=== PATIENT | female | born 2000 | race Asian ===

== ENCOUNTER 2020-12-29 11:57 | Outpatient (CLI) | payer OTHER ==
--- NOTE | 2020-12-29 15:41 | PROCEDURE REPORT ---
- HPI Diagnosis/Indication for NST: Other Current EDU 01/02/21 Gestation 39 Weeks and 3 Days 2 Para 0 - NST Procedure NST Procedure Start Date 12/29/20 Start Time 11:45 Stop Time 12:37 Vibroacoustic Stimulation Used No Patient States Movement Yes - Results and Plan Plan: Face to face visit Aurea presents to [facility] immediately following her routine office visit secondary to in office provider auscultating heart rate decelerations via bedside doppler. She denies vaginal bleeding, leakage of fluid or contractions. Reports +FM. Presents with her who is supportive. NST performed 12/29/2020 NST read 12/29/2020 FHR baseline 155, moderate variability, + accels, no decels Contractions palpate mild every 5-8 minutes with soft resting tone. Pt does not appreciate contractions although after visualizing strip she states she can now tell when they occur however did not know that is what she was experiencing. A/P: Reviewed heart rate tracing with pt and partner who both feel very reassured. Discussed positional changes as potential cause vs movement and auscultating maternal heart rate. Continue with routine care. Advised daily kick counts and reviewed movement recommendations. Pt released home with precautions. Pt verbalized understanding and agrees to above plan. She denies further questions or concerns at this time. FINAL DIAGNOSIS: Abnormal heart rate in , RESOLVED
== END 2020-12-29 12:38 | disposition home or self-care (01) ==
LOC: WFO 11:57 → FBP 11:59 → WFO 12:38
PROVIDERS: ATTEND Nurse Practitioner Obstetrics & Gynecology
DX: O36.8330 Maternal care for abnormalities of the fetal heart rate or rhythm, third trimester, not applicable or unspecified (principal); Z3A.39 39 weeks gestation of pregnancy
CPT/HCPCS: 59025

== ENCOUNTER 2021-01-07 16:55 | Inpatient (IN) | payer OTHER ==
[2021-01-07] MEDS ORDERED: METHYLERGONOVINE 0.2 MG/ML VIAL IM PRN (18:09)
[2021-01-07] MEDS ORDERED: CARBOPROST TROMETHAMINE 250 MCG/ML AMP IM PRN (18:09)
[2021-01-07] MEDS ORDERED: ONDANSETRON 4 MG/2 ML VIAL IVP PRN ×2 (18:09→23:44)
[2021-01-07] MEDS ORDERED: miSOPROStoL 200 MCG TABLET BC PRN (18:09)
[2021-01-07] MEDS ORDERED: SODIUM CHLORIDE FLUSH 0.9% 10 ML SYRINGE IVP PRN (18:09)
[2021-01-07] MEDS ORDERED: OXYTOCIN/SODIUM CHLORIDE 500 ML IV PRN (18:09)
[2021-01-07] MEDS ORDERED: OXYTOCIN 10 UNIT/ML VIAL IM PRN (18:09)
[2021-01-07] MEDS ORDERED: TRANEXAMIC ACID IN NACL 1,000 MG/100 ML BAG IV PRN (18:09)
[2021-01-07] MEDS ORDERED: LIDOCAINE-MPF 1% 30 ML VIAL ID PRN (18:09)
--- NOTE | 2021-01-07 18:14 | HISTORY & PHYSICAL EXAMINATION ---
Admit History - Visit Reason Visit Reason: Other - : 1 Parity: 0 Premature: 0 Ectopic: 0 : 0 Care: positive: [facility] Risk/History: positive: None Complications This : positive: None Smoking Status: Never smoker - Mother's Labs Mother's Blood Type: positive: O Mother's RH: positive: Positive GBS: positive: Group B Strep Positive Rubella Status: positive: Immune Meds/Allgy - Allergies Allergies/Adverse Reactions: Allergies Allergy/AdvReac Type Severity Reaction Status Date / Time No Known Drug Allergies Allergy Verified 05/16/20 12:42 Review of Systems - Constitutional Constitutional: denies: Fatigue, Fever, Chills, Malaise - Eyes Eyes: denies: Blurred vision, Spots in vision, Dipolpia - Cardiovascular Cariovascular: denies: Irregular heart rate, Palpitations, Chest pain, Edema - Respiratory Respiratory: denies: Cough, SOB at rest - Gastrointestinal Gastrointestinal: denies: Change in bowel habits, Nausea, Vomiting - Integumentary Integumentary: denies: Rash, Pruritis - Neurological Neurological: denies: Headache Physical - Abdominal Exam Vital Signs: Temp Pulse Resp BP Pulse Ox 36.8 C 104 H 20 123/74 01/07/21 17:12 01/07/21 17:12 01/07/21 17:12 01/07/21 17:12 Contraction Frequency (min/apart): 4-5 Contraction Intensity: positive: Mild Uterine Resting Tone: positive: Soft - Monitoring Heart Rate Baseline: 170 Strip Review: positive: Category II - Presentation Presentation: positive: Vertex - Vaginal Exam Membranes: positive: Membranes intact Dilation (in cm): 3-4 Effacement (%): 80 Station: positive: -2 Cervical Position: positive: Midposition - Speculum Exam Speculum Exam Performed: positive: No Plan for Labor - Plan For Labor I expect patient to be DC'd or transferred within 96 hours.: Yes Plan for Labor: HPI: Aurea is a 20yo @ 40.5wks gestation by LMP c/w 10.4 wk ultrasound who presents to [facility] for induction of labor secondary to approaching post-dates . She denies vaginal bleeding or leakage of fluid. Reports BH contractions but denies anything painful or consistent. She reports +FM. She denies questions or concerns today. She has been a patient of [facility] since her transfer of care from [facility] at 31wks gestation. She has received adequate care through the duration of her which has remained uncomplicated. She is noted to be GBS positive which was found in urine in course and she will receive IPAP in labor. She will be admitted to [facility] for induction of labor. She is supported by her David. Medications: PNV; Vitamin B6 PRN; Zofran PRN Allergies: NKDA OBHx: G1: 2020 SAB G2: Current PMHx: Depression Surgical Hx: none Social Hx: Never smoker, no ETOH or IVDA. 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 Performed by [facility]. O pos/Rubella immune VZV: non-immune - vaccinate Genetic testing: CF neg; Serum integrated screen negative FAS: 08/18/2020 WNL with the exception of suboptimal visualization of spine and RVOT. Anterior placenta, no previa. 3VC. Size c/w dating - mildly decreased HC/AC F/u - performed at [facility] 10/07/2020- wnl Glucola -96 Influenza: recieved at outside clinic this season TDAP 10/13/2020 GBS in urine - IPAP in labor HSV: denies in self and partner Breast pump Rx previously provided MOD: Anticipate ; David is Active Duty; Its a BOY! - [place]; desires epidural pp contraception: desires IUD- will ge to base pap: complete pp Physical Exam: Normocephalic, atraumatic Heart RRR w/o M/G/R Lungs CTAB Abdomen gravid, soft, nontender EFW 3700g FHR baseline 160, moderate variability, + accels, no decels - overall reassuring Contractions q 4-5 palpate mild with soft resting tone SVE 3-4/80/-2, midposition, soft. Vertex Bilateral LE's trace edema Mood is good Assessment: 20yo @ 40.5wks gestation by LMP c/w 10.4wk U/S Induction of labor GBS positive FHR Category II - tachycardia. Overall reassuring Plan: LR fluid bolus 250cc. Initiate pitocin for induction of labor with titration per protocol Initiate antibiotics for GBS prophylaxis per protocol Continuous monitoring Encouraged ambulation and position changes. Jacuzzi PRN. Nitrous oxide PRN. Epidural per maternal request. Anticipate . Pt verbalized understanding and agrees to above plan. She denies further questions or concerns at this time.
[2021-01-07 18:16] LABS: BASOPHILS % (AUTO) 0.3 %; EOSINOPHILS % (AUTO) 0.2 %; HCT - HEMATOCRIT 36.7 % (37.0-47.0); HGB - HEMOGLOBIN 12.5 g/dL (12.0-16.0); LYMPHOCYTES # (AUTO) 1.5 10^3/uL (1.5-3.5); MEAN CORPUSCULAR HEMOGLOBIN 31.9 pg (27.0-31.0); MEAN CORPUSCULAR HGB CONC 34.1 g/dL (32.0-36.0); MEAN CORPUSCULAR VOLUME 93.6 fL (81.0-99.0); MEAN PLATELET VOLUME 10.9 fL (7.9-10.8); MONOCYTES # (AUTO) 0.8 10^3/uL (0.0-1.0); MONOCYTES % (AUTO) 6.9 %; NEUTROPHILS # (AUTO) 9.3 10^3/uL (1.5-6.6); NEUTROPHILS % (AUTO) 78.5 %; NRBC ABSOLUTE COUNT (AUTO) 0.02 x10^3/uL; NUCLEATED RED BLOOD CELLS AUTO 0.2 /100WBC; PLT - PLATELET COUNT 213 10^3/uL (130-450); RED BLOOD COUNT 3.92 10^6/uL (4.20-5.40); RED CELL DISTRIBUTION WIDTH 15.9 % (12.0-15.0); WHITE BLOOD COUNT 11.8 x10^3/uL (4.8-10.8)
[2021-01-07] MEDS: LACTATED RINGERS 1,000 ML IV SCH (18:17)
[2021-01-07] MEDS ORDERED: AMPICILLIN 2 GM in SODIUM CHLORIDE 0.9% MINIBAG 100 ML IV ONE (18:20)
[2021-01-07] MEDS ORDERED: OXYTOCIN/SODIUM CHLORIDE 500 ML IV SCH (19:00)
[2021-01-07] MEDS: AMPICILLIN 1 GM in SODIUM CHLORIDE 0.9% MINIBAG 100 ML IV SCH (22:47)
--- NOTE | 2021-01-07 22:48 | PROVIDER PROGRESS NOTE ---
Labor Progress Note - Uterine Monitoring Uterine Monitoring Mode: positive: External toco Contraction Frequency (min/apart): 2-3 Contraction Intensity: positive: Moderate Uterine Resting Tone: positive: Soft - Monitoring Monitor Mode: positive: External ultrasound Heart Rate Baseline: 140 Heart Rate Variability: positive: Moderate (6-25 bmp) Accelerations: positive: Present, 15x15 Decelerations: positive: None Strip Review: positive: Category I - Vaginal Exam Dilation (in cm): 4 Effacement (%): 90 Station: -1 Cervical Position: Midposition - Labor Progress Note Labor Progress Note/Additional Text: S: Eyes closed and breathing through contractions. She appears to be coping well but states she is definitely ready for an epidural. She rates the pain 5/10 on a pain scale. She desires to have her water broken if safe. Her is supportive at the bedside. O: FHR baseline 140s, moderate variability, + accels, no decels Contractions palpate moderate every 2-3 minutes with soft resting tone. SVE 4/90/-1, midposition, soft. Vertex. AROM small amount of clear fluid. S/p 2g Ampicillin IV. Just beginning 1g Ampicillin per protocol. Pitocin IOL at current rate of 7mU/mL. A: 20yo @ 40.5wks gestation by 10.5wk U/S Early labor - IOL GBS positive - s/p loading dose of ampicillin FHR Category I P: Continue pitocin for IOL with titration per protocol. Continue ampicillin for GBS prophylaxis per protocol. Continuous monitoring. Anesthesia notified to place epidural per maternal request. Encouraged position changes in bed once comfortable with epidural. Anticipate . Pt and partner at the bedside verbalized understanding and agree to above plan. They deny further questions or concerns at this time.
[2021-01-07] MEDS ORDERED: ROPIVACAINE 0.2% 200 MG/100 ML BAG EP ONE (23:13)
[2021-01-07] MEDS ORDERED: ePHEDrine 50 MG/ML VIAL IVP PRN (23:44)
[2021-01-07] MEDS ORDERED: diphenhydrAMINE INJ 50 MG/ML VIAL IVP PRN (23:44)
[2021-01-07] MEDS ORDERED: METOCLOPRAMIDE 10 MG/2 ML VIAL IVP PRN (23:44)
[2021-01-07] MEDS ORDERED: NALBUPHINE 10 MG/ML AMP IVP PRN (23:44)
[2021-01-07] MEDS ORDERED: NALOXONE 0.4 MG/ML VIAL IVP PRN (23:44)
[2021-01-07] MEDS ORDERED: ROPIVACAINE 0.2% 200 MG/100 ML BAG EP PRN (23:44)
--- NOTE | 2021-01-07 23:47 | ANESTHESIA ---
Pre-Anesthesia VS, & Labs - Diagnosis term labor, IUP - Procedure epidural for Vital Signs: Temp Pulse Resp BP Pulse Ox 36.8 C 104 H 20 123/74 01/07/21 17:12 01/07/21 17:12 01/07/21 17:12 01/07/21 17:12 Height: 5 ft 1 in Weight (kg): 64.864 kg Body Mass Index: 27.0 BMI Classification: Overweight - NPO Last Fluid Intake: t/o night Last Food Intake: full dinner - Is Patient ?: Yes - Lab Results Current Lab Results: Laboratory Tests 01/07/21 17:25: WBC 11.8 H, RBC 3.92 L, Hgb 12.5, Hct 36.7 L, MCV 93.6, MCH 31.9 H, MCHC 34.1, RDW 15.9 H, Plt Count 213, MPV 10.9 H, Neut # (Auto) 9.3 H, Lymph # (Auto) 1.5, [place] # (Auto) 0.8, Eos # (Auto) 0.0, Baso # (Auto) 0.0, Absolute Nucleated RBC 0.02, Nucleated RBC % 0.2 01/07/21 17:25: Blood Type O POSITIVE, Antibody Screen NEGATIVE Lab results reviewed: Yes Fish Bones: 01/07/21 17:25 Home Medications and Allergies Active Medications Carboprost Tromethamine (Carboprost Tromethamine 250 Mcg/Ml Amp) 250 mcg IM Q15M PRN PRN Reason: Step 4: Hemorrhage protocol Stop: 01/12/21 18:09 Oxytocin/Sodium Chloride (Pitocin/Sodium Chloride) 500 mls @ 999 mls/hr IV PRN PRN; Protocol PRN Reason: POST- HEMORR PREVENTION Stop: 01/12/21 18:09 Tranexamic Acid (Tranexamic 1,000 Mg/100ml-Nacl) 1,000 mg in 100 mls @ 600 mls/hr IV .ONCE PRN PRN Reason: EBL >1200mL and within 3hr Stop: 01/12/21 18:09 Oxytocin/Sodium Chloride (Pitocin/Sodium Chloride) 500 mls @ 1 mls/hr IV TITR KEVON; Protocol Last Admin: 01/07/21 18:41 Dose: 1 milliunit/min, 1 mls/hr Documented by: Lactated Ringer's (Lr) 1,000 mls @ 100 mls/hr IV .Q10H [facility] Last Admin: 01/07/21 18:17 Dose: 100 mls/hr Documented by: Ampicillin Sodium 1 gm/ Sodium (Chloride) 100 mls @ 200 mls/hr IV Q4H [facility] Last Admin: 01/07/21 22:47 Dose: 200 mls/hr Documented by: Lidocaine HCl (Lidocaine-Mpf 1% 30 Ml Vial) 30 ml ID .ONCE PRN PRN Reason: PERINEAL REPAIR Stop: 01/12/21 18:09 Methylergonovine Maleate (Methylergonovine 0.2 Mg/Ml Vial) 0.2 mg IM .ONCE PRN PRN Reason: Step 2: Hemorrhage protocol Stop: 01/12/21 18:09 Misoprostol (Misoprostol 200 Mcg Tablet) 800 mcg BC .ONCE PRN PRN Reason: Step 3: Hemorrhage protocol Stop: 01/12/21 18:09 Ondansetron HCl (Ondansetron 4 Mg/2 Ml Vial) 4 mg IVP Q4HR PRN PRN Reason: Nausea / Vomiting Oxytocin (Oxytocin 10 Unit/Ml Vial) 10 unit IM .ONCE PRN PRN Reason: Step one: If no IV access Stop: 01/12/21 18:09 Sodium Chloride (Sodium Chloride Flush 0.9% 10 Ml Syringe) 10 ml IVP 0 100,0900,1700 [facility] Sodium Chloride (Sodium Chloride Flush 0.9% 10 Ml Syringe) 10 ml IVP PRN PRN PRN Reason: NEEDED PER PROVIDER ORDERS Allergies/Adverse Reactions: Allergies Allergy/AdvReac Type Severity Reaction Status Date / Time No Known Drug Allergies Allergy Verified 05/16/20 12:42 Anes History & Medical History - Anesthetic History Anesthesia Complications: reports: No previous complications Family history of Anesthesia Complications: Denies Family history of Malignant Hyperthermia: Denies - Medical History Cardiovascular: reports: None Pulmonary: reports: None Gastrointestinal: reports: None Urinary: reports: None Neuro: reports: None Musculoskeletal: reports: None Endocrine/Autoimmune: reports: None Blood Disorders: reports: None Skin: reports: None Smoking Status: Never smoker Psychosocial: reports: No issues indicated History of Cancer?: No - Obstetrical History : 1 Parity: 0 Events: positive: None Complications: positive: None Exam General: Alert, Oriented x3, Cooperative Dental: WNL Mouth Openin Fingerbreadth Neck Mobility: Normal Mallampati classification: II Thyromental Distance: 4-6 cm Respiratory: No respiratory distress Cardiovascular: Regular rate (tachy t/o induction) Neurological: Normal speech Mental/Cognitive Status: Alert/Oriented X3, Normal for patient Cognitive Status: Within normal limits Plan Anesthesia Type: Epidural Consent for Procedure(s) Verified and Reviewed: Yes Code Status: Attempt Resuscitation ASA classification: 2-Mild systemic disease Is this case an emergency?: No
[2021-01-08] MEDS: LACTATED RINGERS 1,000 ML IV SCH (00:11)
[2021-01-08] MEDS ORDERED: SODIUM CHLORIDE FLUSH 0.9% 10 ML SYRINGE IVP SCH (01:00)
[2021-01-08] MEDS: AMPICILLIN 1 GM in SODIUM CHLORIDE 0.9% MINIBAG 100 ML IV SCH (02:48)
[2021-01-08] MEDS ORDERED: WITCH HAZEL/GLYCERIN 1 PAD TOP PRN (06:23)
[2021-01-08] MEDS ORDERED: HYDROCORTISONE 1% CREAM 28 GM TUBE PR PRN (06:23)
--- NOTE | 2021-01-08 06:36 | DELIVERY NOTE ---
Delivery Note - Labor Labor: positive: Augmented by ARM, Induced by oxytocin - Delivery Method Infant Delivery Method: positive: Spontaneous vaginal delivery - Presentation Presentation: positive: Vertex, JOSHUA - right occiput anterior - Nuchal Cord Nuchal Cord: positive: None - Amniotic Fluid Description Amniotic Fluid Description: positive: Clear - Episiotomy Type Episiotomy Type: positive: None - Laceration Laceration: positive: 1st degree, Vaginal - Suture Suture Type: positive: Vicryl Suture Size: positive: 2-0 - Delivery Outcome Delivery Outcome: positive: Livebirth - Coffey Coffey: positive: Placed in direct skin contact with mother, Stimulated, Warmed, Sumner used sex: positive: Male - Cord Cord: positive: 3 vessels - Placenta Placenta: positive: Intact, Spontaneous - Estimated Blood Loss Estimated Blood Loss (in cc): 250 - Post Delivery Events Post Delivery Events: positive: No post delivery events - Delivery Comments (Free Text/Narrative) Delivery Comments (Free Text/Narrative): Labor: This 20yo @ 40.6 wks gestation by LMP c/w 10.5wk U/S presented on 01/07/2021 for induction of labor secondary to approaching postdates . Upon arrival cervix was 3-4/80/-2 and vertex. FHR was noted to be tachycardic. She was given a 250cc bolus of LR which resolved tachycardia. FHR pattern demonstrated Category I pattern for the remainder of her first stage of labor. Pitocin initiated for induction of labor for a maximum infusion rate of 10mU/mL. Patient received 3 total doses of Ampicillin for adequate GBS prophylaxis. AROM occurred at 2240 and was noted to be a small amount of clear fluid. Epidural placed per maternal request. Epidural placed per maternal request. Pt progressed to c/c/+2 at 0440 with onset of pushing at 0500. : Normal of viable male on 01/08/2021 at 0553. No nuchal cord. The was placed on maternal abdomen, stimulated, dried, and placed skin to skin. 's were 8/9 at 1 and 5 minutes respectively. Pitocin administered via IV for hemostasis. The umbilical cord was allowed to stop pulsating at which time it was doubly clamped by CNM and cut by FOB. 3VC. Cord blood was obtained. Fundal massage and gentle cord traction applied for active management of the third stage. Placenta delivered spontaneously and intact at 0558. EBL 250mL. Fourth stage: Uterine fundus firm and there is no excessive bleeding. The perineum, vagina, and cervix were inspected and noted to have a 2nd degree vaginal and a 1st degree perineal laceration which were repaired using a 2-[address]-1 needle in standard fashion and under sterile conditions. Vaginal examination following repair was completed. Tissues well approximated. initiated. Family bonding well. Both mother and baby were left in stable condition.
[2021-01-08] MEDS ORDERED: LACTATED RINGERS 1,000 ML IV SCH (07:00)
[2021-01-08] MEDS: ACETAMINOPHEN 500 MG TABLET PO SCH ×2 (07:45→17:26)
[2021-01-08] MEDS: IBUPROFEN 800 MG TABLET PO SCH ×3 (07:45→21:25)
[2021-01-08] MEDS: DOCUSATE SODIUM 100 MG CAPSULE PO SCH ×2 (11:32→21:25)
[2021-01-09] MEDS: ACETAMINOPHEN 500 MG TABLET PO SCH ×3 (01:16→18:23)
[2021-01-09] MEDS: IBUPROFEN 800 MG TABLET PO SCH ×3 (05:49→18:23)
--- NOTE | 2021-01-09 09:12 | PROVIDER PROGRESS NOTE ---
Subjective - Subjective Subjective: S: Bonding well with baby. without difficulty per pt however nursing staff reports the baby is not getting latched appropriately. Weight loss is 5%. They strongly desire to be discharged home today. She reports her pain is well controlled with oral medication. Her bleeding is decreased and is light. Her partner is supportive at the bedside. O: BP, 109/71, HR 102, T 36.7 Heart RRR w/o M/G/R, lungs CTAB, abdomen soft and nontender with fundus firm at U. Perineum intact, light lochia rubra. Bilateral LE's no edema. A: 20yo -->P1 PPD#1 s/p TSVD of viable male infant 2nd degree perineal laceration - intact P: Reviewed warning s/sx and when to present. Full discharge teaching completed. Will discharge home today if peds feels it is appropriate however if stays, will hold discharge. Work on with nursing staff today. F/u at [facility] in 1 week or sooner PRN. Pt verbalized understanding and agrees to above plan. She denies further questions or concerns at this time. Objective - Vital Signs/Intake & Output Vital Signs: Vital Signs x48h Temp Pulse Resp BP Pulse Ox 01/09/21 08:39 36.9 C 102 H 17 109/71 01/09/21 05:55 36.5 C 76 16 101/59 L 100 01/09/21 01:09 36.6 C 81 18 102/64 100 Intake & Output: Intake & Output 01/06/21 01/07/21 01/08/21 01/09/21 23:59 23:59 23:59 23:59 Intake Total 100 1790 Output Total 550 850 Balance -450 940 - Lab Results Fish Bones: 01/07/21 17:25
[2021-01-09] MEDS: DOCUSATE SODIUM 100 MG CAPSULE PO SCH (09:47)
[2021-01-10] MEDS: IBUPROFEN 800 MG TABLET PO SCH ×2 (00:26→11:15)
[2021-01-10] MEDS: DOCUSATE SODIUM 100 MG CAPSULE PO SCH ×2 (00:44→11:16)
[2021-01-10] MEDS: ACETAMINOPHEN 500 MG TABLET PO SCH (04:21)
[2021-01-10 09:59] VITALS: BP 123/78
--- NOTE | 2021-01-10 10:45 | PROVIDER PROGRESS NOTE ---
Subjective - Subjective Subjective: FINAL PROGRESS NOTE: S: Bonding well with baby. without difficulty. Pain well controlled with oral medications. Bleeding decreased and is light. They are very ready to be discharged home today. supportive at the bedside. O: Heart RRR w/o M/G/R, lungs CTAB, abdomen soft and nontender with fundus firm at U-1, light lochia rubra, bilateral LE"s no edema. A: 20yo -->P1 PPD#2 s/p TSVD of viable male 2nd degree perineal laceration intact P: Reviewed pp self care and warning s/sx and when to present. Continue PNV while . Advised continuation of ibuprofen and tylenol OTC PRN pain. F/u in 1 week at [facility] or sooner PRN. Pt verbalized understanding and agrees to above plan. She denies further questions or concerns at this time. Objective - Vital Signs/Intake & Output Vital Signs: Vital Signs x48h Temp Pulse Resp BP Pulse Ox 01/10/21 08:00 36.8 C 98 18 123/78 100 01/10/21 04:44 36.6 C 76 16 126/80 100 Intake & Output: Intake & Output 01/07/21 01/08/21 01/09/21 01/10/21 23:59 23:59 23:59 23:59 Intake Total 100 1790 Output Total 550 850 Balance -450 940 - Lab Results Fish Bones: 01/07/21 17:25 Other Labs: Lab Results x24hrs 01/07/21 Range/Units 17:35 Coronavirus (PCR) NEGATIVE
--- NOTE | 2021-01-10 10:46 | Discharge Plan ---
Discharge Plan Problem Reviewed?: Yes Disposition: Home, Self Care Condition: Good Diet: Regular Activity Restrictions: No Restrictions Shower Restrictions: No Driving Restrictions: No Weight Bearing: Full Weight No Smoking: If you smoke, Please STOP! Call for help. Follow-up with: Adali Jenkins CNM, ARNP [Provider Admit Priv/Credential] -
--- NOTE | 2021-01-10 14:00 | Labor Flowsheet ---
Labor Flowsheet Datetime Report Generated by CPN: 01/10/2021 14:00 Datetime: 01/10/2021 07:54 VITAL SIGNS NBP Sys/Shelby/Mean (mmHg): 123 : 78 : 88 Pulse: 98 SpO2 (%): 100 Datetime: 01/08/2021 08:00 Stage of : Recovery Datetime: 01/08/2021 06:45 PAIN Pain Scale: 2 Pain Presence: Constant Pain Type: Cramping Pain Location: Other Pain Goal: 2 Pain Relief Measures: Comfort Measures Pain Assessment Comments: analgesics ordered Datetime: 01/08/2021 06:01 Temperature (C): 37.5 Temperature Route: Tympanic Datetime: 01/08/2021 06:00 LaborFlag: Labor Datetime: 01/08/2021 05:43 Respirations: 22 UTERINE ACTIVITY Monitor Mode: External Frequency (min): 2 Quality: Strong Duration (sec): 40 Pattern: Normal: <= 5 Contractions in 10 Minutes Resting Tone (Palpate): Relaxed Pitocin Checklist: At Least 1 Acceleration of 15 bpm x 15 Seconds in 30 Minutes or Adequate Variabi lity; No More than 5 Uterine Contractions in 10 Minutes for any 20 Minute Interval; Uterus Palpates S oft between Contractions ASSESSMENT A Monitor Mode: External US FHR Baseline Rate : 160 Variability: Moderate 6-25 bpm Accelerations: 15X15 Decelerations: Variable Category: Category II Datetime: 01/08/2021 05:37 MEDICATIONS Pitocin (milliunits): Increased to @ Medication Comments: pitocin increased to 10mu Datetime: 01/08/2021 05:21 Pushing Position: Pushing with Contractions Pushing Progress: Descent with Pushing Datetime: 01/08/2021 05:08 STAGE 2 Pushing: Coached on Pushing Datetime: 01/08/2021 04:40 VAGINAL EXAM Dilatation (cm): 10.0 Effacement (%): 100 Station: 2 Exam by: LissethWilcox RN Datetime: 01/08/2021 03:58 ANESTHESIA Anesthesia Plans: Epidural Anesthesia Level Check: T8- Ribs Datetime: 01/08/2021 03:49 Membrane Status: Ruptured Vaginal Bleeding: Scant Cervix, Consistency: Soft Cervix, Position: Midposition Lie 'A': Longitudinal Vaginal Exam Comments: Small rim R side of cervix. Pt repositioned PATIENT CARE Patient Position/Activity: Left Lateral Datetime: 01/08/2021 02:00 I/O Interventions: Ortiz Cath Inserted Datetime: 01/07/2021 23:40 Membranes Ruptured Date/Time: 01/08/2021 22:40 Membranes Rupture Method: Artificial Amniotic Fluid Color: Clear Amniotic Fluid Amount: Small Amniotic Fluid Odor: Normal PROCEDURE TIME OUT Procedure Verify: Correct Patient Identity; Correct Side and Site are Marked; Accurate Procedure Co nsent Form; Agreement on Procedure to be Done; Correct Patient Position Datetime: 01/07/2021 23:24 Epidural Positioning: Sitting Epidural Procedure: Loading Dose Datetime: 01/07/2021 23:02 Anesthesia Interview: E Datetime: 01/07/2021 20:30 FHR Baseline Changes: No Baseline Change Datetime: 01/07/2021 19:00 COMMUNICATION Communication: Report Given to count includes the [facility]
--- NOTE | 2021-01-10 20:45 | DISCHARGE SUMMARY ---
Physician: KASEY Drummond DATE OF ADMISSION: 01/07/2021 DATE OF DISCHARGE: 01/10/2021 DIAGNOSES ON ADMISSION 1. A 20-year-old, G1, P0 at 40.5 weeks gestation. 2. Induction of labor. 3. Group B Streptococcus positive. 4. heart rate category 2 secondary to tachycardia, however, overall reassuring. DIAGNOSES ON DISCHARGE 1. A 20-year-old, G1, P1-0-0-1, status post spontaneous vaginal delivery on 01/08/2021. 2. . 3. Normal recovery. HISTORY OF PRESENT ILLNESS: She is a patient of [facility], who presented on 2020 for induction of labor secondary to approaching postdates . Upon arrival, cervix was 3 -4 cm dilated, 80% effaced, -1 station, vertex position. heart rate was noted to be tachycardi c. She was given a 250 mL fluid bolus, which resolved tachycardia. Pitocin initiated for dede ction of labor for a maximum infusion rate of 10 milliunits per mL. Patient received 3 total doses o f ampicillin for adequate GBS prophylaxis. Artificial rupture of membranes occurred at 2240 and was noted to be a small amount of clear fluid. Epidural was placed per maternal request. The patient pr ogressed to spontaneously deliver a viable male infant on 01/08/2021 at 0553. Apgars were 8 and 9 at 1 and 5 minutes respectively. EBL 250 mL. Patient was noted to have a second-degree laceration, wh ich was repaired using a 2-0 Vicryl on a CT1 needle in standard fashion under sterile conditions. She has been doing well in her course. She is ambulating and tolerating a regular diet. She is urinating without difficulty and her lochia is normal. Her pain is well controlled with oral medications. She will be discharged home today on day #1 with instructions to continue ta gabriel her vitamin while and to continue taking ibuprofen and Tylenol over-the-c ounter as needed for pain management. She intends to followup with myself at [facility] in 1 week for routine visit or sooner if needed. She has been given precautions to c all if she has any worsening fevers, chills, abdominal pain, increased bleeding or foul-smelling vagi nal lochia. TD: 01/10/2021 10:51
== END 2021-01-10 13:00 | disposition home or self-care (01) | DRG 807 ==
LOC: WFO 16:55 → FBP 16:56 → WFO 18:09 → FBP 18:09
PROVIDERS: ADMIT Nurse Practitioner Obstetrics & Gynecology; ATTEND Nurse Practitioner Obstetrics & Gynecology
PROC: 3E033VJ Introduction of Other Hormone into Peripheral Vein, Percutaneous Approach (ICD-10-PCS; principal; 2021-01-07)
PROC: 10907ZC Drainage of Amniotic Fluid, Therapeutic from Products of Conception, Via Natural or Artificial Opening (ICD-10-PCS; 2021-01-07)
PROC: 10E0XZZ Delivery of Products of Conception, External Approach (ICD-10-PCS; 2021-01-08)
PROC: 0KQM0ZZ Repair Perineum Muscle, Open Approach (ICD-10-PCS; 2021-01-08)
DX: O70.1 Second degree perineal laceration during delivery (principal); Z37.0 Single live birth; O99.824 Streptococcus B carrier state complicating childbirth; Z3A.40 40 weeks gestation of pregnancy; O76 Abnormality in fetal heart rate and rhythm complicating labor and delivery
CPT/HCPCS: 36415; 85025; 86850; 86900; 86901; 87635; A9270; J7120

== ENCOUNTER 2021-01-19 11:56 | Outpatient (CLI) | payer OTHER | END 2021-01-19 12:45 | disposition home or self-care (01) | LOC: WFO 11:56 → FBP 12:00 → WFO 12:45 | PROVIDERS: ATTEND Nurse Practitioner Obstetrics & Gynecology | DX: Z39.1 Encounter for care and examination of lactating mother (principal) | CPT/HCPCS: 99403 ==

== ENCOUNTER 2021-06-10 20:02 | Emergency (ER) | payer OTHER ==
[2021-06-10] MEDS ORDERED: IBUPROFEN 600 MG TABLET PO STA (20:22)
[2021-06-10] MEDS ORDERED: SODIUM CHLORIDE 0.9% 1,000 ML IV STA ×2 (21:54→21:55)
[2021-06-10] MEDS ORDERED: ONDANSETRON 4 MG/2 ML VIAL IVP STA (21:55)
--- NOTE | 2021-06-10 22:02 | XRAY Report ---
PROCEDURE: Chest 1 View X-Ray INDICATIONS: fever chills TECHNIQUE: One view of the chest was acquired. COMPARISON: None FINDINGS: Surgical changes and devices: None. Lungs and pleura: No pleural effusions or pneumothorax. Lungs are clear. Mediastinum: Mediastinal contours appear normal. Heart size is normal. Bones and chest wall: No suspicious bony lesions. Overlying soft tissues appear unremarkable. IMPRESSION: No acute cardiopulmonary disease. Reviewed by: Naomie Garcia MD on 06/10/2021 10:00 PM PDT Approved by: Naomie Garcia MD on 06/10/2021 10:00 PM PDT Station ID: [id number]
--- NOTE | 2021-06-10 22:08 | ED Physician Documentation ---
History of Present Illness - Stated complaint Stated Complaint: FEVER/VOMIT/CHILLS/HEADACHE POST COVID SHOT - Chief complaint Chief Complaint: Fever - Additonal information Additional information: 20-year-old female presents emergency department for evaluation of fatigue, myalgias fever nausea and vomiting that began on after her second COVID-19 vaccination yesterday. She denies any diarrhea however she has been feeling somewhat lightheaded and dizzy. She is currently breast-feeding a 5-month-old. She did have fever chills and myalgias with her first COVID-19 vaccination but not as severe as today's events. She denies any pertinent past medical history and is taking no medications. Denies any chest pain or shortness of air. No cough. Review of Systems Constitutional: reports: Fever, Chills, Myalgias, Fatigue Eyes: reports: Reviewed and negative Ears: reports: Reviewed and negative Nose: reports: Reviewed and negative Throat: reports: Reviewed and negative Cardiac: reports: Reviewed and negative Respiratory: reports: Reviewed and negative GI: reports: Nausea, Vomiting. 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 - Past Surgical History Past Surgical History: No - Present Medications Home Medications: Ambulatory Orders Medication Instructions Recorded Confirmed Ondansetron Odt [Zofran] 4 mg TL Q6H PRN #10 tablet 06/10/21 - Allergies Allergies/Adverse Reactions: Allergies Allergy/AdvReac Type Severity Reaction Status Date / Time No Known Drug Allergies Allergy Verified 05/16/20 12:42 - Social History Does the pt smoke?: No Smoking Status: Never smoker Does the pt drink ETOH?: No Does the pt have substance abuse?: No - Immunizations Immunizations are current?: No - POLST Patient has POLST: No PD ED PE EXPANDED - General General: Alert, No acute distress, Well developed/nourished - Neck Neck: Supple w/out meningeal sx. No: Adenopathy - Cardiac Cardiac: Tachy, Radial strong equal, Pedal strong equal - Respiratory Respiratory: Clear to ausultation evelyn. No: Distress, Labored - Abdomen Abdomen: Normal Bowel sounds. No: Tender to palpation, Rebound, Guarding - Derm Derm: Normal color, Warm and dry Results - Vitals Vitals: Vital Signs - 24 hr 06/10/21 06/10/21 20:16 21:33 Temperature 38.2 C H 38.1 C H Heart Rate 135 H 131 H Respiratory 16 16 Rate Blood Pressure 119/81 H 93/78 O2 Saturation 100 96 Oxygen O2 Source Room air PD MEDICAL DECISION MAKING - ED course Complexity details: d/w patient ED course: This is a very well-appearing 20-year-old female who presents emergency department for evaluation of fever, fatigue myalgias chills and vomiting that began after receiving her second COVID-19 vaccination. She presents febrile and with some tachycardia. She was initially given ibuprofen but remained febrile and tachycardic. She felt that she reported somewhat faint. Patient was given 2 L of crystalloid as well as IV Zofran. Her abdominal exam is entirely unremarkable. No pain was elicited. At this time I do not feel that she would benefit from labs as I suspect that her symptoms are consistent with a post vaccine reaction. Patient will be signed out to my colleague Dr. Montes De Oca to follow-up after she receives the IV fluids. I expect that she will be disposed home and a prescription will be levied for Zofran. If symptoms not markedly improved at that time we can consider further testing. Departure - Departure Clinical Impression: Vomiting Qualifiers: Vomiting type: unspecified Vomiting Intractability: non-intractable Nausea presence: with nausea Qualified Code(s): R11.2 - Nausea with vomiting, unspecified Fever Qualifiers: Fever type: post-vaccination Qualified Code(s): R50.83 - Postvaccination fever Post-vaccination reaction Qualifiers: Encounter type: initial encounter Qualified Code(s): T88.1XXA - Other complications following immunization, not elsewhere classified, initial encounter Condition: Stable Record reviewed to determine appropriate education?: Yes Prescriptions: Ondansetron Odt [Zofran] 4 mg TL Q6H PRN #10 tablet PRN Reason: Nausea / Vomiting Comments: You were seen in the emergency department today for fevers, rigors chills and vomiting after your second COVID-19 vaccine. Your symptoms are very typical of people who have received this vaccine but it is a good sign that your immune system is doing its job. We did give you 2 L of IV fluids here in the emergency department as well as some nausea medicine. I am prescribing some Zofran to help with nausea at home. I would expect your symptoms to be getting better over the next 48 to 72 hours. If you are not improving, you have difficulty breathing any fainting episodes, sudden severe abdominal pain, chest pain or shortness of air then please return to the ER for a second evaluation. It is safe to breast-feed while taking Zofran.
[2021-06-10] MEDS ORDERED: ONDANSETRON ODT 4 MG Prepack 2 TL PRN (23:49)
[2021-06-10 23:56] VITALS: BP 99/66
== END 2021-06-10 23:59 | disposition home or self-care (01) ==
LOC: ED 20:02
DX: R50.83 Postvaccination fever (principal); R11.2 Nausea with vomiting, unspecified; R42 Dizziness and giddiness; R00.0 Tachycardia, unspecified; T50.B95A Adverse effect of other viral vaccines, initial encounter
CPT/HCPCS: 71045; 96361; 96374; 99283; A9270

== ENCOUNTER 2022-09-09 15:06 | Outpatient (CLI) | payer OTHER ==
[2022-09-09] MEDS ORDERED: ONDANSETRON 4 MG/2 ML VIAL IVP PRN (15:44)
[2022-09-09] MEDS ORDERED: ACETAMINOPHEN 325 MG TABLET PO PRN (15:46)
[2022-09-09] MEDS ORDERED: ACETAMINOPHEN 1,000 MG/100 ML 1,000 MG/100 ML BAG IV ONE (15:53)
[2022-09-09] MEDS ORDERED: LACTATED RINGERS 0 ML ONE (15:57)
[2022-09-09] MEDS ORDERED: SODIUM CHLORIDE 0.9% 500 ML IV ONE (15:58)
[2022-09-09 16:56] LABS: BASOPHILS # (AUTO) 0.1 10^3/uL (0.0-0.1); BASOPHILS % (AUTO) 0.3 %; EOSINOPHILS % (AUTO) 0.3 %; HGB - HEMOGLOBIN 10.6 g/dL (12.0-16.0); LYMPHOCYTES # (AUTO) 0.3 10^3/uL (1.5-3.5); MEAN CORPUSCULAR HEMOGLOBIN 30.4 pg (27.0-31.0); MEAN CORPUSCULAR HGB CONC 33.1 g/dL (32.0-36.0); MEAN CORPUSCULAR VOLUME 91.7 fL (81.0-99.0); MEAN PLATELET VOLUME 10.9 fL (7.9-10.8); MONOCYTES # (AUTO) 0.9 10^3/uL (0.0-1.0); NEUTROPHILS # (AUTO) 13.2 10^3/uL (1.5-6.6); NEUTROPHILS % (AUTO) 89.2 %; NRBC ABSOLUTE COUNT (AUTO) 0.02 x10^3/uL; NUCLEATED RED BLOOD CELLS AUTO 0.1 /100WBC; PLT - PLATELET COUNT 187 10^3/uL (130-450); RED BLOOD COUNT 3.49 10^6/uL (4.20-5.40); RED CELL DISTRIBUTION WIDTH 14.6 % (12.0-15.0); WHITE BLOOD COUNT 14.8 x10^3/uL (4.8-10.8)
[2022-09-09] MEDS ORDERED: MULTIVITAMIN 10 ML, THIAMINE INJ 100 MG, POTASSIUM CHLORIDE INJ 20 MEQ, FOLIC ACID INJ ... IV SCH ×5 (17:00)
[2022-09-09 17:16] LABS: ALBUMIN 3.1 g/dL (3.2-5.5); ALBUMIN/GLOBULIN RATIO 0.9 (1.0-2.2); ALKALINE PHOSPHATASE 75 IU/L (42-121); ALT ALANINE AMINOTRANSFERASE < 10 IU/L (10-60); AST ASPARTATE AMINOTRANSFERASE 20 IU/L (10-42); BILIRUBIN,TOTAL 0.9 mg/dL (0.2-1.0); BUN - BLOOD UREA NITROGEN < 5 mg/dL (6-20); CALCIUM 8.5 mg/dL (8.5-10.3); CARBON DIOXIDE - CO2 20 mmol/L (21-32); CHLORIDE 102 mmol/L (101-111); CREATININE 0.4 mg/dL (0.4-1.0); GFR - MDRD 200 (>89); GLUCOSE 97 mg/dL (70-100); POTASSIUM 2.9 mmol/L (3.5-5.0); SODIUM 133 mmol/L (135-145); TOTAL PROTEIN 6.5 g/dL (6.7-8.2)
--- NOTE | 2022-09-09 18:40 | PROCEDURE REPORT ---
- HPI Diagnosis/Indication for NST: Other (COVID) Vital Signs Temperature 102.2 F H 09/09/22 15:17 Heart Rate 145 H 09/09/22 15:17 Respiratory Rate 20 09/09/22 15:17 Blood Pressure 120/75 09/09/22 15:17 Temperature 100.6 F H 09/09/22 16:48 Heart Rate 133 H 09/09/22 16:48 Respiratory Rate 20 09/09/22 16:48 Blood Pressure 120/75 09/09/22 15:24 O2 Saturation 95 09/09/22 16:48 If not protocol: Oxygen Flow, liters/minute - NST Procedure NST Procedure Start Time 12:00 Stop Time 12:45 Baseline 160, moderate variability, +accels reactive NST 33+3 weeks - Results and Plan Findings/Impression: Reactive NST
--- NOTE | 2022-09-09 18:43 | PROVIDER PROGRESS NOTE ---
- HPI Chief Complaint: Other (COVID. Patient is at 33+3 weeks presenting with COVID, tested positive last night. She is experiencing fever, nausea, body aches and generalized malaise. She denies shortness of breath, coughing. Positive fetalm movement. Denies contractions, vaginal bleeding, leakageo fluid.) Current : Vital Signs Temperature 102.2 F H 09/09/22 15:17 Heart Rate 145 H 09/09/22 15:17 Respiratory Rate 20 09/09/22 15:17 Blood Pressure 120/75 09/09/22 15:17 Temperature 100.6 F H 09/09/22 16:48 Heart Rate 133 H 09/09/22 16:48 Respiratory Rate 20 09/09/22 16:48 Blood Pressure 120/75 09/09/22 15:24 O2 Saturation 95 09/09/22 16:48 If not protocol: Oxygen Flow, liters/minute - Exam Gen: NAD Pulm: CTA bilaterally Cardiac: tachycardic, normal S1, S2 Abdomen: gravid, non-tender Ext: no peripheral edema FHT: tachycardic, baseline decreased to 160 after IV tylenol moderate variability, reactive U/S: BPP 8/8 MPV 3.7 cm normal S/D ratios Vertex - Procedures OB Procedure Performed: NST Diagnosis/Indication for NST: Other (covid) NST Procedure: NST Procedure Start Time 12:00 Stop Time 12:45 - Plan Plan: Patient given IV fluids and banana bag wellbeing is reassuring Maternal fever, oxygen saturation within normal limits Advised to return if feeling worse, difficulty breathing, decreased movement, vaginal bleeding, leakage of fluid, contractions, or any other concerns. Patient discharged to to home.
[2022-09-09 18:48] VITALS: BP 97/63
--- NOTE | 2022-09-09 19:24 | Ultrasound Report ---
PROCEDURE: OB Biophysical Profile INDICATIONS: Decreased movement OUTSIDE/PRIOR DATING DATA: Last menstrual period (LMP): 01/19/2010 22. LMP-based estimated date of delivery (ARNOLDO): 10/26/2022. First dating scan (date and location): 04/15/2022 at . Estimated date of delivery (ARNOLDO) from first dating scan: 10/26/2022. The below data below was generated using the working ARNOLDO of 10/26/2022 TECHNIQUE: Real-time scanning was performed of the fetus, with image documentation and biometric cisco surements. Biophysical profile was also obtained. Endovaginal scanning: Not performed COMPARISON: Not available. FINDINGS: General: A single living intrauterine gestation is present. Presentation: Vertex Placenta: Placental position is posterior, without previa. Amniotic fluid index: 12.2 cm; largest pocket 3.7 cm. heart rate: 144 beats per minute. Maternal cervical canal: Closed. biometrics: Not performed. Estimated gestational age from initial scan: 33 weeks 2 days. Measurement variability in biometric dating: +/- 10 days from 12-20 weeks gestation, +/- 2 weeks from 20-30 weeks gestation, +/- 3 weeks at 30 weeks gestation or later. Biophysical profile: Tone: 2 points. Movement: 2 points. Respiration: 2 points. Largest pocket of fluid: 2 points. Umbilical artery Doppler: S/D = 2.1-3.4 ultrasound IMPRESSION: 1. Single living IUP redemonstrated. 2. biophysical profile score 8 out of 8. 3. Cord Doppler ultrasound demonstrates S/D 2.1-3.4. Reviewed by: Glendy Mondragon MD on 09/09/2022 7:22 PM PST Approved by: Glendy Mondragon MD on 09/09/2022 7:22 PM PST Station ID: [id number]
[2022-09-10] MEDS ORDERED: MULTIVITAMIN 10 ML, THIAMINE INJ 100 MG, POTASSIUM CHLORIDE INJ 20 MEQ, FOLIC ACID INJ ... IV SCH ×5 (09:00)
== END 2022-09-09 19:30 | disposition home or self-care (01) ==
LOC: WFO 15:06 → FBP 15:08 → WFO 19:30
PROVIDERS: ATTEND Obstetrics & Gynecology Obstetrics
DX: O98.513 Other viral diseases complicating pregnancy, third trimester (principal); U07.1 COVID-19; Z3A.33 33 weeks gestation of pregnancy; O99.891 Other specified diseases and conditions complicating pregnancy; R00.0 Tachycardia, unspecified; O36.8330 Maternal care for abnormalities of the fetal heart rate or rhythm, third trimester, not applicable or unspecified
CPT/HCPCS: 36415; 59025; 76819; 80053; 85025; 96365; 96366; 96367; 96375; 99215; J0131; J3411

== ENCOUNTER 2022-10-03 16:02 | Outpatient (CLI) | payer OTHER ==
[2022-10-04 00:38] LABS: CHLAMYDIA TRACHOMATIS DNA NEGATIVE (NEGATIVE); NEISSERIA GONORRHOEAE DNA NEGATIVE (NEGATIVE); TRICHOMONAS VAGINALIS DNA NEGATIVE (NEGATIVE)
== END 2022-10-03 16:03 | disposition home or self-care (01) ==
LOC: LAB.WC 16:02
PROVIDERS: ATTEND Obstetrics & Gynecology
DX: Z36.85 Encounter for antenatal screening for Streptococcus B (principal)
CPT/HCPCS: 87491; 87591; 87661; 87797

== ENCOUNTER 2022-10-12 16:42 | Outpatient (CLI) | payer OTHER ==
--- NOTE | 2022-10-13 16:53 | Ultrasound Report ---
PROCEDURE: OB F/U or Repeat INDICATIONS: UTERINE SIZE DATE DISCREPANCY OUTSIDE/PRIOR DATING DATA: Last menstrual period (LMP): 01/19/2022. LMP-based estimated date of delivery (ARNOLDO): 10/26/2022. First dating scan (date and location): 04/15/2022. Estimated date of delivery (ARNOLDO) from first dating scan: 10/26/2022. TECHNIQUE: Real-time scanning was performed of the fetus, with image documentation and biometric measurements. Endovaginal scanning: No COMPARISON: 09/09/2022 FINDINGS: General: A single living intrauterine gestation is present. Presentation: Vertex Placenta: Placental position is posterior, without previa. Amniotic fluid index: 13.1 cm, 49th percentile for gestational age. heart rate: 152 beats per minute. Maternal cervical canal: 4.7 cm long; normal length is 2.5 cm or more. biometrics: Biparietal diameter: 93 mm; 37 weeks 6 days Head circumference: 336 mm; 38 weeks 3 days Abdominal circumference: 323 mm; 36 weeks 2 days Femur length: 68 mm; 35 weeks 0 days Estimated gestational age from initial scan: 38 weeks 0 days Composite gestational age from present scan: 37 weeks 0 days Estimated weight and percentile: 2915 g, which is at the 22nd percentile for gestational age Measurement variability in biometric dating: +/- 10 days from 12-20 weeks gestation, +/- 2 weeks from 20-30 weeks gestation, +/- 3 weeks at 30 weeks gestation or more. Other: Normal chest/diaphragm, stomach/abdomen, bilateral renal regions, and urinary bladder/pelvis. IMPRESSION: 1. Single living intrauterine gestation. 2. Appropriate interval growth. Reviewed by: Esha Huerta MD on 10/13/2022 4:51 PM PST Approved by: Esha Huerta MD on 10/13/2022 4:51 PM PST Station ID: [id number]
== END 2022-10-12 16:43 | disposition home or self-care (01) ==
LOC: DI 16:42
PROVIDERS: ATTEND Obstetrics & Gynecology
DX: O26.843 Uterine size-date discrepancy, third trimester (principal); Z3A.37 37 weeks gestation of pregnancy

== ENCOUNTER 2022-10-20 07:29 | Inpatient (IN) | payer OTHER ==
[2022-10-20] MEDS ORDERED: METHYLERGONOVINE 0.2 MG/ML VIAL IM PRN (08:22)
[2022-10-20] MEDS ORDERED: TRANEXAMIC ACID IN NACL 1,000 MG/100 ML BAG IV PRN (08:22)
[2022-10-20] MEDS ORDERED: OXYTOCIN/SODIUM CHLORIDE 500 ML IV PRN (08:22)
[2022-10-20] MEDS ORDERED: miSOPROStoL 200 MCG TABLET BC PRN (08:22)
[2022-10-20] MEDS ORDERED: OXYTOCIN 10 UNIT/ML VIAL IM PRN (08:22)
[2022-10-20] MEDS ORDERED: fentaNYL 100 MCG/2 ML VIAL IVP PRN (08:22)
[2022-10-20] MEDS ORDERED: CARBOPROST TROMETHAMINE 250 MCG/ML AMP IM PRN (08:22)
[2022-10-20] MEDS ORDERED: lidocaine 1% 20 ML MDV ID PRN (08:22)
[2022-10-20] MEDS ORDERED: SODIUM CHLORIDE FLUSH 0.9% 10 ML SYRINGE IVP PRN (08:22)
[2022-10-20] MEDS ORDERED: miSOPROStoL 200 MCG TABLET PR PRN (08:22)
--- NOTE | 2022-10-20 08:29 | HISTORY & PHYSICAL EXAMINATION ---
Admit History - Visit Reason Visit Reason: Other (Scheduled elective IOL) - : 3 Parity: 1 : 1 Care: positive: [facility] (Late transfer from [facility] third trimester, due to desire to deliver at again) Risk/History: positive: None (Second degree laceration last delivery, PPD) Complications This : positive: None Smoking Status: Never smoker - Mother's Labs Mother's Blood Type: positive: O Mother's RH: positive: Positive GBS: positive: Group B Step Negative Rubella Status: positive: Immune - Other Maternal History Other Maternal History: Med: depression Surg: Denies Social: to AD , lives at home with him and 2y son, denies ISIDRO Fam: Mother with hypertension, migraines Meds/Allgy - Home Medications Home Medications: Ambulatory Orders Medication Instructions Recorded Confirmed Ondansetron Odt [Zofran] 4 mg TL Q6H PRN #10 tablet 06/10/21 - Allergies Allergies/Adverse Reactions: Allergies Allergy/AdvReac Type Severity Reaction Status Date / Time No Known Drug Allergies Allergy Verified 05/16/20 12:42 Review of Systems - All Other Systems All Other Systems: reports: Reviewed and negative Physical - Abdominal Exam Vital Signs: BP 88/50 VSS Contraction Frequency (min/apart): 8 Contraction Intensity: positive: Mild Uterine Resting Tone: positive: Soft - Monitoring Heart Rate Baseline: 140 Strip Review: positive: Category I - Presentation Presentation: positive: Vertex (Placenta posterior, EFW 3200g) - Vaginal Exam Membranes: positive: Membranes intact Dilation (in cm): 2 Effacement (%): 80 Station: positive: -3 Cervical Position: positive: Midposition Plan for Labor - Plan For Labor I expect patient to be DC'd or transferred within 96 hours.: Yes Plan for Labor: 21yo at 39.1w by LMP consistent with 12w US presenting for scheduled IOL, elective - Admit - CBC, TS - Start Pitocin - Anticipate today
--- OUTSIDE RECORDS SUMMARY | 2022-10-20 08:43 | EXTERNAL MEDICAL SUMMARY RPT | Continuity of Care Document ---
:2000 Author Organization [facility] Address [address] [place] [address] Phone Care Team Providers Name Role Phone Flavia Pritchard Unavailable Unavailable Allergies No information. Encounters No information. Functional Status No information. Immunizations date description facility 2022-08-08 00:00 Tetanus, Diphtheria, Pertussis (Tdap) [facility] Medications No information. Problems date description facility 2022-08-08 14:42 Encounter for immunization [facility] 2022-08-08 14:42 Encounter for supervision of other [facility] , third t 2022-08-08 14:42 28 weeks gestation of [facility] 2022-09-16 14:50 Encounter for supervision of other [facility] , first t 2022-09-23 11:11 Encounter for screening for [facility] Streptococcus B 2022-09-24 16:34 Encounter for screening for [facility] Streptococcus B Procedures No information. Results/Labs test date author facility value unit interpret ation Result panel 1 (unknown) (no date) ([facility] Result panel 2 (unknown) (no date) (unknown[facility]) Result panel 3 (unknown) (no date) (unknown[facility]) Result panel 4 (unknown) (no date) (unknown[facility]) Result panel 5 (unknown) (no date) (unknown[facility]) Result panel 6 (unknown) (no date) (unknown[facility]) Result panel 7 (unknown) (no date) (unknown[facility]) Result panel 8 (unknown) (no date) (unknown[facility]) Result panel 9 (unknown) (no date) (unknown[facility]) Result panel 10 (unknown) (no date) (unknown[facility]) Result panel 11 (unknown) (no date) (unknown[facility]) Result panel 12 (unknown) (no date) (unknown[facility]) Result panel 13 (unknown) (no date) (unknown[facility]) Result panel 14 (unknown) (no date) (unknown[facility]) Result panel 15 (unknown) (no date) (unknown[facility]) Result panel 16 (unknown) (no date) (unknown[facility]) Result panel 17 (unknown) (no date) (unknown[facility]) Result panel 18 (unknown) (no date) (unknown[facility]) Result panel 19 (unknown) (no date) (unknown[facility]) Result panel 20 (unknown) (no date) (unknown[facility]) Result panel 21 (unknown) (no date) (unknown[facility]) Result panel 22 (unknown) (no date) (unknown[facility]) Result panel 23 (unknown) (no date) (unknown[facility]) Result panel 24 (unknown) (no date) (unknown) [facility]) Result panel 25 (unknown) (no date) (unknown) [facility]) Result panel 26 (unknown) (no date) (unknown) [facility]) Result panel 27 (unknown) (no date) (unknown) [facility]) Result panel 28 (unknown) (no date) (unknown) [facility]) Result panel 29 (unknown) (no date) (unknown[facility]) Result panel 30 (unknown) (no date) (unknown) [facility]) Result panel 31 (unknown) (no date) (unknown) [facility]) Result panel 32 (unknown) (no date) (unknown) [facility]) Result panel 33 (unknown) (no date) (unknown) [facility]) Result panel 34 (unknown) (no date) (unknown) [facility]) Result panel 35 (unknown) (no date) (unknown[facility]) Result panel 36 (unknown) (no date) (unknown) [facility] Result panel 37 (unknown) (no date) (unknown) (unknown) 0 /ul (unkn own) (unknown) (no date) (unknown) (unknown) 0.5 % (unkn own) (unknown) (no date) (unknown) (unknown) 1.0 % (unkn own) (unknown) (no date) (unknown) (unknown) 100 /ul (unkn own) (unknown) (no date) (unknown) (unknown) 11.3 g/dl (unkn own) (unknown) (no date) (unknown) (unknown) 14.6 % (unkn own) (unknown) (no date) (unknown) (unknown) 15.8 % (unkn own) (unknown) (no date) (unknown) (unknown) 1500 /ul (unkn own) (unknown) (no date) (unknown) (unknown) 250 x10 3/ul (unkn own) (unknown) (no date) (unknown) (unknown) 3.46 x10 6/ul (unkn own) (unknown) (no date) (unknown) (unknown) 32.6 % (unkn own) (unknown) (no date) (unknown) (unknown) 32.7 pg (unkn own) (unknown) (no date) (unknown) (unknown) 34.7 % (unkn own) (unknown) (no date) (unknown) (unknown) 6.3 % (unkn own) (unknown) (no date) (unknown) (unknown) 600 /ul (unkn own) (unknown) (no date) (unknown) (unknown) 7100 /ul (unkn own) (unknown) (no date) (unknown) (unknown) 76.4 % (unkn own) (unknown) (no date) (unknown) (unknown) 9.3 x10 3/ul (unkn own) (unknown) (no date) (unknown) (unknown) 94.2 fl (unkn own) Result panel 38 (unknown) (no date) (unknown) (unknown) 102 mg/dl (unkn own) (unknown) (no date) (unknown) (unknown) 102 mg/dl (unkn own) Result panel 39 (unknown) (no (unknown) (unknown) (no value) (units (unk nown) date) unknown) (unknown) (no (unknown) (unknown) (+17 lb) 100/60 (units (unknown) date) unknown) (unknown) (no (unknown) (unknown) (+2 lb) 115/62 (units (unknown) date) unknown) (unknown) (no (unknown) (unknown) (+9 lb) 90/58 (units ( unknown) date) unknown) (unknown) (no (unknown) (unknown) (1) Encounter (units ( unknown) date) for supervision unknown) of other normal , third trimester: (unknown) (no (unknown) (unknown) (2) 28 weeks (units (u nknown) date) gestation of unknown) : (unknown) (no (unknown) (unknown) Genetic (units (unkn own) date) Screening/Teratol unknown) ogy Counseling - Includes patient, baby's father, or (unknown) (no (unknown) (unknown) -?-?-?-?-?-?-?-? (units (unknown) date) -?-?-?-? unknown) (unknown) (no (unknown) (unknown) 11/16/18 9 (units (unk nown) date) spontaneous unknown) (unknown) (no (unknown) (unknown) 01/08/21 41 12 8 (units (unknown) date) lb 1 oz Male unknown) vaginal live - full term (unknown) (no (unknown) (unknown) 05/03/22 (units (unkno wn) date) unknown) (unknown) (no (unknown) (unknown) 06/14/22 (units (unkno wn) date) unknown) (unknown) (no (unknown) (unknown) 07/11/22 (units (unkno wn) date) unknown) (unknown) (no (unknown) (unknown) [id number] (units (unkno wn) date) unknown) (unknown) (no (unknown) (unknown) 08/08/22 (units (unkno wn) date) unknown) (unknown) (no (unknown) (unknown) 14w 6d 109 lb (units ( unknown) date) unknown) (unknown) (no (unknown) (unknown) 20w 6d 116 lb (units ( unknown) date) unknown) (unknown) (no (unknown) (unknown) 24w 5d 124 lb (units ( unknown) date) unknown) (unknown) (no (unknown) (unknown) 28w 5d (units (unkno wn) date) unknown) (unknown) (no (unknown) (unknown) 4wks (units (unkno wn) date) unknown) (unknown) (no (unknown) (unknown) Abnormal lab (units (u nknown) date) values 2nd unknown) trimester: discussed (unknown) (no (unknown) (unknown) Add'l Plan (units (unk nown) date) Details unknown) (unknown) (no (unknown) (unknown) Age/Sex: 21 / F (units (unknown) date) Date of Service: unknown) (unknown) (no (unknown) (unknown) Allergies (units (unkn own) date) unknown) (unknown) (no (unknown) (unknown) [facility] (units (unknown) date) Medicine unknown) (unknown) (no (unknown) (unknown) [place], [place] (units ( unknown) date) [id number] unknown) (unknown) (no (unknown) (unknown) Anatomy ordered, (units (unknown) date) Glucola ordered unknown) (unknown) (no (unknown) (unknown) Anatomy scan (units (u nknown) date) scheduled for unknown) today. (unknown) (no (unknown) (unknown) Aneuploidy (units (unk nown) date) Screening unknown) Offered: Accepted (Quad screen) (unknown) (no (unknown) (unknown) Anticipated (units (un known) date) course of unknown) care: discussed (unknown) (no (unknown) (unknown) Assessment and (units (unknown) date) Plan unknown) (unknown) (no (unknown) (unknown) Attending Dr: (units ( unknown) date) Flavia Pritchard MD unknown) (unknown) (no (unknown) (unknown) (units (unkno wn) date) Plan/Preferences unknown) (unknown) (no (unknown) (unknown) Planning (units (unknown) date) unknown) (unknown) (no (unknown) (unknown) Blood (units (unkno wn) date) transfusions?: unknown) yes (Never had but would accept) (unknown) (no (unknown) (unknown) Breastfeed Preg (units (unknown) date) Comp Name unknown) (unknown) (no (unknown) (unknown) Current Estimate (units (unknown) date) 10/26/22 LMP unknown) (Certain) 28w 5d (unknown) (no (unknown) (unknown) Current (units (unkno wn) date) History unknown) (unknown) (no (unknown) (unknown) : 2000 (units (unknown) date) Acct:[id number] unknown) (unknown) (no (unknown) (unknown) Date (units (unkno wn) date) unknown) (unknown) (no (unknown) (unknown) Dating u/s with (units (unknown) date) fetus too large unknown) for CRL. Dating scan ordered through the (unknown) (no (unknown) (unknown) Del. Date (units (unkn own) date) GA/Weeks Labor unknown) Lgth Wt Sex Route Outcome Anesthesia Place (unknown) (no (unknown) (unknown) Delv (units (unkno wn) date) unknown) (unknown) (no (unknown) (unknown) Denies Congenital (units (unknown) date) Heart Defect, unknown) Denies Down Syndrome, Denies Muscular Dystrophy, (unknown) (no (unknown) (unknown) Denies Maternal (units (unknown) date) Metabolic unknown) Disorder (EG,TYPE 1 Diabetes, PKU), Denies Patient or (unknown) (no (unknown) (unknown) Denies Neural (units ( unknown) date) Tube Defect unknown) (Meningomyelocele , Spina Bifida, or Anencephaly), (unknown) (no (unknown) (unknown) Denies Sickle (units ( unknown) date) Cell Disease or unknown) Trait (), Denies Hemophilia or other blood (unknown) (no (unknown) (unknown) Denies Chucho-Sachs (units (unknown) date) (Ashkenazi unknown) Temple, Cajun, Cameroonian South African), Denies Yesika (unknown) (no (unknown) (unknown) Denies other (units (u nknown) date) unknown) (unknown) (no (unknown) (unknown) Denies over the (units (unknown) date) counter unknown) medications, Denies alcohol, Denies illicit drugs and (unknown) (no (unknown) (unknown) Dept at (units (unkno wn) date) . unknown) (unknown) (no (unknown) (unknown) Desires quad (units (u nknown) date) screen for unknown) genetic testing (unknown) (no (unknown) (unknown) Diet and (units (unkno wn) date) Exercise unknown) (unknown) (no (unknown) (unknown) Disease (units (unkno wn) date) (Ashkenazi unknown) Temple), Denies Familial Dysautonomia (Ashkenazi Temple), (unknown) (no (unknown) (unknown) Documented By: (units (unknown) date) Flavia Pritchard MD unknown) 08/08/22 1328 (unknown) (no (unknown) (unknown) Does not feel (units ( unknown) date) the need for unknown) assistance. (unknown) (no (unknown) (unknown) Draft (units (unkno wn) date) unknown) (unknown) (no (unknown) (unknown) ARNOLDO Calculator (units (unknown) date) unknown) (unknown) (no (unknown) (unknown) EGA Weight BP (units ( unknown) date) UGlucose unknown) (unknown) (no (unknown) (unknown) Estimated (units (unkn own) date) Delivery Date unknown) Method Current (unknown) (no (unknown) (unknown) Family History (units (unknown) date) (Updated 04/28/22 unknown) @ 12:26 by Yadira Brown RN) (unknown) (no (unknown) (unknown) Father of Baby: (units (unknown) date) same unknown) (unknown) (no (unknown) (unknown) First Trimester (units (unknown) date) Education unknown) Checklist (unknown) (no (unknown) (unknown) Genetic (units (unkno wn) date) Screening + unknown) Counseling (unknown) (no (unknown) (unknown) Genetic (units (unkno wn) date) Screening unknown) (unknown) (no (unknown) (unknown) Grandmother (units (un known) date) Hypertension unknown) (unknown) (no (unknown) (unknown) 3 (units (unkn own) date) Multiple births unknown) (unknown) (no (unknown) (unknown) HIV risk (units (unkno wn) date) evaluation: low unknown) risk (unknown) (no (unknown) (unknown) Health Center (units ( unknown) date) Education unknown) (unknown) (no (unknown) (unknown) Health center (units ( unknown) date) information: unknown) nature of practice discussed, personnel (unknown) (no (unknown) (unknown) Hepatitis C risk (units (unknown) date) evaluation: low unknown) risk (unknown) (no (unknown) (unknown) History of (units (unk nown) date) Hepatitis B: No unknown) (unknown) (no (unknown) (unknown) History of (units (unk nown) date) Hepatitis C: No unknown) (unknown) (no (unknown) (unknown) Hospital: (units (u nknown) date) unknown) (unknown) (no (unknown) (unknown) Chetna's (units (u nknown) date) Chorea, Denies unknown) Other inherited genetic or chromosomal disorder, (unknown) (no (unknown) (unknown) Hx # (units (u nknown) date) Pregnancies unknown) Elective abortions (unknown) (no (unknown) (unknown) Hx # Term (units (unkn own) date) Pregnancies 1 unknown) Ectopic pregnancies (unknown) (no (unknown) (unknown) Hx (units ( unknown) date) depression - on unknown) Zoloft which didn't help (unknown) (no (unknown) (unknown) Hypertension (units (u nknown) date) unknown) (unknown) (no (unknown) (unknown) IOL scheduled (units ( unknown) date) for 10/21/22. unknown) (unknown) (no (unknown) (unknown) Infection (units (unkn own) date) History unknown) (unknown) (no (unknown) (unknown) Infectious (units (unk nown) date) Disease Education unknown) (unknown) (no (unknown) (unknown) Infectious (units (unk nown) date) disease exposure: unknown) chicken pox immunity discussed, hepatitis risk (unknown) (no (unknown) (unknown) Initial Weight: (units (unknown) date) 107 lb unknown) (unknown) (no (unknown) (unknown) Initials (units (unkno wn) date) unknown) (unknown) (no (unknown) (unknown) Intake (units (unkno wn) date) unknown) (unknown) (no (unknown) (unknown) It's a boy! (units (un known) date) unknown) (unknown) (no (unknown) (unknown) NIGEL (units (unkno wn) date) unknown) (unknown) (no (unknown) (unknown) Bowen (units (unkno wn) date) unknown) (unknown) (no (unknown) (unknown) Live with (units (unkn own) date) someone with TB unknown) or exposed to TB: No (unknown) (no (unknown) (unknown) Loc: [facility] (units (unkno wn) date) unknown) (unknown) (no (unknown) (unknown) Marital status: (units (unknown) date) unknown) (unknown) (no (unknown) (unknown) Medical History (units (unknown) date) (Updated 04/28/22 unknown) @ 12:39 by Yadira Brown RN) (unknown) (no (unknown) (unknown) Mood currently (units (unknown) date) stable. Hx of unknown) depression, briefly on Zoloft but (unknown) (no (unknown) (unknown) Mother Migraine (units (unknown) date) unknown) (unknown) (no (unknown) (unknown) No Known (units (unkno wn) date) Allergies Allergy unknown) (Verified 07/11/22 11:14) (unknown) (no (unknown) (unknown) No no 158 absent (units (unknown) date) unknown) (unknown) (no (unknown) (unknown) Notes (units (unkno wn) date) unknown) (unknown) (no (unknown) (unknown) Number of Living (units (unknown) date) Children 1 unknown) (unknown) (no (unknown) (unknown) Number of (units (unkn own) date) fetuses:: Single unknown) (unknown) (no (unknown) (unknown) OB Office Visit (units (unknown) date) unknown) (unknown) (no (unknown) (unknown) OB Visit Log (units (u nknown) date) unknown) (unknown) (no (unknown) (unknown) PFSH (units (unkno wn) date) unknown) (unknown) (no (unknown) (unknown) Para 1 (units (unkno wn) date) Spontaneous unknown) abortions 1 (unknown) (no (unknown) (unknown) Partner history (units (unknown) date) of STD: denies hx unknown) (unknown) (no (unknown) (unknown) Partner history (units (unknown) date) of genital unknown) herpes: No (unknown) (no (unknown) (unknown) Partner: David (units (unknown) date) [place] unknown) (unknown) (no (unknown) (unknown) Past Pregnancies (units (unknown) date) unknown) (unknown) (no (unknown) (unknown) Patient's age 34 (units (unknown) date) years or older as unknown) of estimated date of delivery: No (unknown) (no (unknown) (unknown) Patient: (units (unkno wn) date) Aurea Abel B unknown) MR#: [id number] (unknown) (no (unknown) (unknown) Skating Rink Manager: (units ( unknown) date) KENYA Emery unknown) (unknown) (no (unknown) (unknown) Personal history (units (unknown) date) of STD: denies hx unknown) (unknown) (no (unknown) (unknown) Personal history (units (unknown) date) of genital unknown) herpes: No (unknown) (no (unknown) (unknown) (units (unk nown) date) depression unknown) (unknown) (no (unknown) (unknown) (units (unkn own) date) History unknown) (unknown) (no (unknown) (unknown) type:: (units (unknown) date) Other Normal unknown) (unknown) (no (unknown) (unknown) (units (unkno wn) date) Education unknown) (unknown) (no (unknown) (unknown) Initial (units (unknown) date) Assessment unknown) (unknown) (no (unknown) (unknown) (units (unkno wn) date) Specific unknown) Issues/Plans (unknown) (no (unknown) (unknown) (units (unkno wn) date) Testing: unknown) discussed (unknown) (no (unknown) (unknown) Visit (units (unknown) date) unknown) (unknown) (no (unknown) (unknown) (units (unkno wn) date) education packet: unknown) symptoms, Vitamins and iron, Diet and (unknown) (no (unknown) (unknown) Primary Care (units (u nknown) date) Provider: KENYA Fagan unknown) [place] (unknown) (no (unknown) (unknown) Primary Ob (units (unk nown) date) Provider: unknown) Flavia Pritchard (unknown) (no (unknown) (unknown) Prior (units (unkno wn) date) GBS-Infected unknown) child: No (unknown) (no (unknown) (unknown) Promethazine for (units (unknown) date) migraines made it unknown) worse. She is getting migraines now (unknown) (no (unknown) (unknown) Providers (units (unkn own) date) unknown) (unknown) (no (unknown) (unknown) Pt aware that (units ( unknown) date) she will be unknown) dismissed for further no-shows. (unknown) (no (unknown) (unknown) Pt is not (units (unkn own) date) currently unknown) employed. , David, in the [place], no upcoming (unknown) (no (unknown) (unknown) Pt with more (units (u nknown) date) frequent unknown) migraines again, started again 3 days ago. Seems to (unknown) (no (unknown) (unknown) Pt with (units (unkno wn) date) primarily morning unknown) nausea and vomiting. Resolves by lunch time. (unknown) (no (unknown) (unknown) Quad screen (units (un known) date) ordered unknown) (unknown) (no (unknown) (unknown) Rash or viral (units ( unknown) date) illness since unknown) last menstrual period: Yes ('flu' in early March) (unknown) (no (unknown) (unknown) Reason For Visit (units (unknown) date) unknown) (unknown) (no (unknown) (unknown) Recent travel (units ( unknown) date) outside of unknown) country?: No (unknown) (no (unknown) (unknown) Recurrent (units (unkn own) date) loss or unknown) a stillbirth: No (unknown) (no (unknown) (unknown) SAB (spontaneous (units (unknown) date) ) unknown) (unknown) (no (unknown) (unknown) Safety (units (unkno wn) date) unknown) (unknown) (no (unknown) (unknown) Sauna/hot tub (units ( unknown) date) use, Dental care, unknown) Travel and Influenza vaccine (had flu and Covid (unknown) (no (unknown) (unknown) Second Trimester (units (unknown) date) Education unknown) Checklist (unknown) (no (unknown) (unknown) Selecting a (units (un known) date) care unknown) provider: discussed (unknown) (no (unknown) (unknown) Signed By: (units (unk nown) date) unknown) (unknown) (no (unknown) (unknown) Signs and (units (unkn own) date) symptoms of unknown) labor: discussed (unknown) (no (unknown) (unknown) Smoking Status: (units (unknown) date) Never smoker unknown) (unknown) (no (unknown) (unknown) Social History (units (unknown) date) unknown) (unknown) (no (unknown) (unknown) Support (units (unkno wn) date) Person(s):: David unknown) (unknown) (no (unknown) (unknown) Symptoms since (units (unknown) date) LMP: Reports unknown) amenorrhea, nausea, vomiting, fatigue, breast (unknown) (no (unknown) (unknown) Teratogen (units (unkn own) date) Exposures since unknown) LMP/Conception: Denies prescription medications, (unknown) (no (unknown) (unknown) Testing (units (unkno wn) date) Education unknown) (unknown) (no (unknown) (unknown) Testing (units (unkno wn) date) education unknown) completed: group B strep and Spina bifida testing (unknown) (no (unknown) (unknown) The pt has not (units (unknown) date) been sleeping unknown) well. She is only sleeping up to an hour at (unknown) (no (unknown) (unknown) This note may (units ( unknown) date) have been all or unknown) partially generated using voice recognition (unknown) (no (unknown) (unknown) Tobacco + (units (unkn own) date) Substance Use unknown) (unknown) (no (unknown) (unknown) Tobacco Status (units (unknown) date) unknown) (unknown) (no (unknown) (unknown) Type(s) of (units (unk nown) date) exercise: walking unknown) (unknown) (no (unknown) (unknown) UProtein Movement (units (unknown) date) PreLabor FHR Fndl unknown) Ht Pres Edema Cerv Exam US/Comment Next Appt (unknown) (no (unknown) (unknown) Varicella/chicke (units (unknown) date) n pox status: unknown) immunized (unknown) (no (unknown) (unknown) Visit Date: (units (un known) date) 05/03/22 Last unknown) Updated by: Flavia Pritchard MD (unknown) (no (unknown) (unknown) Visit Date: (units (un known) date) 06/14/22 Last unknown) Updated by: Flavia Pritchard MD (unknown) (no (unknown) (unknown) Visit Date: (units (un known) date) 07/11/22 Last unknown) Updated by: Flavia Pritchard MD (unknown) (no (unknown) (unknown) Visit Reasons: (units (unknown) date) 28 Wk OB unknown) (unknown) (no (unknown) (unknown) WG (units (unkno wn) date) unknown) (unknown) (no (unknown) (unknown) [facility] 7 months (units (u nknown) date) none unknown) (unknown) (no (unknown) (unknown) Yes no 148 23 (units ( unknown) date) absent glucola unknown) ordered 4 (unknown) (no (unknown) (unknown) Yes no 157 21 (units ( unknown) date) absent quad today unknown) 4wks (unknown) (no (unknown) (unknown) Zika virus (units (unk nown) date) exposure: No unknown) (unknown) (no (unknown) (unknown) a time. She has (units (unknown) date) not tried unknown) anything yet. Discussed melatonin. (unknown) (no (unknown) (unknown) additional (units (unk nown) date) treatment for unknown) now. (unknown) (no (unknown) (unknown) alcohol intake: (units (unknown) date) former unknown) (unknown) (no (unknown) (unknown) anyone in either (units (unknown) date) family with: unknown) (unknown) (no (unknown) (unknown) baby's father (units ( unknown) date) had a child with unknown) defects not listed above and Denies Other (unknown) (no (unknown) (unknown) be worse in the (units (unknown) date) afternoon. She unknown) has tried sleep, caffeine, shower and nothing (unknown) (no (unknown) (unknown) caffeine: No (units (u nknown) date) unknown) (unknown) (no (unknown) (unknown) carbon monox (units (u nknown) date) detector in home: unknown) Yes (unknown) (no (unknown) (unknown) current (units (unkno wn) date) occupational unknown) exposures/hazards : No (unknown) (no (unknown) (unknown) daily servings (units (unknown) date) fruits/ve-1 unknown) (unknown) (no (unknown) (unknown) deployments. (units (u nknown) date) unknown) (unknown) (no (unknown) (unknown) described, visit (units (unknown) date) schedule unknown) reviewed, ultrasounds policy reviewed, coverage 24 (unknown) (no (unknown) (unknown) did not feel it (units (unknown) date) was helpful. unknown) (unknown) (no (unknown) (unknown) discussed, (units (unk nown) date) tuberculosis unknown) exposure discussed, CMV discussed, Toxoplasmosis (unknown) (no (unknown) (unknown) disorders, (units (unk nown) date) Denies Cystic unknown) Fibrosis, Denies Mental Retardation/Autis m, Denies (unknown) (no (unknown) (unknown) do you feel safe (units (unknown) date) at home: Yes unknown) (unknown) (no (unknown) (unknown) duration: 15-30 (units (unknown) date) minutes/day unknown) (unknown) (no (unknown) (unknown) during the past (units (unknown) date) year weight has: unknown) other (fluctuated) (unknown) (no (unknown) (unknown) education level: (units (unknown) date) high school unknown) (unknown) (no (unknown) (unknown) every afternoon. (units (unknown) date) She drinks a soda unknown) and falls asleep and they go away. Declines (unknown) (no (unknown) (unknown) fire (units (unkno wn) date) extinguisher in unknown) home: Yes (unknown) (no (unknown) (unknown) firearms in (units (un known) date) home: No unknown) (unknown) (no (unknown) (unknown) frequency: 3-4 (units (unknown) date) times per week unknown) (unknown) (no (unknown) (unknown) have occurred. (units (unknown) date) If there are any unknown) questions, please contact the Medical Records (unknown) (no (unknown) (unknown) hospital. (units (unkn own) date) unknown) (unknown) (no (unknown) (unknown) hours a day and (units (unknown) date) participation of unknown) father in care and office visits (unknown) (no (unknown) (unknown) household (units (unkn own) date) members: spouse unknown) and children (unknown) (no (unknown) (unknown) housing: house (units (unknown) date) unknown) (unknown) (no (unknown) (unknown) lives (units (unkno wn) date) independently: unknown) Yes (unknown) (no (unknown) (unknown) marital status: (units (unknown) date) unknown) (unknown) (no (unknown) (unknown) may occur. (units (unk nown) date) Occasional unknown) wrong-word or 'sound-alike' substitutions may have (unknown) (no (unknown) (unknown) number of (units (unkn own) date) children: 1 unknown) (unknown) (no (unknown) (unknown) occupational (units (u nknown) date) status: unknown) unemployed (unknown) (no (unknown) (unknown) occurred due to (units (unknown) date) the inherent unknown) limitations of voice recognition software. Please (unknown) (no (unknown) (unknown) pets and (units (unkno wn) date) animals: Yes (1 unknown) dog) (unknown) (no (unknown) (unknown) precautions, (units (u nknown) date) Listeriosis unknown) prevention and Rubella Immunization (unknown) (no (unknown) (unknown) read the note (units ( unknown) date) carefully and unknown) recognize, using context, where these substitutions (unknown) (no (unknown) (unknown) seatbelt use: (units ( unknown) date) always unknown) (unknown) (no (unknown) (unknown) second hand (units (un known) date) exposure: No unknown) (unknown) (no (unknown) (unknown) seems to help. - (units (unknown) date) Trial Reglan unknown) (unknown) (no (unknown) (unknown) software. (units (unkn own) date) Although every unknown) effort is made to edit content, electric sign wirer errors (unknown) (no (unknown) (unknown) special juan (units ( unknown) date) needs: No unknown) (unknown) (no (unknown) (unknown) substance use (units ( unknown) date) type: does not unknown) use (unknown) (no (unknown) (unknown) tenderness, (units (un known) date) urinary unknown) frequency, irritability and bloating (unknown) (no (unknown) (unknown) water heater (units (u nknown) date) temp set < 120 unknown) deg: Yes (unknown) (no (unknown) (unknown) weight gain, (units (u nknown) date) Fish and mercury unknown) intake, Caffeine use, Exercise and activity, (unknown) (no (unknown) (unknown) well-balanced (units ( unknown) date) diet: rarely or unknown) never (unknown) (no (unknown) (unknown) wks (units (unkno wn) date) unknown) (unknown) (no (unknown) (unknown) work/environment (units (unknown) date) al/hazards, unknown) Sexual activity, X-ray exposure, Medication use, (unknown) (no (unknown) (unknown) working smoke (units ( unknown) date) detector in home: unknown) Yes (unknown) (no (unknown) (unknown) x3) (units (unkno wn) date) unknown) Result panel 40 (unknown) (no (unknown) (unknown) (no value) (units (unk nown) date) unknown) (unknown) (no (unknown) (unknown) (+17 lb) 100/60 (units (unknown) date) unknown) (unknown) (no (unknown) (unknown) (+2 lb) 115/62 (units (unknown) date) unknown) (unknown) (no (unknown) (unknown) (+9 lb) 90/58 (units ( unknown) date) unknown) (unknown) (no (unknown) (unknown) (1) Encounter (units ( unknown) date) for supervision unknown) of other normal , third trimester: (unknown) (no (unknown) (unknown) (2) 28 weeks (units (u nknown) date) gestation of unknown) : (unknown) (no (unknown) (unknown) Genetic (units (unkn own) date) Screening/Teratol unknown) ogy Counseling - Includes patient, baby's father, or (unknown) (no (unknown) (unknown) -?-?-?-?-?-?-?-? (units (unknown) date) -?-?-?-? unknown) (unknown) (no (unknown) (unknown) 11/16/18 9 (units (unk nown) date) spontaneous unknown) (unknown) (no (unknown) (unknown) 01/08/21 41 12 8 (units (unknown) date) lb 1 oz Male unknown) vaginal live - full term (unknown) (no (unknown) (unknown) 05/03/22 (units (unkno wn) date) unknown) (unknown) (no (unknown) (unknown) 06/14/22 (units (unkno wn) date) unknown) (unknown) (no (unknown) (unknown) 07/11/22 (units (unkno wn) date) unknown) (unknown) (no (unknown) (unknown) [id number] (units (unkno wn) date) unknown) (unknown) (no (unknown) (unknown) 08/08/22 (units (unkno wn) date) unknown) (unknown) (no (unknown) (unknown) 14w 6d 109 lb (units ( unknown) date) unknown) (unknown) (no (unknown) (unknown) 20w 6d 116 lb (units ( unknown) date) unknown) (unknown) (no (unknown) (unknown) 24w 5d 124 lb (units ( unknown) date) unknown) (unknown) (no (unknown) (unknown) 4wks (units (unkno wn) date) unknown) (unknown) (no (unknown) (unknown) Abnormal lab (units (u nknown) date) values 2nd unknown) trimester: discussed (unknown) (no (unknown) (unknown) Accompanied by: (units (unknown) date) Self / Same As unknown) Patient (unknown) (no (unknown) (unknown) Add'l Plan (units (unk nown) date) Details unknown) (unknown) (no (unknown) (unknown) Age/Sex: 21 / F (units (unknown) date) Date of Service: unknown) (unknown) (no (unknown) (unknown) Allergies (units (unkn own) date) unknown) (unknown) (no (unknown) (unknown) [facility] (units (unknown) date) Medicine unknown) (unknown) (no (unknown) (unknown) [place] (units ( unknown) date) [id number] unknown) (unknown) (no (unknown) (unknown) Anatomy ordered, (units (unknown) date) Glucola ordered unknown) (unknown) (no (unknown) (unknown) Anatomy scan (units (u nknown) date) scheduled for unknown) today. (unknown) (no (unknown) (unknown) Aneuploidy (units (unk nown) date) Screening unknown) Offered: Accepted (Quad screen) (unknown) (no (unknown) (unknown) Anticipated (units (un known) date) course of unknown) care: discussed (unknown) (no (unknown) (unknown) Assessment and (units (unknown) date) Plan unknown) (unknown) (no (unknown) (unknown) Attending Dr: (units ( unknown) date) Flavia Pritchard MD unknown) (unknown) (no (unknown) (unknown) (units (unkno wn) date) Plan/Preferences unknown) (unknown) (no (unknown) (unknown) Planning (units (unknown) date) unknown) (unknown) (no (unknown) (unknown) Blood (units (unkno wn) date) transfusions?: unknown) yes (Never had but would accept) (unknown) (no (unknown) (unknown) Breastfeed Preg (units (unknown) date) Comp Name unknown) (unknown) (no (unknown) (unknown) Current Estimate (units (unknown) date) 10/26/22 LMP unknown) (Certain) 28w 5d (unknown) (no (unknown) (unknown) Current (units (unkno wn) date) History unknown) (unknown) (no (unknown) (unknown) : 2000 (units (unknown) date) Acct:[id number] unknown) (unknown) (no (unknown) (unknown) Date (units (unkno wn) date) unknown) (unknown) (no (unknown) (unknown) Dating u/s with (units (unknown) date) fetus too large unknown) for CRL. Dating scan ordered through the (unknown) (no (unknown) (unknown) Del. Date (units (unkn own) date) GA/Weeks Labor unknown) Lgth Wt Sex Route Outcome Anesthesia Place (unknown) (no (unknown) (unknown) Delv (units (unkno wn) date) unknown) (unknown) (no (unknown) (unknown) Denies Congenital (units (unknown) date) Heart Defect, unknown) Denies Down Syndrome, Denies Muscular Dystrophy, (unknown) (no (unknown) (unknown) Denies Maternal (units (unknown) date) Metabolic unknown) Disorder (EG,TYPE 1 Diabetes, PKU), Denies Patient or (unknown) (no (unknown) (unknown) Denies Neural (units ( unknown) date) Tube Defect unknown) (Meningomyelocele , Spina Bifida, or Anencephaly), (unknown) (no (unknown) (unknown) Denies Sickle (units ( unknown) date) Cell Disease or unknown) Trait (), Denies Hemophilia or other blood (unknown) (no (unknown) (unknown) Denies Chucho-Sachs (units (unknown) date) (Ashkenazi unknown) Temple, Cajun, Cameroonian South African), Denies Yesika (unknown) (no (unknown) (unknown) Denies other (units (u nknown) date) unknown) (unknown) (no (unknown) (unknown) Denies over the (units (unknown) date) counter unknown) medications, Denies alcohol, Denies illicit drugs and (unknown) (no (unknown) (unknown) Dept at (units (unkno wn) date) . unknown) (unknown) (no (unknown) (unknown) Desires quad (units (u nknown) date) screen for unknown) genetic testing (unknown) (no (unknown) (unknown) Diet and (units (unkno wn) date) Exercise unknown) (unknown) (no (unknown) (unknown) Disease (units (unkno wn) date) (Ashkenazi unknown) Temple), Denies Familial Dysautonomia (Ashkenazi Temple), (unknown) (no (unknown) (unknown) Documented By: (units (unknown) date) Flavia Pritchard MD unknown) 08/08/22 1328 (unknown) (no (unknown) (unknown) Does not feel (units ( unknown) date) the need for unknown) assistance. (unknown) (no (unknown) (unknown) Draft (units (unkno wn) date) unknown) (unknown) (no (unknown) (unknown) ARNOLDO Calculator (units (unknown) date) unknown) (unknown) (no (unknown) (unknown) EGA Weight BP (units ( unknown) date) UGlucose unknown) (unknown) (no (unknown) (unknown) Estimated (units (unkn own) date) Delivery Date unknown) Method Current (unknown) (no (unknown) (unknown) Family History (units (unknown) date) (Updated 04/28/22 unknown) @ 12:26 by Yadira Brown RN) (unknown) (no (unknown) (unknown) Father of Baby: (units (unknown) date) same unknown) (unknown) (no (unknown) (unknown) First Trimester (units (unknown) date) Education unknown) Checklist (unknown) (no (unknown) (unknown) Genetic (units (unkno wn) date) Screening + unknown) Counseling (unknown) (no (unknown) (unknown) Genetic (units (unkno wn) date) Screening unknown) (unknown) (no (unknown) (unknown) Grandmother (units (un known) date) Hypertension unknown) (unknown) (no (unknown) (unknown) 3 (units (unkn own) date) Multiple births unknown) (unknown) (no (unknown) (unknown) HIV risk (units (unkno wn) date) evaluation: low unknown) risk (unknown) (no (unknown) (unknown) Health Center (units ( unknown) date) Education unknown) (unknown) (no (unknown) (unknown) Health center (units ( unknown) date) information: unknown) nature of practice discussed, personnel (unknown) (no (unknown) (unknown) Hepatitis C risk (units (unknown) date) evaluation: low unknown) risk (unknown) (no (unknown) (unknown) History of (units (unk nown) date) Hepatitis B: No unknown) (unknown) (no (unknown) (unknown) History of (units (unk nown) date) Hepatitis C: No unknown) (unknown) (no (unknown) (unknown) Hospital[facility] (units (u nknown) date) unknown) (unknown) (no (unknown) (unknown) Chetna's (units (u nknown) date) Chorea, Denies unknown) Other inherited genetic or chromosomal disorder, (unknown) (no (unknown) (unknown) Hx # (units (u nknown) date) Pregnancies unknown) Elective abortions (unknown) (no (unknown) (unknown) Hx # Term (units (unkn own) date) Pregnancies 1 unknown) Ectopic pregnancies (unknown) (no (unknown) (unknown) Hx (units ( unknown) date) depression - on unknown) Zoloft which didn't help (unknown) (no (unknown) (unknown) Hypertension (units (u nknown) date) unknown) (unknown) (no (unknown) (unknown) IOL scheduled (units ( unknown) date) for 10/21/22. unknown) (unknown) (no (unknown) (unknown) Infection (units (unkn own) date) History unknown) (unknown) (no (unknown) (unknown) Infectious (units (unk nown) date) Disease Education unknown) (unknown) (no (unknown) (unknown) Infectious (units (unk nown) date) disease exposure: unknown) chicken pox immunity discussed, hepatitis risk (unknown) (no (unknown) (unknown) Initial Weight: (units (unknown) date) 107 lb unknown) (unknown) (no (unknown) (unknown) Initials (units (unkno wn) date) unknown) (unknown) (no (unknown) (unknown) Intake Note: (units (u nknown) date) unknown) (unknown) (no (unknown) (unknown) Intake (units (unkno wn) date) unknown) (unknown) (no (unknown) (unknown) It's a boy! (units (un known) date) unknown) (unknown) (no (unknown) (unknown) NIGEL (units (unkno wn) date) unknown) (unknown) (no (unknown) (unknown) Bowen (units (unkno wn) date) unknown) (unknown) (no (unknown) (unknown) Live with (units (unkn own) date) someone with TB unknown) or exposed to TB: No (unknown) (no (unknown) (unknown) Loc: [facility] (units (unkno wn) date) unknown) (unknown) (no (unknown) (unknown) Marital status: (units (unknown) date) unknown) (unknown) (no (unknown) (unknown) Medical History (units (unknown) date) (Updated 04/28/22 unknown) @ 12:39 by Yadira Brown RN) (unknown) (no (unknown) (unknown) Mood currently (units (unknown) date) stable. Hx of unknown) depression, briefly on Zoloft but (unknown) (no (unknown) (unknown) Mother Migraine (units (unknown) date) unknown) (unknown) (no (unknown) (unknown) No Known (units (unkno wn) date) Allergies Allergy unknown) (Verified 07/11/22 11:14) (unknown) (no (unknown) (unknown) No no 158 absent (units (unknown) date) unknown) (unknown) (no (unknown) (unknown) Notes (units (unkno wn) date) unknown) (unknown) (no (unknown) (unknown) Number of Living (units (unknown) date) Children 1 unknown) (unknown) (no (unknown) (unknown) Number of (units (unkn own) date) fetuses:: Single unknown) (unknown) (no (unknown) (unknown) OB Office Visit (units (unknown) date) unknown) (unknown) (no (unknown) (unknown) OB Visit Log (units (u nknown) date) unknown) (unknown) (no (unknown) (unknown) PFSH (units (unkno wn) date) unknown) (unknown) (no (unknown) (unknown) Para 1 (units (unkno wn) date) Spontaneous unknown) abortions 1 (unknown) (no (unknown) (unknown) Partner history (units (unknown) date) of STD: denies hx unknown) (unknown) (no (unknown) (unknown) Partner history (units (unknown) date) of genital unknown) herpes: No (unknown) (no (unknown) (unknown) Partner: David (units (unknown) date) [place] 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 Rink Manager: (units ( unknown) date) KENYA [place] unknown) (unknown) (no (unknown) (unknown) Personal history (units (unknown) date) of STD: denies hx unknown) (unknown) (no (unknown) (unknown) Personal history (units (unknown) date) of genital unknown) herpes: No (unknown) (no (unknown) (unknown) (units (unk nown) date) depression unknown) (unknown) (no (unknown) (unknown) (units (unkn own) date) History unknown) (unknown) (no (unknown) (unknown) type:: (units (unknown) date) Other Normal unknown) (unknown) (no (unknown) (unknown) (units (unkno wn) date) Education unknown) (unknown) (no (unknown) (unknown) Initial (units (unknown) date) Assessment unknown) (unknown) (no (unknown) (unknown) (units (unkno wn) date) Specific unknown) Issues/Plans (unknown) (no (unknown) (unknown) (units (unkno wn) date) Testing: unknown) discussed (unknown) (no (unknown) (unknown) Visit (units (unknown) date) unknown) (unknown) (no (unknown) (unknown) (units (unkno wn) date) education packet: unknown) symptoms, Vitamins and iron, Diet and (unknown) (no (unknown) (unknown) Primary Care (units (u nknown) date) Provider: KENYA Fagan unknown) [place] (unknown) (no (unknown) (unknown) Primary Ob (units (unk nown) date) Provider: unknown) Flavia Pritchard (unknown) (no (unknown) (unknown) Prior (units (unkno wn) date) GBS-Infected unknown) child: No (unknown) (no (unknown) (unknown) Promethazine for (units (unknown) date) migraines made it unknown) worse. She is getting migraines now (unknown) (no (unknown) (unknown) Providers (units (unkn own) date) unknown) (unknown) (no (unknown) (unknown) Pt aware that (units ( unknown) date) she will be unknown) dismissed for further no-shows. (unknown) (no (unknown) (unknown) Pt is 28 wks and (units (unknown) date) 5 days today. She unknown) had labs on 07/29/22. (unknown) (no (unknown) (unknown) Pt is not (units (unkn own) date) currently unknown) employed. , David, in the [place], no upcoming (unknown) (no (unknown) (unknown) Pt with more (units (u nknown) date) frequent unknown) migraines again, started again 3 days ago. Seems to (unknown) (no (unknown) (unknown) Pt with (units (unkno wn) date) primarily morning unknown) nausea and vomiting. Resolves by lunch time. (unknown) (no (unknown) (unknown) Quad screen (units (un known) date) ordered unknown) (unknown) (no (unknown) (unknown) Rash or viral (units ( unknown) date) illness since unknown) last menstrual period: Yes ('flu' in early March) (unknown) (no (unknown) (unknown) Reason For Visit (units (unknown) date) unknown) (unknown) (no (unknown) (unknown) Recent travel (units ( unknown) date) outside of unknown) country?: No (unknown) (no (unknown) (unknown) Recurrent (units (unkn own) date) loss or unknown) a stillbirth: No (unknown) (no (unknown) (unknown) SAB (spontaneous (units (unknown) date) ) unknown) (unknown) (no (unknown) (unknown) Safety (units (unkno wn) date) unknown) (unknown) (no (unknown) (unknown) Sauna/hot tub (units ( unknown) date) use, Dental care, unknown) Travel and Influenza vaccine (had flu and Covid (unknown) (no (unknown) (unknown) Second Trimester (units (unknown) date) Education unknown) Checklist (unknown) (no (unknown) (unknown) Selecting a (units (un known) date) care unknown) provider: discussed (unknown) (no (unknown) (unknown) Signed By: (units (unk nown) date) unknown) (unknown) (no (unknown) (unknown) Signs and (units (unkn own) date) symptoms of unknown) labor: discussed (unknown) (no (unknown) (unknown) Smoking Status: (units (unknown) date) Never smoker unknown) (unknown) (no (unknown) (unknown) Social History (units (unknown) date) unknown) (unknown) (no (unknown) (unknown) Support (units (unkno wn) date) Person(s):: David unknown) (unknown) (no (unknown) (unknown) Symptoms since (units (unknown) date) LMP: Reports unknown) amenorrhea, nausea, vomiting, fatigue, breast (unknown) (no (unknown) (unknown) Teratogen (units (unkn own) date) Exposures since unknown) LMP/Conception: Denies prescription medications, (unknown) (no (unknown) (unknown) Testing (units (unkno wn) date) Education unknown) (unknown) (no (unknown) (unknown) Testing (units (unkno wn) date) education unknown) completed: group B strep and Spina bifida testing (unknown) (no (unknown) (unknown) The pt has not (units (unknown) date) been sleeping unknown) well. She is only sleeping up to an hour at (unknown) (no (unknown) (unknown) This note may (units ( unknown) date) have been all or unknown) partially generated using voice recognition (unknown) (no (unknown) (unknown) Tobacco + (units (unkn own) date) Substance Use unknown) (unknown) (no (unknown) (unknown) Tobacco Status (units (unknown) date) unknown) (unknown) (no (unknown) (unknown) Type(s) of (units (unk nown) date) exercise: walking unknown) (unknown) (no (unknown) (unknown) UProtein Movement (units (unknown) date) PreLabor FHR Fndl unknown) Ht Pres Edema Cerv Exam US/Comment Next Appt (unknown) (no (unknown) (unknown) Varicella/chicke (units (unknown) date) n pox status: unknown) immunized (unknown) (no (unknown) (unknown) Visit Date: (units (un known) date) 05/03/22 Last unknown) Updated by: Flavia Pritchard MD (unknown) (no (unknown) (unknown) Visit Date: (units (un known) date) 06/14/22 Last unknown) Updated by: Flavia Pritchard MD (unknown) (no (unknown) (unknown) Visit Date: (units (un known) date) 07/11/22 Last unknown) Updated by: Flavia Pritchard MD (unknown) (no (unknown) (unknown) Visit Reasons: (units (unknown) date) 28 Wk OB unknown) (unknown) (no (unknown) (unknown) WG (units (unkno wn) date) unknown) (unknown) (no (unknown) (unknown) [facility] 7 months (units (u nknown) date) none unknown) (unknown) (no (unknown) (unknown) Yes no 148 23 (units ( unknown) date) absent glucola unknown) ordered 4 (unknown) (no (unknown) (unknown) Yes no 157 21 (units ( unknown) date) absent quad today unknown) 4wks (unknown) (no (unknown) (unknown) Zika virus (units (unk nown) date) exposure: No unknown) (unknown) (no (unknown) (unknown) a time. She has (units (unknown) date) not tried unknown) anything yet. Discussed melatonin. (unknown) (no (unknown) (unknown) additional (units (unk nown) date) treatment for unknown) now. (unknown) (no (unknown) (unknown) alcohol intake: (units (unknown) date) former unknown) (unknown) (no (unknown) (unknown) anyone in either (units (unknown) date) family with: unknown) (unknown) (no (unknown) (unknown) baby's father (units ( unknown) date) had a child with unknown) defects not listed above and Denies Other (unknown) (no (unknown) (unknown) be worse in the (units (unknown) date) afternoon. She unknown) has tried sleep, caffeine, shower and nothing (unknown) (no (unknown) (unknown) caffeine: No (units (u nknown) date) unknown) (unknown) (no (unknown) (unknown) carbon monox (units (u nknown) date) detector in home: unknown) Yes (unknown) (no (unknown) (unknown) current (units (unkno wn) date) occupational unknown) exposures/hazards : No (unknown) (no (unknown) (unknown) daily servings (units (unknown) date) fruits/ve-1 unknown) (unknown) (no (unknown) (unknown) deployments. (units (u nknown) date) unknown) (unknown) (no (unknown) (unknown) described, visit (units (unknown) date) schedule unknown) reviewed, ultrasounds policy reviewed, coverage 24 (unknown) (no (unknown) (unknown) did not feel it (units (unknown) date) was helpful. unknown) (unknown) (no (unknown) (unknown) discussed, (units (unk nown) date) tuberculosis unknown) exposure discussed, CMV discussed, Toxoplasmosis (unknown) (no (unknown) (unknown) disorders, (units (unk nown) date) Denies Cystic unknown) Fibrosis, Denies Mental Retardation/Autis m, Denies (unknown) (no (unknown) (unknown) do you feel safe (units (unknown) date) at home: Yes unknown) (unknown) (no (unknown) (unknown) duration: 15-30 (units (unknown) date) minutes/day unknown) (unknown) (no (unknown) (unknown) during the past (units (unknown) date) year weight has: unknown) other (fluctuated) (unknown) (no (unknown) (unknown) education level: (units (unknown) date) high school unknown) (unknown) (no (unknown) (unknown) every afternoon. (units (unknown) date) She drinks a soda unknown) and falls asleep and they go away. Declines (unknown) (no (unknown) (unknown) fire (units (unkno wn) date) extinguisher in unknown) home: Yes (unknown) (no (unknown) (unknown) firearms in (units (un known) date) home: No unknown) (unknown) (no (unknown) (unknown) frequency: 3-4 (units (unknown) date) times per week unknown) (unknown) (no (unknown) (unknown) have occurred. (units (unknown) date) If there are any unknown) questions, please contact the Medical Records (unknown) (no (unknown) (unknown) hospital. (units (unkn own) date) unknown) (unknown) (no (unknown) (unknown) hours a day and (units (unknown) date) participation of unknown) father in care and office visits (unknown) (no (unknown) (unknown) household (units (unkn own) date) members: spouse unknown) and children (unknown) (no (unknown) (unknown) housing: house (units (unknown) date) unknown) (unknown) (no (unknown) (unknown) lives (units (unkno wn) date) independently: unknown) Yes (unknown) (no (unknown) (unknown) marital status: (units (unknown) date) unknown) (unknown) (no (unknown) (unknown) may occur. (units (unk nown) date) Occasional unknown) wrong-word or 'sound-alike' substitutions may have (unknown) (no (unknown) (unknown) number of (units (unkn own) date) children: 1 unknown) (unknown) (no (unknown) (unknown) occupational (units (u nknown) date) status: unknown) unemployed (unknown) (no (unknown) (unknown) occurred due to (units (unknown) date) the inherent unknown) limitations of voice recognition software. Please (unknown) (no (unknown) (unknown) pets and (units (unkno wn) date) animals: Yes (1 unknown) dog) (unknown) (no (unknown) (unknown) precautions, (units (u nknown) date) Listeriosis unknown) prevention and Rubella Immunization (unknown) (no (unknown) (unknown) read the note (units ( unknown) date) carefully and unknown) recognize, using context, where these substitutions (unknown) (no (unknown) (unknown) seatbelt use: (units ( unknown) date) always unknown) (unknown) (no (unknown) (unknown) second hand (units (un known) date) exposure: No unknown) (unknown) (no (unknown) (unknown) seems to help. - (units (unknown) date) Trial Reglan unknown) (unknown) (no (unknown) (unknown) software. (units (unkn own) date) Although every unknown) effort is made to edit content, electric sign wirer errors (unknown) (no (unknown) (unknown) special juan (units ( unknown) date) needs: No unknown) (unknown) (no (unknown) (unknown) substance use (units ( unknown) date) type: does not unknown) use (unknown) (no (unknown) (unknown) tenderness, (units (un known) date) urinary unknown) frequency, irritability and bloating (unknown) (no (unknown) (unknown) water heater (units (u nknown) date) temp set < 120 unknown) deg: Yes (unknown) (no (unknown) (unknown) weight gain, (units (u nknown) date) Fish and mercury unknown) intake, Caffeine use, Exercise and activity, (unknown) (no (unknown) (unknown) well-balanced (units ( unknown) date) diet: rarely or unknown) never (unknown) (no (unknown) (unknown) wks (units (unkno wn) date) unknown) (unknown) (no (unknown) (unknown) work/environment (units (unknown) date) al/hazards, unknown) Sexual activity, X-ray exposure, Medication use, (unknown) (no (unknown) (unknown) working smoke (units ( unknown) date) detector in home: unknown) Yes (unknown) (no (unknown) (unknown) x3) (units (unkno wn) date) unknown) Result panel 41 (unknown) (no (unknown) (unknown) (no value) (units (unk nown) date) unknown) (unknown) (no (unknown) (unknown) (+17 lb) 100/60 (units (unknown) date) unknown) (unknown) (no (unknown) (unknown) (+2 lb) 115/62 (units (unknown) date) unknown) (unknown) (no (unknown) (unknown) (+9 lb) 90/58 (units ( unknown) date) unknown) (unknown) (no (unknown) (unknown) (1) Encounter (units ( unknown) date) for supervision unknown) of other normal , third trimester: (unknown) (no (unknown) (unknown) (2) 28 weeks (units (u nknown) date) gestation of unknown) : (unknown) (no (unknown) (unknown) Genetic (units (unkn own) date) Screening/Teratol unknown) ogy Counseling - Includes patient, baby's father, or (unknown) (no (unknown) (unknown) -?-?-?-?-?-?-?-? (units (unknown) date) -?-?-?-? unknown) (unknown) (no (unknown) (unknown) 0.5 mL 0RF NS (units ( unknown) date) Z23 - Encounter unknown) for immunization (unknown) (no (unknown) (unknown) 11/16/18 9 (units (unk nown) date) spontaneous unknown) (unknown) (no (unknown) (unknown) 01/08/21 41 12 8 (units (unknown) date) lb 1 oz Male unknown) vaginal live - full term (unknown) (no (unknown) (unknown) 05/03/22 (units (unkno wn) date) unknown) (unknown) (no (unknown) (unknown) 06/14/22 (units (unkno wn) date) unknown) (unknown) (no (unknown) (unknown) 07/11/22 [Rx (units (u nknown) date) Confirmed unknown) 08/08/22] (unknown) (no (unknown) (unknown) 07/11/22 (units (unkno wn) date) unknown) (unknown) (no (unknown) (unknown) [id number] (units (unkno wn) date) unknown) (unknown) (no (unknown) (unknown) 08/08/22 (units (unkno wn) date) unknown) (unknown) (no (unknown) (unknown) 08/08/22] (units (unkn own) date) unknown) (unknown) (no (unknown) (unknown) 14w 6d 109 lb (units ( unknown) date) unknown) (unknown) (no (unknown) (unknown) 20w 6d 116 lb (units ( unknown) date) unknown) (unknown) (no (unknown) (unknown) 24w 5d 124 lb (units ( unknown) date) unknown) (unknown) (no (unknown) (unknown) 4wks (units (unkno wn) date) unknown) (unknown) (no (unknown) (unknown) Abnormal lab (units (u nknown) date) values 2nd unknown) trimester: discussed (unknown) (no (unknown) (unknown) Accompanied by: (units (unknown) date) Self / Same As unknown) Patient (unknown) (no (unknown) (unknown) Adacel(Tdap (units (un known) date) Adolesn/Adult)(PF unknown) ) (diph,pertuss(ino l),tet vac(PF)) 0.5 mL IM ONCE (unknown) (no (unknown) (unknown) Add'l Plan (units (unk nown) date) Details unknown) (unknown) (no (unknown) (unknown) Age/Sex: 21 / F (units (unknown) date) Date of Service: unknown) (unknown) (no (unknown) (unknown) Allergies (units (unkn own) date) unknown) (unknown) (no (unknown) (unknown) [facility] (units (unknown) date) Medicine unknown) (unknown) (no (unknown) (unknown) [place] (units ( unknown) date) [id number] unknown) (unknown) (no (unknown) (unknown) Anatomy ordered, (units (unknown) date) Glucola ordered unknown) (unknown) (no (unknown) (unknown) Anatomy scan (units (u nknown) date) scheduled for unknown) today. (unknown) (no (unknown) (unknown) Aneuploidy (units (unk nown) date) Screening unknown) Offered: Accepted (Quad screen) (unknown) (no (unknown) (unknown) Anticipated (units (un known) date) course of unknown) care: discussed (unknown) (no (unknown) (unknown) Assessment and (units (unknown) date) Plan unknown) (unknown) (no (unknown) (unknown) Attending Dr: (units ( unknown) date) Flavia Pritchard MD unknown) (unknown) (no (unknown) (unknown) (units (unkno wn) date) Plan/Preferences unknown) (unknown) (no (unknown) (unknown) Planning (units (unknown) date) unknown) (unknown) (no (unknown) (unknown) Blood (units (unkno wn) date) transfusions?: unknown) yes (Never had but would accept) (unknown) (no (unknown) (unknown) Breastfeed Preg (units (unknown) date) Comp Name unknown) (unknown) (no (unknown) (unknown) Current Estimate (units (unknown) date) 10/26/22 LMP unknown) (Certain) 28w 5d (unknown) (no (unknown) (unknown) Current (units (unkno wn) date) History unknown) (unknown) (no (unknown) (unknown) : 2000 (units (unknown) date) Acct:[id number] unknown) (unknown) (no (unknown) (unknown) Date (units (unkno wn) date) unknown) (unknown) (no (unknown) (unknown) Dating u/s with (units (unknown) date) fetus too large unknown) for CRL. Dating scan ordered through the (unknown) (no (unknown) (unknown) Del. Date (units (unkn own) date) GA/Weeks Labor unknown) Lgth Wt Sex Route Outcome Anesthesia Place (unknown) (no (unknown) (unknown) Delv (units (unkno wn) date) unknown) (unknown) (no (unknown) (unknown) Denies Congenital (units (unknown) date) Heart Defect, unknown) Denies Down Syndrome, Denies Muscular Dystrophy, (unknown) (no (unknown) (unknown) Denies Maternal (units (unknown) date) Metabolic unknown) Disorder (EG,TYPE 1 Diabetes, PKU), Denies Patient or (unknown) (no (unknown) (unknown) Denies Neural (units ( unknown) date) Tube Defect unknown) (Meningomyelocele , Spina Bifida, or Anencephaly), (unknown) (no (unknown) (unknown) Denies Sickle (units ( unknown) date) Cell Disease or unknown) Trait (), Denies Hemophilia or other blood (unknown) (no (unknown) (unknown) Denies Chucho-Sachs (units (unknown) date) (Ashkenazi unknown) Temple, Cajun, Cameroonian South African), Denies Yesika (unknown) (no (unknown) (unknown) Denies other (units (u nknown) date) unknown) (unknown) (no (unknown) (unknown) Denies over the (units (unknown) date) counter unknown) medications, Denies alcohol, Denies illicit drugs and (unknown) (no (unknown) (unknown) Dept at (units (unkno wn) date) . unknown) (unknown) (no (unknown) (unknown) Desires quad (units (u nknown) date) screen for unknown) genetic testing (unknown) (no (unknown) (unknown) Diet and (units (unkno wn) date) Exercise unknown) (unknown) (no (unknown) (unknown) Disease (units (unkno wn) date) (Ashkenazi unknown) Temple), Denies Familial Dysautonomia (Ashkenazi Temple), (unknown) (no (unknown) (unknown) Documented By: (units (unknown) date) Flavia Pritchard MD unknown) 08/08/22 1328 (unknown) (no (unknown) (unknown) Does not feel (units ( unknown) date) the need for unknown) assistance. (unknown) (no (unknown) (unknown) Draft (units (unkno wn) date) unknown) (unknown) (no (unknown) (unknown) ARNOLDO Calculator (units (unknown) date) unknown) (unknown) (no (unknown) (unknown) EGA Weight BP (units ( unknown) date) UGlucose unknown) (unknown) (no (unknown) (unknown) Estimated (units (unkn own) date) Delivery Date unknown) Method Current (unknown) (no (unknown) (unknown) Family History (units (unknown) date) (Updated 04/28/22 unknown) @ 12:26 by Yadira Brown RN) (unknown) (no (unknown) (unknown) Father of Baby: (units (unknown) date) same unknown) (unknown) (no (unknown) (unknown) First Trimester (units (unknown) date) Education unknown) Checklist (unknown) (no (unknown) (unknown) Genetic (units (unkno wn) date) Screening + unknown) Counseling (unknown) (no (unknown) (unknown) Genetic (units (unkno wn) date) Screening unknown) (unknown) (no (unknown) (unknown) Grandmother (units (un known) date) Hypertension unknown) (unknown) (no (unknown) (unknown) 3 (units (unkn own) date) Multiple births unknown) (unknown) (no (unknown) (unknown) HIV risk (units (unkno wn) date) evaluation: low unknown) risk (unknown) (no (unknown) (unknown) Health Center (units ( unknown) date) Education unknown) (unknown) (no (unknown) (unknown) Health center (units ( unknown) date) information: unknown) nature of practice discussed, personnel (unknown) (no (unknown) (unknown) Hepatitis C risk (units (unknown) date) evaluation: low unknown) risk (unknown) (no (unknown) (unknown) History of (units (unk nown) date) Hepatitis B: No unknown) (unknown) (no (unknown) (unknown) History of (units (unk nown) date) Hepatitis C: No unknown) (unknown) (no (unknown) (unknown) Hospital[facility] (units (u nknown) date) unknown) (unknown) (no (unknown) (unknown) Chetna's (units (u nknown) date) Chorea, Denies unknown) Other inherited genetic or chromosomal disorder, (unknown) (no (unknown) (unknown) Hx # (units (u nknown) date) Pregnancies unknown) Elective abortions (unknown) (no (unknown) (unknown) Hx # Term (units (unkn own) date) Pregnancies 1 unknown) Ectopic pregnancies (unknown) (no (unknown) (unknown) Hx (units ( unknown) date) depression - on unknown) Zoloft which didn't help (unknown) (no (unknown) (unknown) Hypertension (units (u nknown) date) unknown) (unknown) (no (unknown) (unknown) IOL scheduled (units ( unknown) date) for 10/21/22. unknown) (unknown) (no (unknown) (unknown) Infection (units (unkn own) date) History unknown) (unknown) (no (unknown) (unknown) Infectious (units (unk nown) date) Disease Education unknown) (unknown) (no (unknown) (unknown) Infectious (units (unk nown) date) disease exposure: unknown) chicken pox immunity discussed, hepatitis risk (unknown) (no (unknown) (unknown) Initial Weight: (units (unknown) date) 107 lb unknown) (unknown) (no (unknown) (unknown) Initials (units (unkno wn) date) unknown) (unknown) (no (unknown) (unknown) Intake Note: (units (u nknown) date) unknown) (unknown) (no (unknown) (unknown) Intake (units (unkno wn) date) unknown) (unknown) (no (unknown) (unknown) It's a boy! (units (un known) date) unknown) (unknown) (no (unknown) (unknown) NIGEL (units (unkno wn) date) unknown) (unknown) (no (unknown) (unknown) Bowen (units (unkno wn) date) unknown) (unknown) (no (unknown) (unknown) Live with (units (unkn own) date) someone with TB unknown) or exposed to TB: No (unknown) (no (unknown) (unknown) Loc: [facility] (units (unkno wn) date) unknown) (unknown) (no (unknown) (unknown) Marital status: (units (unknown) date) unknown) (unknown) (no (unknown) (unknown) Medical History (units (unknown) date) (Updated 04/28/22 unknown) @ 12:39 by Yadira Brown RN) (unknown) (no (unknown) (unknown) Medications (units (un known) date) unknown) (unknown) (no (unknown) (unknown) Medications: (units (u nknown) date) unknown) (unknown) (no (unknown) (unknown) Mood currently (units (unknown) date) stable. Hx of unknown) depression, briefly on Zoloft but (unknown) (no (unknown) (unknown) Mother Migraine (units (unknown) date) unknown) (unknown) (no (unknown) (unknown) New (units (unkno wn) date) unknown) (unknown) (no (unknown) (unknown) No Known (units (unkno wn) date) Allergies Allergy unknown) (Verified 08/08/22 13:59) (unknown) (no (unknown) (unknown) No no 158 absent (units (unknown) date) unknown) (unknown) (no (unknown) (unknown) Non-Stress Test (units (unknown) date) performed?: No unknown) (unknown) (no (unknown) (unknown) Notes (units (unkno wn) date) unknown) (unknown) (no (unknown) (unknown) Number of Living (units (unknown) date) Children 1 unknown) (unknown) (no (unknown) (unknown) Number of (units (unkn own) date) fetuses:: Single unknown) (unknown) (no (unknown) (unknown) OB Office Visit (units (unknown) date) unknown) (unknown) (no (unknown) (unknown) OB Visit Log (units (u nknown) date) unknown) (unknown) (no (unknown) (unknown) Orders (units (unkno wn) date) unknown) (unknown) (no (unknown) (unknown) Orders: (units (unkno wn) date) unknown) (unknown) (no (unknown) (unknown) PFSH (units (unkno wn) date) unknown) (unknown) (no (unknown) (unknown) Pap performed?: (units (unknown) date) No unknown) (unknown) (no (unknown) (unknown) Para 1 (units (unkno wn) date) Spontaneous unknown) abortions 1 (unknown) (no (unknown) (unknown) Partner history (units (unknown) date) of STD: denies hx unknown) (unknown) (no (unknown) (unknown) Partner history (units (unknown) date) of genital unknown) herpes: No (unknown) (no (unknown) (unknown) Partner: David (units (unknown) date) [place] unknown) (unknown) (no (unknown) (unknown) Past Pregnancies (units (unknown) date) unknown) (unknown) (no (unknown) (unknown) Patient's age 34 (units (unknown) date) years or older as unknown) of estimated date of delivery: No (unknown) (no (unknown) (unknown) Patient: (units (unkno wn) date) Aurea Abel unknown) MR#: [id number] (unknown) (no (unknown) (unknown) Skating Rink Manager: (units ( unknown) date) [facility] unknown) (unknown) (no (unknown) (unknown) Personal history (units (unknown) date) of STD: denies hx unknown) (unknown) (no (unknown) (unknown) Personal history (units (unknown) date) of genital unknown) herpes: No (unknown) (no (unknown) (unknown) (units (unk nown) date) depression unknown) (unknown) (no (unknown) (unknown) (units (unkn own) date) History unknown) (unknown) (no (unknown) (unknown) type:: (units (unknown) date) Other Normal unknown) (unknown) (no (unknown) (unknown) (units (unkno wn) date) Education unknown) (unknown) (no (unknown) (unknown) Initial (units (unknown) date) Assessment unknown) (unknown) (no (unknown) (unknown) (units (unkno wn) date) Specific unknown) Issues/Plans (unknown) (no (unknown) (unknown) (units (unkno wn) date) Testing: unknown) discussed (unknown) (no (unknown) (unknown) Visit (units (unknown) date) unknown) (unknown) (no (unknown) (unknown) (units (unkno wn) date) education packet: unknown) symptoms, Vitamins and iron, Diet and (unknown) (no (unknown) (unknown) Primary Care (units (u nknown) date) Provider: KENYA Fagan unknown) Natural Steps (unknown) (no (unknown) (unknown) Primary Ob (units (unk nown) date) Provider: unknown) Flavia Pritchard (unknown) (no (unknown) (unknown) Prior (units (unkno wn) date) GBS-Infected unknown) child: No (unknown) (no (unknown) (unknown) Promethazine for (units (unknown) date) migraines made it unknown) worse. She is getting migraines now (unknown) (no (unknown) (unknown) Providers (units (unkn own) date) unknown) (unknown) (no (unknown) (unknown) Pt aware that (units ( unknown) date) she will be unknown) dismissed for further no-shows. (unknown) (no (unknown) (unknown) Pt is 28 wks and (units (unknown) date) 5 days today. She unknown) had labs on 07/29/22. Pt due for TDap today. (unknown) (no (unknown) (unknown) Pt is not (units (unkn own) date) currently unknown) employed. , David, in the [place], no upcoming (unknown) (no (unknown) (unknown) Pt with more (units (u nknown) date) frequent unknown) migraines again, started again 3 days ago. Seems to (unknown) (no (unknown) (unknown) Pt with (units (unkno wn) date) primarily morning unknown) nausea and vomiting. Resolves by lunch time. (unknown) (no (unknown) (unknown) Quad screen (units (un known) date) ordered unknown) (unknown) (no (unknown) (unknown) Rash or viral (units ( unknown) date) illness since unknown) last menstrual period: Yes ('flu' in early March) (unknown) (no (unknown) (unknown) Reason For Visit (units (unknown) date) unknown) (unknown) (no (unknown) (unknown) Recent travel (units ( unknown) date) outside of unknown) country?: No (unknown) (no (unknown) (unknown) Recurrent (units (unkn own) date) loss or unknown) a stillbirth: No (unknown) (no (unknown) (unknown) SAB (spontaneous (units (unknown) date) ) unknown) (unknown) (no (unknown) (unknown) Safety (units (unkno wn) date) unknown) (unknown) (no (unknown) (unknown) Sauna/hot tub (units ( unknown) date) use, Dental care, unknown) Travel and Influenza vaccine (had flu and Covid (unknown) (no (unknown) (unknown) Second Trimester (units (unknown) date) Education unknown) Checklist (unknown) (no (unknown) (unknown) Selecting a (units (un known) date) care unknown) provider: discussed (unknown) (no (unknown) (unknown) Signed By: (units (unk nown) date) unknown) (unknown) (no (unknown) (unknown) Signs and (units (unkn own) date) symptoms of unknown) labor: discussed (unknown) (no (unknown) (unknown) Smoking Status: (units (unknown) date) Never smoker unknown) (unknown) (no (unknown) (unknown) Social History (units (unknown) date) unknown) (unknown) (no (unknown) (unknown) Support (units (unkno wn) date) Person(s):: David unknown) (unknown) (no (unknown) (unknown) Symptoms since (units (unknown) date) LMP: Reports unknown) amenorrhea, nausea, vomiting, fatigue, breast (unknown) (no (unknown) (unknown) Tdap Adult (units (unk nown) date) (Adacel) Today unknown) Z23 - Encounter for immunization (unknown) (no (unknown) (unknown) Teratogen (units (unkn own) date) Exposures since unknown) LMP/Conception: Denies prescription medications, (unknown) (no (unknown) (unknown) Testing (units (unkno wn) date) Education unknown) (unknown) (no (unknown) (unknown) Testing (units (unkno wn) date) education unknown) completed: group B strep and Spina bifida testing (unknown) (no (unknown) (unknown) The pt has not (units (unknown) date) been sleeping unknown) well. She is only sleeping up to an hour at (unknown) (no (unknown) (unknown) This note may (units ( unknown) date) have been all or unknown) partially generated using voice recognition (unknown) (no (unknown) (unknown) Tobacco + (units (unkn own) date) Substance Use unknown) (unknown) (no (unknown) (unknown) Tobacco Status (units (unknown) date) unknown) (unknown) (no (unknown) (unknown) Trimester:: 3rd (units (unknown) date) Trimester unknown) (28wks-Del) (unknown) (no (unknown) (unknown) Type(s) of (units (unk nown) date) exercise: walking unknown) (unknown) (no (unknown) (unknown) UProtein Movement (units (unknown) date) PreLabor FHR Fndl unknown) Ht Pres Edema Cerv Exam US/Comment Next Appt (unknown) (no (unknown) (unknown) Ultrasound (units (unk nown) date) performed?: No unknown) (unknown) (no (unknown) (unknown) Varicella/chicke (units (unknown) date) n pox status: unknown) immunized (unknown) (no (unknown) (unknown) Visit Date: (units (un known) date) 05/03/22 Last unknown) Updated by: Flavia Pritchard MD (unknown) (no (unknown) (unknown) Visit Date: (units (un known) date) 06/14/22 Last unknown) Updated by: Flavia Pritchard MD (unknown) (no (unknown) (unknown) Visit Date: (units (un known) date) 07/11/22 Last unknown) Updated by: Falvia Pritchard MD (unknown) (no (unknown) (unknown) Visit Reasons: (units (unknown) date) 28 Wk OB unknown) (unknown) (no (unknown) (unknown) WG (units (unkno wn) date) unknown) (unknown) (no (unknown) (unknown) [facility] 7 months (units (u nknown) date) none unknown) (unknown) (no (unknown) (unknown) Weeks (units (unkno wn) date) gestation:: 28 unknown) (unknown) (no (unknown) (unknown) Yes no 148 23 (units ( unknown) date) absent glucola unknown) ordered 4 (unknown) (no (unknown) (unknown) Yes no 157 21 (units ( unknown) date) absent quad today unknown) 4wks (unknown) (no (unknown) (unknown) Zika virus (units (unk nown) date) exposure: No unknown) (unknown) (no (unknown) (unknown) a time. She has (units (unknown) date) not tried unknown) anything yet. Discussed melatonin. (unknown) (no (unknown) (unknown) additional (units (unk nown) date) treatment for unknown) now. (unknown) (no (unknown) (unknown) alcohol intake: (units (unknown) date) former unknown) (unknown) (no (unknown) (unknown) anyone in either (units (unknown) date) family with: unknown) (unknown) (no (unknown) (unknown) baby's father (units ( unknown) date) had a child with unknown) defects not listed above and Denies Other (unknown) (no (unknown) (unknown) be worse in the (units (unknown) date) afternoon. She unknown) has tried sleep, caffeine, shower and nothing (unknown) (no (unknown) (unknown) caffeine: No (units (u nknown) date) unknown) (unknown) (no (unknown) (unknown) carbon monox (units (u nknown) date) detector in home: unknown) Yes (unknown) (no (unknown) (unknown) current (units (unkno wn) date) occupational unknown) exposures/hazards : No (unknown) (no (unknown) (unknown) daily servings (units (unknown) date) fruits/ve-1 unknown) (unknown) (no (unknown) (unknown) deployments. (units (u nknown) date) unknown) (unknown) (no (unknown) (unknown) described, visit (units (unknown) date) schedule unknown) reviewed, ultrasounds policy reviewed, coverage 24 (unknown) (no (unknown) (unknown) did not feel it (units (unknown) date) was helpful. unknown) (unknown) (no (unknown) (unknown) discussed, (units (unk nown) date) tuberculosis unknown) exposure discussed, CMV discussed, Toxoplasmosis (unknown) (no (unknown) (unknown) disorders, (units (unk nown) date) Denies Cystic unknown) Fibrosis, Denies Mental Retardation/Autis m, Denies (unknown) (no (unknown) (unknown) do you feel safe (units (unknown) date) at home: Yes unknown) (unknown) (no (unknown) (unknown) duration: 15-30 (units (unknown) date) minutes/day unknown) (unknown) (no (unknown) (unknown) during the past (units (unknown) date) year weight has: unknown) other (fluctuated) (unknown) (no (unknown) (unknown) education level: (units (unknown) date) high school unknown) (unknown) (no (unknown) (unknown) every afternoon. (units (unknown) date) She drinks a soda unknown) and falls asleep and they go away. Declines (unknown) (no (unknown) (unknown) fire (units (unkno wn) date) extinguisher in unknown) home: Yes (unknown) (no (unknown) (unknown) firearms in (units (un known) date) home: No unknown) (unknown) (no (unknown) (unknown) frequency: 3-4 (units (unknown) date) times per week unknown) (unknown) (no (unknown) (unknown) have occurred. (units (unknown) date) If there are any unknown) questions, please contact the Medical Records (unknown) (no (unknown) (unknown) hospital. (units (unkn own) date) unknown) (unknown) (no (unknown) (unknown) hours a day and (units (unknown) date) participation of unknown) father in care and office visits (unknown) (no (unknown) (unknown) household (units (unkn own) date) members: spouse unknown) and children (unknown) (no (unknown) (unknown) housing: house (units (unknown) date) unknown) (unknown) (no (unknown) (unknown) lives (units (unkno wn) date) independently: unknown) Yes (unknown) (no (unknown) (unknown) marital status: (units (unknown) date) unknown) (unknown) (no (unknown) (unknown) may occur. (units (unk nown) date) Occasional unknown) wrong-word or 'sound-alike' substitutions may have (unknown) (no (unknown) (unknown) metoclopramide (units (unknown) date) HCl 5 mg tablet 5 unknown) mg PO QACHS PRN nausea and vomiting #30 tabs (unknown) (no (unknown) (unknown) number of (units (unkn own) date) children: 1 unknown) (unknown) (no (unknown) (unknown) occupational (units (u nknown) date) status: unknown) unemployed (unknown) (no (unknown) (unknown) occurred due to (units (unknown) date) the inherent unknown) limitations of voice recognition software. Please (unknown) (no (unknown) (unknown) pets and (units (unkno wn) date) animals: Yes (1 unknown) dog) (unknown) (no (unknown) (unknown) precautions, (units (u nknown) date) Listeriosis unknown) prevention and Rubella Immunization (unknown) (no (unknown) (unknown) prenat.vits,alberto, (units (unknown) date) lze-tror-bukgw 1 unknown) tab PO DAILY 04/28/22 [History Confirmed (unknown) (no (unknown) (unknown) read the note (units ( unknown) date) carefully and unknown) recognize, using context, where these substitutions (unknown) (no (unknown) (unknown) seatbelt use: (units ( unknown) date) always unknown) (unknown) (no (unknown) (unknown) second hand (units (un known) date) exposure: No unknown) (unknown) (no (unknown) (unknown) seems to help. - (units (unknown) date) Trial Reglan unknown) (unknown) (no (unknown) (unknown) software. (units (unkn own) date) Although every unknown) effort is made to edit content, electric sign wirer errors (unknown) (no (unknown) (unknown) special juan (units ( unknown) date) needs: No unknown) (unknown) (no (unknown) (unknown) substance use (units ( unknown) date) type: does not unknown) use (unknown) (no (unknown) (unknown) tenderness, (units (un known) date) urinary unknown) frequency, irritability and bloating (unknown) (no (unknown) (unknown) water heater (units (u nknown) date) temp set < 120 unknown) deg: Yes (unknown) (no (unknown) (unknown) weight gain, (units (u nknown) date) Fish and mercury unknown) intake, Caffeine use, Exercise and activity, (unknown) (no (unknown) (unknown) well-balanced (units ( unknown) date) diet: rarely or unknown) never (unknown) (no (unknown) (unknown) wks (units (unkno wn) date) unknown) (unknown) (no (unknown) (unknown) work/environment (units (unknown) date) al/hazards, unknown) Sexual activity, X-ray exposure, Medication use, (unknown) (no (unknown) (unknown) working smoke (units ( unknown) date) detector in home: unknown) Yes (unknown) (no (unknown) (unknown) x3) (units (unkno wn) date) unknown) Result panel 42 (unknown) (no (unknown) (unknown) (no value) (units (unk nown) date) unknown) (unknown) (no (unknown) (unknown) (+17 lb) 100/60 (units (unknown) date) unknown) (unknown) (no (unknown) (unknown) (+2 lb) 115/62 (units (unknown) date) unknown) (unknown) (no (unknown) (unknown) (+9 lb) 90/58 (units ( unknown) date) unknown) (unknown) (no (unknown) (unknown) (1) Encounter (units ( unknown) date) for supervision unknown) of other normal , third trimester: (unknown) (no (unknown) (unknown) (2) 28 weeks (units (u nknown) date) gestation of unknown) : (unknown) (no (unknown) (unknown) Genetic (units (unkn own) date) Screening/Teratol unknown) ogy Counseling - Includes patient, baby's father, or (unknown) (no (unknown) (unknown) -?-?-?-?-?-?-?-? (units (unknown) date) -?-?-?-? unknown) (unknown) (no (unknown) (unknown) 0.5 mL 0RF NS (units ( unknown) date) Z23 - Encounter unknown) for immunization (unknown) (no (unknown) (unknown) 11/16/18 9 (units (unk nown) date) spontaneous unknown) (unknown) (no (unknown) (unknown) 01/08/21 41 12 8 (units (unknown) date) lb 1 oz Male unknown) vaginal live - full term (unknown) (no (unknown) (unknown) 05/03/22 (units (unkno wn) date) unknown) (unknown) (no (unknown) (unknown) 06/14/22 (units (unkno wn) date) unknown) (unknown) (no (unknown) (unknown) 07/11/22 [Rx (units (u nknown) date) Confirmed unknown) 08/08/22] (unknown) (no (unknown) (unknown) 07/11/22 (units (unkno wn) date) unknown) (unknown) (no (unknown) (unknown) [id number] (units (unkno wn) date) unknown) (unknown) (no (unknown) (unknown) 08/08/22 (units (unkno wn) date) unknown) (unknown) (no (unknown) (unknown) 08/08/22] (units (unkn own) date) unknown) (unknown) (no (unknown) (unknown) 14:05 (units (unkno wn) date) unknown) (unknown) (no (unknown) (unknown) 14w 6d 109 lb (units ( unknown) date) unknown) (unknown) (no (unknown) (unknown) 20w 6d 116 lb (units ( unknown) date) unknown) (unknown) (no (unknown) (unknown) 24w 5d 124 lb (units ( unknown) date) unknown) (unknown) (no (unknown) (unknown) 4wks (units (unkno wn) date) unknown) (unknown) (no (unknown) (unknown) Abnormal lab (units (u nknown) date) values 2nd unknown) trimester: discussed (unknown) (no (unknown) (unknown) Accompanied by: (units (unknown) date) Self / Same As unknown) Patient (unknown) (no (unknown) (unknown) Adacel(Tdap (units (un known) date) Adolesn/Adult)(PF unknown) ) (diph,pertuss(ino l),tet vac(PF)) 0.5 mL IM ONCE (unknown) (no (unknown) (unknown) Add'l Plan (units (unk nown) date) Details unknown) (unknown) (no (unknown) (unknown) Age/Sex: 21 / F (units (unknown) date) Date of Service: unknown) (unknown) (no (unknown) (unknown) Allergies (units (unkn own) date) unknown) (unknown) (no (unknown) (unknown) [facility] (units (unknown) date) Medicine unknown) (unknown) (no (unknown) (unknown) [place], [place] (units ( unknown) date) [id number] unknown) (unknown) (no (unknown) (unknown) Anatomy ordered, (units (unknown) date) Glucola ordered unknown) (unknown) (no (unknown) (unknown) Anatomy scan (units (u nknown) date) scheduled for unknown) today. (unknown) (no (unknown) (unknown) Aneuploidy (units (unk nown) date) Screening unknown) Offered: Accepted (Quad screen) (unknown) (no (unknown) (unknown) Anticipated (units (un known) date) course of unknown) care: discussed (unknown) (no (unknown) (unknown) Assessment and (units (unknown) date) Plan unknown) (unknown) (no (unknown) (unknown) Attending Dr: (units ( unknown) date) Flavia Pritchard MD unknown) (unknown) (no (unknown) (unknown) BP 98/60 (units (unkno wn) date) unknown) (unknown) (no (unknown) (unknown) (units (unkno wn) date) Plan/Preferences unknown) (unknown) (no (unknown) (unknown) Planning (units (unknown) date) unknown) (unknown) (no (unknown) (unknown) Blood Pressure (units (unknown) date) Location Lt unknown) brachial (unknown) (no (unknown) (unknown) Blood (units (unkno wn) date) transfusions?: unknown) yes (Never had but would accept) (unknown) (no (unknown) (unknown) Breastfeed Preg (units (unknown) date) Comp Name unknown) (unknown) (no (unknown) (unknown) Current Estimate (units (unknown) date) 10/26/22 LMP unknown) (Certain) 28w 5d (unknown) (no (unknown) (unknown) Current (units (unkno wn) date) History unknown) (unknown) (no (unknown) (unknown) : 2000 (units (unknown) date) Acct:[id number] unknown) (unknown) (no (unknown) (unknown) Date (units (unkno wn) date) unknown) (unknown) (no (unknown) (unknown) Dating u/s with (units (unknown) date) fetus too large unknown) for CRL. Dating scan ordered through the (unknown) (no (unknown) (unknown) Del. Date (units (unkn own) date) GA/Weeks Labor unknown) Lgth Wt Sex Route Outcome Anesthesia Place (unknown) (no (unknown) (unknown) Delv (units (unkno wn) date) unknown) (unknown) (no (unknown) (unknown) Denies Congenital (units (unknown) date) Heart Defect, unknown) Denies Down Syndrome, Denies Muscular Dystrophy, (unknown) (no (unknown) (unknown) Denies Maternal (units (unknown) date) Metabolic unknown) Disorder (EG,TYPE 1 Diabetes, PKU), Denies Patient or (unknown) (no (unknown) (unknown) Denies Neural (units ( unknown) date) Tube Defect unknown) (Meningomyelocele , Spina Bifida, or Anencephaly), (unknown) (no (unknown) (unknown) Denies Sickle (units ( unknown) date) Cell Disease or unknown) Trait (), Denies Hemophilia or other blood (unknown) (no (unknown) (unknown) Denies Chucho-Sachs (units (unknown) date) (Ashkenazi unknown) Temple, Cajun, Cameroonian South African), Denies Yesika (unknown) (no (unknown) (unknown) Denies other (units (u nknown) date) unknown) (unknown) (no (unknown) (unknown) Denies over the (units (unknown) date) counter unknown) medications, Denies alcohol, Denies illicit drugs and (unknown) (no (unknown) (unknown) Dept at (units (unkno wn) date) . unknown) (unknown) (no (unknown) (unknown) Desires quad (units (u nknown) date) screen for unknown) genetic testing (unknown) (no (unknown) (unknown) Diet and (units (unkno wn) date) Exercise unknown) (unknown) (no (unknown) (unknown) Disease (units (unkno wn) date) (Ashkenazi unknown) Temple), Denies Familial Dysautonomia (Ashkenazi Temple), (unknown) (no (unknown) (unknown) Documented By: (units (unknown) date) Flavia Pritchard MD unknown) 08/08/22 1328 (unknown) (no (unknown) (unknown) Does not feel (units ( unknown) date) the need for unknown) assistance. (unknown) (no (unknown) (unknown) Draft (units (unkno wn) date) unknown) (unknown) (no (unknown) (unknown) ARNOLDO Calculator (units (unknown) date) unknown) (unknown) (no (unknown) (unknown) EGA Weight BP (units ( unknown) date) UGlucose unknown) (unknown) (no (unknown) (unknown) Estimated (units (unkn own) date) Delivery Date unknown) Method Current (unknown) (no (unknown) (unknown) Family History (units (unknown) date) (Updated 04/28/22 unknown) @ 12:26 by Yadira Brown RN) (unknown) (no (unknown) (unknown) Father of Baby: (units (unknown) date) same unknown) (unknown) (no (unknown) (unknown) First Trimester (units (unknown) date) Education unknown) Checklist (unknown) (no (unknown) (unknown) Genetic (units (unkno wn) date) Screening + unknown) Counseling (unknown) (no (unknown) (unknown) Genetic (units (unkno wn) date) Screening unknown) (unknown) (no (unknown) (unknown) Grandmother (units (un known) date) Hypertension unknown) (unknown) (no (unknown) (unknown) 3 (units (unkn own) date) Multiple births unknown) (unknown) (no (unknown) (unknown) HIV risk (units (unkno wn) date) evaluation: low unknown) risk (unknown) (no (unknown) (unknown) Health Center (units ( unknown) date) Education unknown) (unknown) (no (unknown) (unknown) Health center (units ( unknown) date) information: unknown) nature of practice discussed, personnel (unknown) (no (unknown) (unknown) Hepatitis C risk (units (unknown) date) evaluation: low unknown) risk (unknown) (no (unknown) (unknown) History of (units (unk nown) date) Hepatitis B: No unknown) (unknown) (no (unknown) (unknown) History of (units (unk nown) date) Hepatitis C: No unknown) (unknown) (no (unknown) (unknown) Hospital[facility] (units (u nknown) date) unknown) (unknown) (no (unknown) (unknown) [place] (units (u nknown) date) Ch[place], Denies unknown) Other inherited genetic or chromosomal disorder, (unknown) (no (unknown) (unknown) Hx # (units (u nknown) date) Pregnancies unknown) Elective abortions (unknown) (no (unknown) (unknown) Hx # Term (units (unkn own) date) Pregnancies 1 unknown) Ectopic pregnancies (unknown) (no (unknown) (unknown) Hx (units ( unknown) date) depression - on unknown) Zoloft which didn't help (unknown) (no (unknown) (unknown) Hypertension (units (u nknown) date) unknown) (unknown) (no (unknown) (unknown) IOL scheduled (units ( unknown) date) for 10/21/22. unknown) (unknown) (no (unknown) (unknown) Infection (units (unkn own) date) History unknown) (unknown) (no (unknown) (unknown) Infectious (units (unk nown) date) Disease Education unknown) (unknown) (no (unknown) (unknown) Infectious (units (unk nown) date) disease exposure: unknown) chicken pox immunity discussed, hepatitis risk (unknown) (no (unknown) (unknown) Initial Weight: (units (unknown) date) 107 lb unknown) (unknown) (no (unknown) (unknown) Initials (units (unkno wn) date) unknown) (unknown) (no (unknown) (unknown) Intake Note: (units (u nknown) date) unknown) (unknown) (no (unknown) (unknown) Intake (units (unkno wn) date) unknown) (unknown) (no (unknown) (unknown) It's a boy! (units (un known) date) unknown) (unknown) (no (unknown) (unknown) NIGEL (units (unkno wn) date) unknown) (unknown) (no (unknown) (unknown) [place] (units (unkno wn) date) unknown) (unknown) (no (unknown) (unknown) Live with (units (unkn own) date) someone with TB unknown) or exposed to TB: No (unknown) (no (unknown) (unknown) Loc: [facility] (units (unkno wn) date) unknown) (unknown) (no (unknown) (unknown) Marital status: (units (unknown) date) unknown) (unknown) (no (unknown) (unknown) Medical History (units (unknown) date) (Updated 04/28/22 unknown) @ 12:39 by Yadira Brown RN) (unknown) (no (unknown) (unknown) Medications (units (un known) date) unknown) (unknown) (no (unknown) (unknown) Medications: (units (u nknown) date) unknown) (unknown) (no (unknown) (unknown) Mood currently (units (unknown) date) stable. Hx of unknown) depression, briefly on Zoloft but (unknown) (no (unknown) (unknown) Mother Migraine (units (unknown) date) unknown) (unknown) (no (unknown) (unknown) New (units (unkno wn) date) unknown) (unknown) (no (unknown) (unknown) No Known (units (unkno wn) date) Allergies Allergy unknown) (Verified 08/08/22 13:59) (unknown) (no (unknown) (unknown) No no 158 absent (units (unknown) date) unknown) (unknown) (no (unknown) (unknown) Non-Stress Test (units (unknown) date) performed?: No unknown) (unknown) (no (unknown) (unknown) Notes (units (unkno wn) date) unknown) (unknown) (no (unknown) (unknown) Number of Living (units (unknown) date) Children 1 unknown) (unknown) (no (unknown) (unknown) Number of (units (unkn own) date) fetuses:: Single unknown) (unknown) (no (unknown) (unknown) OB Office Visit (units (unknown) date) unknown) (unknown) (no (unknown) (unknown) OB Visit Log (units (u nknown) date) unknown) (unknown) (no (unknown) (unknown) Orders (units (unkno wn) date) unknown) (unknown) (no (unknown) (unknown) Orders: (units (unkno wn) date) unknown) (unknown) (no (unknown) (unknown) Oxygen Delivery (units (unknown) date) Method room air unknown) (unknown) (no (unknown) (unknown) PFSH (units (unkno wn) date) unknown) (unknown) (no (unknown) (unknown) Pap performed?: (units (unknown) date) No unknown) (unknown) (no (unknown) (unknown) Para 1 (units (unkno wn) date) Spontaneous unknown) abortions 1 (unknown) (no (unknown) (unknown) Partner history (units (unknown) date) of STD: denies hx unknown) (unknown) (no (unknown) (unknown) Partner history (units (unknown) date) of genital unknown) herpes: No (unknown) (no (unknown) (unknown) Partner: David (units (unknown) date) [place] unknown) (unknown) (no (unknown) (unknown) Past Pregnancies (units (unknown) date) unknown) (unknown) (no (unknown) (unknown) Patient's age 34 (units (unknown) date) years or older as unknown) of estimated date of delivery: No (unknown) (no (unknown) (unknown) Patient: (units (unkno wn) date) Aurea Abel unknown) MR#: [id number] (unknown) (no (unknown) (unknown) Skating Rink Manager: (units ( unknown) date) KENYA [place] unknown) (unknown) (no (unknown) (unknown) Personal history (units (unknown) date) of STD: denies hx unknown) (unknown) (no (unknown) (unknown) Personal history (units (unknown) date) of genital unknown) herpes: No (unknown) (no (unknown) (unknown) Position Sitting (units (unknown) date) unknown) (unknown) (no (unknown) (unknown) (units (unk nown) date) depression unknown) (unknown) (no (unknown) (unknown) (units (unkn own) date) History unknown) (unknown) (no (unknown) (unknown) type:: (units (unknown) date) Other Normal unknown) (unknown) (no (unknown) (unknown) (units (unkno wn) date) Education unknown) (unknown) (no (unknown) (unknown) Initial (units (unknown) date) Assessment unknown) (unknown) (no (unknown) (unknown) (units (unkno wn) date) Specific unknown) Issues/Plans (unknown) (no (unknown) (unknown) (units (unkno wn) date) Testing: unknown) discussed (unknown) (no (unknown) (unknown) Visit (units (unknown) date) unknown) (unknown) (no (unknown) (unknown) (units (unkno wn) date) education packet: unknown) symptoms, Vitamins and iron, Diet and (unknown) (no (unknown) (unknown) Primary Care (units (u nknown) date) Provider: KENYA Fagan unknown) Natural Steps (unknown) (no (unknown) (unknown) Primary Ob (units (unk nown) date) Provider: unknown) Flavia Pritchard (unknown) (no (unknown) (unknown) Prior (units (unkno wn) date) GBS-Infected unknown) child: No (unknown) (no (unknown) (unknown) Promethazine for (units (unknown) date) migraines made it unknown) worse. She is getting migraines now (unknown) (no (unknown) (unknown) Providers (units (unkn own) date) unknown) (unknown) (no (unknown) (unknown) Pt is 28 wks and (units (unknown) date) 5 days today. She unknown) had labs on 07/29/22. Pt due for TDap today. (unknown) (no (unknown) (unknown) Pt is not (units (unkn own) date) currently unknown) employed. , [employer], in the [place], no upcoming (unknown) (no (unknown) (unknown) Pt with more (units (u nknown) date) frequent unknown) migraines again, started again 3 days ago. Seems to (unknown) (no (unknown) (unknown) Pt with (units (unkno wn) date) primarily morning unknown) nausea and vomiting. Resolves by lunch time. (unknown) (no (unknown) (unknown) Pulse 110 H (units (un known) date) unknown) (unknown) (no (unknown) (unknown) Pulse Oximetry (units (unknown) date) (%) 99 unknown) (unknown) (no (unknown) (unknown) Pulse Source (units (u nknown) date) Monitor unknown) (unknown) (no (unknown) (unknown) Quad screen (units (un known) date) ordered unknown) (unknown) (no (unknown) (unknown) Rash or viral (units ( unknown) date) illness since unknown) last menstrual period: Yes ('flu' in early March) (unknown) (no (unknown) (unknown) Reason For Visit (units (unknown) date) unknown) (unknown) (no (unknown) (unknown) Recent travel (units ( unknown) date) outside of unknown) country?: No (unknown) (no (unknown) (unknown) Recurrent (units (unkn own) date) loss or unknown) a stillbirth: No (unknown) (no (unknown) (unknown) SAB (spontaneous (units (unknown) date) ) unknown) (unknown) (no (unknown) (unknown) Safety (units (unkno wn) date) unknown) (unknown) (no (unknown) (unknown) Sauna/hot tub (units ( unknown) date) use, Dental care, unknown) Travel and Influenza vaccine (had flu and Covid (unknown) (no (unknown) (unknown) Second Trimester (units (unknown) date) Education unknown) Checklist (unknown) (no (unknown) (unknown) Selecting a (units (un known) date) care unknown) provider: discussed (unknown) (no (unknown) (unknown) Signed By: (units (unk nown) date) unknown) (unknown) (no (unknown) (unknown) Signs and (units (unkn own) date) symptoms of unknown) labor: discussed (unknown) (no (unknown) (unknown) Smoking Status: (units (unknown) date) Never smoker unknown) (unknown) (no (unknown) (unknown) Social History (units (unknown) date) unknown) (unknown) (no (unknown) (unknown) Support (units (unkno wn) date) Person(s):: David unknown) (unknown) (no (unknown) (unknown) Symptoms since (units (unknown) date) LMP: Reports unknown) amenorrhea, nausea, vomiting, fatigue, breast (unknown) (no (unknown) (unknown) Tdap Adult (units (unk nown) date) (Adacel) Today unknown) Z23 - Encounter for immunization (unknown) (no (unknown) (unknown) Teratogen (units (unkn own) date) Exposures since unknown) LMP/Conception: Denies prescription medications, (unknown) (no (unknown) (unknown) Testing (units (unkno wn) date) Education unknown) (unknown) (no (unknown) (unknown) Testing (units (unkno wn) date) education unknown) completed: group B strep and Spina bifida testing (unknown) (no (unknown) (unknown) The pt has not (units (unknown) date) been sleeping unknown) well. She is only sleeping up to an hour at (unknown) (no (unknown) (unknown) This note may (units ( unknown) date) have been all or unknown) partially generated using voice recognition (unknown) (no (unknown) (unknown) Tobacco + (units (unkn own) date) Substance Use unknown) (unknown) (no (unknown) (unknown) Tobacco Status (units (unknown) date) unknown) (unknown) (no (unknown) (unknown) Trimester:: 3rd (units (unknown) date) Trimester unknown) (28wks-Del) (unknown) (no (unknown) (unknown) Type(s) of (units (unk nown) date) exercise: walking unknown) (unknown) (no (unknown) (unknown) UProtein Movement (units (unknown) date) PreLabor FHR Fndl unknown) Ht Pres Edema Cerv Exam US/Comment Next Appt (unknown) (no (unknown) (unknown) Ultrasound (units (unk nown) date) performed?: No unknown) (unknown) (no (unknown) (unknown) Varicella/chicke (units (unknown) date) n pox status: unknown) immunized (unknown) (no (unknown) (unknown) Visit Date: (units (un known) date) 05/03/22 Last unknown) Updated by: Flavia Pritchard MD (unknown) (no (unknown) (unknown) Visit Date: (units (un known) date) 06/14/22 Last unknown) Updated by: Flavia Pritchard MD (unknown) (no (unknown) (unknown) Visit Date: (units (un known) date) 07/11/22 Last unknown) Updated by: Flavia Pritchard MD (unknown) (no (unknown) (unknown) Visit Reasons: (units (unknown) date) 28 Wk OB unknown) (unknown) (no (unknown) (unknown) Vitals (units (unkno wn) date) unknown) (unknown) (no (unknown) (unknown) WG (units (unkno wn) date) unknown) (unknown) (no (unknown) (unknown) [facility] 7 months (units (u nknown) date) none unknown) (unknown) (no (unknown) (unknown) Weeks (units (unkno wn) date) gestation:: 28 unknown) (unknown) (no (unknown) (unknown) Weight 124 lb (units ( unknown) date) unknown) (unknown) (no (unknown) (unknown) Yes no 148 23 (units ( unknown) date) absent glucola unknown) ordered 4 (unknown) (no (unknown) (unknown) Yes no 157 21 (units ( unknown) date) absent quad today unknown) 4wks (unknown) (no (unknown) (unknown) Zika virus (units (unk nown) date) exposure: No unknown) (unknown) (no (unknown) (unknown) a time. She has (units (unknown) date) not tried unknown) anything yet. Discussed melatonin. (unknown) (no (unknown) (unknown) additional (units (unk nown) date) treatment for unknown) now. (unknown) (no (unknown) (unknown) alcohol intake: (units (unknown) date) former unknown) (unknown) (no (unknown) (unknown) anyone in either (units (unknown) date) family with: unknown) (unknown) (no (unknown) (unknown) baby's father (units ( unknown) date) had a child with unknown) defects not listed above and Denies Other (unknown) (no (unknown) (unknown) be worse in the (units (unknown) date) afternoon. She unknown) has tried sleep, caffeine, shower and nothing (unknown) (no (unknown) (unknown) caffeine: No (units (u nknown) date) unknown) (unknown) (no (unknown) (unknown) carbon monox (units (u nknown) date) detector in home: unknown) Yes (unknown) (no (unknown) (unknown) current (units (unkno wn) date) occupational unknown) exposures/hazards : No (unknown) (no (unknown) (unknown) daily servings (units (unknown) date) fruits/ve-1 unknown) (unknown) (no (unknown) (unknown) deployments. (units (u nknown) date) unknown) (unknown) (no (unknown) (unknown) described, visit (units (unknown) date) schedule unknown) reviewed, ultrasounds policy reviewed, coverage 24 (unknown) (no (unknown) (unknown) did not feel it (units (unknown) date) was helpful. unknown) (unknown) (no (unknown) (unknown) discussed, (units (unk nown) date) tuberculosis unknown) exposure discussed, CMV discussed, Toxoplasmosis (unknown) (no (unknown) (unknown) disorders, (units (unk nown) date) Denies Cystic unknown) Fibrosis, Denies Mental Retardation/Autis m, Denies (unknown) (no (unknown) (unknown) do you feel safe (units (unknown) date) at home: Yes unknown) (unknown) (no (unknown) (unknown) duration: 15-30 (units (unknown) date) minutes/day unknown) (unknown) (no (unknown) (unknown) during the past (units (unknown) date) year weight has: unknown) other (fluctuated) (unknown) (no (unknown) (unknown) education level: (units (unknown) date) high school unknown) (unknown) (no (unknown) (unknown) every afternoon. (units (unknown) date) She drinks a soda unknown) and falls asleep and they go away. Declines (unknown) (no (unknown) (unknown) fire (units (unkno wn) date) extinguisher in unknown) home: Yes (unknown) (no (unknown) (unknown) firearms in (units (un known) date) home: No unknown) (unknown) (no (unknown) (unknown) frequency: 3-4 (units (unknown) date) times per week unknown) (unknown) (no (unknown) (unknown) have occurred. (units (unknown) date) If there are any unknown) questions, please contact the Medical Records (unknown) (no (unknown) (unknown) hospital. (units (unkn own) date) unknown) (unknown) (no (unknown) (unknown) hours a day and (units (unknown) date) participation of unknown) father in care and office visits (unknown) (no (unknown) (unknown) household (units (unkn own) date) members: spouse unknown) and children (unknown) (no (unknown) (unknown) housing: house (units (unknown) date) unknown) (unknown) (no (unknown) (unknown) lives (units (unkno wn) date) independently: unknown) Yes (unknown) (no (unknown) (unknown) marital status: (units (unknown) date) unknown) (unknown) (no (unknown) (unknown) may occur. (units (unk nown) date) Occasional unknown) wrong-word or 'sound-alike' substitutions may have (unknown) (no (unknown) (unknown) metoclopramide (units (unknown) date) HCl 5 mg tablet 5 unknown) mg PO QACHS PRN nausea and vomiting #30 tabs (unknown) (no (unknown) (unknown) number of (units (unkn own) date) children: 1 unknown) (unknown) (no (unknown) (unknown) occupational (units (u nknown) date) status: unknown) unemployed (unknown) (no (unknown) (unknown) occurred due to (units (unknown) date) the inherent unknown) limitations of voice recognition software. Please (unknown) (no (unknown) (unknown) pets and (units (unkno wn) date) animals: Yes (1 unknown) dog) (unknown) (no (unknown) (unknown) precautions, (units (u nknown) date) Listeriosis unknown) prevention and Rubella Immunization (unknown) (no (unknown) (unknown) prenat.vits,alberto, (units (unknown) date) [id number] 1 unknown) tab PO DAILY 04/28/22 [History Confirmed (unknown) (no (unknown) (unknown) read the note (units ( unknown) date) carefully and unknown) recognize, using context, where these substitutions (unknown) (no (unknown) (unknown) seatbelt use: (units ( unknown) date) always unknown) (unknown) (no (unknown) (unknown) second hand (units (un known) date) exposure: No unknown) (unknown) (no (unknown) (unknown) seems to help. - (units (unknown) date) Trial Reglan unknown) (unknown) (no (unknown) (unknown) software. (units (unkn own) date) Although every unknown) effort is made to edit content, electric sign wirer errors (unknown) (no (unknown) (unknown) special juan (units ( unknown) date) needs: No unknown) (unknown) (no (unknown) (unknown) substance use (units ( unknown) date) type: does not unknown) use (unknown) (no (unknown) (unknown) tenderness, (units (un known) date) urinary unknown) frequency, irritability and bloating (unknown) (no (unknown) (unknown) water heater (units (u nknown) date) temp set < 120 unknown) deg: Yes (unknown) (no (unknown) (unknown) weight gain, (units (u nknown) date) Fish and mercury unknown) intake, Caffeine use, Exercise and activity, (unknown) (no (unknown) (unknown) well-balanced (units ( unknown) date) diet: rarely or unknown) never (unknown) (no (unknown) (unknown) wks (units (unkno wn) date) unknown) (unknown) (no (unknown) (unknown) work/environment (units (unknown) date) al/hazards, unknown) Sexual activity, X-ray exposure, Medication use, (unknown) (no (unknown) (unknown) working smoke (units ( unknown) date) detector in home: unknown) Yes (unknown) (no (unknown) (unknown) x3) (units (unkno wn) date) unknown) Result panel 43 (unknown) (no (unknown) (unknown) (no value) (units (unk nown) date) unknown) (unknown) (no (unknown) (unknown) (+17 lb) 100/60 (units (unknown) date) unknown) (unknown) (no (unknown) (unknown) (+17 lb) 98/60 (units (unknown) date) unknown) (unknown) (no (unknown) (unknown) (+2 lb) 115/62 (units (unknown) date) unknown) (unknown) (no (unknown) (unknown) (+9 lb) 90/58 (units ( unknown) date) unknown) (unknown) (no (unknown) (unknown) (1) Encounter (units ( unknown) date) for supervision unknown) of other normal , third trimester: (unknown) (no (unknown) (unknown) (2) 28 weeks (units (u nknown) date) gestation of unknown) : (unknown) (no (unknown) (unknown) Genetic (units (unkn own) date) Screening/Teratol unknown) ogy Counseling - Includes patient, baby's father, or (unknown) (no (unknown) (unknown) -?-?-?-?-?-?-?-? (units (unknown) date) -?-?-?-? unknown) (unknown) (no (unknown) (unknown) 0.5 mL 0RF NS (units ( unknown) date) Z23 - Encounter unknown) for immunization (unknown) (no (unknown) (unknown) 11/16/18 9 (units (unk nown) date) spontaneous unknown) (unknown) (no (unknown) (unknown) 01/08/21 41 12 8 (units (unknown) date) lb 1 oz Male unknown) vaginal live - full term (unknown) (no (unknown) (unknown) 05/03/22 (units (unkno wn) date) unknown) (unknown) (no (unknown) (unknown) 06/14/22 (units (unkno wn) date) unknown) (unknown) (no (unknown) (unknown) 07/11/22 [Rx (units (u nknown) date) Confirmed unknown) 08/08/22] (unknown) (no (unknown) (unknown) 07/11/22 (units (unkno wn) date) unknown) (unknown) (no (unknown) (unknown) [id number] (units (unkno wn) date) unknown) (unknown) (no (unknown) (unknown) 08/08/22 1412 (units ( unknown) date) unknown) (unknown) (no (unknown) (unknown) 08/08/22 (units (unkno wn) date) unknown) (unknown) (no (unknown) (unknown) 08/08/22] (units (unkn own) date) unknown) (unknown) (no (unknown) (unknown) 14w 6d 109 lb (units ( unknown) date) unknown) (unknown) (no (unknown) (unknown) 20w 6d 116 lb (units ( unknown) date) unknown) (unknown) (no (unknown) (unknown) 24w 5d 124 lb (units ( unknown) date) unknown) (unknown) (no (unknown) (unknown) 28w 5d 124 lb (units ( unknown) date) unknown) (unknown) (no (unknown) (unknown) 4wks (units (unkno wn) date) unknown) (unknown) (no (unknown) (unknown) Abnormal lab (units (u nknown) date) values 2nd unknown) trimester: discussed (unknown) (no (unknown) (unknown) Abnormal lab (units (u nknown) date) values 3rd unknown) trimester: discussed (unknown) (no (unknown) (unknown) Accompanied by: (units (unknown) date) Self / Same As unknown) Patient (unknown) (no (unknown) (unknown) Adacel(Tdap (units (un known) date) Adolesn/Adult)(PF unknown) ) (diph,pertuss(ino l),tet vac(PF)) 0.5 mL IM ONCE (unknown) (no (unknown) (unknown) Add'l Plan (units (unk nown) date) Details unknown) (unknown) (no (unknown) (unknown) Age/Sex: 21 / F (units (unknown) date) Date of Service: unknown) (unknown) (no (unknown) (unknown) Allergies (units (unkn own) date) unknown) (unknown) (no (unknown) (unknown) [facility] (units (unknown) date) Medicine unknown) (unknown) (no (unknown) (unknown) [place] (units ( unknown) date) [id number] unknown) (unknown) (no (unknown) (unknown) Anatomy ordered, (units (unknown) date) Glucola ordered unknown) (unknown) (no (unknown) (unknown) Anatomy scan (units (u nknown) date) scheduled for unknown) today. (unknown) (no (unknown) (unknown) Aneuploidy (units (unk nown) date) Screening unknown) Offered: Accepted (Quad screen) (unknown) (no (unknown) (unknown) Anticipated (units (un known) date) course of unknown) care: discussed (unknown) (no (unknown) (unknown) Assessment and (units (unknown) date) Plan unknown) (unknown) (no (unknown) (unknown) Attending Dr: (units ( unknown) date) Flavia Pritchard MD unknown) (unknown) (no (unknown) (unknown) (units (unkno wn) date) Plan/Preferences unknown) (unknown) (no (unknown) (unknown) Planning (units (unknown) date) unknown) (unknown) (no (unknown) (unknown) Blood (units (unkno wn) date) transfusions?: unknown) yes (Never had but would accept) (unknown) (no (unknown) (unknown) Breastfeed Preg (units (unknown) date) Comp Name unknown) (unknown) (no (unknown) (unknown) : (units (unknown) date) discussed unknown) (unknown) (no (unknown) (unknown) Childbirth (units (unk nown) date) Classes: unknown) discussed (unknown) (no (unknown) (unknown) Current Estimate (units (unknown) date) 10/26/22 LMP unknown) (Certain) 28w 5d (unknown) (no (unknown) (unknown) Current (units (unkno wn) date) History unknown) (unknown) (no (unknown) (unknown) : 2000 (units (unknown) date) Acct:[id number] unknown) (unknown) (no (unknown) (unknown) Date (units (unkno wn) date) unknown) (unknown) (no (unknown) (unknown) Dating u/s with (units (unknown) date) fetus too large unknown) for CRL. Dating scan ordered through the (unknown) (no (unknown) (unknown) Del. Date (units (unkn own) date) GA/Weeks Labor unknown) Lgth Wt Sex Route Outcome Anesthesia Place (unknown) (no (unknown) (unknown) Delv (units (unkno wn) date) unknown) (unknown) (no (unknown) (unknown) Denies Congenital (units (unknown) date) Heart Defect, unknown) Denies Down Syndrome, Denies Muscular Dystrophy, (unknown) (no (unknown) (unknown) Denies Maternal (units (unknown) date) Metabolic unknown) Disorder (EG,TYPE 1 Diabetes, PKU), Denies Patient or (unknown) (no (unknown) (unknown) Denies Neural (units ( unknown) date) Tube Defect unknown) (Meningomyelocele , Spina Bifida, or Anencephaly), (unknown) (no (unknown) (unknown) Denies Sickle (units ( unknown) date) Cell Disease or unknown) Trait (), Denies Hemophilia or other blood (unknown) (no (unknown) (unknown) Denies Chucho-Sachs (units (unknown) date) (Ashkenazi unknown) Temple, Cajun, Cameroonian South African), Denies Yesika (unknown) (no (unknown) (unknown) Denies other (units (u nknown) date) unknown) (unknown) (no (unknown) (unknown) Denies over the (units (unknown) date) counter unknown) medications, Denies alcohol, Denies illicit drugs and (unknown) (no (unknown) (unknown) Depression: (units (un known) date) discussed unknown) (unknown) (no (unknown) (unknown) Dept at (units (unkno wn) date) . unknown) (unknown) (no (unknown) (unknown) Desires quad (units (u nknown) date) screen for unknown) genetic testing (unknown) (no (unknown) (unknown) Diet and (units (unkno wn) date) Exercise unknown) (unknown) (no (unknown) (unknown) Disease (units (unkno wn) date) (Ashkenazi unknown) Temple), Denies Familial Dysautonomia (Ashkenazi Temple), (unknown) (no (unknown) (unknown) Documented By: (units (unknown) date) Flavia Pritchard MD unknown) 08/08/22 1321 (unknown) (no (unknown) (unknown) Does not feel (units ( unknown) date) the need for unknown) assistance. (unknown) (no (unknown) (unknown) Domestic (units (unkno wn) date) violence: unknown) discussed (unknown) (no (unknown) (unknown) ARNOLDO Calculator (units (unknown) date) unknown) (unknown) (no (unknown) (unknown) EGA Weight BP (units ( unknown) date) UGlucose unknown) (unknown) (no (unknown) (unknown) Estimated (units (unkn own) date) Delivery Date unknown) Method Current (unknown) (no (unknown) (unknown) Family History (units (unknown) date) (Updated 04/28/22 unknown) @ 12:26 by Yadira Brown RN) (unknown) (no (unknown) (unknown) Father of Baby: (units (unknown) date) same unknown) (unknown) (no (unknown) (unknown) First Trimester (units (unknown) date) Education unknown) Checklist (unknown) (no (unknown) (unknown) Genetic (units (unkno wn) date) Screening + unknown) Counseling (unknown) (no (unknown) (unknown) Genetic (units (unkno wn) date) Screening unknown) (unknown) (no (unknown) (unknown) Grandmother (units (un known) date) Hypertension unknown) (unknown) (no (unknown) (unknown) 3 (units (unkn own) date) Multiple births unknown) (unknown) (no (unknown) (unknown) HIV risk (units (unkno wn) date) evaluation: low unknown) risk (unknown) (no (unknown) (unknown) Health Center (units ( unknown) date) Education unknown) (unknown) (no (unknown) (unknown) Health center (units ( unknown) date) information: unknown) nature of practice discussed, personnel (unknown) (no (unknown) (unknown) Hepatitis C risk (units (unknown) date) evaluation: low unknown) risk (unknown) (no (unknown) (unknown) History of (units (unk nown) date) Hepatitis B: No unknown) (unknown) (no (unknown) (unknown) History of (units (unk nown) date) Hepatitis C: No unknown) (unknown) (no (unknown) (unknown) Hospital[facility] (units (u nknown) date) unknown) (unknown) (no (unknown) (unknown) [place] (units (u nknown) date) Ch[place], Denies unknown) Other inherited genetic or chromosomal disorder, (unknown) (no (unknown) (unknown) Hx # (units (u nknown) date) Pregnancies unknown) Elective abortions (unknown) (no (unknown) (unknown) Hx # Term (units (unkn own) date) Pregnancies 1 unknown) Ectopic pregnancies (unknown) (no (unknown) (unknown) Hx (units ( unknown) date) depression - on unknown) Zoloft which didn't help (unknown) (no (unknown) (unknown) Hypertension (units (u nknown) date) unknown) (unknown) (no (unknown) (unknown) IOL scheduled (units ( unknown) date) for 10/21/22. unknown) (unknown) (no (unknown) (unknown) feeding (units (unknown) date) plan: exclusive unknown) (unknown) (no (unknown) (unknown) Infection (units (unkn own) date) History unknown) (unknown) (no (unknown) (unknown) Infectious (units (unk nown) date) Disease Education unknown) (unknown) (no (unknown) (unknown) Infectious (units (unk nown) date) disease exposure: unknown) chicken pox immunity discussed, hepatitis risk (unknown) (no (unknown) (unknown) Initial Weight: (units (unknown) date) 107 lb unknown) (unknown) (no (unknown) (unknown) Initials (units (unkno wn) date) unknown) (unknown) (no (unknown) (unknown) Intake Note: (units (u nknown) date) unknown) (unknown) (no (unknown) (unknown) Intake (units (unkno wn) date) unknown) (unknown) (no (unknown) (unknown) It's a boy! (units (un known) date) unknown) (unknown) (no (unknown) (unknown) NIGEL (units (unkno wn) date) unknown) (unknown) (no (unknown) (unknown) [place] (units (unkno wn) date) unknown) (unknown) (no (unknown) (unknown) Live with (units (unkn own) date) someone with TB unknown) or exposed to TB: No (unknown) (no (unknown) (unknown) Loc: [facility] (units (unkno wn) date) unknown) (unknown) (no (unknown) (unknown) Marital status: (units (unknown) date) unknown) (unknown) (no (unknown) (unknown) Medical History (units (unknown) date) (Updated 04/28/22 unknown) @ 12:39 by Yadira Brown RN) (unknown) (no (unknown) (unknown) Medications (units (un known) date) unknown) (unknown) (no (unknown) (unknown) Medications: (units (u nknown) date) unknown) (unknown) (no (unknown) (unknown) Mood currently (units (unknown) date) stable. Hx of unknown) depression, briefly on Zoloft but (unknown) (no (unknown) (unknown) Mother Migraine (units (unknown) date) unknown) (unknown) (no (unknown) (unknown) New (units (unkno wn) date) unknown) (unknown) (no (unknown) (unknown) No Known (units (unkno wn) date) Allergies Allergy unknown) (Verified 08/08/22 13:59) (unknown) (no (unknown) (unknown) No no 158 absent (units (unknown) date) unknown) (unknown) (no (unknown) (unknown) Non-Stress Test (units (unknown) date) performed?: No unknown) (unknown) (no (unknown) (unknown) Normal exam. (units (u nknown) date) unknown) (unknown) (no (unknown) (unknown) Notes (units (unkno wn) date) unknown) (unknown) (no (unknown) (unknown) Now notices it (units (unknown) date) whenever she unknown) walks more than 5 minutes. No bulges, skin changes. (unknown) (no (unknown) (unknown) Number of Living (units (unknown) date) Children 1 unknown) (unknown) (no (unknown) (unknown) Number of (units (unkn own) date) fetuses:: Single unknown) (unknown) (no (unknown) (unknown) OB Office Visit (units (unknown) date) unknown) (unknown) (no (unknown) (unknown) OB Visit Log (units (u nknown) date) unknown) (unknown) (no (unknown) (unknown) Orders (units (unkno wn) date) unknown) (unknown) (no (unknown) (unknown) Orders: (units (unkno wn) date) unknown) (unknown) (no (unknown) (unknown) PFSH (units (unkno wn) date) unknown) (unknown) (no (unknown) (unknown) Pap performed?: (units (unknown) date) No unknown) (unknown) (no (unknown) (unknown) Para 1 (units (unkno wn) date) Spontaneous unknown) abortions 1 (unknown) (no (unknown) (unknown) Partner history (units (unknown) date) of STD: denies hx unknown) (unknown) (no (unknown) (unknown) Partner history (units (unknown) date) of genital unknown) herpes: No (unknown) (no (unknown) (unknown) Partner: David (units (unknown) date) [place] unknown) (unknown) (no (unknown) (unknown) Passed glucola. (units (unknown) date) Tdap today. unknown) (unknown) (no (unknown) (unknown) Past Pregnancies (units (unknown) date) unknown) (unknown) (no (unknown) (unknown) Patient's age 34 (units (unknown) date) years or older as unknown) of estimated date of delivery: No (unknown) (no (unknown) (unknown) Patient: (units (unkno wn) date) Aurea Abel unknown) MR#: [id number] (unknown) (no (unknown) (unknown) Skating Rink Manager: (units ( unknown) date) KENYA Emery unknown) (unknown) (no (unknown) (unknown) Personal history (units (unknown) date) of STD: denies hx unknown) (unknown) (no (unknown) (unknown) Personal history (units (unknown) date) of genital unknown) herpes: No (unknown) (no (unknown) (unknown) (units (unk nown) date) depression unknown) (unknown) (no (unknown) (unknown) (units (unkn own) date) History unknown) (unknown) (no (unknown) (unknown) type:: (units (unknown) date) Other Normal unknown) (unknown) (no (unknown) (unknown) (units (unkno wn) date) Education unknown) (unknown) (no (unknown) (unknown) Initial (units (unknown) date) Assessment unknown) (unknown) (no (unknown) (unknown) (units (unkno wn) date) Specific unknown) Issues/Plans (unknown) (no (unknown) (unknown) (units (unkno wn) date) Testing: unknown) discussed (unknown) (no (unknown) (unknown) Visit (units (unknown) date) unknown) (unknown) (no (unknown) (unknown) (units (unkno wn) date) education packet: unknown) symptoms, Vitamins and iron, Diet and (unknown) (no (unknown) (unknown) Primary Care (units (u nknown) date) Provider: KENYA Fagan unknown) Natural Steps (unknown) (no (unknown) (unknown) Primary Ob (units (unk nown) date) Provider: unknown) Flavia Pritchard (unknown) (no (unknown) (unknown) Prior (units (unkno wn) date) GBS-Infected unknown) child: No (unknown) (no (unknown) (unknown) Promethazine for (units (unknown) date) migraines made it unknown) worse. She is getting migraines now (unknown) (no (unknown) (unknown) Providers (units (unkn own) date) unknown) (unknown) (no (unknown) (unknown) Pt is 28 wks and (units (unknown) date) 5 days today. She unknown) had labs on 07/29/22. Pt due for TDap today. (unknown) (no (unknown) (unknown) Pt is not (units (unkn own) date) currently unknown) employed. , [employer], in the [place], no upcoming (unknown) (no (unknown) (unknown) Pt with (units (unkno wn) date) localized pain on unknown) abdomen. First noticed at her anatomy scan. (unknown) (no (unknown) (unknown) Pt with more (units (u nknown) date) frequent unknown) migraines again, started again 3 days ago. Seems to (unknown) (no (unknown) (unknown) Pt with (units (unkno wn) date) primarily morning unknown) nausea and vomiting. Resolves by lunch time. (unknown) (no (unknown) (unknown) Quad screen (units (un known) date) ordered unknown) (unknown) (no (unknown) (unknown) Rash or viral (units ( unknown) date) illness since unknown) last menstrual period: Yes ('flu' in early March) (unknown) (no (unknown) (unknown) Reason For Visit (units (unknown) date) unknown) (unknown) (no (unknown) (unknown) Recent travel (units ( unknown) date) outside of unknown) country?: No (unknown) (no (unknown) (unknown) Recurrent (units (unkn own) date) loss or unknown) a stillbirth: No (unknown) (no (unknown) (unknown) SAB (spontaneous (units (unknown) date) ) unknown) (unknown) (no (unknown) (unknown) Safety (units (unkno wn) date) unknown) (unknown) (no (unknown) (unknown) Sauna/hot tub (units ( unknown) date) use, Dental care, unknown) Travel and Influenza vaccine (had flu and Covid (unknown) (no (unknown) (unknown) Second Trimester (units (unknown) date) Education unknown) Checklist (unknown) (no (unknown) (unknown) Selecting a (units (un known) date) care unknown) provider: discussed (unknown) (no (unknown) (unknown) Signed By: (units (unk nown) date) <Electronically unknown) signed by Flavia Pritchard MD> (unknown) (no (unknown) (unknown) Signed (units (unkno wn) date) unknown) (unknown) (no (unknown) (unknown) Signs and (units (unkn own) date) symptoms of unknown) labor: discussed (unknown) (no (unknown) (unknown) Smoking Status: (units (unknown) date) Never smoker unknown) (unknown) (no (unknown) (unknown) Smoking (units (unkno wn) date) counseling: unknown) discussed (unknown) (no (unknown) (unknown) Social History (units (unknown) date) unknown) (unknown) (no (unknown) (unknown) Support (units (unkno wn) date) Person(s):: David unknown) (unknown) (no (unknown) (unknown) Symptoms since (units (unknown) date) LMP: Reports unknown) amenorrhea, nausea, vomiting, fatigue, breast (unknown) (no (unknown) (unknown) Tdap Adult (units (unk nown) date) (Adacel) Today unknown) Z23 - Encounter for immunization (unknown) (no (unknown) (unknown) Teratogen (units (unkn own) date) Exposures since unknown) LMP/Conception: Denies prescription medications, (unknown) (no (unknown) (unknown) Testing (units (unkno wn) date) Education unknown) (unknown) (no (unknown) (unknown) Testing (units (unkno wn) date) education unknown) completed: group B strep and Spina bifida testing (unknown) (no (unknown) (unknown) The pt has not (units (unknown) date) been sleeping unknown) well. She is only sleeping up to an hour at (unknown) (no (unknown) (unknown) Third Trimester (units (unknown) date) Education unknown) Checklist (unknown) (no (unknown) (unknown) This note may (units ( unknown) date) have been all or unknown) partially generated using voice recognition (unknown) (no (unknown) (unknown) Tobacco + (units (unkn own) date) Substance Use unknown) (unknown) (no (unknown) (unknown) Tobacco Status (units (unknown) date) unknown) (unknown) (no (unknown) (unknown) Trimester:: 3rd (units (unknown) date) Trimester unknown) (28wks-Del) (unknown) (no (unknown) (unknown) Type(s) of (units (unk nown) date) exercise: walking unknown) (unknown) (no (unknown) (unknown) UProtein Movement (units (unknown) date) PreLabor FHR Fndl unknown) Ht Pres Edema Cerv Exam US/Comment Next Appt (unknown) (no (unknown) (unknown) Ultrasound (units (unk nown) date) performed?: No unknown) (unknown) (no (unknown) (unknown) Varicella/chicke (units (unknown) date) n pox status: unknown) immunized (unknown) (no (unknown) (unknown) Visit Date: (units (un known) date) 05/03/22 Last unknown) Updated by: Flavia Pritchard MD (unknown) (no (unknown) (unknown) Visit Date: (units (un known) date) 06/14/22 Last unknown) Updated by: Flavia Pritchard MD (unknown) (no (unknown) (unknown) Visit Date: (units (un known) date) 07/11/22 Last unknown) Updated by: Flavia Pritchard MD (unknown) (no (unknown) (unknown) Visit Date: (units (un known) date) 08/08/22 Last unknown) Updated by: Flavia Pritchard MD (unknown) (no (unknown) (unknown) Visit Reasons: (units (unknown) date) 28 Wk OB unknown) (unknown) (no (unknown) (unknown) WG (units (unkno wn) date) unknown) (unknown) (no (unknown) (unknown) [facility] 7 months (units (u nknown) date) none unknown) (unknown) (no (unknown) (unknown) Weeks (units (unkno wn) date) gestation:: 28 unknown) (unknown) (no (unknown) (unknown) Yes no 142 28 (units ( unknown) date) absent tdap today unknown) 2wks (unknown) (no (unknown) (unknown) Yes no 148 23 (units ( unknown) date) absent glucola unknown) ordered 4 (unknown) (no (unknown) (unknown) Yes no 157 21 (units ( unknown) date) absent quad today unknown) 4wks (unknown) (no (unknown) (unknown) Zika virus (units (unk nown) date) exposure: No unknown) (unknown) (no (unknown) (unknown) a time. She has (units (unknown) date) not tried unknown) anything yet. Discussed melatonin. (unknown) (no (unknown) (unknown) additional (units (unk nown) date) treatment for unknown) now. (unknown) (no (unknown) (unknown) alcohol intake: (units (unknown) date) former unknown) (unknown) (no (unknown) (unknown) anyone in either (units (unknown) date) family with: unknown) (unknown) (no (unknown) (unknown) baby's father (units ( unknown) date) had a child with unknown) defects not listed above and Denies Other (unknown) (no (unknown) (unknown) be worse in the (units (unknown) date) afternoon. She unknown) has tried sleep, caffeine, shower and nothing (unknown) (no (unknown) (unknown) caffeine: No (units (u nknown) date) unknown) (unknown) (no (unknown) (unknown) carbon monox (units (u nknown) date) detector in home: unknown) Yes (unknown) (no (unknown) (unknown) current (units (unkno wn) date) occupational unknown) exposures/hazards : No (unknown) (no (unknown) (unknown) daily servings (units (unknown) date) fruits/ve-1 unknown) (unknown) (no (unknown) (unknown) deployments. (units (u nknown) date) unknown) (unknown) (no (unknown) (unknown) described, visit (units (unknown) date) schedule unknown) reviewed, ultrasounds policy reviewed, coverage 24 (unknown) (no (unknown) (unknown) did not feel it (units (unknown) date) was helpful. unknown) (unknown) (no (unknown) (unknown) discussed, (units (unk nown) date) tuberculosis unknown) exposure discussed, CMV discussed, Toxoplasmosis (unknown) (no (unknown) (unknown) disorders, (units (unk nown) date) Denies Cystic unknown) Fibrosis, Denies Mental Retardation/Autis m, Denies (unknown) (no (unknown) (unknown) do you feel safe (units (unknown) date) at home: Yes unknown) (unknown) (no (unknown) (unknown) duration: 15-30 (units (unknown) date) minutes/day unknown) (unknown) (no (unknown) (unknown) during the past (units (unknown) date) year weight has: unknown) other (fluctuated) (unknown) (no (unknown) (unknown) education level: (units (unknown) date) high school unknown) (unknown) (no (unknown) (unknown) every afternoon. (units (unknown) date) She drinks a soda unknown) and falls asleep and they go away. Declines (unknown) (no (unknown) (unknown) fire (units (unkno wn) date) extinguisher in unknown) home: Yes (unknown) (no (unknown) (unknown) firearms in (units (un known) date) home: No unknown) (unknown) (no (unknown) (unknown) frequency: 3-4 (units (unknown) date) times per week unknown) (unknown) (no (unknown) (unknown) have occurred. (units (unknown) date) If there are any unknown) questions, please contact the Medical Records (unknown) (no (unknown) (unknown) hospital. (units (unkn own) date) unknown) (unknown) (no (unknown) (unknown) hours a day and (units (unknown) date) participation of unknown) father in care and office visits (unknown) (no (unknown) (unknown) household (units (unkn own) date) members: spouse unknown) and children (unknown) (no (unknown) (unknown) housing: house (units (unknown) date) unknown) (unknown) (no (unknown) (unknown) lives (units (unkno wn) date) independently: unknown) Yes (unknown) (no (unknown) (unknown) marital status: (units (unknown) date) unknown) (unknown) (no (unknown) (unknown) may occur. (units (unk nown) date) Occasional unknown) wrong-word or 'sound-alike' substitutions may have (unknown) (no (unknown) (unknown) metoclopramide (units (unknown) date) HCl 5 mg tablet 5 unknown) mg PO QACHS PRN nausea and vomiting #30 tabs (unknown) (no (unknown) (unknown) number of (units (unkn own) date) children: 1 unknown) (unknown) (no (unknown) (unknown) occupational (units (u nknown) date) status: unknown) unemployed (unknown) (no (unknown) (unknown) occurred due to (units (unknown) date) the inherent unknown) limitations of voice recognition software. Please (unknown) (no (unknown) (unknown) pets and (units (unkno wn) date) animals: Yes (1 unknown) dog) (unknown) (no (unknown) (unknown) precautions, (units (u nknown) date) Listeriosis unknown) prevention and Rubella Immunization (unknown) (no (unknown) (unknown) prenat.vits,alberto, (units (unknown) date) uqu-dneg-ilmrb 1 unknown) tab PO DAILY 04/28/22 [History Confirmed (unknown) (no (unknown) (unknown) read the note (units ( unknown) date) carefully and unknown) recognize, using context, where these substitutions (unknown) (no (unknown) (unknown) seatbelt use: (units ( unknown) date) always unknown) (unknown) (no (unknown) (unknown) second hand (units (un known) date) exposure: No unknown) (unknown) (no (unknown) (unknown) seems to help. - (units (unknown) date) Trial Reglan unknown) (unknown) (no (unknown) (unknown) software. (units (unkn own) date) Although every unknown) effort is made to edit content, electric sign wirer errors (unknown) (no (unknown) (unknown) special juan (units ( unknown) date) needs: No unknown) (unknown) (no (unknown) (unknown) substance use (units ( unknown) date) type: does not unknown) use (unknown) (no (unknown) (unknown) tenderness, (units (un known) date) urinary unknown) frequency, irritability and bloating (unknown) (no (unknown) (unknown) water heater (units (u nknown) date) temp set < 120 unknown) deg: Yes (unknown) (no (unknown) (unknown) weight gain, (units (u nknown) date) Fish and mercury unknown) intake, Caffeine use, Exercise and activity, (unknown) (no (unknown) (unknown) well-balanced (units ( unknown) date) diet: rarely or unknown) never (unknown) (no (unknown) (unknown) wks (units (unkno wn) date) unknown) (unknown) (no (unknown) (unknown) work/environment (units (unknown) date) al/hazards, unknown) Sexual activity, X-ray exposure, Medication use, (unknown) (no (unknown) (unknown) working smoke (units ( unknown) date) detector in home: unknown) Yes (unknown) (no (unknown) (unknown) x3) (units (unkno wn) date) unknown) Result panel 44 (unknown) (no (unknown) (unknown) (no value) (units (unk nown) date) unknown) (unknown) (no (unknown) (unknown) (+17 lb) 100/60 (units (unknown) date) unknown) (unknown) (no (unknown) (unknown) (+17 lb) 98/60 (units (unknown) date) unknown) (unknown) (no (unknown) (unknown) (+2 lb) 115/62 (units (unknown) date) unknown) (unknown) (no (unknown) (unknown) (+9 lb) 90/58 (units ( unknown) date) unknown) (unknown) (no (unknown) (unknown) (1) Encounter (units ( unknown) date) for supervision unknown) of other normal , third trimester: (unknown) (no (unknown) (unknown) (2) 28 weeks (units (u nknown) date) gestation of unknown) : (unknown) (no (unknown) (unknown) ADDENDUM (units (u nknown) date) unknown) (unknown) (no (unknown) (unknown) Genetic (units (unkn own) date) Screening/Teratol unknown) ogy Counseling - Includes patient, baby's father, or (unknown) (no (unknown) (unknown) -?-?-?-?-?-?-?-? (units (unknown) date) -?-?-?-? unknown) (unknown) (no (unknown) (unknown) 0.5 mL 0RF NS (units ( unknown) date) Z23 - Encounter unknown) for immunization (unknown) (no (unknown) (unknown) 0.5 mL IM Right (units (unknown) date) Deltoid [id number] unknown) 09/30/24 [id number] SANOFI-PASTEUR (unknown) (no (unknown) (unknown) 11/16/18 9 (units (unk nown) date) spontaneous unknown) (unknown) (no (unknown) (unknown) 01/08/21 41 12 8 (units (unknown) date) lb 1 oz Male unknown) vaginal live - full term (unknown) (no (unknown) (unknown) 05/03/22 (units (unkno wn) date) unknown) (unknown) (no (unknown) (unknown) 06/14/22 (units (unkno wn) date) unknown) (unknown) (no (unknown) (unknown) 07/11/22 [Rx (units (u nknown) date) Confirmed unknown) 08/08/22] (unknown) (no (unknown) (unknown) 07/11/22 (units (unkno wn) date) unknown) (unknown) (no (unknown) (unknown) [id number] (units (unkno wn) date) unknown) (unknown) (no (unknown) (unknown) 08/08/22 1412 (units ( unknown) date) unknown) (unknown) (no (unknown) (unknown) 08/08/22 1421 (units ( unknown) date) unknown) (unknown) (no (unknown) (unknown) 08/08/22 Single (units (unknown) date) Vaccine 05/21/21 unknown) (unknown) (no (unknown) (unknown) 08/08/22 (units (unkno wn) date) unknown) (unknown) (no (unknown) (unknown) 08/08/22] (units (unkn own) date) unknown) (unknown) (no (unknown) (unknown) 14w 6d 109 lb (units ( unknown) date) unknown) (unknown) (no (unknown) (unknown) 20w 6d 116 lb (units ( unknown) date) unknown) (unknown) (no (unknown) (unknown) 24w 5d 124 lb (units ( unknown) date) unknown) (unknown) (no (unknown) (unknown) 28w 5d 124 lb (units ( unknown) date) unknown) (unknown) (no (unknown) (unknown) 4wks (units (unkno wn) date) unknown) (unknown) (no (unknown) (unknown) Abnormal lab (units (u nknown) date) values 2nd unknown) trimester: discussed (unknown) (no (unknown) (unknown) Abnormal lab (units (u nknown) date) values 3rd unknown) trimester: discussed (unknown) (no (unknown) (unknown) Accompanied by: (units (unknown) date) Self / Same As unknown) Patient (unknown) (no (unknown) (unknown) Adacel(Tdap (units (un known) date) Adolesn/Adult)(PF unknown) ) (diph,pertuss(ino l),tet vac(PF)) 0.5 mL IM ONCE (unknown) (no (unknown) (unknown) Adacel(Tdap (units (un known) date) Adolesn/Adult)(PF unknown) ) (unknown) (no (unknown) (unknown) Add'l Plan (units (unk nown) date) Details unknown) (unknown) (no (unknown) (unknown) Addendum (units (unkno wn) date) Documented By: unknown) Maximus Corral (unknown) (no (unknown) (unknown) Addendum Signed (units (unknown) date) By: unknown) <Electronically signed by Maximus Corral> (unknown) (no (unknown) (unknown) Administered by: (units (unknown) date) Maximus Corral on unknown) 08/08/22 14:20 (unknown) (no (unknown) (unknown) Age/Sex: 21 / F (units (unknown) date) Date of Service: unknown) (unknown) (no (unknown) (unknown) Allergies (units (unkn own) date) unknown) (unknown) (no (unknown) (unknown) [facility] (units (unknown) date) Medicine unknown) (unknown) (no (unknown) (unknown) [place], [place] (units ( unknown) date) [address] unknown) (unknown) (no (unknown) (unknown) Anatomy ordered, (units (unknown) date) Glucola ordered unknown) (unknown) (no (unknown) (unknown) Anatomy scan (units (u nknown) date) scheduled for unknown) today. (unknown) (no (unknown) (unknown) Aneuploidy (units (unk nown) date) Screening unknown) Offered: Accepted (Quad screen) (unknown) (no (unknown) (unknown) Anticipated (units (un known) date) course of unknown) care: discussed (unknown) (no (unknown) (unknown) Assessment and (units (unknown) date) Plan unknown) (unknown) (no (unknown) (unknown) Attending Dr: (units ( unknown) date) Flavia Pritchard MD unknown) (unknown) (no (unknown) (unknown) (units (unkno wn) date) Plan/Preferences unknown) (unknown) (no (unknown) (unknown) Planning (units (unknown) date) unknown) (unknown) (no (unknown) (unknown) Blood (units (unkno wn) date) transfusions?: unknown) yes (Never had but would accept) (unknown) (no (unknown) (unknown) Breastfeed Preg (units (unknown) date) Comp Name unknown) (unknown) (no (unknown) (unknown) : (units (unknown) date) discussed unknown) (unknown) (no (unknown) (unknown) Childbirth (units (unk nown) date) Classes: unknown) discussed (unknown) (no (unknown) (unknown) Current Estimate (units (unknown) date) 10/26/22 LMP unknown) (Certain) 28w 5d (unknown) (no (unknown) (unknown) Current (units (unkno wn) date) History unknown) (unknown) (no (unknown) (unknown) : 2000 (units (unknown) date) Acct:[id number] unknown) (unknown) (no (unknown) (unknown) Date (units (unkno wn) date) unknown) (unknown) (no (unknown) (unknown) Dating u/s with (units (unknown) date) fetus too large unknown) for CRL. Dating scan ordered through the (unknown) (no (unknown) (unknown) Del. Date (units (unkn own) date) GA/Weeks Labor unknown) Lgth Wt Sex Route Outcome Anesthesia Place (unknown) (no (unknown) (unknown) Delv (units (unkno wn) date) unknown) (unknown) (no (unknown) (unknown) Denies Congenital (units (unknown) date) Heart Defect, unknown) Denies Down Syndrome, Denies Muscular Dystrophy, (unknown) (no (unknown) (unknown) Denies Maternal (units (unknown) date) Metabolic unknown) Disorder (EG,TYPE 1 Diabetes, PKU), Denies Patient or (unknown) (no (unknown) (unknown) Denies Neural (units ( unknown) date) Tube Defect unknown) (Meningomyelocele , Spina Bifida, or Anencephaly), (unknown) (no (unknown) (unknown) Denies Sickle (units ( unknown) date) Cell Disease or unknown) Trait (), Denies Hemophilia or other blood (unknown) (no (unknown) (unknown) Denies Chucho-Sachs (units (unknown) date) (Ashkenazi unknown) Temple, Cajun, Cameroonian South African), Denies Yesika (unknown) (no (unknown) (unknown) Denies other (units (u nknown) date) unknown) (unknown) (no (unknown) (unknown) Denies over the (units (unknown) date) counter unknown) medications, Denies alcohol, Denies illicit drugs and (unknown) (no (unknown) (unknown) Depression: (units (un known) date) discussed unknown) (unknown) (no (unknown) (unknown) Dept at (units (unkno wn) date) . unknown) (unknown) (no (unknown) (unknown) Desires quad (units (u nknown) date) screen for unknown) genetic testing (unknown) (no (unknown) (unknown) Diet and (units (unkno wn) date) Exercise unknown) (unknown) (no (unknown) (unknown) Disease (units (unkno wn) date) (Ashkenazi unknown) Temple), Denies Familial Dysautonomia (Ashkenazi Temple), (unknown) (no (unknown) (unknown) Documented By: (units (unknown) date) Flavia Pritchard MD unknown) 08/08/22 1328 (unknown) (no (unknown) (unknown) Does not feel (units ( unknown) date) the need for unknown) assistance. (unknown) (no (unknown) (unknown) Domestic (units (unkno wn) date) violence: unknown) discussed (unknown) (no (unknown) (unknown) Dose Route Admin (units (unknown) date) Location Lot unknown) Number Expiration Date NDC (unknown) (no (unknown) (unknown) ARNOLDO Calculator (units (unknown) date) unknown) (unknown) (no (unknown) (unknown) EGA Weight BP (units ( unknown) date) UGlucose unknown) (unknown) (no (unknown) (unknown) Eligibility (units (un known) date) Eligibility Date unknown) Funding Source (unknown) (no (unknown) (unknown) Estimated (units (unkn own) date) Delivery Date unknown) Method Current (unknown) (no (unknown) (unknown) Family History (units (unknown) date) (Updated 04/28/22 unknown) @ 12:26 by Yadira Brown RN) (unknown) (no (unknown) (unknown) Father of Baby: (units (unknown) date) same unknown) (unknown) (no (unknown) (unknown) First Trimester (units (unknown) date) Education unknown) Checklist (unknown) (no (unknown) (unknown) Genetic (units (unkno wn) date) Screening + unknown) Counseling (unknown) (no (unknown) (unknown) Genetic (units (unkno wn) date) Screening unknown) (unknown) (no (unknown) (unknown) Grandmother (units (un known) date) Hypertension unknown) (unknown) (no (unknown) (unknown) 3 (units (unkn own) date) Multiple births unknown) (unknown) (no (unknown) (unknown) HIV risk (units (unkno wn) date) evaluation: low unknown) risk (unknown) (no (unknown) (unknown) Health Center (units ( unknown) date) Education unknown) (unknown) (no (unknown) (unknown) Health center (units ( unknown) date) information: unknown) nature of practice discussed, personnel (unknown) (no (unknown) (unknown) Hepatitis C risk (units (unknown) date) evaluation: low unknown) risk (unknown) (no (unknown) (unknown) History of (units (unk nown) date) Hepatitis B: No unknown) (unknown) (no (unknown) (unknown) History of (units (unk nown) date) Hepatitis C: No unknown) (unknown) (no (unknown) (unknown) Hospital[facility] (units (u nknown) date) unknown) (unknown) (no (unknown) (unknown) [place] (units (u nknown) date) Ch[place], Denies unknown) Other inherited genetic or chromosomal disorder, (unknown) (no (unknown) (unknown) Hx # (units (u nknown) date) Pregnancies unknown) Elective abortions (unknown) (no (unknown) (unknown) Hx # Term (units (unkn own) date) Pregnancies 1 unknown) Ectopic pregnancies (unknown) (no (unknown) (unknown) Hx (units ( unknown) date) depression - on unknown) Zoloft which didn't help (unknown) (no (unknown) (unknown) Hypertension (units (u nknown) date) unknown) (unknown) (no (unknown) (unknown) IOL scheduled (units ( unknown) date) for 10/21/22. unknown) (unknown) (no (unknown) (unknown) Immunizations (units ( unknown) date) unknown) (unknown) (no (unknown) (unknown) feeding (units (unknown) date) plan: exclusive unknown) (unknown) (no (unknown) (unknown) Infection (units (unkn own) date) History unknown) (unknown) (no (unknown) (unknown) Infectious (units (unk nown) date) Disease Education unknown) (unknown) (no (unknown) (unknown) Infectious (units (unk nown) date) disease exposure: unknown) chicken pox immunity discussed, hepatitis risk (unknown) (no (unknown) (unknown) Initial Weight: (units (unknown) date) 107 lb unknown) (unknown) (no (unknown) (unknown) Initials (units (unkno wn) date) unknown) (unknown) (no (unknown) (unknown) Intake Note: (units (u nknown) date) unknown) (unknown) (no (unknown) (unknown) Intake (units (unkno wn) date) unknown) (unknown) (no (unknown) (unknown) It's a boy! 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 Hx of unknown) depression, briefly on Zoloft but (unknown) (no (unknown) (unknown) Mother Migraine (units (unknown) date) unknown) (unknown) (no (unknown) (unknown) New (units (unkno wn) date) unknown) (unknown) (no (unknown) (unknown) No Known (units (unkno wn) date) Allergies Allergy unknown) (Verified 08/08/22 13:59) (unknown) (no (unknown) (unknown) No no 158 absent (units (unknown) date) unknown) (unknown) (no (unknown) (unknown) Non-Stress Test (units (unknown) date) performed?: No unknown) (unknown) (no (unknown) (unknown) Normal exam. (units (u nknown) date) unknown) (unknown) (no (unknown) (unknown) Not [facility] Eligible (units (unknown) date) 08/08/22 Private unknown) Funds (unknown) (no (unknown) (unknown) Notes (units (unkno wn) date) unknown) (unknown) (no (unknown) (unknown) Now notices it (units (unknown) date) whenever she unknown) walks more than 5 minutes. No bulges, skin changes. (unknown) (no (unknown) (unknown) Number of Living (units (unknown) date) Children 1 unknown) (unknown) (no (unknown) (unknown) Number of (units (unkn own) date) fetuses:: Single unknown) (unknown) (no (unknown) (unknown) OB Office Visit (units (unknown) date) unknown) (unknown) (no (unknown) (unknown) OB Visit Log (units (u nknown) date) unknown) (unknown) (no (unknown) (unknown) Office Procedure (units (unknown) date) Documentation unknown) entered by Maximus Corral 08/08/22 14:21: (unknown) (no (unknown) (unknown) Orders (units (unkno wn) date) unknown) (unknown) (no (unknown) (unknown) Orders: (units (unkno wn) date) unknown) (unknown) (no (unknown) (unknown) PFSH (units (unkno wn) date) unknown) (unknown) (no (unknown) (unknown) Pap performed?: (units (unknown) date) No unknown) (unknown) (no (unknown) (unknown) Para 1 (units (unkno wn) date) Spontaneous unknown) abortions 1 (unknown) (no (unknown) (unknown) Partner history (units (unknown) date) of STD: denies hx unknown) (unknown) (no (unknown) (unknown) Partner history (units (unknown) date) of genital unknown) herpes: No (unknown) (no (unknown) (unknown) Partner: David (units (unknown) date) [place] unknown) (unknown) (no (unknown) (unknown) Passed glucola. (units (unknown) date) Tdap today. unknown) (unknown) (no (unknown) (unknown) Past Pregnancies (units (unknown) date) unknown) (unknown) (no (unknown) (unknown) Patient's age 34 (units (unknown) date) years or older as unknown) of estimated date of delivery: No (unknown) (no (unknown) (unknown) Patient: (units (unkno wn) date) Aurea Abel unknown) MR#: [id number] (unknown) (no (unknown) (unknown) Skating Rink Manager: (units ( unknown) date) KENYA Emery unknown) (unknown) (no (unknown) (unknown) Performing (units (unk nown) date) Provider: Flavia unknown) MD Macho (unknown) (no (unknown) (unknown) Personal history (units (unknown) date) of STD: denies hx unknown) (unknown) (no (unknown) (unknown) Personal history (units (unknown) date) of genital unknown) herpes: No (unknown) (no (unknown) (unknown) (units (unk nown) date) depression unknown) (unknown) (no (unknown) (unknown) (units (unkn own) date) History unknown) (unknown) (no (unknown) (unknown) type:: (units (unknown) date) Other Normal unknown) (unknown) (no (unknown) (unknown) (units (unkno wn) date) Education unknown) (unknown) (no (unknown) (unknown) Initial (units (unknown) date) Assessment unknown) (unknown) (no (unknown) (unknown) (units (unkno wn) date) Specific unknown) Issues/Plans (unknown) (no (unknown) (unknown) (units (unkno wn) date) Testing: unknown) discussed (unknown) (no (unknown) (unknown) Visit (units (unknown) date) unknown) (unknown) (no (unknown) (unknown) (units (unkno wn) date) education packet: unknown) symptoms, Vitamins and iron, Diet and (unknown) (no (unknown) (unknown) Primary Care (units (u nknown) date) Provider: KENYA Fagan unknown) Natural Steps (unknown) (no (unknown) (unknown) Primary Ob (units (unk nown) date) Provider: unknown) Flavia Pritchard (unknown) (no (unknown) (unknown) Prior (units (unkno wn) date) GBS-Infected unknown) child: No (unknown) (no (unknown) (unknown) Promethazine for (units (unknown) date) migraines made it unknown) worse. She is getting migraines now (unknown) (no (unknown) (unknown) Providers (units (unkn own) date) unknown) (unknown) (no (unknown) (unknown) Pt is 28 wks and (units (unknown) date) 5 days today. She unknown) had labs on 07/29/22. Pt due for TDap today. (unknown) (no (unknown) (unknown) Pt is not (units (unkn own) date) currently unknown) employed. , [employer], in the [place], no upcoming (unknown) (no (unknown) (unknown) Pt with (units (unkno wn) date) localized pain on unknown) abdomen. First noticed at her anatomy scan. (unknown) (no (unknown) (unknown) Pt with more (units (u nknown) date) frequent unknown) migraines again, started again 3 days ago. Seems to (unknown) (no (unknown) (unknown) Pt with (units (unkno wn) date) primarily morning unknown) nausea and vomiting. Resolves by lunch time. (unknown) (no (unknown) (unknown) Quad screen (units (un known) date) ordered unknown) (unknown) (no (unknown) (unknown) Rash or viral (units ( unknown) date) illness since unknown) last menstrual period: Yes ('flu' in early March) (unknown) (no (unknown) (unknown) Reason For Visit (units (unknown) date) unknown) (unknown) (no (unknown) (unknown) Recent travel (units ( unknown) date) outside of unknown) country?: No (unknown) (no (unknown) (unknown) Recurrent (units (unkn own) date) loss or unknown) a stillbirth: No (unknown) (no (unknown) (unknown) SAB (spontaneous (units (unknown) date) ) unknown) (unknown) (no (unknown) (unknown) Safety (units (unkno wn) date) unknown) (unknown) (no (unknown) (unknown) Sauna/hot tub (units ( unknown) date) use, Dental care, unknown) Travel and Influenza vaccine (had flu and Covid (unknown) (no (unknown) (unknown) Second Trimester (units (unknown) date) Education unknown) Checklist (unknown) (no (unknown) (unknown) Selecting a (units (un known) date) care unknown) provider: discussed (unknown) (no (unknown) (unknown) Signed By: (units (unk nown) date) <Electronically unknown) signed by Flavia Pritchard MD> (unknown) (no (unknown) (unknown) Signed with (units (un known) date) Addenda unknown) (unknown) (no (unknown) (unknown) Signs and (units (unkn own) date) symptoms of unknown) labor: discussed (unknown) (no (unknown) (unknown) Smoking Status: (units (unknown) date) Never smoker unknown) (unknown) (no (unknown) (unknown) Smoking (units (unkno wn) date) counseling: unknown) discussed (unknown) (no (unknown) (unknown) Social History (units (unknown) date) unknown) (unknown) (no (unknown) (unknown) Support (units (unkno wn) date) Person(s):: David unknown) (unknown) (no (unknown) (unknown) Symptoms since (units (unknown) date) LMP: Reports unknown) amenorrhea, nausea, vomiting, fatigue, breast (unknown) (no (unknown) (unknown) Tdap Adult (units (unk nown) date) (Adacel) Today unknown) Z23 - Encounter for immunization (unknown) (no (unknown) (unknown) Teratogen (units (unkn own) date) Exposures since unknown) LMP/Conception: Denies prescription medications, (unknown) (no (unknown) (unknown) Testing (units (unkno wn) date) Education unknown) (unknown) (no (unknown) (unknown) Testing (units (unkno wn) date) education unknown) completed: group B strep and Spina bifida testing (unknown) (no (unknown) (unknown) The pt has not (units (unknown) date) been sleeping unknown) well. She is only sleeping up to an hour at (unknown) (no (unknown) (unknown) Third Trimester (units (unknown) date) Education unknown) Checklist (unknown) (no (unknown) (unknown) This note may (units ( unknown) date) have been all or unknown) partially generated using voice recognition (unknown) (no (unknown) (unknown) Tobacco + (units (unkn own) date) Substance Use unknown) (unknown) (no (unknown) (unknown) Tobacco Status (units (unknown) date) unknown) (unknown) (no (unknown) (unknown) Trimester:: 3rd (units (unknown) date) Trimester unknown) (28wks-Del) (unknown) (no (unknown) (unknown) Type(s) of (units (unk nown) date) exercise: walking unknown) (unknown) (no (unknown) (unknown) UProtein Movement (units (unknown) date) PreLabor FHR Fndl unknown) Ht Pres Edema Cerv Exam US/Comment Next Appt (unknown) (no (unknown) (unknown) Ultrasound (units (unk nown) date) performed?: No unknown) (unknown) (no (unknown) (unknown) VIS Given Date (units (unknown) date) VIS Provided VIS unknown) Publication Date (unknown) (no (unknown) (unknown) Varicella/chicke (units (unknown) date) n pox status: unknown) immunized (unknown) (no (unknown) (unknown) Visit Date: (units (un known) date) 05/03/22 Last unknown) Updated by: Flavia Pritchard MD (unknown) (no (unknown) (unknown) Visit Date: (units (un known) date) 06/14/22 Last unknown) Updated by: Flavia Pritchard MD (unknown) (no (unknown) (unknown) Visit Date: (units (un known) date) 07/11/22 Last unknown) Updated by: Flavia Pritchard MD (unknown) (no (unknown) (unknown) Visit Date: (units (un known) date) 08/08/22 Last unknown) Updated by: Flavia Pritchard MD (unknown) (no (unknown) (unknown) Visit Reasons: (units (unknown) date) 28 Wk OB unknown) (unknown) (no (unknown) (unknown) WG (units (unkno wn) date) unknown) (unknown) (no (unknown) (unknown) [facility] 7 months (units (u nknown) date) none unknown) (unknown) (no (unknown) (unknown) Weeks (units (unkno wn) date) gestation:: 28 unknown) (unknown) (no (unknown) (unknown) Yes no 142 28 (units ( unknown) date) absent tdap today unknown) 2wks (unknown) (no (unknown) (unknown) Yes no 148 23 (units ( unknown) date) absent glucola unknown) ordered 4 (unknown) (no (unknown) (unknown) Yes no 157 21 (units ( unknown) date) absent quad today unknown) 4wks (unknown) (no (unknown) (unknown) Zika virus (units (unk nown) date) exposure: No unknown) (unknown) (no (unknown) (unknown) a time. She has (units (unknown) date) not tried unknown) anything yet. Discussed melatonin. (unknown) (no (unknown) (unknown) additional (units (unk nown) date) treatment for unknown) now. (unknown) (no (unknown) (unknown) alcohol intake: (units (unknown) date) former unknown) (unknown) (no (unknown) (unknown) anyone in either (units (unknown) date) family with: unknown) (unknown) (no (unknown) (unknown) baby's father (units ( unknown) date) had a child with unknown) defects not listed above and Denies Other (unknown) (no (unknown) (unknown) be worse in the (units (unknown) date) afternoon. She unknown) has tried sleep, caffeine, shower and nothing (unknown) (no (unknown) (unknown) caffeine: No (units (u nknown) date) unknown) (unknown) (no (unknown) (unknown) carbon monox (units (u nknown) date) detector in home: unknown) Yes (unknown) (no (unknown) (unknown) current (units (unkno wn) date) occupational unknown) exposures/hazards : No (unknown) (no (unknown) (unknown) daily servings (units (unknown) date) fruits/ve-1 unknown) (unknown) (no (unknown) (unknown) deployments. (units (u nknown) date) unknown) (unknown) (no (unknown) (unknown) described, visit (units (unknown) date) schedule unknown) reviewed, ultrasounds policy reviewed, coverage 24 (unknown) (no (unknown) (unknown) did not feel it (units (unknown) date) was helpful. unknown) (unknown) (no (unknown) (unknown) discussed, (units (unk nown) date) tuberculosis unknown) exposure discussed, CMV discussed, Toxoplasmosis (unknown) (no (unknown) (unknown) disorders, (units (unk nown) date) Denies Cystic unknown) Fibrosis, Denies Mental Retardation/Autis m, Denies (unknown) (no (unknown) (unknown) do you feel safe (units (unknown) date) at home: Yes unknown) (unknown) (no (unknown) (unknown) duration: 15-30 (units (unknown) date) minutes/day unknown) (unknown) (no (unknown) (unknown) during the past (units (unknown) date) year weight has: unknown) other (fluctuated) (unknown) (no (unknown) (unknown) education level: (units (unknown) date) high school unknown) (unknown) (no (unknown) (unknown) every afternoon. (units (unknown) date) She drinks a soda unknown) and falls asleep and they go away. Declines (unknown) (no (unknown) (unknown) fire (units (unkno wn) date) extinguisher in unknown) home: Yes (unknown) (no (unknown) (unknown) firearms in (units (un known) date) home: No unknown) (unknown) (no (unknown) (unknown) frequency: 3-4 (units (unknown) date) times per week unknown) (unknown) (no (unknown) (unknown) have occurred. (units (unknown) date) If there are any unknown) questions, please contact the Medical Records (unknown) (no (unknown) (unknown) hospital. (units (unkn own) date) unknown) (unknown) (no (unknown) (unknown) hours a day and (units (unknown) date) participation of unknown) father in care and office visits (unknown) (no (unknown) (unknown) household (units (unkn own) date) members: spouse unknown) and children (unknown) (no (unknown) (unknown) housing: house (units (unknown) date) unknown) (unknown) (no (unknown) (unknown) lives (units (unkno wn) date) independently: unknown) Yes (unknown) (no (unknown) (unknown) marital status: (units (unknown) date) unknown) (unknown) (no (unknown) (unknown) may occur. (units (unk nown) date) Occasional unknown) wrong-word or 'sound-alike' substitutions may have (unknown) (no (unknown) (unknown) metoclopramide (units (unknown) date) HCl 5 mg tablet 5 unknown) mg PO QACHS PRN nausea and vomiting #30 tabs (unknown) (no (unknown) (unknown) number of (units (unkn own) date) children: 1 unknown) (unknown) (no (unknown) (unknown) occupational (units (u nknown) date) status: unknown) unemployed (unknown) (no (unknown) (unknown) occurred due to (units (unknown) date) the inherent unknown) limitations of voice recognition software. Please (unknown) (no (unknown) (unknown) pets and (units (unkno wn) date) animals: Yes (1 unknown) dog) (unknown) (no (unknown) (unknown) precautions, (units (u nknown) date) Listeriosis unknown) prevention and Rubella Immunization (unknown) (no (unknown) (unknown) prenat.vits,alberto, (units (unknown) date) [id number] 1 unknown) tab PO DAILY 04/28/22 [History Confirmed (unknown) (no (unknown) (unknown) read the note (units ( unknown) date) carefully and unknown) recognize, using context, where these substitutions (unknown) (no (unknown) (unknown) seatbelt use: (units ( unknown) date) always unknown) (unknown) (no (unknown) (unknown) second hand (units (un known) date) exposure: No unknown) (unknown) (no (unknown) (unknown) seems to help. - (units (unknown) date) Trial Reglan unknown) (unknown) (no (unknown) (unknown) software. (units (unkn own) date) Although every unknown) effort is made to edit content, electric sign wirer errors (unknown) (no (unknown) (unknown) special juan (units ( unknown) date) needs: No unknown) (unknown) (no (unknown) (unknown) substance use (units ( unknown) date) type: does not unknown) use (unknown) (no (unknown) (unknown) tenderness, (units (un known) date) urinary unknown) frequency, irritability and bloating (unknown) (no (unknown) (unknown) water heater (units (u nknown) date) temp set < 120 unknown) deg: Yes (unknown) (no (unknown) (unknown) weight gain, (units (u nknown) date) Fish and mercury unknown) intake, Caffeine use, Exercise and activity, (unknown) (no (unknown) (unknown) well-balanced (units ( unknown) date) diet: rarely or unknown) never (unknown) (no (unknown) (unknown) wks (units (unkno wn) date) unknown) (unknown) (no (unknown) (unknown) work/environment (units (unknown) date) al/hazards, unknown) Sexual activity, X-ray exposure, Medication use, (unknown) (no (unknown) (unknown) working smoke (units ( unknown) date) detector in home: unknown) Yes (unknown) (no (unknown) (unknown) x3) (units (unkno wn) date) unknown) Result panel 45 (unknown) (no (unknown) (unknown) (no value) (units (unk nown) date) unknown) (unknown) (no (unknown) (unknown) (+17 lb) 100/60 (units (unknown) date) unknown) (unknown) (no (unknown) (unknown) (+17 lb) 98/60 (units (unknown) date) unknown) (unknown) (no (unknown) (unknown) (+2 lb) 115/62 (units (unknown) date) unknown) (unknown) (no (unknown) (unknown) (+9 lb) 90/58 (units ( unknown) date) unknown) (unknown) (no (unknown) (unknown) (1) Encounter (units ( unknown) date) for supervision unknown) of other normal , third trimester: (unknown) (no (unknown) (unknown) (2) 30 weeks (units (u nknown) date) gestation of unknown) : (unknown) (no (unknown) (unknown) Genetic (units (unkn own) date) Screening/Teratol unknown) ogy Counseling - Includes patient, baby's father, or (unknown) (no (unknown) (unknown) -?-?-?-?-?-?-?-? (units (unknown) date) -?-?-?-? unknown) (unknown) (no (unknown) (unknown) 11/16/18 9 (units (unk nown) date) spontaneous unknown) (unknown) (no (unknown) (unknown) 01/08/21 41 12 8 (units (unknown) date) lb 1 oz Male unknown) vaginal live - full term (unknown) (no (unknown) (unknown) 05/03/22 (units (unkno wn) date) unknown) (unknown) (no (unknown) (unknown) 06/14/22 (units (unkno wn) date) unknown) (unknown) (no (unknown) (unknown) 07/11/22 (units (unkno wn) date) unknown) (unknown) (no (unknown) (unknown) [id number] (units (unkno wn) date) unknown) (unknown) (no (unknown) (unknown) 08/08/22 (units (unkno wn) date) unknown) (unknown) (no (unknown) (unknown) 08/23/22 (units (unkno wn) date) unknown) (unknown) (no (unknown) (unknown) 14w 6d 109 lb (units ( unknown) date) unknown) (unknown) (no (unknown) (unknown) 20w 6d 116 lb (units ( unknown) date) unknown) (unknown) (no (unknown) (unknown) 24w 5d 124 lb (units ( unknown) date) unknown) (unknown) (no (unknown) (unknown) 28w 5d 124 lb (units ( unknown) date) unknown) (unknown) (no (unknown) (unknown) 30w 6d (units (unkno wn) date) unknown) (unknown) (no (unknown) (unknown) 4wks (units (unkno wn) date) unknown) (unknown) (no (unknown) (unknown) Abnormal lab (units (u nknown) date) values 2nd unknown) trimester: discussed (unknown) (no (unknown) (unknown) Abnormal lab (units (u nknown) date) values 3rd unknown) trimester: discussed (unknown) (no (unknown) (unknown) Add'l Plan (units (unk nown) date) Details unknown) (unknown) (no (unknown) (unknown) Age/Sex: 21 / F (units (unknown) date) Date of Service: unknown) (unknown) (no (unknown) (unknown) Allergies (units (unkn own) date) unknown) (unknown) (no (unknown) (unknown) [facility] (units (unknown) date) Medicine unknown) (unknown) (no (unknown) (unknown) [place] (units ( unknown) date) [id number] unknown) (unknown) (no (unknown) (unknown) Anatomy ordered, (units (unknown) date) Glucola ordered unknown) (unknown) (no (unknown) (unknown) Anatomy scan (units (u nknown) date) scheduled for unknown) today. (unknown) (no (unknown) (unknown) Aneuploidy (units (unk nown) date) Screening unknown) Offered: Accepted (Quad screen) (unknown) (no (unknown) (unknown) Anticipated (units (un known) date) course of unknown) care: discussed (unknown) (no (unknown) (unknown) Assessment and (units (unknown) date) Plan unknown) (unknown) (no (unknown) (unknown) Attending Dr: (units ( unknown) date) Flavia Pritchard MD unknown) (unknown) (no (unknown) (unknown) (units (unkno wn) date) Plan/Preferences unknown) (unknown) (no (unknown) (unknown) Planning (units (unknown) date) unknown) (unknown) (no (unknown) (unknown) Blood (units (unkno wn) date) transfusions?: unknown) yes (Never had but would accept) (unknown) (no (unknown) (unknown) Breastfeed Preg (units (unknown) date) Comp Name unknown) (unknown) (no (unknown) (unknown) : (units (unknown) date) discussed unknown) (unknown) (no (unknown) (unknown) Childbirth (units (unk nown) date) Classes: unknown) discussed (unknown) (no (unknown) (unknown) Current Estimate (units (unknown) date) 10/26/22 LMP unknown) (Certain) 30w 6d (unknown) (no (unknown) (unknown) Current (units (unkno wn) date) History unknown) (unknown) (no (unknown) (unknown) : 2000 (units (unknown) date) Acct:[id number] unknown) (unknown) (no (unknown) (unknown) Date (units (unkno wn) date) unknown) (unknown) (no (unknown) (unknown) Dating u/s with (units (unknown) date) fetus too large unknown) for CRL. Dating scan ordered through the (unknown) (no (unknown) (unknown) Del. Date (units (unkn own) date) GA/Weeks Labor unknown) Lgth Wt Sex Route Outcome Anesthesia Place (unknown) (no (unknown) (unknown) Delv (units (unkno wn) date) unknown) (unknown) (no (unknown) (unknown) Denies Congenital (units (unknown) date) Heart Defect, unknown) Denies Down Syndrome, Denies Muscular Dystrophy, (unknown) (no (unknown) (unknown) Denies Maternal (units (unknown) date) Metabolic unknown) Disorder (EG,TYPE 1 Diabetes, PKU), Denies Patient or (unknown) (no (unknown) (unknown) Denies Neural (units ( unknown) date) Tube Defect unknown) (Meningomyelocele , Spina Bifida, or Anencephaly), (unknown) (no (unknown) (unknown) Denies Sickle (units ( unknown) date) Cell Disease or unknown) Trait (), Denies Hemophilia or other blood (unknown) (no (unknown) (unknown) Denies Chucho-Sachs (units (unknown) date) (Ashkenazi unknown) Temple, Cajun, Cameroonian South African), Denies Yesika (unknown) (no (unknown) (unknown) Denies other (units (u nknown) date) unknown) (unknown) (no (unknown) (unknown) Denies over the (units (unknown) date) counter unknown) medications, Denies alcohol, Denies illicit drugs and (unknown) (no (unknown) (unknown) Depression: (units (un known) date) discussed unknown) (unknown) (no (unknown) (unknown) Dept at (units (unkno wn) date) . unknown) (unknown) (no (unknown) (unknown) Desires quad (units (u nknown) date) screen for unknown) genetic testing (unknown) (no (unknown) (unknown) Diet and (units (unkno wn) date) Exercise unknown) (unknown) (no (unknown) (unknown) Disease (units (unkno wn) date) (Ashkenazi unknown) Temple), Denies Familial Dysautonomia (Ashkenazi Temple), (unknown) (no (unknown) (unknown) Documented By: (units (unknown) date) Flavia Pritchard MD unknown) 08/23/22 1235 (unknown) (no (unknown) (unknown) Does not feel (units ( unknown) date) the need for unknown) assistance. (unknown) (no (unknown) (unknown) Domestic (units (unkno wn) date) violence: unknown) discussed (unknown) (no (unknown) (unknown) Draft (units (unkno wn) date) unknown) (unknown) (no (unknown) (unknown) ARNOLDO Calculator (units (unknown) date) unknown) (unknown) (no (unknown) (unknown) EGA Weight BP (units ( unknown) date) UGlucose unknown) (unknown) (no (unknown) (unknown) Estimated (units (unkn own) date) Delivery Date unknown) Method Current (unknown) (no (unknown) (unknown) Family History (units (unknown) date) (Updated 04/28/22 unknown) @ 12:26 by Yadira Brown RN) (unknown) (no (unknown) (unknown) Father of Baby: (units (unknown) date) same unknown) (unknown) (no (unknown) (unknown) First Trimester (units (unknown) date) Education unknown) Checklist (unknown) (no (unknown) (unknown) Genetic (units (unkno wn) date) Screening + unknown) Counseling (unknown) (no (unknown) (unknown) Genetic (units (unkno wn) date) Screening unknown) (unknown) (no (unknown) (unknown) Grandmother (units (un known) date) Hypertension unknown) (unknown) (no (unknown) (unknown) 3 (units (unkn own) date) Multiple births unknown) (unknown) (no (unknown) (unknown) HIV risk (units (unkno wn) date) evaluation: low unknown) risk (unknown) (no (unknown) (unknown) Health Center (units ( unknown) date) Education unknown) (unknown) (no (unknown) (unknown) Health center (units ( unknown) date) information: unknown) nature of practice discussed, personnel (unknown) (no (unknown) (unknown) Hepatitis C risk (units (unknown) date) evaluation: low unknown) risk (unknown) (no (unknown) (unknown) History of (units (unk nown) date) Hepatitis B: No unknown) (unknown) (no (unknown) (unknown) History of (units (unk nown) date) Hepatitis C: No unknown) (unknown) (no (unknown) (unknown) Hospital: (units (u nknown) date) unknown) (unknown) (no (unknown) (unknown) Chetna's (units (u nknown) date) Chorea, Denies unknown) Other inherited genetic or chromosomal disorder, (unknown) (no (unknown) (unknown) Hx # (units (u nknown) date) Pregnancies unknown) Elective abortions (unknown) (no (unknown) (unknown) Hx # Term (units (unkn own) date) Pregnancies 1 unknown) Ectopic pregnancies (unknown) (no (unknown) (unknown) Hx (units ( unknown) date) depression - on unknown) Zoloft which didn't help (unknown) (no (unknown) (unknown) Hypertension (units (u nknown) date) unknown) (unknown) (no (unknown) (unknown) IOL scheduled (units ( unknown) date) for 10/21/22. unknown) (unknown) (no (unknown) (unknown) Infant feeding (units (unknown) date) plan: exclusive unknown) (unknown) (no (unknown) (unknown) Infection (units (unkn own) date) History unknown) (unknown) (no (unknown) (unknown) Infectious (units (unk nown) date) Disease Education unknown) (unknown) (no (unknown) (unknown) Infectious (units (unk nown) date) disease exposure: unknown) chicken pox immunity discussed, hepatitis risk (unknown) (no (unknown) (unknown) Initial Weight: (units (unknown) date) 107 lb unknown) (unknown) (no (unknown) (unknown) Initials (units (unkno wn) date) unknown) (unknown) (no (unknown) (unknown) Intake (units (unkno wn) date) unknown) (unknown) (no (unknown) (unknown) It's a boy! (units (un known) date) unknown) (unknown) (no (unknown) (unknown) NIGEL (units (unkno wn) date) unknown) (unknown) (no (unknown) (unknown) Bowen (units (unkno wn) date) unknown) (unknown) (no (unknown) (unknown) Live with (units (unkn own) date) someone with TB unknown) or exposed to TB: No (unknown) (no (unknown) (unknown) Loc: [facility] (units (unkno wn) date) unknown) (unknown) (no (unknown) (unknown) Marital status: (units (unknown) date) unknown) (unknown) (no (unknown) (unknown) Medical History (units (unknown) date) (Updated 04/28/22 unknown) @ 12:39 by Yadira Brown RN) (unknown) (no (unknown) (unknown) Mood currently (units (unknown) date) stable. Hx of unknown) depression, briefly on Zoloft but (unknown) (no (unknown) (unknown) Mother Migraine (units (unknown) date) unknown) (unknown) (no (unknown) (unknown) No Known (units (unkno wn) date) Allergies Allergy unknown) (Verified 08/08/22 13:59) (unknown) (no (unknown) (unknown) No no 158 absent (units (unknown) date) unknown) (unknown) (no (unknown) (unknown) Normal exam. (units (u nknown) date) unknown) (unknown) (no (unknown) (unknown) Notes (units (unkno wn) date) unknown) (unknown) (no (unknown) (unknown) Now notices it (units (unknown) date) whenever she unknown) walks more than 5 minutes. No bulges, skin changes. (unknown) (no (unknown) (unknown) Number of Living (units (unknown) date) Children 1 unknown) (unknown) (no (unknown) (unknown) Number of (units (unkn own) date) fetuses:: Single unknown) (unknown) (no (unknown) (unknown) OB Office Visit (units (unknown) date) unknown) (unknown) (no (unknown) (unknown) OB Visit Log (units (u nknown) date) unknown) (unknown) (no (unknown) (unknown) PFSH (units (unkno wn) date) unknown) (unknown) (no (unknown) (unknown) Para 1 (units (unkno wn) date) Spontaneous unknown) abortions 1 (unknown) (no (unknown) (unknown) Partner history (units (unknown) date) of STD: denies hx unknown) (unknown) (no (unknown) (unknown) Partner history (units (unknown) date) of genital unknown) herpes: No (unknown) (no (unknown) (unknown) Partner: David (units (unknown) date) [place] unknown) (unknown) (no (unknown) (unknown) Passed glucola. (units (unknown) date) Tdap today. unknown) (unknown) (no (unknown) (unknown) Past Pregnancies (units (unknown) date) unknown) (unknown) (no (unknown) (unknown) Patient's age 34 (units (unknown) date) years or older as unknown) of estimated date of delivery: No (unknown) (no (unknown) (unknown) Patient: (units (unkno wn) date) MamadouirvingAurea unknown) MR#: [id number] (unknown) (no (unknown) (unknown) Skating Rink Manager: (units ( unknown) date) KENYA Emery unknown) (unknown) (no (unknown) (unknown) Personal history (units (unknown) date) of STD: denies hx unknown) (unknown) (no (unknown) (unknown) Personal history (units (unknown) date) of genital unknown) herpes: No (unknown) (no (unknown) (unknown) (units (unk nown) date) depression unknown) (unknown) (no (unknown) (unknown) (units (unkn own) date) History unknown) (unknown) (no (unknown) (unknown) type:: (units (unknown) date) Other Normal unknown) (unknown) (no (unknown) (unknown) (units (unkno wn) date) Education unknown) (unknown) (no (unknown) (unknown) Initial (units (unknown) date) Assessment unknown) (unknown) (no (unknown) (unknown) (units (unkno wn) date) Specific unknown) Issues/Plans (unknown) (no (unknown) (unknown) (units (unkno wn) date) Testing: unknown) discussed (unknown) (no (unknown) (unknown) Visit (units (unknown) date) unknown) (unknown) (no (unknown) (unknown) (units (unkno wn) date) education packet: unknown) symptoms, Vitamins and iron, Diet and (unknown) (no (unknown) (unknown) Primary Care (units (u nknown) date) Provider: KENYA Fagan unknown) Natural Steps (unknown) (no (unknown) (unknown) Primary Ob (units (unk nown) date) Provider: unknown) Flavia Pritchard (unknown) (no (unknown) (unknown) Prior (units (unkno wn) date) GBS-Infected unknown) child: No (unknown) (no (unknown) (unknown) Promethazine for (units (unknown) date) migraines made it unknown) worse. She is getting migraines now (unknown) (no (unknown) (unknown) Providers (units (unkn own) date) unknown) (unknown) (no (unknown) (unknown) Pt is not (units (unkn own) date) currently unknown) employed. , [employer], in the [place], no upcoming (unknown) (no (unknown) (unknown) Pt with (units (unkno wn) date) localized pain on unknown) abdomen. First noticed at her anatomy scan. (unknown) (no (unknown) (unknown) Pt with more (units (u nknown) date) frequent unknown) migraines again, started again 3 days ago. Seems to (unknown) (no (unknown) (unknown) Pt with (units (unkno wn) date) primarily morning unknown) nausea and vomiting. Resolves by lunch time. (unknown) (no (unknown) (unknown) Quad screen (units (un known) date) ordered unknown) (unknown) (no (unknown) (unknown) Rash or viral (units ( unknown) date) illness since unknown) last menstrual period: Yes ('flu' in early March) (unknown) (no (unknown) (unknown) Reason For Visit (units (unknown) date) unknown) (unknown) (no (unknown) (unknown) Recent travel (units ( unknown) date) outside of unknown) country?: No (unknown) (no (unknown) (unknown) Recurrent (units (unkn own) date) loss or unknown) a stillbirth: No (unknown) (no (unknown) (unknown) SAB (spontaneous (units (unknown) date) ) unknown) (unknown) (no (unknown) (unknown) Safety (units (unkno wn) date) unknown) (unknown) (no (unknown) (unknown) Sauna/hot tub (units ( unknown) date) use, Dental care, unknown) Travel and Influenza vaccine (had flu and Covid (unknown) (no (unknown) (unknown) Second Trimester (units (unknown) date) Education unknown) Checklist (unknown) (no (unknown) (unknown) Selecting a (units (un known) date) care unknown) provider: discussed (unknown) (no (unknown) (unknown) Signed By: (units (unk nown) date) unknown) (unknown) (no (unknown) (unknown) Signs and (units (unkn own) date) symptoms of unknown) labor: discussed (unknown) (no (unknown) (unknown) Smoking Status: (units (unknown) date) Never smoker unknown) (unknown) (no (unknown) (unknown) Smoking (units (unkno wn) date) counseling: unknown) discussed (unknown) (no (unknown) (unknown) Social History (units (unknown) date) unknown) (unknown) (no (unknown) (unknown) Support (units (unkno wn) date) Person(s):: David unknown) (unknown) (no (unknown) (unknown) Symptoms since (units (unknown) date) LMP: Reports unknown) amenorrhea, nausea, vomiting, fatigue, breast (unknown) (no (unknown) (unknown) Teratogen (units (unkn own) date) Exposures since unknown) LMP/Conception: Denies prescription medications, (unknown) (no (unknown) (unknown) Testing (units (unkno wn) date) Education unknown) (unknown) (no (unknown) (unknown) Testing (units (unkno wn) date) education unknown) completed: group B strep and Spina bifida testing (unknown) (no (unknown) (unknown) The pt has not (units (unknown) date) been sleeping unknown) well. She is only sleeping up to an hour at (unknown) (no (unknown) (unknown) Third Trimester (units (unknown) date) Education unknown) Checklist (unknown) (no (unknown) (unknown) This note may (units ( unknown) date) have been all or unknown) partially generated using voice recognition (unknown) (no (unknown) (unknown) Tobacco + (units (unkn own) date) Substance Use unknown) (unknown) (no (unknown) (unknown) Tobacco Status (units (unknown) date) unknown) (unknown) (no (unknown) (unknown) Type(s) of (units (unk nown) date) exercise: walking unknown) (unknown) (no (unknown) (unknown) UProtein Movement (units (unknown) date) PreLabor FHR Fndl unknown) Ht Pres Edema Cerv Exam US/Comment Next Appt (unknown) (no (unknown) (unknown) Varicella/chicke (units (unknown) date) n pox status: unknown) immunized (unknown) (no (unknown) (unknown) Visit Date: (units (un known) date) 05/03/22 Last unknown) Updated by: Flavia Pritchard MD (unknown) (no (unknown) (unknown) Visit Date: (units (un known) date) 06/14/22 Last unknown) Updated by: Flavia Pritchard MD (unknown) (no (unknown) (unknown) Visit Date: (units (un known) date) 07/11/22 Last unknown) Updated by: Flavia Pritchard MD (unknown) (no (unknown) (unknown) Visit Date: (units (un known) date) 08/08/22 Last unknown) Updated by: Flavia Pritchard MD (unknown) (no (unknown) (unknown) Visit Reasons: (units (unknown) date) 30 Wk OB unknown) (unknown) (no (unknown) (unknown) WG (units (unkno wn) date) unknown) (unknown) (no (unknown) (unknown) [facility] 7 months (units (u nknown) date) none unknown) (unknown) (no (unknown) (unknown) Yes no 142 28 (units ( unknown) date) absent tdap today unknown) 2wks (unknown) (no (unknown) (unknown) Yes no 148 23 (units ( unknown) date) absent glucola unknown) ordered 4 (unknown) (no (unknown) (unknown) Yes no 157 21 (units ( unknown) date) absent quad today unknown) 4wks (unknown) (no (unknown) (unknown) Yes no absent (units ( unknown) date) 2wk unknown) (unknown) (no (unknown) (unknown) Zika virus (units (unk nown) date) exposure: No unknown) (unknown) (no (unknown) (unknown) a time. She has (units (unknown) date) not tried unknown) anything yet. Discussed melatonin. (unknown) (no (unknown) (unknown) additional (units (unk nown) date) treatment for unknown) now. (unknown) (no (unknown) (unknown) alcohol intake: (units (unknown) date) former unknown) (unknown) (no (unknown) (unknown) anyone in either (units (unknown) date) family with: unknown) (unknown) (no (unknown) (unknown) baby's father (units ( unknown) date) had a child with unknown) defects not listed above and Denies Other (unknown) (no (unknown) (unknown) be worse in the (units (unknown) date) afternoon. She unknown) has tried sleep, caffeine, shower and nothing (unknown) (no (unknown) (unknown) caffeine: No (units (u nknown) date) unknown) (unknown) (no (unknown) (unknown) carbon monox (units (u nknown) date) detector in home: unknown) Yes (unknown) (no (unknown) (unknown) current (units (unkno wn) date) occupational unknown) exposures/hazards : No (unknown) (no (unknown) (unknown) daily servings (units (unknown) date) fruits/ve-1 unknown) (unknown) (no (unknown) (unknown) deployments. (units (u nknown) date) unknown) (unknown) (no (unknown) (unknown) described, visit (units (unknown) date) schedule unknown) reviewed, ultrasounds policy reviewed, coverage 24 (unknown) (no (unknown) (unknown) did not feel it (units (unknown) date) was helpful. unknown) (unknown) (no (unknown) (unknown) discussed, (units (unk nown) date) tuberculosis unknown) exposure discussed, CMV discussed, Toxoplasmosis (unknown) (no (unknown) (unknown) disorders, (units (unk nown) date) Denies Cystic unknown) Fibrosis, Denies Mental Retardation/Autis m, Denies (unknown) (no (unknown) (unknown) do you feel safe (units (unknown) date) at home: Yes unknown) (unknown) (no (unknown) (unknown) duration: 15-30 (units (unknown) date) minutes/day unknown) (unknown) (no (unknown) (unknown) during the past (units (unknown) date) year weight has: unknown) other (fluctuated) (unknown) (no (unknown) (unknown) education level: (units (unknown) date) high school unknown) (unknown) (no (unknown) (unknown) every afternoon. (units (unknown) date) She drinks a soda unknown) and falls asleep and they go away. Declines (unknown) (no (unknown) (unknown) fire (units (unkno wn) date) extinguisher in unknown) home: Yes (unknown) (no (unknown) (unknown) firearms in (units (un known) date) home: No unknown) (unknown) (no (unknown) (unknown) frequency: 3-4 (units (unknown) date) times per week unknown) (unknown) (no (unknown) (unknown) have occurred. (units (unknown) date) If there are any unknown) questions, please contact the Medical Records (unknown) (no (unknown) (unknown) hospital. (units (unkn own) date) unknown) (unknown) (no (unknown) (unknown) hours a day and (units (unknown) date) participation of unknown) father in care and office visits (unknown) (no (unknown) (unknown) household (units (unkn own) date) members: spouse unknown) and children (unknown) (no (unknown) (unknown) housing: house (units (unknown) date) unknown) (unknown) (no (unknown) (unknown) lives (units (unkno wn) date) independently: unknown) Yes (unknown) (no (unknown) (unknown) marital status: (units (unknown) date) unknown) (unknown) (no (unknown) (unknown) may occur. (units (unk nown) date) Occasional unknown) wrong-word or 'sound-alike' substitutions may have (unknown) (no (unknown) (unknown) number of (units (unkn own) date) children: 1 unknown) (unknown) (no (unknown) (unknown) occupational (units (u nknown) date) status: unknown) unemployed (unknown) (no (unknown) (unknown) occurred due to (units (unknown) date) the inherent unknown) limitations of voice recognition software. Please (unknown) (no (unknown) (unknown) pets and (units (unkno wn) date) animals: Yes (1 unknown) dog) (unknown) (no (unknown) (unknown) precautions, (units (u nknown) date) Listeriosis unknown) prevention and Rubella Immunization (unknown) (no (unknown) (unknown) read the note (units ( unknown) date) carefully and unknown) recognize, using context, where these substitutions (unknown) (no (unknown) (unknown) s (units (unkno wn) date) unknown) (unknown) (no (unknown) (unknown) seatbelt use: (units ( unknown) date) always unknown) (unknown) (no (unknown) (unknown) second hand (units (un known) date) exposure: No unknown) (unknown) (no (unknown) (unknown) seems to help. - (units (unknown) date) Trial Reglan unknown) (unknown) (no (unknown) (unknown) software. (units (unkn own) date) Although every unknown) effort is made to edit content, electric sign wirer errors (unknown) (no (unknown) (unknown) special juan (units ( unknown) date) needs: No unknown) (unknown) (no (unknown) (unknown) substance use (units ( unknown) date) type: does not unknown) use (unknown) (no (unknown) (unknown) tenderness, (units (un known) date) urinary unknown) frequency, irritability and bloating (unknown) (no (unknown) (unknown) water heater (units (u nknown) date) temp set < 120 unknown) deg: Yes (unknown) (no (unknown) (unknown) weight gain, (units (u nknown) date) Fish and mercury unknown) intake, Caffeine use, Exercise and activity, (unknown) (no (unknown) (unknown) well-balanced (units ( unknown) date) diet: rarely or unknown) never (unknown) (no (unknown) (unknown) wks (units (unkno wn) date) unknown) (unknown) (no (unknown) (unknown) work/environment (units (unknown) date) al/hazards, unknown) Sexual activity, X-ray exposure, Medication use, (unknown) (no (unknown) (unknown) working smoke (units ( unknown) date) detector in home: unknown) Yes (unknown) (no (unknown) (unknown) x3) (units (unkno wn) date) unknown) Result panel 46 (unknown) (no (unknown) (unknown) (no value) (units (unk nown) date) unknown) (unknown) (no (unknown) (unknown) (+17 lb) 100/60 (units (unknown) date) unknown) (unknown) (no (unknown) (unknown) (+17 lb) 98/60 (units (unknown) date) unknown) (unknown) (no (unknown) (unknown) (+2 lb) 115/62 (units (unknown) date) unknown) (unknown) (no (unknown) (unknown) (+9 lb) 90/58 (units ( unknown) date) unknown) (unknown) (no (unknown) (unknown) (1) Encounter (units ( unknown) date) for supervision unknown) of other normal , third trimester: (unknown) (no (unknown) (unknown) (2) 30 weeks (units (u nknown) date) gestation of unknown) : (unknown) (no (unknown) (unknown) Genetic (units (unkn own) date) Screening/Teratol unknown) ogy Counseling - Includes patient, baby's father, or (unknown) (no (unknown) (unknown) -?-?-?-?-?-?-?-? (units (unknown) date) -?-?-?-? unknown) (unknown) (no (unknown) (unknown) 11/16/18 9 (units (unk nown) date) spontaneous unknown) (unknown) (no (unknown) (unknown) 01/08/21 41 12 8 (units (unknown) date) lb 1 oz Male unknown) vaginal live - full term (unknown) (no (unknown) (unknown) 05/03/22 (units (unkno wn) date) unknown) (unknown) (no (unknown) (unknown) 06/14/22 (units (unkno wn) date) unknown) (unknown) (no (unknown) (unknown) 07/11/22 (units (unkno wn) date) unknown) (unknown) (no (unknown) (unknown) [id number] (units (unkno wn) date) unknown) (unknown) (no (unknown) (unknown) 08/08/22 (units (unkno wn) date) unknown) (unknown) (no (unknown) (unknown) 08/23/22 (units (unkno wn) date) unknown) (unknown) (no (unknown) (unknown) 08/23/22] (units (unkn own) date) unknown) (unknown) (no (unknown) (unknown) 14w 6d 109 lb (units ( unknown) date) unknown) (unknown) (no (unknown) (unknown) 20w 6d 116 lb (units ( unknown) date) unknown) (unknown) (no (unknown) (unknown) 24w 5d 124 lb (units ( unknown) date) unknown) (unknown) (no (unknown) (unknown) 28w 5d 124 lb (units ( unknown) date) unknown) (unknown) (no (unknown) (unknown) 30w 6d (units (unkno wn) date) unknown) (unknown) (no (unknown) (unknown) 4wks (units (unkno wn) date) unknown) (unknown) (no (unknown) (unknown) Abnormal lab (units (u nknown) date) values 2nd unknown) trimester: discussed (unknown) (no (unknown) (unknown) Abnormal lab (units (u nknown) date) values 3rd unknown) trimester: discussed (unknown) (no (unknown) (unknown) Accompanied by: (units (unknown) date) Self / Same As unknown) Patient (unknown) (no (unknown) (unknown) Add'l Plan (units (unk nown) date) Details unknown) (unknown) (no (unknown) (unknown) Age/Sex: 21 / F (units (unknown) date) Date of Service: unknown) (unknown) (no (unknown) (unknown) Allergies (units (unkn own) date) unknown) (unknown) (no (unknown) (unknown) [facility] (units (unknown) date) Medicine unknown) (unknown) (no (unknown) (unknown) [place] (units ( unknown) date) [id number] unknown) (unknown) (no (unknown) (unknown) Anatomy ordered, (units (unknown) date) Glucola ordered unknown) (unknown) (no (unknown) (unknown) Anatomy scan (units (u nknown) date) scheduled for unknown) today. (unknown) (no (unknown) (unknown) Aneuploidy (units (unk nown) date) Screening unknown) Offered: Accepted (Quad screen) (unknown) (no (unknown) (unknown) Anticipated (units (un known) date) course of unknown) care: discussed (unknown) (no (unknown) (unknown) Assessment and (units (unknown) date) Plan unknown) (unknown) (no (unknown) (unknown) Attending Dr: (units ( unknown) date) Flavia Pritchard MD unknown) (unknown) (no (unknown) (unknown) (units (unkno wn) date) Plan/Preferences unknown) (unknown) (no (unknown) (unknown) Planning (units (unknown) date) unknown) (unknown) (no (unknown) (unknown) Blood (units (unkno wn) date) transfusions?: unknown) yes (Never had but would accept) (unknown) (no (unknown) (unknown) Breastfeed Preg (units (unknown) date) Comp Name unknown) (unknown) (no (unknown) (unknown) : (units (unknown) date) discussed unknown) (unknown) (no (unknown) (unknown) Childbirth (units (unk nown) date) Classes: unknown) discussed (unknown) (no (unknown) (unknown) Current Estimate (units (unknown) date) 10/26/22 LMP unknown) (Certain) 30w 6d (unknown) (no (unknown) (unknown) Current (units (unkno wn) date) History unknown) (unknown) (no (unknown) (unknown) : 2000 (units (unknown) date) Acct:[id number] unknown) (unknown) (no (unknown) (unknown) Date (units (unkno wn) date) unknown) (unknown) (no (unknown) (unknown) Dating u/s with (units (unknown) date) fetus too large unknown) for CRL. Dating scan ordered through the (unknown) (no (unknown) (unknown) Del. Date (units (unkn own) date) GA/Weeks Labor unknown) Lgth Wt Sex Route Outcome Anesthesia Place (unknown) (no (unknown) (unknown) Delv (units (unkno wn) date) unknown) (unknown) (no (unknown) (unknown) Denies Congenital (units (unknown) date) Heart Defect, unknown) Denies Down Syndrome, Denies Muscular Dystrophy, (unknown) (no (unknown) (unknown) Denies Maternal (units (unknown) date) Metabolic unknown) Disorder (EG,TYPE 1 Diabetes, PKU), Denies Patient or (unknown) (no (unknown) (unknown) Denies Neural (units ( unknown) date) Tube Defect unknown) (Meningomyelocele , Spina Bifida, or Anencephaly), (unknown) (no (unknown) (unknown) Denies Sickle (units ( unknown) date) Cell Disease or unknown) Trait (), Denies Hemophilia or other blood (unknown) (no (unknown) (unknown) Denies Chucho-Sachs (units (unknown) date) (Ashkenazi unknown) Temple, Cajun, Cameroonian South African), Denies Yesika (unknown) (no (unknown) (unknown) Denies other (units (u nknown) date) unknown) (unknown) (no (unknown) (unknown) Denies over the (units (unknown) date) counter unknown) medications, Denies alcohol, Denies illicit drugs and (unknown) (no (unknown) (unknown) Depression: (units (un known) date) discussed unknown) (unknown) (no (unknown) (unknown) Dept at (units (unkno wn) date) . unknown) (unknown) (no (unknown) (unknown) Desires quad (units (u nknown) date) screen for unknown) genetic testing (unknown) (no (unknown) (unknown) Diet and (units (unkno wn) date) Exercise unknown) (unknown) (no (unknown) (unknown) Disease (units (unkno wn) date) (Ashkenazi unknown) Temple), Denies Familial Dysautonomia (Ashkenazi Temple), (unknown) (no (unknown) (unknown) Documented By: (units (unknown) date) Flavia Pritchard MD unknown) 08/23/22 1235 (unknown) (no (unknown) (unknown) Does not feel (units ( unknown) date) the need for unknown) assistance. (unknown) (no (unknown) (unknown) Domestic (units (unkno wn) date) violence: unknown) discussed (unknown) (no (unknown) (unknown) Draft (units (unkno wn) date) unknown) (unknown) (no (unknown) (unknown) ARNOLDO Calculator (units (unknown) date) unknown) (unknown) (no (unknown) (unknown) EGA Weight BP (units ( unknown) date) UGlucose unknown) (unknown) (no (unknown) (unknown) Estimated (units (unkn own) date) Delivery Date unknown) Method Current (unknown) (no (unknown) (unknown) Family History (units (unknown) date) (Updated 04/28/22 unknown) @ 12:26 by Yadira Brown RN) (unknown) (no (unknown) (unknown) Father of Baby: (units (unknown) date) same unknown) (unknown) (no (unknown) (unknown) First Trimester (units (unknown) date) Education unknown) Checklist (unknown) (no (unknown) (unknown) Genetic (units (unkno wn) date) Screening + unknown) Counseling (unknown) (no (unknown) (unknown) Genetic (units (unkno wn) date) Screening unknown) (unknown) (no (unknown) (unknown) Grandmother (units (un known) date) Hypertension unknown) (unknown) (no (unknown) (unknown) 3 (units (unkn own) date) Multiple births unknown) (unknown) (no (unknown) (unknown) HIV risk (units (unkno wn) date) evaluation: low unknown) risk (unknown) (no (unknown) (unknown) Health Center (units ( unknown) date) Education unknown) (unknown) (no (unknown) (unknown) Health center (units ( unknown) date) information: unknown) nature of practice discussed, personnel (unknown) (no (unknown) (unknown) Hepatitis C risk (units (unknown) date) evaluation: low unknown) risk (unknown) (no (unknown) (unknown) History of (units (unk nown) date) Hepatitis B: No unknown) (unknown) (no (unknown) (unknown) History of (units (unk nown) date) Hepatitis C: No unknown) (unknown) (no (unknown) (unknown) Hospital[facility] (units (u nknown) date) unknown) (unknown) (no (unknown) (unknown) [place] (units (u nknown) date) [place], Denies unknown) Other inherited genetic or chromosomal disorder, (unknown) (no (unknown) (unknown) Hx # (units (u nknown) date) Pregnancies unknown) Elective abortions (unknown) (no (unknown) (unknown) Hx # Term (units (unkn own) date) Pregnancies 1 unknown) Ectopic pregnancies (unknown) (no (unknown) (unknown) Hx (units ( unknown) date) depression - on unknown) Zoloft which didn't help (unknown) (no (unknown) (unknown) Hypertension (units (u nknown) date) unknown) (unknown) (no (unknown) (unknown) IOL scheduled (units ( unknown) date) for 10/21/22. unknown) (unknown) (no (unknown) (unknown) Infant feeding (units (unknown) date) plan: exclusive unknown) (unknown) (no (unknown) (unknown) Infection (units (unkn own) date) History unknown) (unknown) (no (unknown) (unknown) Infectious (units (unk nown) date) Disease Education unknown) (unknown) (no (unknown) (unknown) Infectious (units (unk nown) date) disease exposure: unknown) chicken pox immunity discussed, hepatitis risk (unknown) (no (unknown) (unknown) Initial Weight: (units (unknown) date) 107 lb unknown) (unknown) (no (unknown) (unknown) Initials (units (unkno wn) date) unknown) (unknown) (no (unknown) (unknown) Intake Note: (units (u nknown) date) unknown) (unknown) (no (unknown) (unknown) Intake (units (unkno wn) date) unknown) (unknown) (no (unknown) (unknown) It's a boy! (units (un known) date) unknown) (unknown) (no (unknown) (unknown) NIGEL (units (unkno wn) date) unknown) (unknown) (no (unknown) (unknown) [place] (units (unkno wn) date) unknown) (unknown) (no (unknown) (unknown) Live with (units (unkn own) date) someone with TB unknown) or exposed to TB: No (unknown) (no (unknown) (unknown) Loc: [facility] (units (unkno wn) date) unknown) (unknown) (no (unknown) (unknown) Marital status: (units (unknown) date) unknown) (unknown) (no (unknown) (unknown) Medical History (units (unknown) date) (Updated 04/28/22 unknown) @ 12:39 by Yadira Brown RN) (unknown) (no (unknown) (unknown) Medications (units (un known) date) unknown) (unknown) (no (unknown) (unknown) Mood currently (units (unknown) date) stable. Hx of unknown) depression, briefly on Zoloft but (unknown) (no (unknown) (unknown) Mother Migraine (units (unknown) date) unknown) (unknown) (no (unknown) (unknown) No Known (units (unkno wn) date) Allergies Allergy unknown) (Verified 08/23/22 14:02) (unknown) (no (unknown) (unknown) No no 158 absent (units (unknown) date) unknown) (unknown) (no (unknown) (unknown) Normal exam. (units (u nknown) date) unknown) (unknown) (no (unknown) (unknown) Notes (units (unkno wn) date) unknown) (unknown) (no (unknown) (unknown) Now notices it (units (unknown) date) whenever she unknown) walks more than 5 minutes. No bulges, skin changes. (unknown) (no (unknown) (unknown) Number of Living (units (unknown) date) Children 1 unknown) (unknown) (no (unknown) (unknown) Number of (units (unkn own) date) fetuses:: Single unknown) (unknown) (no (unknown) (unknown) OB Office Visit (units (unknown) date) unknown) (unknown) (no (unknown) (unknown) OB Visit Log (units (u nknown) date) unknown) (unknown) (no (unknown) (unknown) PFSH (units (unkno wn) date) unknown) (unknown) (no (unknown) (unknown) Para 1 (units (unkno wn) date) Spontaneous unknown) abortions 1 (unknown) (no (unknown) (unknown) Partner history (units (unknown) date) of STD: denies hx unknown) (unknown) (no (unknown) (unknown) Partner history (units (unknown) date) of genital unknown) herpes: No (unknown) (no (unknown) (unknown) Partner: David (units (unknown) date) [place] unknown) (unknown) (no (unknown) (unknown) Passed glucola. (units (unknown) date) Tdap today. unknown) (unknown) (no (unknown) (unknown) Past Pregnancies (units (unknown) date) unknown) (unknown) (no (unknown) (unknown) Patient's age 34 (units (unknown) date) years or older as unknown) of estimated date of delivery: No (unknown) (no (unknown) (unknown) Patient: (units (unkno wn) date) PageAurea unknown) MR#: [id number] (unknown) (no (unknown) (unknown) Skating Rink Manager: (units ( unknown) date) KENYA Emery unknown) (unknown) (no (unknown) (unknown) Personal history (units (unknown) date) of STD: denies hx unknown) (unknown) (no (unknown) (unknown) Personal history (units (unknown) date) of genital unknown) herpes: No (unknown) (no (unknown) (unknown) (units (unk nown) date) depression unknown) (unknown) (no (unknown) (unknown) (units (unkn own) date) History unknown) (unknown) (no (unknown) (unknown) type:: (units (unknown) date) Other Normal unknown) (unknown) (no (unknown) (unknown) (units (unkno wn) date) Education unknown) (unknown) (no (unknown) (unknown) Initial (units (unknown) date) Assessment unknown) (unknown) (no (unknown) (unknown) (units (unkno wn) date) Specific unknown) Issues/Plans (unknown) (no (unknown) (unknown) (units (unkno wn) date) Testing: unknown) discussed (unknown) (no (unknown) (unknown) Visit (units (unknown) date) unknown) (unknown) (no (unknown) (unknown) (units (unkno wn) date) education packet: unknown) symptoms, Vitamins and iron, Diet and (unknown) (no (unknown) (unknown) Primary Care (units (u nknown) date) Provider: KENYA Fagan unknown) Natural Steps (unknown) (no (unknown) (unknown) Primary Ob (units (unk nown) date) Provider: unknown) Flavia Pritchard (unknown) (no (unknown) (unknown) Prior (units (unkno wn) date) GBS-Infected unknown) child: No (unknown) (no (unknown) (unknown) Promethazine for (units (unknown) date) migraines made it unknown) worse. She is getting migraines now (unknown) (no (unknown) (unknown) Providers (units (unkn own) date) unknown) (unknown) (no (unknown) (unknown) Pt is 30 wks and (units (unknown) date) 6 days. unknown) (unknown) (no (unknown) (unknown) Pt is not (units (unkn own) date) currently unknown) employed. , David, in the [place], no upcoming (unknown) (no (unknown) (unknown) Pt with (units (unkno wn) date) localized pain on unknown) abdomen. First noticed at her anatomy scan. (unknown) (no (unknown) (unknown) Pt with more (units (u nknown) date) frequent unknown) migraines again, started again 3 days ago. Seems to (unknown) (no (unknown) (unknown) Pt with (units (unkno wn) date) primarily morning unknown) nausea and vomiting. Resolves by lunch time. (unknown) (no (unknown) (unknown) Quad screen (units (un known) date) ordered unknown) (unknown) (no (unknown) (unknown) Rash or viral (units ( unknown) date) illness since unknown) last menstrual period: Yes ('flu' in early March) (unknown) (no (unknown) (unknown) Reason For Visit (units (unknown) date) unknown) (unknown) (no (unknown) (unknown) Recent travel (units ( unknown) date) outside of unknown) country?: No (unknown) (no (unknown) (unknown) Recurrent (units (unkn own) date) loss or unknown) a stillbirth: No (unknown) (no (unknown) (unknown) SAB (spontaneous (units (unknown) date) ) unknown) (unknown) (no (unknown) (unknown) Safety (units (unkno wn) date) unknown) (unknown) (no (unknown) (unknown) Sauna/hot tub (units ( unknown) date) use, Dental care, unknown) Travel and Influenza vaccine (had flu and Covid (unknown) (no (unknown) (unknown) Second Trimester (units (unknown) date) Education unknown) Checklist (unknown) (no (unknown) (unknown) Selecting a (units (un known) date) care unknown) provider: discussed (unknown) (no (unknown) (unknown) Signed By: (units (unk nown) date) unknown) (unknown) (no (unknown) (unknown) Signs and (units (unkn own) date) symptoms of unknown) labor: discussed (unknown) (no (unknown) (unknown) Smoking Status: (units (unknown) date) Never smoker unknown) (unknown) (no (unknown) (unknown) Smoking (units (unkno wn) date) counseling: unknown) discussed (unknown) (no (unknown) (unknown) Social History (units (unknown) date) unknown) (unknown) (no (unknown) (unknown) Support (units (unkno wn) date) Person(s):: David unknown) (unknown) (no (unknown) (unknown) Symptoms since (units (unknown) date) LMP: Reports unknown) amenorrhea, nausea, vomiting, fatigue, breast (unknown) (no (unknown) (unknown) Teratogen (units (unkn own) date) Exposures since unknown) LMP/Conception: Denies prescription medications, (unknown) (no (unknown) (unknown) Testing (units (unkno wn) date) Education unknown) (unknown) (no (unknown) (unknown) Testing (units (unkno wn) date) education unknown) completed: group B strep and Spina bifida testing (unknown) (no (unknown) (unknown) The pt has not (units (unknown) date) been sleeping unknown) well. She is only sleeping up to an hour at (unknown) (no (unknown) (unknown) Third Trimester (units (unknown) date) Education unknown) Checklist (unknown) (no (unknown) (unknown) This note may (units ( unknown) date) have been all or unknown) partially generated using voice recognition (unknown) (no (unknown) (unknown) Tobacco + (units (unkn own) date) Substance Use unknown) (unknown) (no (unknown) (unknown) Tobacco Status (units (unknown) date) unknown) (unknown) (no (unknown) (unknown) Type(s) of (units (unk nown) date) exercise: walking unknown) (unknown) (no (unknown) (unknown) UProtein Movement (units (unknown) date) PreLabor FHR Fndl unknown) Ht Pres Edema Cerv Exam US/Comment Next Appt (unknown) (no (unknown) (unknown) Varicella/chicke (units (unknown) date) n pox status: unknown) immunized (unknown) (no (unknown) (unknown) Visit Date: (units (un known) date) 05/03/22 Last unknown) Updated by: Flavia Pritchard MD (unknown) (no (unknown) (unknown) Visit Date: (units (un known) date) 06/14/22 Last unknown) Updated by: Flavia Pritchard MD (unknown) (no (unknown) (unknown) Visit Date: (units (un known) date) 07/11/22 Last unknown) Updated by: Flavia Pritchard MD (unknown) (no (unknown) (unknown) Visit Date: (units (un known) date) 08/08/22 Last unknown) Updated by: Flavia Pritchard MD (unknown) (no (unknown) (unknown) Visit Reasons: (units (unknown) date) 30 Wk OB unknown) (unknown) (no (unknown) (unknown) WG (units (unkno wn) date) unknown) (unknown) (no (unknown) (unknown) [facility] 7 months (units (u nknown) date) none unknown) (unknown) (no (unknown) (unknown) Yes no 142 28 (units ( unknown) date) absent tdap today unknown) 2wks (unknown) (no (unknown) (unknown) Yes no 148 23 (units ( unknown) date) absent glucola unknown) ordered 4 (unknown) (no (unknown) (unknown) Yes no 157 21 (units ( unknown) date) absent quad today unknown) 4wks (unknown) (no (unknown) (unknown) Yes no absent (units ( unknown) date) 2wk unknown) (unknown) (no (unknown) (unknown) Zika virus (units (unk nown) date) exposure: No unknown) (unknown) (no (unknown) (unknown) a time. She has (units (unknown) date) not tried unknown) anything yet. Discussed melatonin. (unknown) (no (unknown) (unknown) additional (units (unk nown) date) treatment for unknown) now. (unknown) (no (unknown) (unknown) alcohol intake: (units (unknown) date) former unknown) (unknown) (no (unknown) (unknown) anyone in either (units (unknown) date) family with: unknown) (unknown) (no (unknown) (unknown) baby's father (units ( unknown) date) had a child with unknown) defects not listed above and Denies Other (unknown) (no (unknown) (unknown) be worse in the (units (unknown) date) afternoon. She unknown) has tried sleep, caffeine, shower and nothing (unknown) (no (unknown) (unknown) caffeine: No (units (u nknown) date) unknown) (unknown) (no (unknown) (unknown) carbon monox (units (u nknown) date) detector in home: unknown) Yes (unknown) (no (unknown) (unknown) current (units (unkno wn) date) occupational unknown) exposures/hazards : No (unknown) (no (unknown) (unknown) daily servings (units (unknown) date) fruits/ve-1 unknown) (unknown) (no (unknown) (unknown) deployments. (units (u nknown) date) unknown) (unknown) (no (unknown) (unknown) described, visit (units (unknown) date) schedule unknown) reviewed, ultrasounds policy reviewed, coverage 24 (unknown) (no (unknown) (unknown) did not feel it (units (unknown) date) was helpful. unknown) (unknown) (no (unknown) (unknown) discussed, (units (unk nown) date) tuberculosis unknown) exposure discussed, CMV discussed, Toxoplasmosis (unknown) (no (unknown) (unknown) disorders, (units (unk nown) date) Denies Cystic unknown) Fibrosis, Denies Mental Retardation/Autis m, Denies (unknown) (no (unknown) (unknown) do you feel safe (units (unknown) date) at home: Yes unknown) (unknown) (no (unknown) (unknown) duration: 15-30 (units (unknown) date) minutes/day unknown) (unknown) (no (unknown) (unknown) during the past (units (unknown) date) year weight has: unknown) other (fluctuated) (unknown) (no (unknown) (unknown) education level: (units (unknown) date) high school unknown) (unknown) (no (unknown) (unknown) every afternoon. (units (unknown) date) She drinks a soda unknown) and falls asleep and they go away. Declines (unknown) (no (unknown) (unknown) fire (units (unkno wn) date) extinguisher in unknown) home: Yes (unknown) (no (unknown) (unknown) firearms in (units (un known) date) home: No unknown) (unknown) (no (unknown) (unknown) frequency: 3-4 (units (unknown) date) times per week unknown) (unknown) (no (unknown) (unknown) have occurred. (units (unknown) date) If there are any unknown) questions, please contact the Medical Records (unknown) (no (unknown) (unknown) hospital. (units (unkn own) date) unknown) (unknown) (no (unknown) (unknown) hours a day and (units (unknown) date) participation of unknown) father in care and office visits (unknown) (no (unknown) (unknown) household (units (unkn own) date) members: spouse unknown) and children (unknown) (no (unknown) (unknown) housing: house (units (unknown) date) unknown) (unknown) (no (unknown) (unknown) lives (units (unkno wn) date) independently: unknown) Yes (unknown) (no (unknown) (unknown) marital status: (units (unknown) date) unknown) (unknown) (no (unknown) (unknown) may occur. (units (unk nown) date) Occasional unknown) wrong-word or 'sound-alike' substitutions may have (unknown) (no (unknown) (unknown) number of (units (unkn own) date) children: 1 unknown) (unknown) (no (unknown) (unknown) occupational (units (u nknown) date) status: unknown) unemployed (unknown) (no (unknown) (unknown) occurred due to (units (unknown) date) the inherent unknown) limitations of voice recognition software. Please (unknown) (no (unknown) (unknown) pets and (units (unkno wn) date) animals: Yes (1 unknown) dog) (unknown) (no (unknown) (unknown) precautions, (units (u nknown) date) Listeriosis unknown) prevention and Rubella Immunization (unknown) (no (unknown) (unknown) prenat.vits,alberto, (units (unknown) date) vog-[id number] 1 unknown) tab PO DAILY 04/28/22 [History Confirmed (unknown) (no (unknown) (unknown) read the note (units ( unknown) date) carefully and unknown) recognize, using context, where these substitutions (unknown) (no (unknown) (unknown) s (units (unkno wn) date) unknown) (unknown) (no (unknown) (unknown) seatbelt use: (units ( unknown) date) always unknown) (unknown) (no (unknown) (unknown) second hand (units (un known) date) exposure: No unknown) (unknown) (no (unknown) (unknown) seems to help. - (units (unknown) date) Trial Reglan unknown) (unknown) (no (unknown) (unknown) software. (units (unkn own) date) Although every unknown) effort is made to edit content, electric sign wirer errors (unknown) (no (unknown) (unknown) special juan (units ( unknown) date) needs: No unknown) (unknown) (no (unknown) (unknown) substance use (units ( unknown) date) type: does not unknown) use (unknown) (no (unknown) (unknown) tenderness, (units (un known) date) urinary unknown) frequency, irritability and bloating (unknown) (no (unknown) (unknown) water heater (units (u nknown) date) temp set < 120 unknown) deg: Yes (unknown) (no (unknown) (unknown) weight gain, (units (u nknown) date) Fish and mercury unknown) intake, Caffeine use, Exercise and activity, (unknown) (no (unknown) (unknown) well-balanced (units ( unknown) date) diet: rarely or unknown) never (unknown) (no (unknown) (unknown) wks (units (unkno wn) date) unknown) (unknown) (no (unknown) (unknown) work/environment (units (unknown) date) al/hazards, unknown) Sexual activity, X-ray exposure, Medication use, (unknown) (no (unknown) (unknown) working smoke (units ( unknown) date) detector in home: unknown) Yes (unknown) (no (unknown) (unknown) x3) (units (unkno wn) date) unknown) Result panel 47 (unknown) (no (unknown) (unknown) (no value) (units (unk nown) date) unknown) (unknown) (no (unknown) (unknown) (+17 lb) 100/60 (units (unknown) date) unknown) (unknown) (no (unknown) (unknown) (+17 lb) 98/60 (units (unknown) date) unknown) (unknown) (no (unknown) (unknown) (+2 lb) 115/62 (units (unknown) date) unknown) (unknown) (no (unknown) (unknown) (+22 lb) 110/60 (units (unknown) date) unknown) (unknown) (no (unknown) (unknown) (+9 lb) 90/58 (units ( unknown) date) unknown) (unknown) (no (unknown) (unknown) (1) Encounter (units ( unknown) date) for supervision unknown) of other normal , third trimester: (unknown) (no (unknown) (unknown) (2) 30 weeks (units (u nknown) date) gestation of unknown) : (unknown) (no (unknown) (unknown) Genetic (units (unkn own) date) Screening/Teratol unknown) ogy Counseling - Includes patient, baby's father, or (unknown) (no (unknown) (unknown) -?-?-?-?-?-?-?-? (units (unknown) date) -?-?-?-? unknown) (unknown) (no (unknown) (unknown) 11/16/18 9 (units (unk nown) date) spontaneous unknown) (unknown) (no (unknown) (unknown) 01/08/21 41 12 8 (units (unknown) date) lb 1 oz Male unknown) vaginal live - full term (unknown) (no (unknown) (unknown) 05/03/22 (units (unkno wn) date) unknown) (unknown) (no (unknown) (unknown) 06/14/22 (units (unkno wn) date) unknown) (unknown) (no (unknown) (unknown) 07/11/22 (units (unkno wn) date) unknown) (unknown) (no (unknown) (unknown) [id number] (units (unkno wn) date) unknown) (unknown) (no (unknown) (unknown) 08/08/22 (units (unkno wn) date) unknown) (unknown) (no (unknown) (unknown) 08/23/22 1415 (units ( unknown) date) unknown) (unknown) (no (unknown) (unknown) 08/23/22 (units (unkno wn) date) unknown) (unknown) (no (unknown) (unknown) 08/23/22] (units (unkn own) date) unknown) (unknown) (no (unknown) (unknown) 14:08 (units (unkno wn) date) unknown) (unknown) (no (unknown) (unknown) 14w 6d 109 lb (units ( unknown) date) unknown) (unknown) (no (unknown) (unknown) 20w 6d 116 lb (units ( unknown) date) unknown) (unknown) (no (unknown) (unknown) 24w 5d 124 lb (units ( unknown) date) unknown) (unknown) (no (unknown) (unknown) 28w 5d 124 lb (units ( unknown) date) unknown) (unknown) (no (unknown) (unknown) 30w 6d 129 lb (units ( unknown) date) unknown) (unknown) (no (unknown) (unknown) 4wks (units (unkno wn) date) unknown) (unknown) (no (unknown) (unknown) Abnormal lab (units (u nknown) date) values 2nd unknown) trimester: discussed (unknown) (no (unknown) (unknown) Abnormal lab (units (u nknown) date) values 3rd unknown) trimester: discussed (unknown) (no (unknown) (unknown) Accompanied by: (units (unknown) date) Self / Same As unknown) Patient (unknown) (no (unknown) (unknown) Add'l Plan (units (unk nown) date) Details unknown) (unknown) (no (unknown) (unknown) Age/Sex: 21 / F (units (unknown) date) Date of Service: unknown) (unknown) (no (unknown) (unknown) Allergies (units (unkn own) date) unknown) (unknown) (no (unknown) (unknown) [facility] (units (unknown) date) Medicine unknown) (unknown) (no (unknown) (unknown) [place], [place] (units ( unknown) date) [id number] unknown) (unknown) (no (unknown) (unknown) Anatomy ordered, (units (unknown) date) Glucola ordered unknown) (unknown) (no (unknown) (unknown) Anatomy scan (units (u nknown) date) scheduled for unknown) today. (unknown) (no (unknown) (unknown) Anesthesia (units (unk nown) date) preference: unknown) Epidural (unknown) (no (unknown) (unknown) Anesthesia/Analg (units (unknown) date) esia plans: unknown) discussed (unknown) (no (unknown) (unknown) Aneuploidy (units (unk nown) date) Screening unknown) Offered: Accepted (Quad screen) (unknown) (no (unknown) (unknown) Anticipated (units (un known) date) course of unknown) care: discussed (unknown) (no (unknown) (unknown) Assessment and (units (unknown) date) Plan unknown) (unknown) (no (unknown) (unknown) Attending Dr: (units ( unknown) date) Flavia Pritchard MD unknown) (unknown) (no (unknown) (unknown) BP 110/60 (units (unkn own) date) unknown) (unknown) (no (unknown) (unknown) (units (unkno wn) date) Plan/Preferences unknown) (unknown) (no (unknown) (unknown) Planning (units (unknown) date) unknown) (unknown) (no (unknown) (unknown) Blood Pressure (units (unknown) date) Location Lt unknown) brachial (unknown) (no (unknown) (unknown) Blood (units (unkno wn) date) transfusions?: unknown) yes (Never had but would accept) (unknown) (no (unknown) (unknown) Breastfeed Preg (units (unknown) date) Comp Name unknown) (unknown) (no (unknown) (unknown) : (units (unknown) date) discussed unknown) (unknown) (no (unknown) (unknown) Breastpump (units (unk nown) date) prescription unknown) provided today (unknown) (no (unknown) (unknown) Childbirth (units (unk nown) date) Classes: unknown) discussed (unknown) (no (unknown) (unknown) Current Estimate (units (unknown) date) 10/26/22 LMP unknown) (Certain) 30w 6d (unknown) (no (unknown) (unknown) Current (units (unkno wn) date) History unknown) (unknown) (no (unknown) (unknown) : 2000 (units (unknown) date) Acct:[id number] unknown) (unknown) (no (unknown) (unknown) Date (units (unkno wn) date) unknown) (unknown) (no (unknown) (unknown) Dating u/s with (units (unknown) date) fetus too large unknown) for CRL. Dating scan ordered through the (unknown) (no (unknown) (unknown) Del. Date (units (unkn own) date) GA/Weeks Labor unknown) Lgth Wt Sex Route Outcome Anesthesia Place (unknown) (no (unknown) (unknown) Delayed cord (units (u nknown) date) clamping: Yes unknown) (unknown) (no (unknown) (unknown) Delv (units (unkno wn) date) unknown) (unknown) (no (unknown) (unknown) Denies Congenital (units (unknown) date) Heart Defect, unknown) Denies Down Syndrome, Denies Muscular Dystrophy, (unknown) (no (unknown) (unknown) Denies Maternal (units (unknown) date) Metabolic unknown) Disorder (EG,TYPE 1 Diabetes, PKU), Denies Patient or (unknown) (no (unknown) (unknown) Denies Neural (units ( unknown) date) Tube Defect unknown) (Meningomyelocele , Spina Bifida, or Anencephaly), (unknown) (no (unknown) (unknown) Denies Sickle (units ( unknown) date) Cell Disease or unknown) Trait (), Denies Hemophilia or other blood (unknown) (no (unknown) (unknown) Denies Chucho-Sachs (units (unknown) date) (Ashkenazi unknown) Temple, Cajun, Cameroonian South African), Denies Yesika (unknown) (no (unknown) (unknown) Denies other (units (u nknown) date) unknown) (unknown) (no (unknown) (unknown) Denies over the (units (unknown) date) counter unknown) medications, Denies alcohol, Denies illicit drugs and (unknown) (no (unknown) (unknown) Depression: (units (un known) date) discussed unknown) (unknown) (no (unknown) (unknown) Dept at (units (unkno wn) date) . unknown) (unknown) (no (unknown) (unknown) Desires quad (units (u nknown) date) screen for unknown) genetic testing (unknown) (no (unknown) (unknown) Diet and (units (unkno wn) date) Exercise unknown) (unknown) (no (unknown) (unknown) Disease (units (unkno wn) date) (Ashkenazi unknown) Temple), Denies Familial Dysautonomia (Ashkenazi Temple), (unknown) (no (unknown) (unknown) Documented By: (units (unknown) date) Flavia Pritchard MD unknown) 08/23/22 1235 (unknown) (no (unknown) (unknown) Does not feel (units ( unknown) date) the need for unknown) assistance. (unknown) (no (unknown) (unknown) Domestic (units (unkno wn) date) violence: unknown) discussed (unknown) (no (unknown) (unknown) ARNOLDO Calculator (units (unknown) date) unknown) (unknown) (no (unknown) (unknown) EGA Weight BP (units ( unknown) date) UGlucose unknown) (unknown) (no (unknown) (unknown) Estimated (units (unkn own) date) Delivery Date unknown) Method Current (unknown) (no (unknown) (unknown) Family History (units (unknown) date) (Updated 04/28/22 unknown) @ 12:26 by Yadira Brown RN) (unknown) (no (unknown) (unknown) Father of Baby: (units (unknown) date) same unknown) (unknown) (no (unknown) (unknown) movement (units (unknown) date) monitoring: unknown) discussed (unknown) (no (unknown) (unknown) First Trimester (units (unknown) date) Education unknown) Checklist (unknown) (no (unknown) (unknown) Genetic (units (unkno wn) date) Screening + unknown) Counseling (unknown) (no (unknown) (unknown) Genetic (units (unkno wn) date) Screening unknown) (unknown) (no (unknown) (unknown) Grandmother (units (un known) date) Hypertension unknown) (unknown) (no (unknown) (unknown) 3 (units (unkn own) date) Multiple births unknown) (unknown) (no (unknown) (unknown) HIV risk (units (unkno wn) date) evaluation: low unknown) risk (unknown) (no (unknown) (unknown) Health Center (units ( unknown) date) Education unknown) (unknown) (no (unknown) (unknown) Health center (units ( unknown) date) information: unknown) nature of practice discussed, personnel (unknown) (no (unknown) (unknown) Hepatitis C risk (units (unknown) date) evaluation: low unknown) risk (unknown) (no (unknown) (unknown) History of (units (unk nown) date) Hepatitis B: No unknown) (unknown) (no (unknown) (unknown) History of (units (unk nown) date) Hepatitis C: No unknown) (unknown) (no (unknown) (unknown) Hospital: [facility] (units (u nknown) date) unknown) (unknown) (no (unknown) (unknown) [place] (units (u nknown) date) [place], Denies unknown) Other inherited genetic or chromosomal disorder, (unknown) (no (unknown) (unknown) Hx # (units (u nknown) date) Pregnancies unknown) Elective abortions (unknown) (no (unknown) (unknown) Hx # Term (units (unkn own) date) Pregnancies 1 unknown) Ectopic pregnancies (unknown) (no (unknown) (unknown) Hx (units ( unknown) date) depression - on unknown) Zoloft which didn't help (unknown) (no (unknown) (unknown) Hypertension (units (u nknown) date) unknown) (unknown) (no (unknown) (unknown) IOL scheduled (units ( unknown) date) for 10/21/22. unknown) (unknown) (no (unknown) (unknown) Infant feeding (units (unknown) date) plan: exclusive unknown) (unknown) (no (unknown) (unknown) will be (units (unknown) date) adopted?: no unknown) (unknown) (no (unknown) (unknown) Infection (units (unkn own) date) History unknown) (unknown) (no (unknown) (unknown) Infectious (units (unk nown) date) Disease Education unknown) (unknown) (no (unknown) (unknown) Infectious (units (unk nown) date) disease exposure: unknown) chicken pox immunity discussed, hepatitis risk (unknown) (no (unknown) (unknown) Initial Weight: (units (unknown) date) 107 lb unknown) (unknown) (no (unknown) (unknown) Initials (units (unkno wn) date) unknown) (unknown) (no (unknown) (unknown) Intake Note: (units (u nknown) date) unknown) (unknown) (no (unknown) (unknown) Intake (units (unkno wn) date) unknown) (unknown) (no (unknown) (unknown) It's a boy! (units (un known) date) unknown) (unknown) (no (unknown) (unknown) NIGEL (units (unkno wn) date) unknown) (unknown) (no (unknown) (unknown) [place]en (units (unkno wn) date) unknown) (unknown) (no (unknown) (unknown) Live with (units (unkn own) date) someone with TB unknown) or exposed to TB: No (unknown) (no (unknown) (unknown) Loc: [facility] (units (unkno wn) date) unknown) (unknown) (no (unknown) (unknown) Marital status: (units (unknown) date) unknown) (unknown) (no (unknown) (unknown) Medical History (units (unknown) date) (Updated 04/28/22 unknown) @ 12:39 by Yadira Brown RN) (unknown) (no (unknown) (unknown) Medications (units (un known) date) unknown) (unknown) (no (unknown) (unknown) Mood currently (units (unknown) date) stable. Hx of unknown) depression, briefly on Zoloft but (unknown) (no (unknown) (unknown) Mother Migraine (units (unknown) date) unknown) (unknown) (no (unknown) (unknown) No Known (units (unkno wn) date) Allergies Allergy unknown) (Verified 08/23/22 14:02) (unknown) (no (unknown) (unknown) No no 158 absent (units (unknown) date) unknown) (unknown) (no (unknown) (unknown) Non-Stress Test (units (unknown) date) performed?: No unknown) (unknown) (no (unknown) (unknown) Normal exam. (units (u nknown) date) unknown) (unknown) (no (unknown) (unknown) Notes (units (unkno wn) date) unknown) (unknown) (no (unknown) (unknown) Now notices it (units (unknown) date) whenever she unknown) walks more than 5 minutes. No bulges, skin changes. (unknown) (no (unknown) (unknown) Number of Living (units (unknown) date) Children 1 unknown) (unknown) (no (unknown) (unknown) Number of (units (unkn own) date) fetuses:: Single unknown) (unknown) (no (unknown) (unknown) OB Office Visit (units (unknown) date) unknown) (unknown) (no (unknown) (unknown) OB Visit Log (units (u nknown) date) unknown) (unknown) (no (unknown) (unknown) Oxygen Delivery (units (unknown) date) Method room air unknown) (unknown) (no (unknown) (unknown) PFSH (units (unkno wn) date) unknown) (unknown) (no (unknown) (unknown) Pap performed?: (units (unknown) date) No unknown) (unknown) (no (unknown) (unknown) Para 1 (units (unkno wn) date) Spontaneous unknown) abortions 1 (unknown) (no (unknown) (unknown) Partner history (units (unknown) date) of STD: denies hx unknown) (unknown) (no (unknown) (unknown) Partner history (units (unknown) date) of genital unknown) herpes: No (unknown) (no (unknown) (unknown) Partner: David (units (unknown) date) [place] unknown) (unknown) (no (unknown) (unknown) Passed glucola. (units (unknown) date) Tdap today. unknown) (unknown) (no (unknown) (unknown) Past Pregnancies (units (unknown) date) unknown) (unknown) (no (unknown) (unknown) Patient's age 34 (units (unknown) date) years or older as unknown) of estimated date of delivery: No (unknown) (no (unknown) (unknown) Patient: (units (unkno wn) date) Aurea Abel unknown) MR#: [id number] (unknown) (no (unknown) (unknown) Skating Rink Manager: (units ( unknown) date) KENYA Emery unknown) (unknown) (no (unknown) (unknown) Personal history (units (unknown) date) of STD: denies hx unknown) (unknown) (no (unknown) (unknown) Personal history (units (unknown) date) of genital unknown) herpes: No (unknown) (no (unknown) (unknown) Plans for (units (unkn own) date) placenta: None unknown) (unknown) (no (unknown) (unknown) Position Sitting (units (unknown) date) unknown) (unknown) (no (unknown) (unknown) (units (unk nown) date) depression unknown) (unknown) (no (unknown) (unknown) (units (unkn own) date) History unknown) (unknown) (no (unknown) (unknown) type:: (units (unknown) date) Other Normal unknown) (unknown) (no (unknown) (unknown) (units (unkno wn) date) Education unknown) (unknown) (no (unknown) (unknown) Initial (units (unknown) date) Assessment unknown) (unknown) (no (unknown) (unknown) (units (unkno wn) date) Specific unknown) Issues/Plans (unknown) (no (unknown) (unknown) (units (unkno wn) date) Testing: unknown) discussed (unknown) (no (unknown) (unknown) Visit (units (unknown) date) unknown) (unknown) (no (unknown) (unknown) (units (unkno wn) date) classes: No unknown) (unknown) (no (unknown) (unknown) (units (unkno wn) date) education packet: unknown) symptoms, Vitamins and iron, Diet and (unknown) (no (unknown) (unknown) Primary Care (units (u nknown) date) Provider: KENYA Fagan unknown) [employer] Steps (unknown) (no (unknown) (unknown) Primary Ob (units (unk nown) date) Provider: unknown) Flavia Pritchard (unknown) (no (unknown) (unknown) Prior (units (unkno wn) date) GBS-Infected unknown) child: No (unknown) (no (unknown) (unknown) Promethazine for (units (unknown) date) migraines made it unknown) worse. She is getting migraines now (unknown) (no (unknown) (unknown) Providers (units (unkn own) date) unknown) (unknown) (no (unknown) (unknown) Pt is 30 wks and (units (unknown) date) 6 days. Pt says unknown) that she has pain all over right now. (unknown) (no (unknown) (unknown) Pt is not (units (unkn own) date) currently unknown) employed. , [employer], in the [place], no upcoming (unknown) (no (unknown) (unknown) Pt with (units (unkno wn) date) localized pain on unknown) abdomen. First noticed at her anatomy scan. (unknown) (no (unknown) (unknown) Pt with more (units (u nknown) date) frequent unknown) migraines again, started again 3 days ago. Seems to (unknown) (no (unknown) (unknown) Pt with (units (unkno wn) date) primarily morning unknown) nausea and vomiting. Resolves by lunch time. (unknown) (no (unknown) (unknown) Pulse 117 H (units (un known) date) unknown) (unknown) (no (unknown) (unknown) Pulse Oximetry (units (unknown) date) (%) 99 unknown) (unknown) (no (unknown) (unknown) Pulse Source (units (u nknown) date) Monitor unknown) (unknown) (no (unknown) (unknown) Quad screen (units (un known) date) ordered unknown) (unknown) (no (unknown) (unknown) Rash or viral (units ( unknown) date) illness since unknown) last menstrual period: Yes ('flu' in early March) (unknown) (no (unknown) (unknown) Reason For Visit (units (unknown) date) unknown) (unknown) (no (unknown) (unknown) Recent travel (units ( unknown) date) outside of unknown) country?: No (unknown) (no (unknown) (unknown) Recurrent (units (unkn own) date) loss or unknown) a stillbirth: No (unknown) (no (unknown) (unknown) SAB (spontaneous (units (unknown) date) ) unknown) (unknown) (no (unknown) (unknown) Safety (units (unkno wn) date) unknown) (unknown) (no (unknown) (unknown) Sauna/hot tub (units ( unknown) date) use, Dental care, unknown) Travel and Influenza vaccine (had flu and Covid (unknown) (no (unknown) (unknown) Second Trimester (units (unknown) date) Education unknown) Checklist (unknown) (no (unknown) (unknown) Selecting a (units (un known) date) care unknown) provider: discussed (unknown) (no (unknown) (unknown) Signed By: (units (unk nown) date) <Electronically unknown) signed by Flavia Pritchard MD> (unknown) (no (unknown) (unknown) Signed (units (unkno wn) date) unknown) (unknown) (no (unknown) (unknown) Signs and (units (unkn own) date) symptoms of unknown) labor: discussed (unknown) (no (unknown) (unknown) Smoking Status: (units (unknown) date) Never smoker unknown) (unknown) (no (unknown) (unknown) Smoking (units (unkno wn) date) counseling: unknown) discussed (unknown) (no (unknown) (unknown) Social History (units (unknown) date) unknown) (unknown) (no (unknown) (unknown) Support (units (unkno wn) date) Person(s):: David unknown) (unknown) (no (unknown) (unknown) Surrogate (units (unkn own) date) ?: no unknown) (unknown) (no (unknown) (unknown) Symptoms since (units (unknown) date) LMP: Reports unknown) amenorrhea, nausea, vomiting, fatigue, breast (unknown) (no (unknown) (unknown) Teratogen (units (unkn own) date) Exposures since unknown) LMP/Conception: Denies prescription medications, (unknown) (no (unknown) (unknown) Testing (units (unkno wn) date) Education unknown) (unknown) (no (unknown) (unknown) Testing (units (unkno wn) date) education unknown) completed: group B strep and Spina bifida testing (unknown) (no (unknown) (unknown) The pt has not (units (unknown) date) been sleeping unknown) well. She is only sleeping up to an hour at (unknown) (no (unknown) (unknown) The pt notices (units (unknown) date) that her entire unknown) body has been more sore recently. Tylenol (unknown) (no (unknown) (unknown) Third Trimester (units (unknown) date) Education unknown) Checklist (unknown) (no (unknown) (unknown) This note may (units ( unknown) date) have been all or unknown) partially generated using voice recognition (unknown) (no (unknown) (unknown) Tobacco + (units (unkn own) date) Substance Use unknown) (unknown) (no (unknown) (unknown) Tobacco Status (units (unknown) date) unknown) (unknown) (no (unknown) (unknown) Trimester:: 3rd (units (unknown) date) Trimester unknown) (28wks-Del) (unknown) (no (unknown) (unknown) Type(s) of (units (unk nown) date) exercise: walking unknown) (unknown) (no (unknown) (unknown) UProtein Movement (units (unknown) date) PreLabor FHR Fndl unknown) Ht Pres Edema Cerv Exam US/Comment Next Appt (unknown) (no (unknown) (unknown) Ultrasound (units (unk nown) date) performed?: No unknown) (unknown) (no (unknown) (unknown) Varicella/chicke (units (unknown) date) n pox status: unknown) immunized (unknown) (no (unknown) (unknown) Visit Date: (units (un known) date) 05/03/22 Last unknown) Updated by: Flavia Pritchard MD (unknown) (no (unknown) (unknown) Visit Date: (units (un known) date) 06/14/22 Last unknown) Updated by: Flavia Pritchard MD (unknown) (no (unknown) (unknown) Visit Date: (units (un known) date) 07/11/22 Last unknown) Updated by: Flavia Pritchard MD (unknown) (no (unknown) (unknown) Visit Date: (units (un known) date) 08/08/22 Last unknown) Updated by: Flavia Pritchard MD (unknown) (no (unknown) (unknown) Visit Date: (units (un known) date) 08/23/22 Last unknown) Updated by: Flavia Pritchard MD (unknown) (no (unknown) (unknown) Visit Reasons: (units (unknown) date) 30 Wk OB unknown) (unknown) (no (unknown) (unknown) Vitals (units (unkno wn) date) unknown) (unknown) (no (unknown) (unknown) WG (units (unkno wn) date) unknown) (unknown) (no (unknown) (unknown) [facility] 7 months (units (u nknown) date) none unknown) (unknown) (no (unknown) (unknown) Weeks (units (unkno wn) date) gestation:: 30 unknown) (unknown) (no (unknown) (unknown) Weight 129 lb (units ( unknown) date) unknown) (unknown) (no (unknown) (unknown) Yes no 142 28 (units ( unknown) date) absent tdap today unknown) 2wks (unknown) (no (unknown) (unknown) Yes no 148 23 (units ( unknown) date) absent glucola unknown) ordered 4 (unknown) (no (unknown) (unknown) Yes no 157 21 (units ( unknown) date) absent quad today unknown) 4wks (unknown) (no (unknown) (unknown) Yes no 158 30 (units ( unknown) date) absent 2wks unknown) (unknown) (no (unknown) (unknown) Zika virus (units (unk nown) date) exposure: No unknown) (unknown) (no (unknown) (unknown) a time. She has (units (unknown) date) not tried unknown) anything yet. Discussed melatonin. (unknown) (no (unknown) (unknown) additional (units (unk nown) date) treatment for unknown) now. (unknown) (no (unknown) (unknown) alcohol intake: (units (unknown) date) former unknown) (unknown) (no (unknown) (unknown) anyone in either (units (unknown) date) family with: unknown) (unknown) (no (unknown) (unknown) baby's father (units ( unknown) date) had a child with unknown) defects not listed above and Denies Other (unknown) (no (unknown) (unknown) be worse in the (units (unknown) date) afternoon. She unknown) has tried sleep, caffeine, shower and nothing (unknown) (no (unknown) (unknown) caffeine: No (units (u nknown) date) unknown) (unknown) (no (unknown) (unknown) carbon monox (units (u nknown) date) detector in home: unknown) Yes (unknown) (no (unknown) (unknown) current (units (unkno wn) date) occupational unknown) exposures/hazards : No (unknown) (no (unknown) (unknown) daily servings (units (unknown) date) fruits/ve-1 unknown) (unknown) (no (unknown) (unknown) deployments. (units (u nknown) date) unknown) (unknown) (no (unknown) (unknown) described, visit (units (unknown) date) schedule unknown) reviewed, ultrasounds policy reviewed, coverage 24 (unknown) (no (unknown) (unknown) did not feel it (units (unknown) date) was helpful. unknown) (unknown) (no (unknown) (unknown) discussed, (units (unk nown) date) tuberculosis unknown) exposure discussed, CMV discussed, Toxoplasmosis (unknown) (no (unknown) (unknown) disorders, (units (unk nown) date) Denies Cystic unknown) Fibrosis, Denies Mental Retardation/Autis m, Denies (unknown) (no (unknown) (unknown) do you feel safe (units (unknown) date) at home: Yes unknown) (unknown) (no (unknown) (unknown) does help. (units (unk nown) date) Discussed unknown) Tylenol, stretching, heat. (unknown) (no (unknown) (unknown) duration: 15-30 (units (unknown) date) minutes/day unknown) (unknown) (no (unknown) (unknown) during the past (units (unknown) date) year weight has: unknown) other (fluctuated) (unknown) (no (unknown) (unknown) education level: (units (unknown) date) high school unknown) (unknown) (no (unknown) (unknown) every afternoon. (units (unknown) date) She drinks a soda unknown) and falls asleep and they go away. Declines (unknown) (no (unknown) (unknown) fire (units (unkno wn) date) extinguisher in unknown) home: Yes (unknown) (no (unknown) (unknown) firearms in (units (un known) date) home: No unknown) (unknown) (no (unknown) (unknown) frequency: 3-4 (units (unknown) date) times per week unknown) (unknown) (no (unknown) (unknown) have occurred. (units (unknown) date) If there are any unknown) questions, please contact the Medical Records (unknown) (no (unknown) (unknown) hospital. (units (unkn own) date) unknown) (unknown) (no (unknown) (unknown) hours a day and (units (unknown) date) participation of unknown) father in care and office visits (unknown) (no (unknown) (unknown) household (units (unkn own) date) members: spouse unknown) and children (unknown) (no (unknown) (unknown) housing: house (units (unknown) date) unknown) (unknown) (no (unknown) (unknown) lives (units (unkno wn) date) independently: unknown) Yes (unknown) (no (unknown) (unknown) marital status: (units (unknown) date) unknown) (unknown) (no (unknown) (unknown) may occur. (units (unk nown) date) Occasional unknown) wrong-word or 'sound-alike' substitutions may have (unknown) (no (unknown) (unknown) number of (units (unkn own) date) children: 1 unknown) (unknown) (no (unknown) (unknown) occupational (units (u nknown) date) status: unknown) unemployed (unknown) (no (unknown) (unknown) occurred due to (units (unknown) date) the inherent unknown) limitations of voice recognition software. Please (unknown) (no (unknown) (unknown) pets and (units (unkno wn) date) animals: Yes (1 unknown) dog) (unknown) (no (unknown) (unknown) precautions, (units (u nknown) date) Listeriosis unknown) prevention and Rubella Immunization (unknown) (no (unknown) (unknown) prenat.vits,alberto, (units (unknown) date) [id number] 1 unknown) tab PO DAILY 04/28/22 [History Confirmed (unknown) (no (unknown) (unknown) read the note (units ( unknown) date) carefully and unknown) recognize, using context, where these substitutions (unknown) (no (unknown) (unknown) seatbelt use: (units ( unknown) date) always unknown) (unknown) (no (unknown) (unknown) second hand (units (un known) date) exposure: No unknown) (unknown) (no (unknown) (unknown) seems to help. - (units (unknown) date) Trial Reglan unknown) (unknown) (no (unknown) (unknown) software. (units (unkn own) date) Although every unknown) effort is made to edit content, electric sign wirer errors (unknown) (no (unknown) (unknown) special juan (units ( unknown) date) needs: No unknown) (unknown) (no (unknown) (unknown) substance use (units ( unknown) date) type: does not unknown) use (unknown) (no (unknown) (unknown) tenderness, (units (un known) date) urinary unknown) frequency, irritability and bloating (unknown) (no (unknown) (unknown) water heater (units (u nknown) date) temp set < 120 unknown) deg: Yes (unknown) (no (unknown) (unknown) weight gain, (units (u nknown) date) Fish and mercury unknown) intake, Caffeine use, Exercise and activity, (unknown) (no (unknown) (unknown) well-balanced (units ( unknown) date) diet: rarely or unknown) never (unknown) (no (unknown) (unknown) wks (units (unkno wn) date) unknown) (unknown) (no (unknown) (unknown) work/environment (units (unknown) date) al/hazards, unknown) Sexual activity, X-ray exposure, Medication use, (unknown) (no (unknown) (unknown) working smoke (units ( unknown) date) detector in home: unknown) Yes (unknown) (no (unknown) (unknown) x3) (units (unkno wn) date) unknown) Result panel 48 (unknown) (no (unknown) (unknown) (no value) (units (unk nown) date) unknown) (unknown) (no (unknown) (unknown) (+17 lb) 100/60 (units (unknown) date) unknown) (unknown) (no (unknown) (unknown) (+17 lb) 98/60 (units (unknown) date) unknown) (unknown) (no (unknown) (unknown) (+2 lb) 115/62 (units (unknown) date) unknown) (unknown) (no (unknown) (unknown) (+22 lb) 110/60 (units (unknown) date) unknown) (unknown) (no (unknown) (unknown) (+9 lb) 90/58 (units ( unknown) date) unknown) (unknown) (no (unknown) (unknown) (1) Encounter (units ( unknown) date) for supervision unknown) of other normal , third trimester: (unknown) (no (unknown) (unknown) (2) 33 weeks (units (u nknown) date) gestation of unknown) : (unknown) (no (unknown) (unknown) Genetic (units (unkn own) date) Screening/Teratol unknown) ogy Counseling - Includes patient, baby's father, or (unknown) (no (unknown) (unknown) -?-?-?-?-?-?-?-? (units (unknown) date) -?-?-?-? unknown) (unknown) (no (unknown) (unknown) 11/16/18 9 (units (unk nown) date) spontaneous unknown) (unknown) (no (unknown) (unknown) 01/08/21 41 12 8 (units (unknown) date) lb 1 oz Male unknown) vaginal live - full term (unknown) (no (unknown) (unknown) 05/03/22 (units (unkno wn) date) unknown) (unknown) (no (unknown) (unknown) 06/14/22 (units (unkno wn) date) unknown) (unknown) (no (unknown) (unknown) 07/11/22 (units (unkno wn) date) unknown) (unknown) (no (unknown) (unknown) [id number] (units (unkno wn) date) unknown) (unknown) (no (unknown) (unknown) 08/08/22 (units (unkno wn) date) unknown) (unknown) (no (unknown) (unknown) 08/23/22 (units (unkno wn) date) unknown) (unknown) (no (unknown) (unknown) 09/07/22 (units (unkno wn) date) unknown) (unknown) (no (unknown) (unknown) 14w 6d 109 lb (units ( unknown) date) unknown) (unknown) (no (unknown) (unknown) 20w 6d 116 lb (units ( unknown) date) unknown) (unknown) (no (unknown) (unknown) 24w 5d 124 lb (units ( unknown) date) unknown) (unknown) (no (unknown) (unknown) 28w 5d 124 lb (units ( unknown) date) unknown) (unknown) (no (unknown) (unknown) 30w 6d 129 lb (units ( unknown) date) unknown) (unknown) (no (unknown) (unknown) 33w 0d (units (unkno wn) date) unknown) (unknown) (no (unknown) (unknown) 4wks (units (unkno wn) date) unknown) (unknown) (no (unknown) (unknown) Abnormal lab (units (u nknown) date) values 2nd unknown) trimester: discussed (unknown) (no (unknown) (unknown) Abnormal lab (units (u nknown) date) values 3rd unknown) trimester: discussed (unknown) (no (unknown) (unknown) Accompanied by: (units (unknown) date) Self / Same As unknown) Patient (unknown) (no (unknown) (unknown) Add'l Plan (units (unk nown) date) Details unknown) (unknown) (no (unknown) (unknown) Age/Sex: 21 / F (units (unknown) date) Date of Service: unknown) (unknown) (no (unknown) (unknown) Allergies (units (unkn own) date) unknown) (unknown) (no (unknown) (unknown) [facility] (units (unknown) date) Medicine unknown) (unknown) (no (unknown) (unknown) [place], [place] (units ( unknown) date) [id number] unknown) (unknown) (no (unknown) (unknown) Anatomy ordered, (units (unknown) date) Glucola ordered unknown) (unknown) (no (unknown) (unknown) Anatomy scan (units (u nknown) date) scheduled for unknown) today. (unknown) (no (unknown) (unknown) Anesthesia (units (unk nown) date) preference: unknown) Epidural (unknown) (no (unknown) (unknown) Anesthesia/Analg (units (unknown) date) esia plans: unknown) discussed (unknown) (no (unknown) (unknown) Aneuploidy (units (unk nown) date) Screening unknown) Offered: Accepted (Quad screen) (unknown) (no (unknown) (unknown) Anticipated (units (un known) date) course of unknown) care: discussed (unknown) (no (unknown) (unknown) Assessment and (units (unknown) date) Plan unknown) (unknown) (no (unknown) (unknown) Attending Dr: (units ( unknown) date) Flavia Pritchard MD unknown) (unknown) (no (unknown) (unknown) (units (unkno wn) date) Plan/Preferences unknown) (unknown) (no (unknown) (unknown) Planning (units (unknown) date) unknown) (unknown) (no (unknown) (unknown) Blood (units (unkno wn) date) transfusions?: unknown) yes (Never had but would accept) (unknown) (no (unknown) (unknown) Breastfeed Preg (units (unknown) date) Comp Name unknown) (unknown) (no (unknown) (unknown) : (units (unknown) date) discussed unknown) (unknown) (no (unknown) (unknown) Breastpump (units (unk nown) date) prescription unknown) provided today (unknown) (no (unknown) (unknown) Childbirth (units (unk nown) date) Classes: unknown) discussed (unknown) (no (unknown) (unknown) Current Estimate (units (unknown) date) 10/26/22 LMP unknown) (Certain) 33w 0d (unknown) (no (unknown) (unknown) Current (units (unkno wn) date) History unknown) (unknown) (no (unknown) (unknown) : 2000 (units (unknown) date) Acct:[id number] unknown) (unknown) (no (unknown) (unknown) Date (units (unkno wn) date) unknown) (unknown) (no (unknown) (unknown) Dating u/s with (units (unknown) date) fetus too large unknown) for CRL. Dating scan ordered through the (unknown) (no (unknown) (unknown) Del. Date (units (unkn own) date) GA/Weeks Labor unknown) Lgth Wt Sex Route Outcome Anesthesia Place (unknown) (no (unknown) (unknown) Delayed cord (units (u nknown) date) clamping: Yes unknown) (unknown) (no (unknown) (unknown) Delv (units (unkno wn) date) unknown) (unknown) (no (unknown) (unknown) Denies Congenital (units (unknown) date) Heart Defect, unknown) Denies Down Syndrome, Denies Muscular Dystrophy, (unknown) (no (unknown) (unknown) Denies Maternal (units (unknown) date) Metabolic unknown) Disorder (EG,TYPE 1 Diabetes, PKU), Denies Patient or (unknown) (no (unknown) (unknown) Denies Neural (units ( unknown) date) Tube Defect unknown) (Meningomyelocele , Spina Bifida, or Anencephaly), (unknown) (no (unknown) (unknown) Denies Sickle (units ( unknown) date) Cell Disease or unknown) Trait (), Denies Hemophilia or other blood (unknown) (no (unknown) (unknown) Denies Chucho-Sachs (units (unknown) date) (Ashkenazi unknown) Temple, Cajun, Cameroonian South African), Denies Yesika (unknown) (no (unknown) (unknown) Denies other (units (u nknown) date) unknown) (unknown) (no (unknown) (unknown) Denies over the (units (unknown) date) counter unknown) medications, Denies alcohol, Denies illicit drugs and (unknown) (no (unknown) (unknown) Depression: (units (un known) date) discussed unknown) (unknown) (no (unknown) (unknown) Dept at (units (unkno wn) date) . unknown) (unknown) (no (unknown) (unknown) Desires quad (units (u nknown) date) screen for unknown) genetic testing (unknown) (no (unknown) (unknown) Diet and (units (unkno wn) date) Exercise unknown) (unknown) (no (unknown) (unknown) Disease (units (unkno wn) date) (Ashkenazi unknown) Temple), Denies Familial Dysautonomia (Ashkenazi Temple), (unknown) (no (unknown) (unknown) Documented By: (units (unknown) date) Flavia Pritchard MD unknown) 09/07/22 1328 (unknown) (no (unknown) (unknown) Does not feel (units ( unknown) date) the need for unknown) assistance. (unknown) (no (unknown) (unknown) Domestic (units (unkno wn) date) violence: unknown) discussed (unknown) (no (unknown) (unknown) Draft (units (unkno wn) date) unknown) (unknown) (no (unknown) (unknown) ARNOLDO Calculator (units (unknown) date) unknown) (unknown) (no (unknown) (unknown) EGA Weight BP (units ( unknown) date) UGlucose unknown) (unknown) (no (unknown) (unknown) Estimated (units (unkn own) date) Delivery Date unknown) Method Current (unknown) (no (unknown) (unknown) Family History (units (unknown) date) (Updated 04/28/22 unknown) @ 12:26 by Yadira Brown RN) (unknown) (no (unknown) (unknown) Father of Baby: (units (unknown) date) same unknown) (unknown) (no (unknown) (unknown) movement (units (unknown) date) monitoring: unknown) discussed (unknown) (no (unknown) (unknown) First Trimester (units (unknown) date) Education unknown) Checklist (unknown) (no (unknown) (unknown) Genetic (units (unkno wn) date) Screening + unknown) Counseling (unknown) (no (unknown) (unknown) Genetic (units (unkno wn) date) Screening unknown) (unknown) (no (unknown) (unknown) Grandmother (units (un known) date) Hypertension unknown) (unknown) (no (unknown) (unknown) 3 (units (unkn own) date) Multiple births unknown) (unknown) (no (unknown) (unknown) HIV risk (units (unkno wn) date) evaluation: low unknown) risk (unknown) (no (unknown) (unknown) Health Center (units ( unknown) date) Education unknown) (unknown) (no (unknown) (unknown) Health center (units ( unknown) date) information: unknown) nature of practice discussed, personnel (unknown) (no (unknown) (unknown) Hepatitis C risk (units (unknown) date) evaluation: low unknown) risk (unknown) (no (unknown) (unknown) History of (units (unk nown) date) Hepatitis B: No unknown) (unknown) (no (unknown) (unknown) History of (units (unk nown) date) Hepatitis C: No unknown) (unknown) (no (unknown) (unknown) Hospital: (units (u nknown) date) unknown) (unknown) (no (unknown) (unknown) [place] (units (u nknown) date) [place], Denies unknown) Other inherited genetic or chromosomal disorder, (unknown) (no (unknown) (unknown) Hx # (units (u nknown) date) Pregnancies unknown) Elective abortions (unknown) (no (unknown) (unknown) Hx # Term (units (unkn own) date) Pregnancies 1 unknown) Ectopic pregnancies (unknown) (no (unknown) (unknown) Hx (units ( unknown) date) depression - on unknown) Zoloft which didn't help (unknown) (no (unknown) (unknown) Hypertension (units (u nknown) date) unknown) (unknown) (no (unknown) (unknown) IOL scheduled (units ( unknown) date) for 10/21/22. unknown) (unknown) (no (unknown) (unknown) Infant feeding (units (unknown) date) plan: exclusive unknown) (unknown) (no (unknown) (unknown) Infant will be (units (unknown) date) adopted?: no unknown) (unknown) (no (unknown) (unknown) Infection (units (unkn own) date) History unknown) (unknown) (no (unknown) (unknown) Infectious (units (unk nown) date) Disease Education unknown) (unknown) (no (unknown) (unknown) Infectious (units (unk nown) date) disease exposure: unknown) chicken pox immunity discussed, hepatitis risk (unknown) (no (unknown) (unknown) Initial Weight: (units (unknown) date) 107 lb unknown) (unknown) (no (unknown) (unknown) Initials (units (unkno wn) date) unknown) (unknown) (no (unknown) (unknown) Intake Note: (units (u nknown) date) unknown) (unknown) (no (unknown) (unknown) Intake (units (unkno wn) date) unknown) (unknown) (no (unknown) (unknown) It's a boy! (units (un known) date) unknown) (unknown) (no (unknown) (unknown) NIGEL (units (unkno wn) date) unknown) (unknown) (no (unknown) (unknown) [place]en (units (unkno wn) date) unknown) (unknown) (no (unknown) (unknown) Live with (units (unkn own) date) someone with TB unknown) or exposed to TB: No (unknown) (no (unknown) (unknown) Loc: [facility] (units (unkno wn) date) unknown) (unknown) (no (unknown) (unknown) Marital status: (units (unknown) date) unknown) (unknown) (no (unknown) (unknown) Medical History (units (unknown) date) (Updated 04/28/22 unknown) @ 12:39 by Yadira Brown RN) (unknown) (no (unknown) (unknown) Mood currently (units (unknown) date) stable. Hx of unknown) depression, briefly on Zoloft but (unknown) (no (unknown) (unknown) Mother Migraine (units (unknown) date) unknown) (unknown) (no (unknown) (unknown) No Known (units (unkno wn) date) Allergies Allergy unknown) (Verified 08/23/22 14:02) (unknown) (no (unknown) (unknown) No no 158 absent (units (unknown) date) unknown) (unknown) (no (unknown) (unknown) Non-Stress Test (units (unknown) date) performed?: No unknown) (unknown) (no (unknown) (unknown) Normal exam. (units (u nknown) date) unknown) (unknown) (no (unknown) (unknown) Notes (units (unkno wn) date) unknown) (unknown) (no (unknown) (unknown) Now notices it (units (unknown) date) whenever she unknown) walks more than 5 minutes. No bulges, skin changes. (unknown) (no (unknown) (unknown) Number of Living (units (unknown) date) Children 1 unknown) (unknown) (no (unknown) (unknown) Number of (units (unkn own) date) fetuses:: Single unknown) (unknown) (no (unknown) (unknown) OB Office Visit (units (unknown) date) unknown) (unknown) (no (unknown) (unknown) OB Visit Log (units (u nknown) date) unknown) (unknown) (no (unknown) (unknown) PFSH (units (unkno wn) date) unknown) (unknown) (no (unknown) (unknown) Pap performed?: (units (unknown) date) No unknown) (unknown) (no (unknown) (unknown) Para 1 (units (unkno wn) date) Spontaneous unknown) abortions 1 (unknown) (no (unknown) (unknown) Partner history (units (unknown) date) of STD: denies hx unknown) (unknown) (no (unknown) (unknown) Partner history (units (unknown) date) of genital unknown) herpes: No (unknown) (no (unknown) (unknown) Partner: David (units (unknown) date) [place] unknown) (unknown) (no (unknown) (unknown) Passed glucola. (units (unknown) date) Tdap today. unknown) (unknown) (no (unknown) (unknown) Past Pregnancies (units (unknown) date) unknown) (unknown) (no (unknown) (unknown) Patient's age 34 (units (unknown) date) years or older as unknown) of estimated date of delivery: No (unknown) (no (unknown) (unknown) Patient: (units (unkno wn) date) Aurea Abel unknown) MR#: [id number] (unknown) (no (unknown) (unknown) Skating Rink Manager: (units ( unknown) date) KENYA Emery unknown) (unknown) (no (unknown) (unknown) Personal history (units (unknown) date) of STD: denies hx unknown) (unknown) (no (unknown) (unknown) Personal history (units (unknown) date) of genital unknown) herpes: No (unknown) (no (unknown) (unknown) Plans for (units (unkn own) date) placenta: None unknown) (unknown) (no (unknown) (unknown) (units (unk nown) date) depression unknown) (unknown) (no (unknown) (unknown) (units (unkn own) date) History unknown) (unknown) (no (unknown) (unknown) type:: (units (unknown) date) Other Normal unknown) (unknown) (no (unknown) (unknown) (units (unkno wn) date) Education unknown) (unknown) (no (unknown) (unknown) Initial (units (unknown) date) Assessment unknown) (unknown) (no (unknown) (unknown) (units (unkno wn) date) Specific unknown) Issues/Plans (unknown) (no (unknown) (unknown) (units (unkno wn) date) Testing: unknown) discussed (unknown) (no (unknown) (unknown) Visit (units (unknown) date) unknown) (unknown) (no (unknown) (unknown) (units (unkno wn) date) classes: No unknown) (unknown) (no (unknown) (unknown) (units (unkno wn) date) education packet: unknown) symptoms, Vitamins and iron, Diet and (unknown) (no (unknown) (unknown) Primary Care (units (u nknown) date) Provider: KENYA Fagan unknown) Natural Steps (unknown) (no (unknown) (unknown) Primary Ob (units (unk nown) date) Provider: unknown) Flavia Pritchard (unknown) (no (unknown) (unknown) Prior (units (unkno wn) date) GBS-Infected unknown) child: No (unknown) (no (unknown) (unknown) Promethazine for (units (unknown) date) migraines made it unknown) worse. She is getting migraines now (unknown) (no (unknown) (unknown) Providers (units (unkn own) date) unknown) (unknown) (no (unknown) (unknown) Pt is 33 wks (units (u nknown) date) today. unknown) (unknown) (no (unknown) (unknown) Pt is not (units (unkn own) date) currently unknown) employed. , David, in the [place], no upcoming (unknown) (no (unknown) (unknown) Pt with (units (unkno wn) date) localized pain on unknown) abdomen. First noticed at her anatomy scan. (unknown) (no (unknown) (unknown) Pt with more (units (u nknown) date) frequent unknown) migraines again, started again 3 days ago. Seems to (unknown) (no (unknown) (unknown) Pt with (units (unkno wn) date) primarily morning unknown) nausea and vomiting. Resolves by lunch time. (unknown) (no (unknown) (unknown) Quad screen (units (un known) date) ordered unknown) (unknown) (no (unknown) (unknown) Rash or viral (units ( unknown) date) illness since unknown) last menstrual period: Yes ('flu' in early March) (unknown) (no (unknown) (unknown) Reason For Visit (units (unknown) date) unknown) (unknown) (no (unknown) (unknown) Recent travel (units ( unknown) date) outside of unknown) country?: No (unknown) (no (unknown) (unknown) Recurrent (units (unkn own) date) loss or unknown) a stillbirth: No (unknown) (no (unknown) (unknown) SAB (spontaneous (units (unknown) date) ) unknown) (unknown) (no (unknown) (unknown) Safety (units (unkno wn) date) unknown) (unknown) (no (unknown) (unknown) Sauna/hot tub (units ( unknown) date) use, Dental care, unknown) Travel and Influenza vaccine (had flu and Covid (unknown) (no (unknown) (unknown) Second Trimester (units (unknown) date) Education unknown) Checklist (unknown) (no (unknown) (unknown) Selecting a (units (un known) date) care unknown) provider: discussed (unknown) (no (unknown) (unknown) Signed By: (units (unk nown) date) unknown) (unknown) (no (unknown) (unknown) Signs and (units (unkn own) date) symptoms of unknown) labor: discussed (unknown) (no (unknown) (unknown) Smoking Status: (units (unknown) date) Never smoker unknown) (unknown) (no (unknown) (unknown) Smoking (units (unkno wn) date) counseling: unknown) discussed (unknown) (no (unknown) (unknown) Social History (units (unknown) date) unknown) (unknown) (no (unknown) (unknown) Support (units (unkno wn) date) Person(s):: David unknown) (unknown) (no (unknown) (unknown) Surrogate (units (unkn own) date) ?: no unknown) (unknown) (no (unknown) (unknown) Symptoms since (units (unknown) date) LMP: Reports unknown) amenorrhea, nausea, vomiting, fatigue, breast (unknown) (no (unknown) (unknown) Teratogen (units (unkn own) date) Exposures since unknown) LMP/Conception: Denies prescription medications, (unknown) (no (unknown) (unknown) Testing (units (unkno wn) date) Education unknown) (unknown) (no (unknown) (unknown) Testing (units (unkno wn) date) education unknown) completed: group B strep and Spina bifida testing (unknown) (no (unknown) (unknown) The pt has not (units (unknown) date) been sleeping unknown) well. She is only sleeping up to an hour at (unknown) (no (unknown) (unknown) The pt notices (units (unknown) date) that her entire unknown) body has been more sore recently. Tylenol (unknown) (no (unknown) (unknown) Third Trimester (units (unknown) date) Education unknown) Checklist (unknown) (no (unknown) (unknown) This note may (units ( unknown) date) have been all or unknown) partially generated using voice recognition (unknown) (no (unknown) (unknown) Tobacco + (units (unkn own) date) Substance Use unknown) (unknown) (no (unknown) (unknown) Tobacco Status (units (unknown) date) unknown) (unknown) (no (unknown) (unknown) Trimester:: 3rd (units (unknown) date) Trimester unknown) (28wks-Del) (unknown) (no (unknown) (unknown) Type(s) of (units (unk nown) date) exercise: walking unknown) (unknown) (no (unknown) (unknown) UProtein Movement (units (unknown) date) PreLabor FHR Fndl unknown) Ht Pres Edema Cerv Exam US/Comment Next Appt (unknown) (no (unknown) (unknown) Ultrasound (units (unk nown) date) performed?: No unknown) (unknown) (no (unknown) (unknown) Varicella/chicke (units (unknown) date) n pox status: unknown) immunized (unknown) (no (unknown) (unknown) Visit Date: (units (un known) date) 05/03/22 Last unknown) Updated by: Flavia Pritchard MD (unknown) (no (unknown) (unknown) Visit Date: (units (un known) date) 06/14/22 Last unknown) Updated by: Flavia Pritchard MD (unknown) (no (unknown) (unknown) Visit Date: (units (un known) date) 07/11/22 Last unknown) Updated by: Flavia Pritchard MD (unknown) (no (unknown) (unknown) Visit Date: (units (un known) date) 08/08/22 Last unknown) Updated by: Flavia Pritchard MD (unknown) (no (unknown) (unknown) Visit Date: (units (un known) date) 08/23/22 Last unknown) Updated by: Flavia Pritchard MD (unknown) (no (unknown) (unknown) Visit Reasons: (units (unknown) date) 32 Wk OB unknown) (unknown) (no (unknown) (unknown) WG (units (unkno wn) date) unknown) (unknown) (no (unknown) (unknown) [facility] 7 months (units (u nknown) date) none unknown) (unknown) (no (unknown) (unknown) Weeks (units (unkno wn) date) gestation:: 33 unknown) (unknown) (no (unknown) (unknown) Yes no 142 28 (units ( unknown) date) absent tdap today unknown) 2wks (unknown) (no (unknown) (unknown) Yes no 148 23 (units ( unknown) date) absent glucola unknown) ordered 4 (unknown) (no (unknown) (unknown) Yes no 157 21 (units ( unknown) date) absent quad today unknown) 4wks (unknown) (no (unknown) (unknown) Yes no 158 30 (units ( unknown) date) absent 2wks unknown) (unknown) (no (unknown) (unknown) Yes no absent (units ( unknown) date) 2wk unknown) (unknown) (no (unknown) (unknown) Zika virus (units (unk nown) date) exposure: No unknown) (unknown) (no (unknown) (unknown) a time. She has (units (unknown) date) not tried unknown) anything yet. Discussed melatonin. (unknown) (no (unknown) (unknown) additional (units (unk nown) date) treatment for unknown) now. (unknown) (no (unknown) (unknown) alcohol intake: (units (unknown) date) former unknown) (unknown) (no (unknown) (unknown) anyone in either (units (unknown) date) family with: unknown) (unknown) (no (unknown) (unknown) baby's father (units ( unknown) date) had a child with unknown) defects not listed above and Denies Other (unknown) (no (unknown) (unknown) be worse in the (units (unknown) date) afternoon. She unknown) has tried sleep, caffeine, shower and nothing (unknown) (no (unknown) (unknown) caffeine: No (units (u nknown) date) unknown) (unknown) (no (unknown) (unknown) carbon monox (units (u nknown) date) detector in home: unknown) Yes (unknown) (no (unknown) (unknown) current (units (unkno wn) date) occupational unknown) exposures/hazards : No (unknown) (no (unknown) (unknown) daily servings (units (unknown) date) fruits/ve-1 unknown) (unknown) (no (unknown) (unknown) deployments. (units (u nknown) date) unknown) (unknown) (no (unknown) (unknown) described, visit (units (unknown) date) schedule unknown) reviewed, ultrasounds policy reviewed, coverage 24 (unknown) (no (unknown) (unknown) did not feel it (units (unknown) date) was helpful. unknown) (unknown) (no (unknown) (unknown) discussed, (units (unk nown) date) tuberculosis unknown) exposure discussed, CMV discussed, Toxoplasmosis (unknown) (no (unknown) (unknown) disorders, (units (unk nown) date) Denies Cystic unknown) Fibrosis, Denies Mental Retardation/Autis m, Denies (unknown) (no (unknown) (unknown) do you feel safe (units (unknown) date) at home: Yes unknown) (unknown) (no (unknown) (unknown) does help. (units (unk nown) date) Discussed unknown) Tylenol, stretching, heat. (unknown) (no (unknown) (unknown) duration: 15-30 (units (unknown) date) minutes/day unknown) (unknown) (no (unknown) (unknown) during the past (units (unknown) date) year weight has: unknown) other (fluctuated) (unknown) (no (unknown) (unknown) education level: (units (unknown) date) high school unknown) (unknown) (no (unknown) (unknown) every afternoon. (units (unknown) date) She drinks a soda unknown) and falls asleep and they go away. Declines (unknown) (no (unknown) (unknown) fire (units (unkno wn) date) extinguisher in unknown) home: Yes (unknown) (no (unknown) (unknown) firearms in (units (un known) date) home: No unknown) (unknown) (no (unknown) (unknown) frequency: 3-4 (units (unknown) date) times per week unknown) (unknown) (no (unknown) (unknown) have occurred. (units (unknown) date) If there are any unknown) questions, please contact the Medical Records (unknown) (no (unknown) (unknown) hospital. (units (unkn own) date) unknown) (unknown) (no (unknown) (unknown) hours a day and (units (unknown) date) participation of unknown) father in care and office visits (unknown) (no (unknown) (unknown) household (units (unkn own) date) members: spouse unknown) and children (unknown) (no (unknown) (unknown) housing: house (units (unknown) date) unknown) (unknown) (no (unknown) (unknown) lives (units (unkno wn) date) independently: unknown) Yes (unknown) (no (unknown) (unknown) marital status: (units (unknown) date) unknown) (unknown) (no (unknown) (unknown) may occur. (units (unk nown) date) Occasional unknown) wrong-word or 'sound-alike' substitutions may have (unknown) (no (unknown) (unknown) number of (units (unkn own) date) children: 1 unknown) (unknown) (no (unknown) (unknown) occupational (units (u nknown) date) status: unknown) unemployed (unknown) (no (unknown) (unknown) occurred due to (units (unknown) date) the inherent unknown) limitations of voice recognition software. Please (unknown) (no (unknown) (unknown) pets and (units (unkno wn) date) animals: Yes (1 unknown) dog) (unknown) (no (unknown) (unknown) precautions, (units (u nknown) date) Listeriosis unknown) prevention and Rubella Immunization (unknown) (no (unknown) (unknown) read the note (units ( unknown) date) carefully and unknown) recognize, using context, where these substitutions (unknown) (no (unknown) (unknown) s (units (unkno wn) date) unknown) (unknown) (no (unknown) (unknown) seatbelt use: (units ( unknown) date) always unknown) (unknown) (no (unknown) (unknown) second hand (units (un known) date) exposure: No unknown) (unknown) (no (unknown) (unknown) seems to help. - (units (unknown) date) Trial Reglan unknown) (unknown) (no (unknown) (unknown) software. (units (unkn own) date) Although every unknown) effort is made to edit content, electric sign wirer errors (unknown) (no (unknown) (unknown) special juan (units ( unknown) date) needs: No unknown) (unknown) (no (unknown) (unknown) substance use (units ( unknown) date) type: does not unknown) use (unknown) (no (unknown) (unknown) tenderness, (units (un known) date) urinary unknown) frequency, irritability and bloating (unknown) (no (unknown) (unknown) water heater (units (u nknown) date) temp set < 120 unknown) deg: Yes (unknown) (no (unknown) (unknown) weight gain, (units (u nknown) date) Fish and mercury unknown) intake, Caffeine use, Exercise and activity, (unknown) (no (unknown) (unknown) well-balanced (units ( unknown) date) diet: rarely or unknown) never (unknown) (no (unknown) (unknown) wks (units (unkno wn) date) unknown) (unknown) (no (unknown) (unknown) work/environment (units (unknown) date) al/hazards, unknown) Sexual activity, X-ray exposure, Medication use, (unknown) (no (unknown) (unknown) working smoke (units ( unknown) date) detector in home: unknown) Yes (unknown) (no (unknown) (unknown) x3) (units (unkno wn) date) unknown) Result panel 49 (unknown) (no (unknown) (unknown) (no value) (units (unk nown) date) unknown) (unknown) (no (unknown) (unknown) (+17 lb) 100/60 (units (unknown) date) unknown) (unknown) (no (unknown) (unknown) (+17 lb) 98/60 (units (unknown) date) unknown) (unknown) (no (unknown) (unknown) (+2 lb) 115/62 (units (unknown) date) unknown) (unknown) (no (unknown) (unknown) (+22 lb) 110/60 (units (unknown) date) unknown) (unknown) (no (unknown) (unknown) (+9 lb) 90/58 (units ( unknown) date) unknown) (unknown) (no (unknown) (unknown) (1) Encounter (units ( unknown) date) for supervision unknown) of other normal , third trimester: (unknown) (no (unknown) (unknown) (2) 33 weeks (units (u nknown) date) gestation of unknown) : (unknown) (no (unknown) (unknown) Genetic (units (unkn own) date) Screening/Teratol unknown) ogy Counseling - Includes patient, baby's father, or (unknown) (no (unknown) (unknown) -?-?-?-?-?-?-?-? (units (unknown) date) -?-?-?-? unknown) (unknown) (no (unknown) (unknown) 11/16/18 9 (units (unk nown) date) spontaneous unknown) (unknown) (no (unknown) (unknown) 01/08/21 41 12 8 (units (unknown) date) lb 1 oz Male unknown) vaginal live - full term (unknown) (no (unknown) (unknown) 05/03/22 (units (unkno wn) date) unknown) (unknown) (no (unknown) (unknown) 06/14/22 (units (unkno wn) date) unknown) (unknown) (no (unknown) (unknown) 07/11/22 (units (unkno wn) date) unknown) (unknown) (no (unknown) (unknown) [id number] (units (unkno wn) date) unknown) (unknown) (no (unknown) (unknown) 08/08/22 (units (unkno wn) date) unknown) (unknown) (no (unknown) (unknown) 08/23/22 (units (unkno wn) date) unknown) (unknown) (no (unknown) (unknown) 09/07/22 (units (unkno wn) date) unknown) (unknown) (no (unknown) (unknown) 14w 6d 109 lb (units ( unknown) date) unknown) (unknown) (no (unknown) (unknown) 20w 6d 116 lb (units ( unknown) date) unknown) (unknown) (no (unknown) (unknown) 24w 5d 124 lb (units ( unknown) date) unknown) (unknown) (no (unknown) (unknown) 28w 5d 124 lb (units ( unknown) date) unknown) (unknown) (no (unknown) (unknown) 30w 6d 129 lb (units ( unknown) date) unknown) (unknown) (no (unknown) (unknown) 4wks (units (unkno wn) date) unknown) (unknown) (no (unknown) (unknown) Abnormal lab (units (u nknown) date) values 2nd unknown) trimester: discussed (unknown) (no (unknown) (unknown) Abnormal lab (units (u nknown) date) values 3rd unknown) trimester: discussed (unknown) (no (unknown) (unknown) Accompanied by: (units (unknown) date) Self / Same As unknown) Patient (unknown) (no (unknown) (unknown) Add'l Plan (units (unk nown) date) Details unknown) (unknown) (no (unknown) (unknown) Age/Sex: 21 / F (units (unknown) date) Date of Service: unknown) (unknown) (no (unknown) (unknown) Allergies (units (unkn own) date) unknown) (unknown) (no (unknown) (unknown) [facility] (units (unknown) date) Medicine unknown) (unknown) (no (unknown) (unknown) [place], [place] (units ( unknown) date) [id number] unknown) (unknown) (no (unknown) (unknown) Anatomy ordered, (units (unknown) date) Glucola ordered unknown) (unknown) (no (unknown) (unknown) Anatomy scan (units (u nknown) date) scheduled for unknown) today. (unknown) (no (unknown) (unknown) Anesthesia (units (unk nown) date) preference: unknown) Epidural (unknown) (no (unknown) (unknown) Anesthesia/Analg (units (unknown) date) esia plans: unknown) discussed (unknown) (no (unknown) (unknown) Aneuploidy (units (unk nown) date) Screening unknown) Offered: Accepted (Quad screen) (unknown) (no (unknown) (unknown) Anticipated (units (un known) date) course of unknown) care: discussed (unknown) (no (unknown) (unknown) Assessment and (units (unknown) date) Plan unknown) (unknown) (no (unknown) (unknown) Attending Dr: (units ( unknown) date) Flavia Pritchard MD unknown) (unknown) (no (unknown) (unknown) (units (unkno wn) date) Plan/Preferences unknown) (unknown) (no (unknown) (unknown) Planning (units (unknown) date) unknown) (unknown) (no (unknown) (unknown) Blood (units (unkno wn) date) transfusions?: unknown) yes (Never had but would accept) (unknown) (no (unknown) (unknown) Breastfeed Preg (units (unknown) date) Comp Name unknown) (unknown) (no (unknown) (unknown) : (units (unknown) date) discussed unknown) (unknown) (no (unknown) (unknown) Breastpump (units (unk nown) date) prescription unknown) provided today (unknown) (no (unknown) (unknown) Childbirth (units (unk nown) date) Classes: unknown) discussed (unknown) (no (unknown) (unknown) Current Estimate (units (unknown) date) 10/26/22 LMP unknown) (Certain) 33w 0d (unknown) (no (unknown) (unknown) Current (units (unkno wn) date) History unknown) (unknown) (no (unknown) (unknown) : 2000 (units (unknown) date) Acct:[id number] unknown) (unknown) (no (unknown) (unknown) Date (units (unkno wn) date) unknown) (unknown) (no (unknown) (unknown) Dating u/s with (units (unknown) date) fetus too large unknown) for CRL. Dating scan ordered through the (unknown) (no (unknown) (unknown) Del. Date (units (unkn own) date) GA/Weeks Labor unknown) Lgth Wt Sex Route Outcome Anesthesia Place (unknown) (no (unknown) (unknown) Delayed cord (units (u nknown) date) clamping: Yes unknown) (unknown) (no (unknown) (unknown) Delv (units (unkno wn) date) unknown) (unknown) (no (unknown) (unknown) Denies Congenital (units (unknown) date) Heart Defect, unknown) Denies Down Syndrome, Denies Muscular Dystrophy, (unknown) (no (unknown) (unknown) Denies Maternal (units (unknown) date) Metabolic unknown) Disorder (EG,TYPE 1 Diabetes, PKU), Denies Patient or (unknown) (no (unknown) (unknown) Denies Neural (units ( unknown) date) Tube Defect unknown) (Meningomyelocele , Spina Bifida, or Anencephaly), (unknown) (no (unknown) (unknown) Denies Sickle (units ( unknown) date) Cell Disease or unknown) Trait (), Denies Hemophilia or other blood (unknown) (no (unknown) (unknown) Denies Chucho-Sachs (units (unknown) date) (Ashkenazi unknown) Temple, Cajun, Cameroonian South African), Denies Yesika (unknown) (no (unknown) (unknown) Denies other (units (u nknown) date) unknown) (unknown) (no (unknown) (unknown) Denies over the (units (unknown) date) counter unknown) medications, Denies alcohol, Denies illicit drugs and (unknown) (no (unknown) (unknown) Depression: (units (un known) date) discussed unknown) (unknown) (no (unknown) (unknown) Dept at (units (unkno wn) date) . unknown) (unknown) (no (unknown) (unknown) Desires quad (units (u nknown) date) screen for unknown) genetic testing (unknown) (no (unknown) (unknown) Diet and (units (unkno wn) date) Exercise unknown) (unknown) (no (unknown) (unknown) Disease (units (unkno wn) date) (Ashkenazi unknown) Temple), Denies Familial Dysautonomia (Ashkenazi Temple), (unknown) (no (unknown) (unknown) Documented By: (units (unknown) date) Flavia Pritchard MD unknown) 09/07/22 2419 (unknown) (no (unknown) (unknown) Does not feel (units ( unknown) date) the need for unknown) assistance. (unknown) (no (unknown) (unknown) Domestic (units (unkno wn) date) violence: unknown) discussed (unknown) (no (unknown) (unknown) Draft (units (unkno wn) date) unknown) (unknown) (no (unknown) (unknown) ARNOLDO Calculator (units (unknown) date) unknown) (unknown) (no (unknown) (unknown) EGA Weight BP (units ( unknown) date) UGlucose unknown) (unknown) (no (unknown) (unknown) Estimated (units (unkn own) date) Delivery Date unknown) Method Current (unknown) (no (unknown) (unknown) Family History (units (unknown) date) (Updated 04/28/22 unknown) @ 12:26 by Yadira Brown RN) (unknown) (no (unknown) (unknown) Father of Baby: (units (unknown) date) same unknown) (unknown) (no (unknown) (unknown) movement (units (unknown) date) monitoring: unknown) discussed (unknown) (no (unknown) (unknown) First Trimester (units (unknown) date) Education unknown) Checklist (unknown) (no (unknown) (unknown) Genetic (units (unkno wn) date) Screening + unknown) Counseling (unknown) (no (unknown) (unknown) Genetic (units (unkno wn) date) Screening unknown) (unknown) (no (unknown) (unknown) Grandmother (units (un known) date) Hypertension unknown) (unknown) (no (unknown) (unknown) 3 (units (unkn own) date) Multiple births unknown) (unknown) (no (unknown) (unknown) HIV risk (units (unkno wn) date) evaluation: low unknown) risk (unknown) (no (unknown) (unknown) Health Center (units ( unknown) date) Education unknown) (unknown) (no (unknown) (unknown) Health center (units ( unknown) date) information: unknown) nature of practice discussed, personnel (unknown) (no (unknown) (unknown) Hepatitis C risk (units (unknown) date) evaluation: low unknown) risk (unknown) (no (unknown) (unknown) History of (units (unk nown) date) Hepatitis B: No unknown) (unknown) (no (unknown) (unknown) History of (units (unk nown) date) Hepatitis C: No unknown) (unknown) (no (unknown) (unknown) Hospital: (units (u nknown) date) unknown) (unknown) (no (unknown) (unknown) Chetna's (units (u nknown) date) Chorea, Denies unknown) Other inherited genetic or chromosomal disorder, (unknown) (no (unknown) (unknown) Hx # (units (u nknown) date) Pregnancies unknown) Elective abortions (unknown) (no (unknown) (unknown) Hx # Term (units (unkn own) date) Pregnancies 1 unknown) Ectopic pregnancies (unknown) (no (unknown) (unknown) Hx (units ( unknown) date) depression - on unknown) Zoloft which didn't help (unknown) (no (unknown) (unknown) Hypertension (units (u nknown) date) unknown) (unknown) (no (unknown) (unknown) IOL scheduled (units ( unknown) date) for 10/21/22. unknown) (unknown) (no (unknown) (unknown) Infant feeding (units (unknown) date) plan: exclusive unknown) (unknown) (no (unknown) (unknown) Infant will be (units (unknown) date) adopted?: no unknown) (unknown) (no (unknown) (unknown) Infection (units (unkn own) date) History unknown) (unknown) (no (unknown) (unknown) Infectious (units (unk nown) date) Disease Education unknown) (unknown) (no (unknown) (unknown) Infectious (units (unk nown) date) disease exposure: unknown) chicken pox immunity discussed, hepatitis risk (unknown) (no (unknown) (unknown) Initial Weight: (units (unknown) date) 107 lb unknown) (unknown) (no (unknown) (unknown) Initials (units (unkno wn) date) unknown) (unknown) (no (unknown) (unknown) Intake Note: (units (u nknown) date) unknown) (unknown) (no (unknown) (unknown) Intake (units (unkno wn) date) unknown) (unknown) (no (unknown) (unknown) It's a boy! (units (un known) date) unknown) (unknown) (no (unknown) (unknown) NIGEL (units (unkno wn) date) unknown) (unknown) (no (unknown) (unknown) Bowen (units (unkno wn) date) unknown) (unknown) (no (unknown) (unknown) Live with (units (unkn own) date) someone with TB unknown) or exposed to TB: No (unknown) (no (unknown) (unknown) Loc: [facility] (units (unkno wn) date) unknown) (unknown) (no (unknown) (unknown) Marital status: (units (unknown) date) unknown) (unknown) (no (unknown) (unknown) Medical History (units (unknown) date) (Updated 04/28/22 unknown) @ 12:39 by Yadira Brown RN) (unknown) (no (unknown) (unknown) Mood currently (units (unknown) date) stable. Hx of unknown) depression, briefly on Zoloft but (unknown) (no (unknown) (unknown) Mother Migraine (units (unknown) date) unknown) (unknown) (no (unknown) (unknown) No Known (units (unkno wn) date) Allergies Allergy unknown) (Verified 08/23/22 14:02) (unknown) (no (unknown) (unknown) No no 158 absent (units (unknown) date) unknown) (unknown) (no (unknown) (unknown) Non-Stress Test (units (unknown) date) performed?: No unknown) (unknown) (no (unknown) (unknown) Normal exam. (units (u nknown) date) unknown) (unknown) (no (unknown) (unknown) Notes (units (unkno wn) date) unknown) (unknown) (no (unknown) (unknown) Now notices it (units (unknown) date) whenever she unknown) walks more than 5 minutes. No bulges, skin changes. (unknown) (no (unknown) (unknown) Number of Living (units (unknown) date) Children 1 unknown) (unknown) (no (unknown) (unknown) Number of (units (unkn own) date) fetuses:: Single unknown) (unknown) (no (unknown) (unknown) OB Office Visit (units (unknown) date) unknown) (unknown) (no (unknown) (unknown) OB Visit Log (units (u nknown) date) unknown) (unknown) (no (unknown) (unknown) PFSH (units (unkno wn) date) unknown) (unknown) (no (unknown) (unknown) Pap performed?: (units (unknown) date) No unknown) (unknown) (no (unknown) (unknown) Para 1 (units (unkno wn) date) Spontaneous unknown) abortions 1 (unknown) (no (unknown) (unknown) Partner history (units (unknown) date) of STD: denies hx unknown) (unknown) (no (unknown) (unknown) Partner history (units (unknown) date) of genital unknown) herpes: No (unknown) (no (unknown) (unknown) Partner: David (units (unknown) date) [place] unknown) (unknown) (no (unknown) (unknown) Passed glucola. (units (unknown) date) Tdap today. unknown) (unknown) (no (unknown) (unknown) Past Pregnancies (units (unknown) date) unknown) (unknown) (no (unknown) (unknown) Patient's age 34 (units (unknown) date) years or older as unknown) of estimated date of delivery: No (unknown) (no (unknown) (unknown) Patient: (units (unkno wn) date) Aurea Abel unknown) MR#: [id number] (unknown) (no (unknown) (unknown) Skating Rink Manager: (units ( unknown) date) KENYA Emery unknown) (unknown) (no (unknown) (unknown) Personal history (units (unknown) date) of STD: denies hx unknown) (unknown) (no (unknown) (unknown) Personal history (units (unknown) date) of genital unknown) herpes: No (unknown) (no (unknown) (unknown) Plans for (units (unkn own) date) placenta: None unknown) (unknown) (no (unknown) (unknown) (units (unk nown) date) depression unknown) (unknown) (no (unknown) (unknown) (units (unkn own) date) History unknown) (unknown) (no (unknown) (unknown) type:: (units (unknown) date) Other Normal unknown) (unknown) (no (unknown) (unknown) (units (unkno wn) date) Education unknown) (unknown) (no (unknown) (unknown) Initial (units (unknown) date) Assessment unknown) (unknown) (no (unknown) (unknown) (units (unkno wn) date) Specific unknown) Issues/Plans (unknown) (no (unknown) (unknown) (units (unkno wn) date) Testing: unknown) discussed (unknown) (no (unknown) (unknown) Visit (units (unknown) date) unknown) (unknown) (no (unknown) (unknown) (units (unkno wn) date) classes: No unknown) (unknown) (no (unknown) (unknown) (units (unkno wn) date) education packet: unknown) symptoms, Vitamins and iron, Diet and (unknown) (no (unknown) (unknown) Primary Care (units (u nknown) date) Provider: KENYA Robinson unknown) Natural Steps (unknown) (no (unknown) (unknown) Primary Ob (units (unk nown) date) Provider: unknown) Flavia Pritchard (unknown) (no (unknown) (unknown) Prior (units (unkno wn) date) GBS-Infected unknown) child: No (unknown) (no (unknown) (unknown) Promethazine for (units (unknown) date) migraines made it unknown) worse. She is getting migraines now (unknown) (no (unknown) (unknown) Providers (units (unkn own) date) unknown) (unknown) (no (unknown) (unknown) Pt is 33 wks (units (u nknown) date) today. unknown) (unknown) (no (unknown) (unknown) Pt is not (units (unkn own) date) currently unknown) employed. , David, in the [place], no upcoming (unknown) (no (unknown) (unknown) Pt with (units (unkno wn) date) localized pain on unknown) abdomen. First noticed at her anatomy scan. (unknown) (no (unknown) (unknown) Pt with more (units (u nknown) date) frequent unknown) migraines again, started again 3 days ago. Seems to (unknown) (no (unknown) (unknown) Pt with (units (unkno wn) date) primarily morning unknown) nausea and vomiting. Resolves by lunch time. (unknown) (no (unknown) (unknown) Quad screen (units (un known) date) ordered unknown) (unknown) (no (unknown) (unknown) Rash or viral (units ( unknown) date) illness since unknown) last menstrual period: Yes ('flu' in early March) (unknown) (no (unknown) (unknown) Reason For Visit (units (unknown) date) unknown) (unknown) (no (unknown) (unknown) Recent travel (units ( unknown) date) outside of unknown) country?: No (unknown) (no (unknown) (unknown) Recurrent (units (unkn own) date) loss or unknown) a stillbirth: No (unknown) (no (unknown) (unknown) SAB (spontaneous (units (unknown) date) ) unknown) (unknown) (no (unknown) (unknown) Safety (units (unkno wn) date) unknown) (unknown) (no (unknown) (unknown) Sauna/hot tub (units ( unknown) date) use, Dental care, unknown) Travel and Influenza vaccine (had flu and Covid (unknown) (no (unknown) (unknown) Second Trimester (units (unknown) date) Education unknown) Checklist (unknown) (no (unknown) (unknown) Selecting a (units (un known) date) care unknown) provider: discussed (unknown) (no (unknown) (unknown) Signed By: (units (unk nown) date) unknown) (unknown) (no (unknown) (unknown) Signs and (units (unkn own) date) symptoms of unknown) labor: discussed (unknown) (no (unknown) (unknown) Smoking Status: (units (unknown) date) Never smoker unknown) (unknown) (no (unknown) (unknown) Smoking (units (unkno wn) date) counseling: unknown) discussed (unknown) (no (unknown) (unknown) Social History (units (unknown) date) unknown) (unknown) (no (unknown) (unknown) Support (units (unkno wn) date) Person(s):: David unknown) (unknown) (no (unknown) (unknown) Surrogate (units (unkn own) date) ?: no unknown) (unknown) (no (unknown) (unknown) Symptoms since (units (unknown) date) LMP: Reports unknown) amenorrhea, nausea, vomiting, fatigue, breast (unknown) (no (unknown) (unknown) Teratogen (units (unkn own) date) Exposures since unknown) LMP/Conception: Denies prescription medications, (unknown) (no (unknown) (unknown) Testing (units (unkno wn) date) Education unknown) (unknown) (no (unknown) (unknown) Testing (units (unkno wn) date) education unknown) completed: group B strep and Spina bifida testing (unknown) (no (unknown) (unknown) The pt has not (units (unknown) date) been sleeping unknown) well. She is only sleeping up to an hour at (unknown) (no (unknown) (unknown) The pt notices (units (unknown) date) that her entire unknown) body has been more sore recently. Tylenol (unknown) (no (unknown) (unknown) Third Trimester (units (unknown) date) Education unknown) Checklist (unknown) (no (unknown) (unknown) This note may (units ( unknown) date) have been all or unknown) partially generated using voice recognition (unknown) (no (unknown) (unknown) Tobacco + (units (unkn own) date) Substance Use unknown) (unknown) (no (unknown) (unknown) Tobacco Status (units (unknown) date) unknown) (unknown) (no (unknown) (unknown) Trimester:: 3rd (units (unknown) date) Trimester unknown) (28wks-Del) (unknown) (no (unknown) (unknown) Type(s) of (units (unk nown) date) exercise: walking unknown) (unknown) (no (unknown) (unknown) UProtein Movement (units (unknown) date) PreLabor FHR Fndl unknown) Ht Pres Edema Cerv Exam US/Comment Next Appt (unknown) (no (unknown) (unknown) Ultrasound (units (unk nown) date) performed?: No unknown) (unknown) (no (unknown) (unknown) Varicella/chicke (units (unknown) date) n pox status: unknown) immunized (unknown) (no (unknown) (unknown) Visit Date: (units (un known) date) 05/03/22 Last unknown) Updated by: Flavia Pritchard MD (unknown) (no (unknown) (unknown) Visit Date: (units (un known) date) 06/14/22 Last unknown) Updated by: Flavia Pritchard MD (unknown) (no (unknown) (unknown) Visit Date: (units (un known) date) 07/11/22 Last unknown) Updated by: Flavia Pritchard MD (unknown) (no (unknown) (unknown) Visit Date: (units (un known) date) 08/08/22 Last unknown) Updated by: Flavia Pritchard MD (unknown) (no (unknown) (unknown) Visit Date: (units (un known) date) 08/23/22 Last unknown) Updated by: Flavia Pritchard MD (unknown) (no (unknown) (unknown) Visit Reasons: (units (unknown) date) 32 Wk OB unknown) (unknown) (no (unknown) (unknown) WG (units (unkno wn) date) unknown) (unknown) (no (unknown) (unknown) [facility] 7 months (units (u nknown) date) none unknown) (unknown) (no (unknown) (unknown) Weeks (units (unkno wn) date) gestation:: 33 unknown) (unknown) (no (unknown) (unknown) Yes no 142 28 (units ( unknown) date) absent tdap today unknown) 2wks (unknown) (no (unknown) (unknown) Yes no 148 23 (units ( unknown) date) absent glucola unknown) ordered 4 (unknown) (no (unknown) (unknown) Yes no 157 21 (units ( unknown) date) absent quad today unknown) 4wks (unknown) (no (unknown) (unknown) Yes no 158 30 (units ( unknown) date) absent 2wks unknown) (unknown) (no (unknown) (unknown) Zika virus (units (unk nown) date) exposure: No unknown) (unknown) (no (unknown) (unknown) a time. She has (units (unknown) date) not tried unknown) anything yet. Discussed melatonin. (unknown) (no (unknown) (unknown) additional (units (unk nown) date) treatment for unknown) now. (unknown) (no (unknown) (unknown) alcohol intake: (units (unknown) date) former unknown) (unknown) (no (unknown) (unknown) anyone in either (units (unknown) date) family with: unknown) (unknown) (no (unknown) (unknown) baby's father (units ( unknown) date) had a child with unknown) defects not listed above and Denies Other (unknown) (no (unknown) (unknown) be worse in the (units (unknown) date) afternoon. She unknown) has tried sleep, caffeine, shower and nothing (unknown) (no (unknown) (unknown) caffeine: No (units (u nknown) date) unknown) (unknown) (no (unknown) (unknown) carbon monox (units (u nknown) date) detector in home: unknown) Yes (unknown) (no (unknown) (unknown) current (units (unkno wn) date) occupational unknown) exposures/hazards : No (unknown) (no (unknown) (unknown) daily servings (units (unknown) date) fruits/ve-1 unknown) (unknown) (no (unknown) (unknown) deployments. (units (u nknown) date) unknown) (unknown) (no (unknown) (unknown) described, visit (units (unknown) date) schedule unknown) reviewed, ultrasounds policy reviewed, coverage 24 (unknown) (no (unknown) (unknown) did not feel it (units (unknown) date) was helpful. unknown) (unknown) (no (unknown) (unknown) discussed, (units (unk nown) date) tuberculosis unknown) exposure discussed, CMV discussed, Toxoplasmosis (unknown) (no (unknown) (unknown) disorders, (units (unk nown) date) Denies Cystic unknown) Fibrosis, Denies Mental Retardation/Autis m, Denies (unknown) (no (unknown) (unknown) do you feel safe (units (unknown) date) at home: Yes unknown) (unknown) (no (unknown) (unknown) does help. (units (unk nown) date) Discussed unknown) Tylenol, stretching, heat. (unknown) (no (unknown) (unknown) duration: 15-30 (units (unknown) date) minutes/day unknown) (unknown) (no (unknown) (unknown) during the past (units (unknown) date) year weight has: unknown) other (fluctuated) (unknown) (no (unknown) (unknown) education level: (units (unknown) date) high school unknown) (unknown) (no (unknown) (unknown) every afternoon. (units (unknown) date) She drinks a soda unknown) and falls asleep and they go away. Declines (unknown) (no (unknown) (unknown) fire (units (unkno wn) date) extinguisher in unknown) home: Yes (unknown) (no (unknown) (unknown) firearms in (units (un known) date) home: No unknown) (unknown) (no (unknown) (unknown) frequency: 3-4 (units (unknown) date) times per week unknown) (unknown) (no (unknown) (unknown) have occurred. (units (unknown) date) If there are any unknown) questions, please contact the Medical Records (unknown) (no (unknown) (unknown) hospital. (units (unkn own) date) unknown) (unknown) (no (unknown) (unknown) hours a day and (units (unknown) date) participation of unknown) father in care and office visits (unknown) (no (unknown) (unknown) household (units (unkn own) date) members: spouse unknown) and children (unknown) (no (unknown) (unknown) housing: house (units (unknown) date) unknown) (unknown) (no (unknown) (unknown) lives (units (unkno wn) date) independently: unknown) Yes (unknown) (no (unknown) (unknown) marital status: (units (unknown) date) unknown) (unknown) (no (unknown) (unknown) may occur. (units (unk nown) date) Occasional unknown) wrong-word or 'sound-alike' substitutions may have (unknown) (no (unknown) (unknown) number of (units (unkn own) date) children: 1 unknown) (unknown) (no (unknown) (unknown) occupational (units (u nknown) date) status: unknown) unemployed (unknown) (no (unknown) (unknown) occurred due to (units (unknown) date) the inherent unknown) limitations of voice recognition software. Please (unknown) (no (unknown) (unknown) pets and (units (unkno wn) date) animals: Yes (1 unknown) dog) (unknown) (no (unknown) (unknown) precautions, (units (u nknown) date) Listeriosis unknown) prevention and Rubella Immunization (unknown) (no (unknown) (unknown) read the note (units ( unknown) date) carefully and unknown) recognize, using context, where these substitutions (unknown) (no (unknown) (unknown) seatbelt use: (units ( unknown) date) always unknown) (unknown) (no (unknown) (unknown) second hand (units (un known) date) exposure: No unknown) (unknown) (no (unknown) (unknown) seems to help. - (units (unknown) date) Trial Reglan unknown) (unknown) (no (unknown) (unknown) software. (units (unkn own) date) Although every unknown) effort is made to edit content, electric sign wirer errors (unknown) (no (unknown) (unknown) special juan (units ( unknown) date) needs: No unknown) (unknown) (no (unknown) (unknown) substance use (units ( unknown) date) type: does not unknown) use (unknown) (no (unknown) (unknown) tenderness, (units (un known) date) urinary unknown) frequency, irritability and bloating (unknown) (no (unknown) (unknown) water heater (units (u nknown) date) temp set < 120 unknown) deg: Yes (unknown) (no (unknown) (unknown) weight gain, (units (u nknown) date) Fish and mercury unknown) intake, Caffeine use, Exercise and activity, (unknown) (no (unknown) (unknown) well-balanced (units ( unknown) date) diet: rarely or unknown) never (unknown) (no (unknown) (unknown) wks (units (unkno wn) date) unknown) (unknown) (no (unknown) (unknown) work/environment (units (unknown) date) al/hazards, unknown) Sexual activity, X-ray exposure, Medication use, (unknown) (no (unknown) (unknown) working smoke (units ( unknown) date) detector in home: unknown) Yes (unknown) (no (unknown) (unknown) x3) (units (unkno wn) date) unknown) Result panel 50 (unknown) (no (unknown) (unknown) (no value) (units (unk nown) date) unknown) (unknown) (no (unknown) (unknown) (+17 lb) 100/60 (units (unknown) date) unknown) (unknown) (no (unknown) (unknown) (+17 lb) 98/60 (units (unknown) date) unknown) (unknown) (no (unknown) (unknown) (+2 lb) 115/62 (units (unknown) date) unknown) (unknown) (no (unknown) (unknown) (+22 lb) 110/60 (units (unknown) date) unknown) (unknown) (no (unknown) (unknown) (+25 lb) 92/56 (units (unknown) date) unknown) (unknown) (no (unknown) (unknown) (+9 lb) 90/58 (units ( unknown) date) unknown) (unknown) (no (unknown) (unknown) (1) Encounter (units ( unknown) date) for supervision unknown) of other normal , third trimester: (unknown) (no (unknown) (unknown) (2) 33 weeks (units (u nknown) date) gestation of unknown) : (unknown) (no (unknown) (unknown) Genetic (units (unkn own) date) Screening/Teratol unknown) ogy Counseling - Includes patient, baby's father, or (unknown) (no (unknown) (unknown) -?-?-?-?-?-?-?-? (units (unknown) date) -?-?-?-? unknown) (unknown) (no (unknown) (unknown) 11/16/18 9 (units (unk nown) date) spontaneous unknown) (unknown) (no (unknown) (unknown) 01/08/21 41 12 8 (units (unknown) date) lb 1 oz Male unknown) vaginal live - full term (unknown) (no (unknown) (unknown) 05/03/22 (units (unkno wn) date) unknown) (unknown) (no (unknown) (unknown) 06/14/22 (units (unkno wn) date) unknown) (unknown) (no (unknown) (unknown) 07/11/22 (units (unkno wn) date) unknown) (unknown) (no (unknown) (unknown) [id number] (units (unkno wn) date) unknown) (unknown) (no (unknown) (unknown) 08/08/22 (units (unkno wn) date) unknown) (unknown) (no (unknown) (unknown) 08/23/22 (units (unkno wn) date) unknown) (unknown) (no (unknown) (unknown) 09/07/22 1413 (units ( unknown) date) unknown) (unknown) (no (unknown) (unknown) 09/07/22 (units (unkno wn) date) unknown) (unknown) (no (unknown) (unknown) 13:53 (units (unkno wn) date) unknown) (unknown) (no (unknown) (unknown) 14w 6d 109 lb (units ( unknown) date) unknown) (unknown) (no (unknown) (unknown) 20w 6d 116 lb (units ( unknown) date) unknown) (unknown) (no (unknown) (unknown) 24w 5d 124 lb (units ( unknown) date) unknown) (unknown) (no (unknown) (unknown) 28w 5d 124 lb (units ( unknown) date) unknown) (unknown) (no (unknown) (unknown) 30w 6d 129 lb (units ( unknown) date) unknown) (unknown) (no (unknown) (unknown) 33w 0d 132 lb (units ( unknown) date) unknown) (unknown) (no (unknown) (unknown) 4wks (units (unkno wn) date) unknown) (unknown) (no (unknown) (unknown) Abnormal lab (units (u nknown) date) values 2nd unknown) trimester: discussed (unknown) (no (unknown) (unknown) Abnormal lab (units (u nknown) date) values 3rd unknown) trimester: discussed (unknown) (no (unknown) (unknown) Accompanied by: (units (unknown) date) Self / Same As unknown) Patient (unknown) (no (unknown) (unknown) Add'l Plan (units (unk nown) date) Details unknown) (unknown) (no (unknown) (unknown) Age/Sex: 21 / F (units (unknown) date) Date of Service: unknown) (unknown) (no (unknown) (unknown) Allergies (units (unkn own) date) unknown) (unknown) (no (unknown) (unknown) [facility] (units (unknown) date) Medicine unknown) (unknown) (no (unknown) (unknown) [place], [place] (units ( unknown) date) [id number] unknown) (unknown) (no (unknown) (unknown) Anatomy ordered, (units (unknown) date) Glucola ordered unknown) (unknown) (no (unknown) (unknown) Anatomy scan (units (u nknown) date) scheduled for unknown) today. (unknown) (no (unknown) (unknown) Anesthesia (units (unk nown) date) preference: unknown) Epidural (unknown) (no (unknown) (unknown) Anesthesia/Analg (units (unknown) date) esia plans: unknown) discussed (unknown) (no (unknown) (unknown) Aneuploidy (units (unk nown) date) Screening unknown) Offered: Accepted (Quad screen) (unknown) (no (unknown) (unknown) Anticipated (units (un known) date) course of unknown) care: discussed (unknown) (no (unknown) (unknown) Assessment and (units (unknown) date) Plan unknown) (unknown) (no (unknown) (unknown) Attending Dr: (units ( unknown) date) Flavia Pritchard MD unknown) (unknown) (no (unknown) (unknown) BP 92/56 L (units (unk nown) date) unknown) (unknown) (no (unknown) (unknown) (units (unkno wn) date) Plan/Preferences unknown) (unknown) (no (unknown) (unknown) Planning (units (unknown) date) unknown) (unknown) (no (unknown) (unknown) Blood Pressure (units (unknown) date) Location Lt unknown) brachial (unknown) (no (unknown) (unknown) Blood (units (unkno wn) date) transfusions?: unknown) yes (Never had but would accept) (unknown) (no (unknown) (unknown) Breastfeed Preg (units (unknown) date) Comp Name unknown) (unknown) (no (unknown) (unknown) : (units (unknown) date) discussed unknown) (unknown) (no (unknown) (unknown) Breastpump (units (unk nown) date) prescription unknown) provided today (unknown) (no (unknown) (unknown) Childbirth (units (unk nown) date) Classes: unknown) discussed (unknown) (no (unknown) (unknown) Current Estimate (units (unknown) date) 10/26/22 LMP unknown) (Certain) 33w 0d (unknown) (no (unknown) (unknown) Current (units (unkno wn) date) History unknown) (unknown) (no (unknown) (unknown) : 2000 (units (unknown) date) Acct:[id number] unknown) (unknown) (no (unknown) (unknown) Date (units (unkno wn) date) unknown) (unknown) (no (unknown) (unknown) Dating u/s with (units (unknown) date) fetus too large unknown) for CRL. Dating scan ordered through the (unknown) (no (unknown) (unknown) Del. Date (units (unkn own) date) GA/Weeks Labor unknown) Lgth Wt Sex Route Outcome Anesthesia Place (unknown) (no (unknown) (unknown) Delayed cord (units (u nknown) date) clamping: Yes unknown) (unknown) (no (unknown) (unknown) Delv (units (unkno wn) date) unknown) (unknown) (no (unknown) (unknown) Denies Congenital (units (unknown) date) Heart Defect, unknown) Denies Down Syndrome, Denies Muscular Dystrophy, (unknown) (no (unknown) (unknown) Denies Maternal (units (unknown) date) Metabolic unknown) Disorder (EG,TYPE 1 Diabetes, PKU), Denies Patient or (unknown) (no (unknown) (unknown) Denies Neural (units ( unknown) date) Tube Defect unknown) (Meningomyelocele , Spina Bifida, or Anencephaly), (unknown) (no (unknown) (unknown) Denies Sickle (units ( unknown) date) Cell Disease or unknown) Trait (), Denies Hemophilia or other blood (unknown) (no (unknown) (unknown) Denies Chucho-Sachs (units (unknown) date) (Ashkenazi unknown) Temple, Cajun, Cam[place]onian South African), Denies Yesika (unknown) (no (unknown) (unknown) Denies other (units (u nknown) date) unknown) (unknown) (no (unknown) (unknown) Denies over the (units (unknown) date) counter unknown) medications, Denies alcohol, Denies illicit drugs and (unknown) (no (unknown) (unknown) Depression: (units (un known) date) discussed unknown) (unknown) (no (unknown) (unknown) Dept at (units (unkno wn) date) . unknown) (unknown) (no (unknown) (unknown) Desires quad (units (u nknown) date) screen for unknown) genetic testing (unknown) (no (unknown) (unknown) Diet and (units (unkno wn) date) Exercise unknown) (unknown) (no (unknown) (unknown) Disease (units (unkno wn) date) (Ashkenazi unknown) Temple), Denies Familial Dysautonomia (Ashkenazi Temple), (unknown) (no (unknown) (unknown) Documented By: (units (unknown) date) Flavia Pritchard MD unknown) 09/07/22 1328 (unknown) (no (unknown) (unknown) Does not feel (units ( unknown) date) the need for unknown) assistance. (unknown) (no (unknown) (unknown) Domestic (units (unkno wn) date) violence: unknown) discussed (unknown) (no (unknown) (unknown) ARNOLDO Calculator (units (unknown) date) unknown) (unknown) (no (unknown) (unknown) EGA Weight BP (units ( unknown) date) UGlucose unknown) (unknown) (no (unknown) (unknown) Estimated (units (unkn own) date) Delivery Date unknown) Method Current (unknown) (no (unknown) (unknown) Family History (units (unknown) date) (Updated 04/28/22 unknown) @ 12:26 by Yadira Brown RN) (unknown) (no (unknown) (unknown) Father of Baby: (units (unknown) date) same unknown) (unknown) (no (unknown) (unknown) movement (units (unknown) date) monitoring: unknown) discussed (unknown) (no (unknown) (unknown) First Trimester (units (unknown) date) Education unknown) Checklist (unknown) (no (unknown) (unknown) Genetic (units (unkno wn) date) Screening + unknown) Counseling (unknown) (no (unknown) (unknown) Genetic (units (unkno wn) date) Screening unknown) (unknown) (no (unknown) (unknown) Grandmother (units (un known) date) Hypertension unknown) (unknown) (no (unknown) (unknown) 3 (units (unkn own) date) Multiple births unknown) (unknown) (no (unknown) (unknown) HIV risk (units (unkno wn) date) evaluation: low unknown) risk (unknown) (no (unknown) (unknown) Health Center (units ( unknown) date) Education unknown) (unknown) (no (unknown) (unknown) Health center (units ( unknown) date) information: unknown) nature of practice discussed, personnel (unknown) (no (unknown) (unknown) Hepatitis C risk (units (unknown) date) evaluation: low unknown) risk (unknown) (no (unknown) (unknown) History of (units (unk nown) date) Hepatitis B: No unknown) (unknown) (no (unknown) (unknown) History of (units (unk nown) date) Hepatitis C: No unknown) (unknown) (no (unknown) (unknown) Hospital: (units (u nknown) date) unknown) (unknown) (no (unknown) (unknown) [place] (units (u nknown) date) [place], Denies unknown) Other inherited genetic or chromosomal disorder, (unknown) (no (unknown) (unknown) Hx # (units (u nknown) date) Pregnancies unknown) Elective abortions (unknown) (no (unknown) (unknown) Hx # Term (units (unkn own) date) Pregnancies 1 unknown) Ectopic pregnancies (unknown) (no (unknown) (unknown) Hx (units ( unknown) date) depression - on unknown) Zoloft which didn't help (unknown) (no (unknown) (unknown) Hypertension (units (u nknown) date) unknown) (unknown) (no (unknown) (unknown) IOL scheduled (units ( unknown) date) for 10/21/22. unknown) (unknown) (no (unknown) (unknown) feeding (units (unknown) date) plan: exclusive unknown) (unknown) (no (unknown) (unknown) Infant will be (units (unknown) date) adopted?: no unknown) (unknown) (no (unknown) (unknown) Infection (units (unkn own) date) History unknown) (unknown) (no (unknown) (unknown) Infectious (units (unk nown) date) Disease Education unknown) (unknown) (no (unknown) (unknown) Infectious (units (unk nown) date) disease exposure: unknown) chicken pox immunity discussed, hepatitis risk (unknown) (no (unknown) (unknown) Initial Weight: (units (unknown) date) 107 lb unknown) (unknown) (no (unknown) (unknown) Initials (units (unkno wn) date) unknown) (unknown) (no (unknown) (unknown) Intake Note: (units (u nknown) date) unknown) (unknown) (no (unknown) (unknown) Intake (units (unkno wn) date) unknown) (unknown) (no (unknown) (unknown) It's a boy! (units (un known) date) unknown) (unknown) (no (unknown) (unknown) NIGEL (units (unkno wn) date) unknown) (unknown) (no (unknown) (unknown) [place] (units (unkno wn) date) unknown) (unknown) (no (unknown) (unknown) Live with (units (unkn own) date) someone with TB unknown) or exposed to TB: No (unknown) (no (unknown) (unknown) Loc: [facility] (units (unkno wn) date) unknown) (unknown) (no (unknown) (unknown) Marital status: (units (unknown) date) unknown) (unknown) (no (unknown) (unknown) Medical History (units (unknown) date) (Updated 04/28/22 unknown) @ 12:39 by Yadira Brown RN) (unknown) (no (unknown) (unknown) Mood currently (units (unknown) date) stable. Hx of unknown) depression, briefly on Zoloft but (unknown) (no (unknown) (unknown) Mother Migraine (units (unknown) date) unknown) (unknown) (no (unknown) (unknown) No Known (units (unkno wn) date) Allergies Allergy unknown) (Verified 08/23/22 14:02) (unknown) (no (unknown) (unknown) No no 158 absent (units (unknown) date) unknown) (unknown) (no (unknown) (unknown) Non-Stress Test (units (unknown) date) performed?: No unknown) (unknown) (no (unknown) (unknown) Normal exam. (units (u nknown) date) unknown) (unknown) (no (unknown) (unknown) Notes (units (unkno wn) date) unknown) (unknown) (no (unknown) (unknown) Now notices it (units (unknown) date) whenever she unknown) walks more than 5 minutes. No bulges, skin changes. (unknown) (no (unknown) (unknown) Number of Living (units (unknown) date) Children 1 unknown) (unknown) (no (unknown) (unknown) Number of (units (unkn own) date) fetuses:: Single unknown) (unknown) (no (unknown) (unknown) OB Office Visit (units (unknown) date) unknown) (unknown) (no (unknown) (unknown) OB Visit Log (units (u nknown) date) unknown) (unknown) (no (unknown) (unknown) Oxygen Delivery (units (unknown) date) Method room air unknown) (unknown) (no (unknown) (unknown) PFSH (units (unkno wn) date) unknown) (unknown) (no (unknown) (unknown) Pap performed?: (units (unknown) date) No unknown) (unknown) (no (unknown) (unknown) Para 1 (units (unkno wn) date) Spontaneous unknown) abortions 1 (unknown) (no (unknown) (unknown) Partner history (units (unknown) date) of STD: denies hx unknown) (unknown) (no (unknown) (unknown) Partner history (units (unknown) date) of genital unknown) herpes: No (unknown) (no (unknown) (unknown) Partner: David (units (unknown) date) [place] unknown) (unknown) (no (unknown) (unknown) Passed glucola. (units (unknown) date) Tdap today. unknown) (unknown) (no (unknown) (unknown) Past Pregnancies (units (unknown) date) unknown) (unknown) (no (unknown) (unknown) Patient's age 34 (units (unknown) date) years or older as unknown) of estimated date of delivery: No (unknown) (no (unknown) (unknown) Patient: (units (unkno wn) date) MamadouirvingAurea unknown) MR#: [id number] (unknown) (no (unknown) (unknown) Skating Rink Manager: (units ( unknown) date) KENYA Emery unknown) (unknown) (no (unknown) (unknown) Personal history (units (unknown) date) of STD: denies hx unknown) (unknown) (no (unknown) (unknown) Personal history (units (unknown) date) of genital unknown) herpes: No (unknown) (no (unknown) (unknown) Plans for (units (unkn own) date) placenta: None unknown) (unknown) (no (unknown) (unknown) Position Sitting (units (unknown) date) unknown) (unknown) (no (unknown) (unknown) (units (unk nown) date) depression unknown) (unknown) (no (unknown) (unknown) (units (unkn own) date) History unknown) (unknown) (no (unknown) (unknown) type:: (units (unknown) date) Other Normal unknown) (unknown) (no (unknown) (unknown) (units (unkno wn) date) Education unknown) (unknown) (no (unknown) (unknown) Initial (units (unknown) date) Assessment unknown) (unknown) (no (unknown) (unknown) (units (unkno wn) date) Specific unknown) Issues/Plans (unknown) (no (unknown) (unknown) (units (unkno wn) date) Testing: unknown) discussed (unknown) (no (unknown) (unknown) Visit (units (unknown) date) unknown) (unknown) (no (unknown) (unknown) (units (unkno wn) date) classes: No unknown) (unknown) (no (unknown) (unknown) (units (unkno wn) date) education packet: unknown) symptoms, Vitamins and iron, Diet and (unknown) (no (unknown) (unknown) Primary Care (units (u nknown) date) Provider: KENYA Fagan unknown) [place] (unknown) (no (unknown) (unknown) Primary Ob (units (unk nown) date) Provider: unknown) Flavia Pritchard (unknown) (no (unknown) (unknown) Prior (units (unkno wn) date) GBS-Infected unknown) child: No (unknown) (no (unknown) (unknown) Promethazine for (units (unknown) date) migraines made it unknown) worse. She is getting migraines now (unknown) (no (unknown) (unknown) Providers (units (unkn own) date) unknown) (unknown) (no (unknown) (unknown) Pt is 33 wks (units (u nknown) date) today. unknown) (unknown) (no (unknown) (unknown) Pt is not (units (unkn own) date) currently unknown) employed. , [employer], in the [place], no upcoming (unknown) (no (unknown) (unknown) Pt with (units (unkno wn) date) localized pain on unknown) abdomen. First noticed at her anatomy scan. (unknown) (no (unknown) (unknown) Pt with more (units (u nknown) date) frequent unknown) migraines again, started again 3 days ago. Seems to (unknown) (no (unknown) (unknown) Pt with (units (unkno wn) date) primarily morning unknown) nausea and vomiting. Resolves by lunch time. (unknown) (no (unknown) (unknown) Pulse 110 H (units (un known) date) unknown) (unknown) (no (unknown) (unknown) Pulse Oximetry (units (unknown) date) (%) 99 unknown) (unknown) (no (unknown) (unknown) Pulse Source (units (u nknown) date) Monitor unknown) (unknown) (no (unknown) (unknown) Quad screen (units (un known) date) ordered unknown) (unknown) (no (unknown) (unknown) Rash or viral (units ( unknown) date) illness since unknown) last menstrual period: Yes ('flu' in early March) (unknown) (no (unknown) (unknown) Reason For Visit (units (unknown) date) unknown) (unknown) (no (unknown) (unknown) Recent travel (units ( unknown) date) outside of unknown) country?: No (unknown) (no (unknown) (unknown) Recurrent (units (unkn own) date) loss or unknown) a stillbirth: No (unknown) (no (unknown) (unknown) Reviewed labor (units (unknown) date) precautions. unknown) (unknown) (no (unknown) (unknown) SAB (spontaneous (units (unknown) date) ) unknown) (unknown) (no (unknown) (unknown) Safety (units (unkno wn) date) unknown) (unknown) (no (unknown) (unknown) Sauna/hot tub (units ( unknown) date) use, Dental care, unknown) Travel and Influenza vaccine (had flu and Covid (unknown) (no (unknown) (unknown) Second Trimester (units (unknown) date) Education unknown) Checklist (unknown) (no (unknown) (unknown) Selecting a (units (un known) date) care unknown) provider: discussed (unknown) (no (unknown) (unknown) Signed By: (units (unk nown) date) <Electronically unknown) signed by Flavia Pritchard MD> (unknown) (no (unknown) (unknown) Signed (units (unkno wn) date) unknown) (unknown) (no (unknown) (unknown) Signs + Symptoms (units (unknown) date) of labor: unknown) symptoms discussed, when and who to call and OB (unknown) (no (unknown) (unknown) Signs and (units (unkn own) date) symptoms of unknown) labor: discussed (unknown) (no (unknown) (unknown) Smoking Status: (units (unknown) date) Never smoker unknown) (unknown) (no (unknown) (unknown) Smoking (units (unkno wn) date) counseling: unknown) discussed (unknown) (no (unknown) (unknown) Social History (units (unknown) date) unknown) (unknown) (no (unknown) (unknown) Support (units (unkno wn) date) Person(s):: David unknown) (unknown) (no (unknown) (unknown) Surrogate (units (unkn own) date) ?: no unknown) (unknown) (no (unknown) (unknown) Symptoms since (units (unknown) date) LMP: Reports unknown) amenorrhea, nausea, vomiting, fatigue, breast (unknown) (no (unknown) (unknown) Teratogen (units (unkn own) date) Exposures since unknown) LMP/Conception: Denies prescription medications, (unknown) (no (unknown) (unknown) Testing (units (unkno wn) date) Education unknown) (unknown) (no (unknown) (unknown) Testing (units (unkno wn) date) education unknown) completed: group B strep and Spina bifida testing (unknown) (no (unknown) (unknown) The pt has not (units (unknown) date) been sleeping unknown) well. She is only sleeping up to an hour at (unknown) (no (unknown) (unknown) The pt notices (units (unknown) date) that her entire unknown) body has been more sore recently. Tylenol (unknown) (no (unknown) (unknown) Third Trimester (units (unknown) date) Education unknown) Checklist (unknown) (no (unknown) (unknown) This note may (units ( unknown) date) have been all or unknown) partially generated using voice recognition (unknown) (no (unknown) (unknown) Tobacco + (units (unkn own) date) Substance Use unknown) (unknown) (no (unknown) (unknown) Tobacco Status (units (unknown) date) unknown) (unknown) (no (unknown) (unknown) Trimester:: 3rd (units (unknown) date) Trimester unknown) (28wks-Del) (unknown) (no (unknown) (unknown) Type(s) of (units (unk nown) date) exercise: walking unknown) (unknown) (no (unknown) (unknown) UProtein Movement (units (unknown) date) PreLabor FHR Fndl unknown) Ht Pres Edema Cerv Exam US/Comment Next Appt (unknown) (no (unknown) (unknown) Ultrasound (units (unk nown) date) performed?: No unknown) (unknown) (no (unknown) (unknown) Varicella/chicke (units (unknown) date) n pox status: unknown) immunized (unknown) (no (unknown) (unknown) Visit Date: (units (un known) date) 05/03/22 Last unknown) Updated by: Flavia Pritchard MD (unknown) (no (unknown) (unknown) Visit Date: (units (un known) date) 06/14/22 Last unknown) Updated by: Flavia Pritchard MD (unknown) (no (unknown) (unknown) Visit Date: (units (un known) date) 07/11/22 Last unknown) Updated by: Flavia Pritchard MD (unknown) (no (unknown) (unknown) Visit Date: (units (un known) date) 08/08/22 Last unknown) Updated by: Flavia Pritchard MD (unknown) (no (unknown) (unknown) Visit Date: (units (un known) date) 08/23/22 Last unknown) Updated by: Flavia Pritchard MD (unknown) (no (unknown) (unknown) Visit Date: (units (un known) date) 09/07/22 Last unknown) Updated by: Flavia Pritchard MD (unknown) (no (unknown) (unknown) Visit Reasons: (units (unknown) date) 32 Wk OB unknown) (unknown) (no (unknown) (unknown) Vitals (units (unkno wn) date) unknown) (unknown) (no (unknown) (unknown) WG (units (unkno wn) date) unknown) (unknown) (no (unknown) (unknown) [facility] 7 months (units (u nknown) date) none unknown) (unknown) (no (unknown) (unknown) Weeks (units (unkno wn) date) gestation:: 33 unknown) (unknown) (no (unknown) (unknown) Weight 132 lb (units ( unknown) date) unknown) (unknown) (no (unknown) (unknown) Yes no 142 28 (units ( unknown) date) absent tdap today unknown) 2wks (unknown) (no (unknown) (unknown) Yes no 145 32 (units ( unknown) date) absent 2wks unknown) (unknown) (no (unknown) (unknown) Yes no 148 23 (units ( unknown) date) absent glucola unknown) ordered 4 (unknown) (no (unknown) (unknown) Yes no 157 21 (units ( unknown) date) absent quad today unknown) 4wks (unknown) (no (unknown) (unknown) Yes no 158 30 (units ( unknown) date) absent 2wks unknown) (unknown) (no (unknown) (unknown) Zika virus (units (unk nown) date) exposure: No unknown) (unknown) (no (unknown) (unknown) a time. She has (units (unknown) date) not tried unknown) anything yet. Discussed melatonin. (unknown) (no (unknown) (unknown) additional (units (unk nown) date) treatment for unknown) now. (unknown) (no (unknown) (unknown) alcohol intake: (units (unknown) date) former unknown) (unknown) (no (unknown) (unknown) anyone in either (units (unknown) date) family with: unknown) (unknown) (no (unknown) (unknown) baby's father (units ( unknown) date) had a child with unknown) defects not listed above and Denies Other (unknown) (no (unknown) (unknown) be worse in the (units (unknown) date) afternoon. She unknown) has tried sleep, caffeine, shower and nothing (unknown) (no (unknown) (unknown) caffeine: No (units (u nknown) date) unknown) (unknown) (no (unknown) (unknown) carbon monox (units (u nknown) date) detector in home: unknown) Yes (unknown) (no (unknown) (unknown) coverage (units (unkno wn) date) unknown) (unknown) (no (unknown) (unknown) current (units (unkno wn) date) occupational unknown) exposures/hazards : No (unknown) (no (unknown) (unknown) daily servings (units (unknown) date) fruits/ve-1 unknown) (unknown) (no (unknown) (unknown) deployments. (units (u nknown) date) unknown) (unknown) (no (unknown) (unknown) described, visit (units (unknown) date) schedule unknown) reviewed, ultrasounds policy reviewed, coverage 24 (unknown) (no (unknown) (unknown) did not feel it (units (unknown) date) was helpful. unknown) (unknown) (no (unknown) (unknown) discussed, (units (unk nown) date) tuberculosis unknown) exposure discussed, CMV discussed, Toxoplasmosis (unknown) (no (unknown) (unknown) disorders, (units (unk nown) date) Denies Cystic unknown) Fibrosis, Denies Mental Retardation/Autis m, Denies (unknown) (no (unknown) (unknown) do you feel safe (units (unknown) date) at home: Yes unknown) (unknown) (no (unknown) (unknown) does help. (units (unk nown) date) Discussed unknown) Tylenol, stretching, heat. (unknown) (no (unknown) (unknown) duration: 15-30 (units (unknown) date) minutes/day unknown) (unknown) (no (unknown) (unknown) during the past (units (unknown) date) year weight has: unknown) other (fluctuated) (unknown) (no (unknown) (unknown) education level: (units (unknown) date) high school unknown) (unknown) (no (unknown) (unknown) every afternoon. (units (unknown) date) She drinks a soda unknown) and falls asleep and they go away. Declines (unknown) (no (unknown) (unknown) fire (units (unkno wn) date) extinguisher in unknown) home: Yes (unknown) (no (unknown) (unknown) firearms in (units (un known) date) home: No unknown) (unknown) (no (unknown) (unknown) frequency: 3-4 (units (unknown) date) times per week unknown) (unknown) (no (unknown) (unknown) have occurred. (units (unknown) date) If there are any unknown) questions, please contact the Medical Records (unknown) (no (unknown) (unknown) hospital. (units (unkn own) date) unknown) (unknown) (no (unknown) (unknown) hours a day and (units (unknown) date) participation of unknown) father in care and office visits (unknown) (no (unknown) (unknown) household (units (unkn own) date) members: spouse unknown) and children (unknown) (no (unknown) (unknown) housing: house (units (unknown) date) unknown) (unknown) (no (unknown) (unknown) lives (units (unkno wn) date) independently: unknown) Yes (unknown) (no (unknown) (unknown) marital status: (units (unknown) date) unknown) (unknown) (no (unknown) (unknown) may occur. (units (unk nown) date) Occasional unknown) wrong-word or 'sound-alike' substitutions may have (unknown) (no (unknown) (unknown) number of (units (unkn own) date) children: 1 unknown) (unknown) (no (unknown) (unknown) occupational (units (u nknown) date) status: unknown) unemployed (unknown) (no (unknown) (unknown) occurred due to (units (unknown) date) the inherent unknown) limitations of voice recognition software. Please (unknown) (no (unknown) (unknown) pets and (units (unkno wn) date) animals: Yes (1 unknown) dog) (unknown) (no (unknown) (unknown) precautions, (units (u nknown) date) Listeriosis unknown) prevention and Rubella Immunization (unknown) (no (unknown) (unknown) read the note (units ( unknown) date) carefully and unknown) recognize, using context, where these substitutions (unknown) (no (unknown) (unknown) seatbelt use: (units ( unknown) date) always unknown) (unknown) (no (unknown) (unknown) second hand (units (un known) date) exposure: No unknown) (unknown) (no (unknown) (unknown) seems to help. - (units (unknown) date) Trial Reglan unknown) (unknown) (no (unknown) (unknown) software. (units (unkn own) date) Although every unknown) effort is made to edit content, electric sign wirer errors (unknown) (no (unknown) (unknown) special juan (units ( unknown) date) needs: No unknown) (unknown) (no (unknown) (unknown) substance use (units ( unknown) date) type: does not unknown) use (unknown) (no (unknown) (unknown) tenderness, (units (un known) date) urinary unknown) frequency, irritability and bloating (unknown) (no (unknown) (unknown) water heater (units (u nknown) date) temp set < 120 unknown) deg: Yes (unknown) (no (unknown) (unknown) weight gain, (units (u nknown) date) Fish and mercury unknown) intake, Caffeine use, Exercise and activity, (unknown) (no (unknown) (unknown) well-balanced (units ( unknown) date) diet: rarely or unknown) never (unknown) (no (unknown) (unknown) wks (units (unkno wn) date) unknown) (unknown) (no (unknown) (unknown) work/environment (units (unknown) date) al/hazards, unknown) Sexual activity, X-ray exposure, Medication use, (unknown) (no (unknown) (unknown) working smoke (units ( unknown) date) detector in home: unknown) Yes (unknown) (no (unknown) (unknown) x3) (units (unkno wn) date) unknown) Result panel 51 (unknown) (no (unknown) (unknown) (no value) (units (unk nown) date) unknown) (unknown) (no (unknown) (unknown) (+17 lb) 100/60 (units (unknown) date) unknown) (unknown) (no (unknown) (unknown) (+17 lb) 98/60 (units (unknown) date) unknown) (unknown) (no (unknown) (unknown) (+2 lb) 115/62 (units (unknown) date) unknown) (unknown) (no (unknown) (unknown) (+22 lb) 110/60 (units (unknown) date) unknown) (unknown) (no (unknown) (unknown) (+25 lb) 92/56 (units (unknown) date) unknown) (unknown) (no (unknown) (unknown) (+9 lb) 90/58 (units ( unknown) date) unknown) (unknown) (no (unknown) (unknown) (1) Encounter (units ( unknown) date) for supervision unknown) of other normal , third trimester: (unknown) (no (unknown) (unknown) (2) 35 weeks (units (u nknown) date) gestation of unknown) : (unknown) (no (unknown) (unknown) Genetic (units (unkn own) date) Screening/Teratol unknown) ogy Counseling - Includes patient, baby's father, or (unknown) (no (unknown) (unknown) -?-?-?-?-?-?-?-? (units (unknown) date) -?-?-?-? unknown) (unknown) (no (unknown) (unknown) 11/16/18 9 (units (unk nown) date) spontaneous unknown) (unknown) (no (unknown) (unknown) 01/08/21 41 12 8 (units (unknown) date) lb 1 oz Male unknown) vaginal live - full term (unknown) (no (unknown) (unknown) 05/03/22 (units (unkno wn) date) unknown) (unknown) (no (unknown) (unknown) 06/14/22 (units (unkno wn) date) unknown) (unknown) (no (unknown) (unknown) 07/11/22 (units (unkno wn) date) unknown) (unknown) (no (unknown) (unknown) [id number] (units (unkno wn) date) unknown) (unknown) (no (unknown) (unknown) 08/08/22 (units (unkno wn) date) unknown) (unknown) (no (unknown) (unknown) 08/23/22 (units (unkno wn) date) unknown) (unknown) (no (unknown) (unknown) 09/07/22 (units (unkno wn) date) unknown) (unknown) (no (unknown) (unknown) 09/23/22 (units (unkno wn) date) unknown) (unknown) (no (unknown) (unknown) 14w 6d 109 lb (units ( unknown) date) unknown) (unknown) (no (unknown) (unknown) 20w 6d 116 lb (units ( unknown) date) unknown) (unknown) (no (unknown) (unknown) 24w 5d 124 lb (units ( unknown) date) unknown) (unknown) (no (unknown) (unknown) 28w 5d 124 lb (units ( unknown) date) unknown) (unknown) (no (unknown) (unknown) 30w 6d 129 lb (units ( unknown) date) unknown) (unknown) (no (unknown) (unknown) 33w 0d 132 lb (units ( unknown) date) unknown) (unknown) (no (unknown) (unknown) 35w 2d (units (unkno wn) date) unknown) (unknown) (no (unknown) (unknown) 4wks (units (unkno wn) date) unknown) (unknown) (no (unknown) (unknown) Abnormal lab (units (u nknown) date) values 2nd unknown) trimester: discussed (unknown) (no (unknown) (unknown) Abnormal lab (units (u nknown) date) values 3rd unknown) trimester: discussed (unknown) (no (unknown) (unknown) Accompanied by: (units (unknown) date) Self / Same As unknown) Patient (unknown) (no (unknown) (unknown) Add'l Plan (units (unk nown) date) Details unknown) (unknown) (no (unknown) (unknown) Age/Sex: 21 / F (units (unknown) date) Date of Service: unknown) (unknown) (no (unknown) (unknown) Allergies (units (unkn own) date) unknown) (unknown) (no (unknown) (unknown) [facility] (units (unknown) date) Medicine unknown) (unknown) (no (unknown) (unknown) [place] (units ( unknown) date) [id number] unknown) (unknown) (no (unknown) (unknown) Anatomy ordered, (units (unknown) date) Glucola ordered unknown) (unknown) (no (unknown) (unknown) Anatomy scan (units (u nknown) date) scheduled for unknown) today. (unknown) (no (unknown) (unknown) Anesthesia (units (unk nown) date) preference: unknown) Epidural (unknown) (no (unknown) (unknown) Anesthesia/Analg (units (unknown) date) esia plans: unknown) discussed (unknown) (no (unknown) (unknown) Aneuploidy (units (unk nown) date) Screening unknown) Offered: Accepted (Quad screen) (unknown) (no (unknown) (unknown) Anticipated (units (un known) date) course of unknown) care: discussed (unknown) (no (unknown) (unknown) Assessment and (units (unknown) date) Plan unknown) (unknown) (no (unknown) (unknown) Attending Dr: (units ( unknown) date) Flavia Pritchard MD unknown) (unknown) (no (unknown) (unknown) (units (unkno wn) date) Plan/Preferences unknown) (unknown) (no (unknown) (unknown) Planning (units (unknown) date) unknown) (unknown) (no (unknown) (unknown) Blood (units (unkno wn) date) transfusions?: unknown) yes (Never had but would accept) (unknown) (no (unknown) (unknown) Breastfeed Preg (units (unknown) date) Comp Name unknown) (unknown) (no (unknown) (unknown) : (units (unknown) date) discussed unknown) (unknown) (no (unknown) (unknown) Breastpump (units (unk nown) date) prescription unknown) provided today (unknown) (no (unknown) (unknown) Childbirth (units (unk nown) date) Classes: unknown) discussed (unknown) (no (unknown) (unknown) Current Estimate (units (unknown) date) 10/26/22 LMP unknown) (Certain) 35w 2d (unknown) (no (unknown) (unknown) Current (units (unkno wn) date) History unknown) (unknown) (no (unknown) (unknown) : 2000 (units (unknown) date) Acct:[id number] unknown) (unknown) (no (unknown) (unknown) Date (units (unkno wn) date) unknown) (unknown) (no (unknown) (unknown) Dating u/s with (units (unknown) date) fetus too large unknown) for CRL. Dating scan ordered through the (unknown) (no (unknown) (unknown) Del. Date (units (unkn own) date) GA/Weeks Labor unknown) Lgth Wt Sex Route Outcome Anesthesia Place (unknown) (no (unknown) (unknown) Delayed cord (units (u nknown) date) clamping: Yes unknown) (unknown) (no (unknown) (unknown) Delv (units (unkno wn) date) unknown) (unknown) (no (unknown) (unknown) Denies Congenital (units (unknown) date) Heart Defect, unknown) Denies Down Syndrome, Denies Muscular Dystrophy, (unknown) (no (unknown) (unknown) Denies Maternal (units (unknown) date) Metabolic unknown) Disorder (EG,TYPE 1 Diabetes, PKU), Denies Patient or (unknown) (no (unknown) (unknown) Denies Neural (units ( unknown) date) Tube Defect unknown) (Meningomyelocele , Spina Bifida, or Anencephaly), (unknown) (no (unknown) (unknown) Denies Sickle (units ( unknown) date) Cell Disease or unknown) Trait (), Denies Hemophilia or other blood (unknown) (no (unknown) (unknown) Denies Chucho-Sachs (units (unknown) date) (Ashkenazi unknown) Temple, Cajun, Cameroonian South African), Denies Yesika (unknown) (no (unknown) (unknown) Denies other (units (u nknown) date) unknown) (unknown) (no (unknown) (unknown) Denies over the (units (unknown) date) counter unknown) medications, Denies alcohol, Denies illicit drugs and (unknown) (no (unknown) (unknown) Depression: (units (un known) date) discussed unknown) (unknown) (no (unknown) (unknown) Dept at (units (unkno wn) date) . unknown) (unknown) (no (unknown) (unknown) Desires quad (units (u nknown) date) screen for unknown) genetic testing (unknown) (no (unknown) (unknown) Diet and (units (unkno wn) date) Exercise unknown) (unknown) (no (unknown) (unknown) Disease (units (unkno wn) date) (Ashkenazi unknown) Temple), Denies Familial Dysautonomia (Ashkenazi Temple), (unknown) (no (unknown) (unknown) Documented By: (units (unknown) date) Flavia Pritchard MD unknown) 09/23/22 0910 (unknown) (no (unknown) (unknown) Documented By: (units (unknown) date) Flavia Pritchard MD unknown) 09/23/22 0911 (unknown) (no (unknown) (unknown) Does not feel (units ( unknown) date) the need for unknown) assistance. (unknown) (no (unknown) (unknown) Domestic (units (unkno wn) date) violence: unknown) discussed (unknown) (no (unknown) (unknown) Draft (units (unkno wn) date) unknown) (unknown) (no (unknown) (unknown) ARNOLDO Calculator (units (unknown) date) unknown) (unknown) (no (unknown) (unknown) EGA Weight BP (units ( unknown) date) UGlucose unknown) (unknown) (no (unknown) (unknown) Estimated (units (unkn own) date) Delivery Date unknown) Method Current (unknown) (no (unknown) (unknown) Family History (units (unknown) date) (Updated 04/28/22 unknown) @ 12:26 by Yadira Brown RN) (unknown) (no (unknown) (unknown) Father of Baby: (units (unknown) date) same unknown) (unknown) (no (unknown) (unknown) movement (units (unknown) date) monitoring: unknown) discussed (unknown) (no (unknown) (unknown) First Trimester (units (unknown) date) Education unknown) Checklist (unknown) (no (unknown) (unknown) Genetic (units (unkno wn) date) Screening + unknown) Counseling (unknown) (no (unknown) (unknown) Genetic (units (unkno wn) date) Screening unknown) (unknown) (no (unknown) (unknown) Grandmother (units (un known) date) Hypertension unknown) (unknown) (no (unknown) (unknown) 3 (units (unkn own) date) Multiple births unknown) (unknown) (no (unknown) (unknown) HIV risk (units (unkno wn) date) evaluation: low unknown) risk (unknown) (no (unknown) (unknown) Health Center (units ( unknown) date) Education unknown) (unknown) (no (unknown) (unknown) Health center (units ( unknown) date) information: unknown) nature of practice discussed, personnel (unknown) (no (unknown) (unknown) Hepatitis C risk (units (unknown) date) evaluation: low unknown) risk (unknown) (no (unknown) (unknown) History of (units (unk nown) date) Hepatitis B: No unknown) (unknown) (no (unknown) (unknown) History of (units (unk nown) date) Hepatitis C: No unknown) (unknown) (no (unknown) (unknown) Hospital: (units (u nknown) date) unknown) (unknown) (no (unknown) (unknown) [place] (units (u nknown) date) [place], Denies unknown) Other inherited genetic or chromosomal disorder, (unknown) (no (unknown) (unknown) Hx # (units (u nknown) date) Pregnancies unknown) Elective abortions (unknown) (no (unknown) (unknown) Hx # Term (units (unkn own) date) Pregnancies 1 unknown) Ectopic pregnancies (unknown) (no (unknown) (unknown) Hx (units ( unknown) date) depression - on unknown) Zoloft which didn't help (unknown) (no (unknown) (unknown) Hypertension (units (u nknown) date) unknown) (unknown) (no (unknown) (unknown) IOL scheduled (units ( unknown) date) for 10/21/22. unknown) (unknown) (no (unknown) (unknown) feeding (units (unknown) date) plan: exclusive unknown) (unknown) (no (unknown) (unknown) will be (units (unknown) date) adopted?: no unknown) (unknown) (no (unknown) (unknown) Infection (units (unkn own) date) History unknown) (unknown) (no (unknown) (unknown) Infectious (units (unk nown) date) Disease Education unknown) (unknown) (no (unknown) (unknown) Infectious (units (unk nown) date) disease exposure: unknown) chicken pox immunity discussed, hepatitis risk (unknown) (no (unknown) (unknown) Initial Weight: (units (unknown) date) 107 lb unknown) (unknown) (no (unknown) (unknown) Initials (units (unkno wn) date) unknown) (unknown) (no (unknown) (unknown) Intake Note: (units (u nknown) date) unknown) (unknown) (no (unknown) (unknown) Intake (units (unkno wn) date) unknown) (unknown) (no (unknown) (unknown) It's a boy! (units (un known) date) unknown) (unknown) (no (unknown) (unknown) NIGEL (units (unkno wn) date) unknown) (unknown) (no (unknown) (unknown) Bowen (units (unkno wn) date) unknown) (unknown) (no (unknown) (unknown) Live with (units (unkn own) date) someone with TB unknown) or exposed to TB: No (unknown) (no (unknown) (unknown) Loc: [facility] (units (unkno wn) date) unknown) (unknown) (no (unknown) (unknown) Marital status: (units (unknown) date) unknown) (unknown) (no (unknown) (unknown) Medical History (units (unknown) date) (Updated 04/28/22 unknown) @ 12:39 by Yadira Brown RN) (unknown) (no (unknown) (unknown) Mood currently (units (unknown) date) stable. Hx of unknown) depression, briefly on Zoloft but (unknown) (no (unknown) (unknown) Mother Migraine (units (unknown) date) unknown) (unknown) (no (unknown) (unknown) No Known (units (unkno wn) date) Allergies Allergy unknown) (Verified 08/23/22 14:02) (unknown) (no (unknown) (unknown) No no 158 absent (units (unknown) date) unknown) (unknown) (no (unknown) (unknown) Non-Stress Test (units (unknown) date) performed?: No unknown) (unknown) (no (unknown) (unknown) Normal exam. (units (u nknown) date) unknown) (unknown) (no (unknown) (unknown) Notes (units (unkno wn) date) unknown) (unknown) (no (unknown) (unknown) Now notices it (units (unknown) date) whenever she unknown) walks more than 5 minutes. No bulges, skin changes. (unknown) (no (unknown) (unknown) Number of Living (units (unknown) date) Children 1 unknown) (unknown) (no (unknown) (unknown) Number of (units (unkn own) date) fetuses:: Single unknown) (unknown) (no (unknown) (unknown) OB Office Visit (units (unknown) date) unknown) (unknown) (no (unknown) (unknown) OB Visit Log (units (u nknown) date) unknown) (unknown) (no (unknown) (unknown) PFSH (units (unkno wn) date) unknown) (unknown) (no (unknown) (unknown) Pap performed?: (units (unknown) date) No unknown) (unknown) (no (unknown) (unknown) Para 1 (units (unkno wn) date) Spontaneous unknown) abortions 1 (unknown) (no (unknown) (unknown) Partner history (units (unknown) date) of STD: denies hx unknown) (unknown) (no (unknown) (unknown) Partner history (units (unknown) date) of genital unknown) herpes: No (unknown) (no (unknown) (unknown) Partner: David (units (unknown) date) [place] unknown) (unknown) (no (unknown) (unknown) Passed glucola. (units (unknown) date) Tdap today. unknown) (unknown) (no (unknown) (unknown) Past Pregnancies (units (unknown) date) unknown) (unknown) (no (unknown) (unknown) Patient's age 34 (units (unknown) date) years or older as unknown) of estimated date of delivery: No (unknown) (no (unknown) (unknown) Patient: (units (unkno wn) date) Aurea Abel unknown) MR#: [id number] (unknown) (no (unknown) (unknown) Skating Rink Manager: (units ( unknown) date) KENYA Emery unknown) (unknown) (no (unknown) (unknown) Personal history (units (unknown) date) of STD: denies hx unknown) (unknown) (no (unknown) (unknown) Personal history (units (unknown) date) of genital unknown) herpes: No (unknown) (no (unknown) (unknown) Plans for (units (unkn own) date) placenta: None unknown) (unknown) (no (unknown) (unknown) (units (unk nown) date) depression unknown) (unknown) (no (unknown) (unknown) (units (unkn own) date) History unknown) (unknown) (no (unknown) (unknown) type:: (units (unknown) date) Other Normal unknown) (unknown) (no (unknown) (unknown) (units (unkno wn) date) Education unknown) (unknown) (no (unknown) (unknown) Initial (units (unknown) date) Assessment unknown) (unknown) (no (unknown) (unknown) (units (unkno wn) date) Specific unknown) Issues/Plans (unknown) (no (unknown) (unknown) (units (unkno wn) date) Testing: unknown) discussed (unknown) (no (unknown) (unknown) Visit (units (unknown) date) unknown) (unknown) (no (unknown) (unknown) (units (unkno wn) date) classes: No unknown) (unknown) (no (unknown) (unknown) (units (unkno wn) date) education packet: unknown) symptoms, Vitamins and iron, Diet and (unknown) (no (unknown) (unknown) Primary Care (units (u nknown) date) Provider: KENYA Fagan unknown) [place] (unknown) (no (unknown) (unknown) Primary Ob (units (unk nown) date) Provider: unknown) Flavia Pritchard (unknown) (no (unknown) (unknown) Prior (units (unkno wn) date) GBS-Infected unknown) child: No (unknown) (no (unknown) (unknown) Promethazine for (units (unknown) date) migraines made it unknown) worse. She is getting migraines now (unknown) (no (unknown) (unknown) Providers (units (unkn own) date) unknown) (unknown) (no (unknown) (unknown) Pt is 35 wks and (units (unknown) date) 2 days today. She unknown) is due for a GBS swab. (unknown) (no (unknown) (unknown) Pt is not (units (unkn own) date) currently unknown) employed. , [employer], in the [place], no upcoming (unknown) (no (unknown) (unknown) Pt with (units (unkno wn) date) localized pain on unknown) abdomen. First noticed at her anatomy scan. (unknown) (no (unknown) (unknown) Pt with more (units (u nknown) date) frequent unknown) migraines again, started again 3 days ago. Seems to (unknown) (no (unknown) (unknown) Pt with (units (unkno wn) date) primarily morning unknown) nausea and vomiting. Resolves by lunch time. (unknown) (no (unknown) (unknown) Quad screen (units (un known) date) ordered unknown) (unknown) (no (unknown) (unknown) Rash or viral (units ( unknown) date) illness since unknown) last menstrual period: Yes ('flu' in early March) (unknown) (no (unknown) (unknown) Reason For Visit (units (unknown) date) unknown) (unknown) (no (unknown) (unknown) Recent travel (units ( unknown) date) outside of unknown) country?: No (unknown) (no (unknown) (unknown) Recurrent (units (unkn own) date) loss or unknown) a stillbirth: No (unknown) (no (unknown) (unknown) Reviewed labor (units (unknown) date) precautions. unknown) (unknown) (no (unknown) (unknown) SAB (spontaneous (units (unknown) date) ) unknown) (unknown) (no (unknown) (unknown) Safety (units (unkno wn) date) unknown) (unknown) (no (unknown) (unknown) Sauna/hot tub (units ( unknown) date) use, Dental care, unknown) Travel and Influenza vaccine (had flu and Covid (unknown) (no (unknown) (unknown) Second Trimester (units (unknown) date) Education unknown) Checklist (unknown) (no (unknown) (unknown) Selecting a (units (un known) date) care unknown) provider: discussed (unknown) (no (unknown) (unknown) Signed By: (units (unk nown) date) unknown) (unknown) (no (unknown) (unknown) Signs + Symptoms (units (unknown) date) of labor: unknown) symptoms discussed, when and who to call and OB (unknown) (no (unknown) (unknown) Signs and (units (unkn own) date) symptoms of unknown) labor: discussed (unknown) (no (unknown) (unknown) Smoking Status: (units (unknown) date) Never smoker unknown) (unknown) (no (unknown) (unknown) Smoking (units (unkno wn) date) counseling: unknown) discussed (unknown) (no (unknown) (unknown) Social History (units (unknown) date) unknown) (unknown) (no (unknown) (unknown) Support (units (unkno wn) date) Person(s):: David unknown) (unknown) (no (unknown) (unknown) Surrogate (units (unkn own) date) ?: no unknown) (unknown) (no (unknown) (unknown) Symptoms since (units (unknown) date) LMP: Reports unknown) amenorrhea, nausea, vomiting, fatigue, breast (unknown) (no (unknown) (unknown) Teratogen (units (unkn own) date) Exposures since unknown) LMP/Conception: Denies prescription medications, (unknown) (no (unknown) (unknown) Testing (units (unkno wn) date) Education unknown) (unknown) (no (unknown) (unknown) Testing (units (unkno wn) date) education unknown) completed: group B strep and Spina bifida testing (unknown) (no (unknown) (unknown) The pt has not (units (unknown) date) been sleeping unknown) well. She is only sleeping up to an hour at (unknown) (no (unknown) (unknown) The pt notices (units (unknown) date) that her entire unknown) body has been more sore recently. Tylenol (unknown) (no (unknown) (unknown) Third Trimester (units (unknown) date) Education unknown) Checklist (unknown) (no (unknown) (unknown) This note may (units ( unknown) date) have been all or unknown) partially generated using voice recognition (unknown) (no (unknown) (unknown) Tobacco + (units (unkn own) date) Substance Use unknown) (unknown) (no (unknown) (unknown) Tobacco Status (units (unknown) date) unknown) (unknown) (no (unknown) (unknown) Trimester:: 3rd (units (unknown) date) Trimester unknown) (28wks-Del) (unknown) (no (unknown) (unknown) Type(s) of (units (unk nown) date) exercise: walking unknown) (unknown) (no (unknown) (unknown) UProtein Movement (units (unknown) date) PreLabor FHR Fndl unknown) Ht Pres Edema Cerv Exam US/Comment Next Appt (unknown) (no (unknown) (unknown) Ultrasound (units (unk nown) date) performed?: No unknown) (unknown) (no (unknown) (unknown) Varicella/chicke (units (unknown) date) n pox status: unknown) immunized (unknown) (no (unknown) (unknown) Visit Date: (units (un known) date) 05/03/22 Last unknown) Updated by: Flavia Pritchard MD (unknown) (no (unknown) (unknown) Visit Date: (units (un known) date) 06/14/22 Last unknown) Updated by: Flavia Pritchard MD (unknown) (no (unknown) (unknown) Visit Date: (units (un known) date) 07/11/22 Last unknown) Updated by: Flavia Pritchard MD (unknown) (no (unknown) (unknown) Visit Date: (units (un known) date) 08/08/22 Last unknown) Updated by: Flavia Pritchard MD (unknown) (no (unknown) (unknown) Visit Date: (units (un known) date) 08/23/22 Last unknown) Updated by: Flavia Pritchard MD (unknown) (no (unknown) (unknown) Visit Date: (units (un known) date) 09/07/22 Last unknown) Updated by: Flavia Pritchard MD (unknown) (no (unknown) (unknown) Visit Reasons: (units (unknown) date) 35 Wk OB unknown) (unknown) (no (unknown) (unknown) WG (units (unkno wn) date) unknown) (unknown) (no (unknown) (unknown) [facility] 7 months (units (u nknown) date) none unknown) (unknown) (no (unknown) (unknown) Weeks (units (unkno wn) date) gestation:: 35 unknown) (unknown) (no (unknown) (unknown) Yes no 142 28 (units ( unknown) date) absent tdap today unknown) 2wks (unknown) (no (unknown) (unknown) Yes no 145 32 (units ( unknown) date) absent 2wks unknown) (unknown) (no (unknown) (unknown) Yes no 148 23 (units ( unknown) date) absent glucola unknown) ordered 4 (unknown) (no (unknown) (unknown) Yes no 157 21 (units ( unknown) date) absent quad today unknown) 4wks (unknown) (no (unknown) (unknown) Yes no 158 30 (units ( unknown) date) absent 2wks unknown) (unknown) (no (unknown) (unknown) Yes no absent (units ( unknown) date) 1wk unknown) (unknown) (no (unknown) (unknown) Zika virus (units (unk nown) date) exposure: No unknown) (unknown) (no (unknown) (unknown) a time. She has (units (unknown) date) not tried unknown) anything yet. Discussed melatonin. (unknown) (no (unknown) (unknown) additional (units (unk nown) date) treatment for unknown) now. (unknown) (no (unknown) (unknown) alcohol intake: (units (unknown) date) former unknown) (unknown) (no (unknown) (unknown) anyone in either (units (unknown) date) family with: unknown) (unknown) (no (unknown) (unknown) baby's father (units ( unknown) date) had a child with unknown) defects not listed above and Denies Other (unknown) (no (unknown) (unknown) be worse in the (units (unknown) date) afternoon. She unknown) has tried sleep, caffeine, shower and nothing (unknown) (no (unknown) (unknown) caffeine: No (units (u nknown) date) unknown) (unknown) (no (unknown) (unknown) carbon monox (units (u nknown) date) detector in home: unknown) Yes (unknown) (no (unknown) (unknown) coverage (units (unkno wn) date) unknown) (unknown) (no (unknown) (unknown) current (units (unkno wn) date) occupational unknown) exposures/hazards : No (unknown) (no (unknown) (unknown) daily servings (units (unknown) date) fruits/ve-1 unknown) (unknown) (no (unknown) (unknown) deployments. (units (u nknown) date) unknown) (unknown) (no (unknown) (unknown) described, visit (units (unknown) date) schedule unknown) reviewed, ultrasounds policy reviewed, coverage 24 (unknown) (no (unknown) (unknown) did not feel it (units (unknown) date) was helpful. unknown) (unknown) (no (unknown) (unknown) discussed, (units (unk nown) date) tuberculosis unknown) exposure discussed, CMV discussed, Toxoplasmosis (unknown) (no (unknown) (unknown) disorders, (units (unk nown) date) Denies Cystic unknown) Fibrosis, Denies Mental Retardation/Autis m, Denies (unknown) (no (unknown) (unknown) do you feel safe (units (unknown) date) at home: Yes unknown) (unknown) (no (unknown) (unknown) does help. (units (unk nown) date) Discussed unknown) Tylenol, stretching, heat. (unknown) (no (unknown) (unknown) duration: 15-30 (units (unknown) date) minutes/day unknown) (unknown) (no (unknown) (unknown) during the past (units (unknown) date) year weight has: unknown) other (fluctuated) (unknown) (no (unknown) (unknown) education level: (units (unknown) date) high school unknown) (unknown) (no (unknown) (unknown) every afternoon. (units (unknown) date) She drinks a soda unknown) and falls asleep and they go away. Declines (unknown) (no (unknown) (unknown) fire (units (unkno wn) date) extinguisher in unknown) home: Yes (unknown) (no (unknown) (unknown) firearms in (units (un known) date) home: No unknown) (unknown) (no (unknown) (unknown) frequency: 3-4 (units (unknown) date) times per week unknown) (unknown) (no (unknown) (unknown) have occurred. (units (unknown) date) If there are any unknown) questions, please contact the Medical Records (unknown) (no (unknown) (unknown) hospital. (units (unkn own) date) unknown) (unknown) (no (unknown) (unknown) hours a day and (units (unknown) date) participation of unknown) father in care and office visits (unknown) (no (unknown) (unknown) household (units (unkn own) date) members: spouse unknown) and children (unknown) (no (unknown) (unknown) housing: house (units (unknown) date) unknown) (unknown) (no (unknown) (unknown) lives (units (unkno wn) date) independently: unknown) Yes (unknown) (no (unknown) (unknown) marital status: (units (unknown) date) unknown) (unknown) (no (unknown) (unknown) may occur. (units (unk nown) date) Occasional unknown) wrong-word or 'sound-alike' substitutions may have (unknown) (no (unknown) (unknown) number of (units (unkn own) date) children: 1 unknown) (unknown) (no (unknown) (unknown) occupational (units (u nknown) date) status: unknown) unemployed (unknown) (no (unknown) (unknown) occurred due to (units (unknown) date) the inherent unknown) limitations of voice recognition software. Please (unknown) (no (unknown) (unknown) pets and (units (unkno wn) date) animals: Yes (1 unknown) dog) (unknown) (no (unknown) (unknown) precautions, (units (u nknown) date) Listeriosis unknown) prevention and Rubella Immunization (unknown) (no (unknown) (unknown) read the note (units ( unknown) date) carefully and unknown) recognize, using context, where these substitutions (unknown) (no (unknown) (unknown) seatbelt use: (units ( unknown) date) always unknown) (unknown) (no (unknown) (unknown) second hand (units (un known) date) exposure: No unknown) (unknown) (no (unknown) (unknown) seems to help. - (units (unknown) date) Trial Reglan unknown) (unknown) (no (unknown) (unknown) software. (units (unkn own) date) Although every unknown) effort is made to edit content, electric sign wirer errors (unknown) (no (unknown) (unknown) special juan (units ( unknown) date) needs: No unknown) (unknown) (no (unknown) (unknown) substance use (units ( unknown) date) type: does not unknown) use (unknown) (no (unknown) (unknown) tenderness, (units (un known) date) urinary unknown) frequency, irritability and bloating (unknown) (no (unknown) (unknown) water heater (units (u nknown) date) temp set < 120 unknown) deg: Yes (unknown) (no (unknown) (unknown) weight gain, (units (u nknown) date) Fish and mercury unknown) intake, Caffeine use, Exercise and activity, (unknown) (no (unknown) (unknown) well-balanced (units ( unknown) date) diet: rarely or unknown) never (unknown) (no (unknown) (unknown) wks (units (unkno wn) date) unknown) (unknown) (no (unknown) (unknown) work/environment (units (unknown) date) al/hazards, unknown) Sexual activity, X-ray exposure, Medication use, (unknown) (no (unknown) (unknown) working smoke (units ( unknown) date) detector in home: unknown) Yes (unknown) (no (unknown) (unknown) x3) (units (unkno wn) date) unknown) Result panel 52 (unknown) (no (unknown) (unknown) (no value) (units (unk nown) date) unknown) (unknown) (no (unknown) (unknown) (+17 lb) 100/60 (units (unknown) date) unknown) (unknown) (no (unknown) (unknown) (+17 lb) 98/60 (units (unknown) date) unknown) (unknown) (no (unknown) (unknown) (+2 lb) 115/62 (units (unknown) date) unknown) (unknown) (no (unknown) (unknown) (+22 lb) 110/60 (units (unknown) date) unknown) (unknown) (no (unknown) (unknown) (+25 lb) 92/56 (units (unknown) date) unknown) (unknown) (no (unknown) (unknown) (+27 lb) 90/60 (units (unknown) date) unknown) (unknown) (no (unknown) (unknown) (+9 lb) 90/58 (units ( unknown) date) unknown) (unknown) (no (unknown) (unknown) (1) Encounter (units ( unknown) date) for supervision unknown) of other normal , third trimester: (unknown) (no (unknown) (unknown) (2) 35 weeks (units (u nknown) date) gestation of unknown) : (unknown) (no (unknown) (unknown) Genetic (units (unkn own) date) Screening/Teratol unknown) ogy Counseling - Includes patient, baby's father, or (unknown) (no (unknown) (unknown) -?-?-?-?-?-?-?-? (units (unknown) date) -?-?-?-? unknown) (unknown) (no (unknown) (unknown) 11/16/18 9 (units (unk nown) date) spontaneous unknown) (unknown) (no (unknown) (unknown) 01/08/21 41 12 8 (units (unknown) date) lb 1 oz Male unknown) vaginal live - full term (unknown) (no (unknown) (unknown) 05/03/22 (units (unkno wn) date) unknown) (unknown) (no (unknown) (unknown) 06/14/22 (units (unkno wn) date) unknown) (unknown) (no (unknown) (unknown) 07/11/22 (units (unkno wn) date) unknown) (unknown) (no (unknown) (unknown) [id number] (units (unkno wn) date) unknown) (unknown) (no (unknown) (unknown) 08/08/22 (units (unkno wn) date) unknown) (unknown) (no (unknown) (unknown) 10:24 (units (unkno wn) date) unknown) (unknown) (no (unknown) (unknown) 08/23/22 (units (unkno wn) date) unknown) (unknown) (no (unknown) (unknown) 09/07/22 (units (unkno wn) date) unknown) (unknown) (no (unknown) (unknown) 09/23/22 (units (unkno wn) date) unknown) (unknown) (no (unknown) (unknown) 09/23/22] (units (unkn own) date) unknown) (unknown) (no (unknown) (unknown) 14w 6d 109 lb (units ( unknown) date) unknown) (unknown) (no (unknown) (unknown) 1wk (units (unkno wn) date) unknown) (unknown) (no (unknown) (unknown) 20w 6d 116 lb (units ( unknown) date) unknown) (unknown) (no (unknown) (unknown) 24w 5d 124 lb (units ( unknown) date) unknown) (unknown) (no (unknown) (unknown) 28w 5d 124 lb (units ( unknown) date) unknown) (unknown) (no (unknown) (unknown) 30w 6d 129 lb (units ( unknown) date) unknown) (unknown) (no (unknown) (unknown) 33w 0d 132 lb (units ( unknown) date) unknown) (unknown) (no (unknown) (unknown) 35w 2d 134 lb (units ( unknown) date) unknown) (unknown) (no (unknown) (unknown) 4wks (units (unkno wn) date) unknown) (unknown) (no (unknown) (unknown) Abnormal lab (units (u nknown) date) values 2nd unknown) trimester: discussed (unknown) (no (unknown) (unknown) Abnormal lab (units (u nknown) date) values 3rd unknown) trimester: discussed (unknown) (no (unknown) (unknown) Add'l Plan (units (unk nown) date) Details unknown) (unknown) (no (unknown) (unknown) Age/Sex: 21 / F (units (unknown) date) Date of Service: unknown) (unknown) (no (unknown) (unknown) Allergies (units (unkn own) date) unknown) (unknown) (no (unknown) (unknown) [facility] (units (unknown) date) Medicine unknown) (unknown) (no (unknown) (unknown) [place] (units ( unknown) date) [id number] unknown) (unknown) (no (unknown) (unknown) Anatomy ordered, (units (unknown) date) Glucola ordered unknown) (unknown) (no (unknown) (unknown) Anatomy scan (units (u nknown) date) scheduled for unknown) today. (unknown) (no (unknown) (unknown) Anesthesia (units (unk nown) date) preference: unknown) Epidural (unknown) (no (unknown) (unknown) Anesthesia/Analg (units (unknown) date) esia plans: unknown) discussed (unknown) (no (unknown) (unknown) Aneuploidy (units (unk nown) date) Screening unknown) Offered: Accepted (Quad screen) (unknown) (no (unknown) (unknown) Antibiotic Eye (units (unknown) date) Drops-Infant: Yes unknown) (unknown) (no (unknown) (unknown) Anticipated (units (un known) date) course of unknown) care: discussed (unknown) (no (unknown) (unknown) Assessment and (units (unknown) date) Plan unknown) (unknown) (no (unknown) (unknown) Attending Dr: (units ( unknown) date) Flavia Pritchard MD unknown) (unknown) (no (unknown) (unknown) BP 90/60 (units (unkno wn) date) unknown) (unknown) (no (unknown) (unknown) (units (unkno wn) date) Plan/Preferences unknown) (unknown) (no (unknown) (unknown) Planning (units (unknown) date) unknown) (unknown) (no (unknown) (unknown) Blood Pressure (units (unknown) date) Location Lt unknown) brachial (unknown) (no (unknown) (unknown) Blood (units (unkno wn) date) transfusions?: unknown) yes (Never had but would accept) (unknown) (no (unknown) (unknown) Breastfeed Preg (units (unknown) date) Comp Name unknown) (unknown) (no (unknown) (unknown) : (units (unknown) date) discussed unknown) (unknown) (no (unknown) (unknown) Breastpump (units (unk nown) date) prescription unknown) provided today (unknown) (no (unknown) (unknown) Childbirth (units (unk nown) date) Classes: unknown) discussed (unknown) (no (unknown) (unknown) Current Estimate (units (unknown) date) 10/26/22 LMP unknown) (Certain) 35w 2d (unknown) (no (unknown) (unknown) Current (units (unkno wn) date) History unknown) (unknown) (no (unknown) (unknown) : 2000 (units (unknown) date) Acct:[id number] unknown) (unknown) (no (unknown) (unknown) Date (units (unkno wn) date) unknown) (unknown) (no (unknown) (unknown) Dating u/s with (units (unknown) date) fetus too large unknown) for CRL. Dating scan ordered through the (unknown) (no (unknown) (unknown) Del. Date (units (unkn own) date) GA/Weeks Labor unknown) Lgth Wt Sex Route Outcome Anesthesia Place (unknown) (no (unknown) (unknown) Delayed cord (units (u nknown) date) clamping: Yes unknown) (unknown) (no (unknown) (unknown) Delv (units (unkno wn) date) unknown) (unknown) (no (unknown) (unknown) Denies Congenital (units (unknown) date) Heart Defect, unknown) Denies Down Syndrome, Denies Muscular Dystrophy, (unknown) (no (unknown) (unknown) Denies Maternal (units (unknown) date) Metabolic unknown) Disorder (EG,TYPE 1 Diabetes, PKU), Denies Patient or (unknown) (no (unknown) (unknown) Denies Neural (units ( unknown) date) Tube Defect unknown) (Meningomyelocele , Spina Bifida, or Anencephaly), (unknown) (no (unknown) (unknown) Denies Sickle (units ( unknown) date) Cell Disease or unknown) Trait (), Denies Hemophilia or other blood (unknown) (no (unknown) (unknown) Denies Chucho-Sachs (units (unknown) date) (Ashkenazi unknown) Temple, Cajun, Cameroonian South African), Denies Yesika (unknown) (no (unknown) (unknown) Denies other (units (u nknown) date) unknown) (unknown) (no (unknown) (unknown) Denies over the (units (unknown) date) counter unknown) medications, Denies alcohol, Denies illicit drugs and (unknown) (no (unknown) (unknown) Depression: (units (un known) date) discussed unknown) (unknown) (no (unknown) (unknown) Dept at (units (unkno wn) date) . unknown) (unknown) (no (unknown) (unknown) Desires quad (units (u nknown) date) screen for unknown) genetic testing (unknown) (no (unknown) (unknown) Diet and (units (unkno wn) date) Exercise unknown) (unknown) (no (unknown) (unknown) Disease (units (unkno wn) date) (Ashkenazi unknown) Temple), Denies Familial Dysautonomia (Ashkenazi Temple), (unknown) (no (unknown) (unknown) Documented By: (units (unknown) date) Flavia Pritchard MD unknown) 09/23/22 0911 (unknown) (no (unknown) (unknown) Does not feel (units ( unknown) date) the need for unknown) assistance. (unknown) (no (unknown) (unknown) Domestic (units (unkno wn) date) violence: unknown) discussed (unknown) (no (unknown) (unknown) Draft (units (unkno wn) date) unknown) (unknown) (no (unknown) (unknown) ARNOLDO Calculator (units (unknown) date) unknown) (unknown) (no (unknown) (unknown) EGA Weight BP (units ( unknown) date) UGlucose unknown) (unknown) (no (unknown) (unknown) Estimated (units (unkn own) date) Delivery Date unknown) Method Current (unknown) (no (unknown) (unknown) Family History (units (unknown) date) (Updated 04/28/22 unknown) @ 12:26 by Yadira Brown RN) (unknown) (no (unknown) (unknown) Father of Baby: (units (unknown) date) same unknown) (unknown) (no (unknown) (unknown) movement (units (unknown) date) monitoring: unknown) discussed (unknown) (no (unknown) (unknown) First Trimester (units (unknown) date) Education unknown) Checklist (unknown) (no (unknown) (unknown) GBS today (units (unkn own) date) unknown) (unknown) (no (unknown) (unknown) Genetic (units (unkno wn) date) Screening + unknown) Counseling (unknown) (no (unknown) (unknown) Genetic (units (unkno wn) date) Screening unknown) (unknown) (no (unknown) (unknown) Grandmother (units (un known) date) Hypertension unknown) (unknown) (no (unknown) (unknown) 3 (units (unkn own) date) Multiple births unknown) (unknown) (no (unknown) (unknown) HIV risk (units (unkno wn) date) evaluation: low unknown) risk (unknown) (no (unknown) (unknown) Health Center (units ( unknown) date) Education unknown) (unknown) (no (unknown) (unknown) Health center (units ( unknown) date) information: unknown) nature of practice discussed, personnel (unknown) (no (unknown) (unknown) Hep B-: (units ( unknown) date) Yes unknown) (unknown) (no (unknown) (unknown) Hepatitis C risk (units (unknown) date) evaluation: low unknown) risk (unknown) (no (unknown) (unknown) History of (units (unk nown) date) Hepatitis B: No unknown) (unknown) (no (unknown) (unknown) History of (units (unk nown) date) Hepatitis C: No unknown) (unknown) (no (unknown) (unknown) Hospital[facility] (units (u [facility]known) date) unknown) (unknown) (no (unknown) (unknown) Chetna's (units (u nknown) date) Chorea, Denies unknown) Other inherited genetic or chromosomal disorder, (unknown) (no (unknown) (unknown) Hx # (units (u nknown) date) Pregnancies unknown) Elective abortions (unknown) (no (unknown) (unknown) Hx # Term (units (unkn own) date) Pregnancies 1 unknown) Ectopic pregnancies (unknown) (no (unknown) (unknown) Hx (units ( unknown) date) depression - on unknown) Zoloft which didn't help (unknown) (no (unknown) (unknown) Hypertension (units (u nknown) date) unknown) (unknown) (no (unknown) (unknown) IOL scheduled (units ( unknown) date) for 10/21/22. unknown) (unknown) (no (unknown) (unknown) feeding (units (unknown) date) plan: exclusive unknown) (unknown) (no (unknown) (unknown) will be (units (unknown) date) adopted?: no unknown) (unknown) (no (unknown) (unknown) Infection (units (unkn own) date) History unknown) (unknown) (no (unknown) (unknown) Infectious (units (unk nown) date) Disease Education unknown) (unknown) (no (unknown) (unknown) Infectious (units (unk nown) date) disease exposure: unknown) chicken pox immunity discussed, hepatitis risk (unknown) (no (unknown) (unknown) Initial Weight: (units (unknown) date) 107 lb unknown) (unknown) (no (unknown) (unknown) Initials (units (unkno wn) date) unknown) (unknown) (no (unknown) (unknown) Intake (units (unkno wn) date) unknown) (unknown) (no (unknown) (unknown) It's a boy! (units (un known) date) unknown) (unknown) (no (unknown) (unknown) NIGEL (units (unkno wn) date) unknown) (unknown) (no (unknown) (unknown) Bowen (units (unkno wn) date) unknown) (unknown) (no (unknown) (unknown) Live with (units (unkn own) date) someone with TB unknown) or exposed to TB: No (unknown) (no (unknown) (unknown) Loc: [facility] (units (unkno wn) date) unknown) (unknown) (no (unknown) (unknown) Marital status: (units (unknown) date) unknown) (unknown) (no (unknown) (unknown) Medical History (units (unknown) date) (Updated 04/28/22 unknown) @ 12:39 by Yadira Brown RN) (unknown) (no (unknown) (unknown) Medications (units (un known) date) unknown) (unknown) (no (unknown) (unknown) Mood currently (units (unknown) date) stable. Hx of unknown) depression, briefly on Zoloft but (unknown) (no (unknown) (unknown) Mother Migraine (units (unknown) date) unknown) (unknown) (no (unknown) (unknown) No Known (units (unkno wn) date) Allergies Allergy unknown) (Verified 09/23/22 10:24) (unknown) (no (unknown) (unknown) No no 158 absent (units (unknown) date) unknown) (unknown) (no (unknown) (unknown) Normal exam. (units (u nknown) date) unknown) (unknown) (no (unknown) (unknown) Notes (units (unkno wn) date) unknown) (unknown) (no (unknown) (unknown) Now notices it (units (unknown) date) whenever she unknown) walks more than 5 minutes. No bulges, skin changes. (unknown) (no (unknown) (unknown) Number of Living (units (unknown) date) Children 1 unknown) (unknown) (no (unknown) (unknown) Number of (units (unkn own) date) fetuses:: Single unknown) (unknown) (no (unknown) (unknown) OB Office Visit (units (unknown) date) unknown) (unknown) (no (unknown) (unknown) OB Visit Log (units (u nknown) date) unknown) (unknown) (no (unknown) (unknown) Oxygen Delivery (units (unknown) date) Method room air unknown) (unknown) (no (unknown) (unknown) PFSH (units (unkno wn) date) unknown) (unknown) (no (unknown) (unknown) Para 1 (units (unkno wn) date) Spontaneous unknown) abortions 1 (unknown) (no (unknown) (unknown) Partner history (units (unknown) date) of STD: denies hx unknown) (unknown) (no (unknown) (unknown) Partner history (units (unknown) date) of genital unknown) herpes: No (unknown) (no (unknown) (unknown) Partner: David (units (unknown) date) [place] unknown) (unknown) (no (unknown) (unknown) Passed glucola. (units (unknown) date) Tdap today. 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 Rink Manager: (units ( unknown) date) KENYA [place] unknown) (unknown) (no (unknown) (unknown) Personal history (units (unknown) date) of STD: denies hx unknown) (unknown) (no (unknown) (unknown) Personal history (units (unknown) date) of genital unknown) herpes: No (unknown) (no (unknown) (unknown) Plans for (units (unkn own) date) placenta: None unknown) (unknown) (no (unknown) (unknown) Position Sitting (units (unknown) date) unknown) (unknown) (no (unknown) (unknown) (units (unk nown) date) depression unknown) (unknown) (no (unknown) (unknown) (units (unkn own) date) History unknown) (unknown) (no (unknown) (unknown) type:: (units (unknown) date) Other Normal unknown) (unknown) (no (unknown) (unknown) (units (unkno wn) date) Education unknown) (unknown) (no (unknown) (unknown) Initial (units (unknown) date) Assessment unknown) (unknown) (no (unknown) (unknown) (units (unkno wn) date) Specific unknown) Issues/Plans (unknown) (no (unknown) (unknown) (units (unkno wn) date) Testing: unknown) discussed (unknown) (no (unknown) (unknown) Visit (units (unknown) date) unknown) (unknown) (no (unknown) (unknown) (units (unkno wn) date) classes: No unknown) (unknown) (no (unknown) (unknown) (units (unkno wn) date) education packet: unknown) symptoms, Vitamins and iron, Diet and (unknown) (no (unknown) (unknown) Primary Care (units (u nknown) date) Provider: KENYA Fagan unknown) Natural Steps (unknown) (no (unknown) (unknown) Primary Ob (units (unk nown) date) Provider: unknown) Flavia Pritchard (unknown) (no (unknown) (unknown) Prior (units (unkno wn) date) GBS-Infected unknown) child: No (unknown) (no (unknown) (unknown) Promethazine for (units (unknown) date) migraines made it unknown) worse. She is getting migraines now (unknown) (no (unknown) (unknown) Providers (units (unkn own) date) unknown) (unknown) (no (unknown) (unknown) Pt is not (units (unkn own) date) currently unknown) employed. , [employer], in the [place], no upcoming (unknown) (no (unknown) (unknown) Pt with (units (unkno wn) date) localized pain on unknown) abdomen. First noticed at her anatomy scan. (unknown) (no (unknown) (unknown) Pt with more (units (u nknown) date) frequent unknown) migraines again, started again 3 days ago. Seems to (unknown) (no (unknown) (unknown) Pt with (units (unkno wn) date) primarily morning unknown) nausea and vomiting. Resolves by lunch time. (unknown) (no (unknown) (unknown) Pulse 108 H (units (un known) date) unknown) (unknown) (no (unknown) (unknown) Pulse Oximetry (units (unknown) date) (%) 99 unknown) (unknown) (no (unknown) (unknown) Pulse Source (units (u nknown) date) Monitor unknown) (unknown) (no (unknown) (unknown) Quad screen (units (un known) date) ordered unknown) (unknown) (no (unknown) (unknown) Rash or viral (units ( unknown) date) illness since unknown) last menstrual period: Yes ('flu' in early March) (unknown) (no (unknown) (unknown) Reason For Visit (units (unknown) date) unknown) (unknown) (no (unknown) (unknown) Recent travel (units ( unknown) date) outside of unknown) country?: No (unknown) (no (unknown) (unknown) Recurrent (units (unkn own) date) loss or unknown) a stillbirth: No (unknown) (no (unknown) (unknown) Reviewed labor (units (unknown) date) precautions. unknown) (unknown) (no (unknown) (unknown) Rhogam: No (units (unk nown) date) unknown) (unknown) (no (unknown) (unknown) SAB (spontaneous (units (unknown) date) ) unknown) (unknown) (no (unknown) (unknown) Safety (units (unkno wn) date) unknown) (unknown) (no (unknown) (unknown) Sauna/hot tub (units ( unknown) date) use, Dental care, unknown) Travel and Influenza vaccine (had flu and Covid (unknown) (no (unknown) (unknown) Second Trimester (units (unknown) date) Education unknown) Checklist (unknown) (no (unknown) (unknown) Selecting a (units (un known) date) care unknown) provider: discussed (unknown) (no (unknown) (unknown) Signed By: (units (unk nown) date) unknown) (unknown) (no (unknown) (unknown) Signs + Symptoms (units (unknown) date) of labor: unknown) symptoms discussed, when and who to call and OB (unknown) (no (unknown) (unknown) Signs and (units (unkn own) date) symptoms of unknown) labor: discussed (unknown) (no (unknown) (unknown) Smoking Status: (units (unknown) date) Never smoker unknown) (unknown) (no (unknown) (unknown) Smoking (units (unkno wn) date) counseling: unknown) discussed (unknown) (no (unknown) (unknown) Social History (units (unknown) date) unknown) (unknown) (no (unknown) (unknown) Support (units (unkno wn) date) Person(s):: David unknown) (unknown) (no (unknown) (unknown) Surrogate (units (unkn own) date) ?: no unknown) (unknown) (no (unknown) (unknown) Symptoms since (units (unknown) date) LMP: Reports unknown) amenorrhea, nausea, vomiting, fatigue, breast (unknown) (no (unknown) (unknown) Teratogen (units (unkn own) date) Exposures since unknown) LMP/Conception: Denies prescription medications, (unknown) (no (unknown) (unknown) Testing (units (unkno wn) date) Education unknown) (unknown) (no (unknown) (unknown) Testing (units (unkno wn) date) education unknown) completed: group B strep and Spina bifida testing (unknown) (no (unknown) (unknown) The pt has not (units (unknown) date) been sleeping unknown) well. She is only sleeping up to an hour at (unknown) (no (unknown) (unknown) The pt notices (units (unknown) date) that her entire unknown) body has been more sore recently. Tylenol (unknown) (no (unknown) (unknown) Third Trimester (units (unknown) date) Education unknown) Checklist (unknown) (no (unknown) (unknown) This note may (units ( unknown) date) have been all or unknown) partially generated using voice recognition (unknown) (no (unknown) (unknown) Tobacco + (units (unkn own) date) Substance Use unknown) (unknown) (no (unknown) (unknown) Tobacco Status (units (unknown) date) unknown) (unknown) (no (unknown) (unknown) Type(s) of (units (unk nown) date) exercise: walking unknown) (unknown) (no (unknown) (unknown) UProtein Movement (units (unknown) date) PreLabor FHR Fndl unknown) Ht Pres Edema Cerv Exam US/Comment Next Appt (unknown) (no (unknown) (unknown) Varicella/chicke (units (unknown) date) n pox status: unknown) immunized (unknown) (no (unknown) (unknown) Visit Date: (units (un known) date) 05/03/22 Last unknown) Updated by: Flavia Pritchard MD (unknown) (no (unknown) (unknown) Visit Date: (units (un known) date) 06/14/22 Last unknown) Updated by: Flavia Pritchard MD (unknown) (no (unknown) (unknown) Visit Date: (units (un known) date) 07/11/22 Last unknown) Updated by: Flavia Pritchard MD (unknown) (no (unknown) (unknown) Visit Date: (units (un known) date) 08/08/22 Last unknown) Updated by: Flavia Pritchard MD (unknown) (no (unknown) (unknown) Visit Date: (units (un known) date) 08/23/22 Last unknown) Updated by: Flavia Pritchard MD (unknown) (no (unknown) (unknown) Visit Date: (units (un known) date) 09/07/22 Last unknown) Updated by: Flavia Pritchard MD (unknown) (no (unknown) (unknown) Visit Date: (units (un known) date) 09/23/22 Last unknown) Updated by: Flavia Pritchard MD (unknown) (no (unknown) (unknown) Visit Reasons: (units (unknown) date) 35 Wk OB unknown) (unknown) (no (unknown) (unknown) Vitals (units (unkno wn) date) unknown) (unknown) (no (unknown) (unknown) Vitamin (units (unkno wn) date) K-Infant: Yes unknown) (unknown) (no (unknown) (unknown) WG (units (unkno wn) date) unknown) (unknown) (no (unknown) (unknown) [facility] 7 months (units (u nknown) date) none unknown) (unknown) (no (unknown) (unknown) Weight 134 lb (units ( unknown) date) unknown) (unknown) (no (unknown) (unknown) Yes no 142 28 (units ( unknown) date) absent tdap today unknown) 2wks (unknown) (no (unknown) (unknown) Yes no 145 32 (units ( unknown) date) absent 2wks unknown) (unknown) (no (unknown) (unknown) Yes no 148 23 (units ( unknown) date) absent glucola unknown) ordered 4 (unknown) (no (unknown) (unknown) Yes no 157 21 (units ( unknown) date) absent quad today unknown) 4wks (unknown) (no (unknown) (unknown) Yes no 158 30 (units ( unknown) date) absent 2wks unknown) (unknown) (no (unknown) (unknown) Yes no absent (units ( unknown) date) GBS today unknown) (unknown) (no (unknown) (unknown) Zika virus (units (unk nown) date) exposure: No unknown) (unknown) (no (unknown) (unknown) a time. She has (units (unknown) date) not tried unknown) anything yet. Discussed melatonin. (unknown) (no (unknown) (unknown) additional (units (unk nown) date) treatment for unknown) now. (unknown) (no (unknown) (unknown) alcohol intake: (units (unknown) date) former unknown) (unknown) (no (unknown) (unknown) anyone in either (units (unknown) date) family with: unknown) (unknown) (no (unknown) (unknown) baby's father (units ( unknown) date) had a child with unknown) defects not listed above and Denies Other (unknown) (no (unknown) (unknown) be worse in the (units (unknown) date) afternoon. She unknown) has tried sleep, caffeine, shower and nothing (unknown) (no (unknown) (unknown) caffeine: No (units (u nknown) date) unknown) (unknown) (no (unknown) (unknown) carbon monox (units (u nknown) date) detector in home: unknown) Yes (unknown) (no (unknown) (unknown) coverage (units (unkno wn) date) unknown) (unknown) (no (unknown) (unknown) current (units (unkno wn) date) occupational unknown) exposures/hazards : No (unknown) (no (unknown) (unknown) daily servings (units (unknown) date) fruits/ve-1 unknown) (unknown) (no (unknown) (unknown) deployments. (units (u nknown) date) unknown) (unknown) (no (unknown) (unknown) described, visit (units (unknown) date) schedule unknown) reviewed, ultrasounds policy reviewed, coverage 24 (unknown) (no (unknown) (unknown) did not feel it (units (unknown) date) was helpful. unknown) (unknown) (no (unknown) (unknown) discussed, (units (unk nown) date) tuberculosis unknown) exposure discussed, CMV discussed, Toxoplasmosis (unknown) (no (unknown) (unknown) disorders, (units (unk nown) date) Denies Cystic unknown) Fibrosis, Denies Mental Retardation/Autis m, Denies (unknown) (no (unknown) (unknown) do you feel safe (units (unknown) date) at home: Yes unknown) (unknown) (no (unknown) (unknown) does help. (units (unk nown) date) Discussed unknown) Tylenol, stretching, heat. (unknown) (no (unknown) (unknown) double electric (units (unknown) date) breast pump and unknown) supplies #1 ea 08/23/22 [Rx Confirmed 09/23/22] (unknown) (no (unknown) (unknown) duration: 15-30 (units (unknown) date) minutes/day unknown) (unknown) (no (unknown) (unknown) during the past (units (unknown) date) year weight has: unknown) other (fluctuated) (unknown) (no (unknown) (unknown) education level: (units (unknown) date) high school unknown) (unknown) (no (unknown) (unknown) every afternoon. (units (unknown) date) She drinks a soda unknown) and falls asleep and they go away. Declines (unknown) (no (unknown) (unknown) fire (units (unkno wn) date) extinguisher in unknown) home: Yes (unknown) (no (unknown) (unknown) firearms in (units (un known) date) home: No unknown) (unknown) (no (unknown) (unknown) frequency: 3-4 (units (unknown) date) times per week unknown) (unknown) (no (unknown) (unknown) have occurred. (units (unknown) date) If there are any unknown) questions, please contact the Medical Records (unknown) (no (unknown) (unknown) hospital. (units (unkn own) date) unknown) (unknown) (no (unknown) (unknown) hours a day and (units (unknown) date) participation of unknown) father in care and office visits (unknown) (no (unknown) (unknown) household (units (unkn own) date) members: spouse unknown) and children (unknown) (no (unknown) (unknown) housing: house (units (unknown) date) unknown) (unknown) (no (unknown) (unknown) lives (units (unkno wn) date) independently: unknown) Yes (unknown) (no (unknown) (unknown) marital status: (units (unknown) date) unknown) (unknown) (no (unknown) (unknown) may occur. (units (unk nown) date) Occasional unknown) wrong-word or 'sound-alike' substitutions may have (unknown) (no (unknown) (unknown) number of (units (unkn own) date) children: 1 unknown) (unknown) (no (unknown) (unknown) occupational (units (u nknown) date) status: unknown) unemployed (unknown) (no (unknown) (unknown) occurred due to (units (unknown) date) the inherent unknown) limitations of voice recognition software. Please (unknown) (no (unknown) (unknown) pets and (units (unkno wn) date) animals: Yes (1 unknown) dog) (unknown) (no (unknown) (unknown) precautions, (units (u nknown) date) Listeriosis unknown) prevention and Rubella Immunization (unknown) (no (unknown) (unknown) prenat.vits,alberto, (units (unknown) date) [id number] 1 unknown) tab PO DAILY 04/28/22 [History Confirmed (unknown) (no (unknown) (unknown) read the note (units ( unknown) date) carefully and unknown) recognize, using context, where these substitutions (unknown) (no (unknown) (unknown) seatbelt use: (units ( unknown) date) always unknown) (unknown) (no (unknown) (unknown) second hand (units (un known) date) exposure: No unknown) (unknown) (no (unknown) (unknown) seems to help. - (units (unknown) date) Trial Reglan unknown) (unknown) (no (unknown) (unknown) software. (units (unkn own) date) Although every unknown) effort is made to edit content, electric sign wirer errors (unknown) (no (unknown) (unknown) special juan (units ( unknown) date) needs: No unknown) (unknown) (no (unknown) (unknown) substance use (units ( unknown) date) type: does not unknown) use (unknown) (no (unknown) (unknown) tenderness, (units (un known) date) urinary unknown) frequency, irritability and bloating (unknown) (no (unknown) (unknown) water heater (units (u nknown) date) temp set < 120 unknown) deg: Yes (unknown) (no (unknown) (unknown) weight gain, (units (u nknown) date) Fish and mercury unknown) intake, Caffeine use, Exercise and activity, (unknown) (no (unknown) (unknown) well-balanced (units ( unknown) date) diet: rarely or unknown) never (unknown) (no (unknown) (unknown) wks (units (unkno wn) date) unknown) (unknown) (no (unknown) (unknown) work/environment (units (unknown) date) al/hazards, unknown) Sexual activity, X-ray exposure, Medication use, (unknown) (no (unknown) (unknown) working smoke (units ( unknown) date) detector in home: unknown) Yes (unknown) (no (unknown) (unknown) x3) (units (unkno wn) date) unknown) Result panel 53 (unknown) (no (unknown) (unknown) (no value) (units (unk nown) date) unknown) (unknown) (no (unknown) (unknown) (+17 lb) 100/60 (units (unknown) date) unknown) (unknown) (no (unknown) (unknown) (+17 lb) 98/60 (units (unknown) date) unknown) (unknown) (no (unknown) (unknown) (+2 lb) 115/62 (units (unknown) date) unknown) (unknown) (no (unknown) (unknown) (+22 lb) 110/60 (units (unknown) date) unknown) (unknown) (no (unknown) (unknown) (+25 lb) 92/56 (units (unknown) date) unknown) (unknown) (no (unknown) (unknown) (+27 lb) 90/60 (units (unknown) date) unknown) (unknown) (no (unknown) (unknown) (+9 lb) 90/58 (units ( unknown) date) unknown) (unknown) (no (unknown) (unknown) (1) Encounter (units ( unknown) date) for supervision unknown) of other normal , third trimester: (unknown) (no (unknown) (unknown) (2) 35 weeks (units (u nknown) date) gestation of unknown) : (unknown) (no (unknown) (unknown) Genetic (units (unkn own) date) Screening/Teratol unknown) ogy Counseling - Includes patient, baby's father, or (unknown) (no (unknown) (unknown) -?-?-?-?-?-?-?-? (units (unknown) date) -?-?-?-? unknown) (unknown) (no (unknown) (unknown) 11/16/18 9 (units (unk nown) date) spontaneous unknown) (unknown) (no (unknown) (unknown) 01/08/21 41 12 8 (units (unknown) date) lb 1 oz Male unknown) vaginal live - full term (unknown) (no (unknown) (unknown) 05/03/22 (units (unkno wn) date) unknown) (unknown) (no (unknown) (unknown) 06/14/22 (units (unkno wn) date) unknown) (unknown) (no (unknown) (unknown) 07/11/22 (units (unkno wn) date) unknown) (unknown) (no (unknown) (unknown) [id number] (units (unkno wn) date) unknown) (unknown) (no (unknown) (unknown) 08/08/22 (units (unkno wn) date) unknown) (unknown) (no (unknown) (unknown) 10:24 (units (unkno wn) date) unknown) (unknown) (no (unknown) (unknown) 08/23/22 (units (unkno wn) date) unknown) (unknown) (no (unknown) (unknown) 09/07/22 (units (unkno wn) date) unknown) (unknown) (no (unknown) (unknown) 09/23/22 1039 (units ( unknown) date) unknown) (unknown) (no (unknown) (unknown) 09/23/22 1040 (units ( unknown) date) unknown) (unknown) (no (unknown) (unknown) 09/23/22 (units (unkno wn) date) unknown) (unknown) (no (unknown) (unknown) 09/23/22] (units (unkn own) date) unknown) (unknown) (no (unknown) (unknown) 14w 6d 109 lb (units ( unknown) date) unknown) (unknown) (no (unknown) (unknown) 20w 6d 116 lb (units ( unknown) date) unknown) (unknown) (no (unknown) (unknown) 24w 5d 124 lb (units ( unknown) date) unknown) (unknown) (no (unknown) (unknown) 28w 5d 124 lb (units ( unknown) date) unknown) (unknown) (no (unknown) (unknown) 30w 6d 129 lb (units ( unknown) date) unknown) (unknown) (no (unknown) (unknown) 33w 0d 132 lb (units ( unknown) date) unknown) (unknown) (no (unknown) (unknown) 35w 2d 134 lb (units ( unknown) date) unknown) (unknown) (no (unknown) (unknown) 4wks (units (unkno wn) date) unknown) (unknown) (no (unknown) (unknown) Abnormal lab (units (u nknown) date) values 2nd unknown) trimester: discussed (unknown) (no (unknown) (unknown) Abnormal lab (units (u nknown) date) values 3rd unknown) trimester: discussed (unknown) (no (unknown) (unknown) Accompanied by: (units (unknown) date) Self / Same As unknown) Patient (unknown) (no (unknown) (unknown) Add'l Plan (units (unk nown) date) Details unknown) (unknown) (no (unknown) (unknown) Age/Sex: 21 / F (units (unknown) date) Date of Service: unknown) (unknown) (no (unknown) (unknown) Allergies (units (unkn own) date) unknown) (unknown) (no (unknown) (unknown) [facility] (units (unknown) date) Medicine unknown) (unknown) (no (unknown) (unknown) [place] (units ( unknown) date) [id number] unknown) (unknown) (no (unknown) (unknown) Anatomy ordered, (units (unknown) date) Glucola ordered unknown) (unknown) (no (unknown) (unknown) Anatomy scan (units (u nknown) date) scheduled for unknown) today. (unknown) (no (unknown) (unknown) Anesthesia (units (unk nown) date) preference: unknown) Epidural (unknown) (no (unknown) (unknown) Anesthesia/Analg (units (unknown) date) esia plans: unknown) discussed (unknown) (no (unknown) (unknown) Aneuploidy (units (unk nown) date) Screening unknown) Offered: Accepted (Quad screen) (unknown) (no (unknown) (unknown) Antibiotic Eye (units (unknown) date) Drops-Infant: Yes unknown) (unknown) (no (unknown) (unknown) Anticipated (units (un known) date) course of unknown) care: discussed (unknown) (no (unknown) (unknown) Assessment and (units (unknown) date) Plan unknown) (unknown) (no (unknown) (unknown) Attending Dr: (units ( unknown) date) Flavia Pritchard MD unknown) (unknown) (no (unknown) (unknown) BP 90/60 (units (unkno wn) date) unknown) (unknown) (no (unknown) (unknown) (units (unkno wn) date) Plan/Preferences unknown) (unknown) (no (unknown) (unknown) Planning (units (unknown) date) unknown) (unknown) (no (unknown) (unknown) Blood Pressure (units (unknown) date) Location Lt unknown) brachial (unknown) (no (unknown) (unknown) Blood (units (unkno wn) date) transfusions?: unknown) yes (Never had but would accept) (unknown) (no (unknown) (unknown) Breastfeed Preg (units (unknown) date) Comp Name unknown) (unknown) (no (unknown) (unknown) : (units (unknown) date) discussed unknown) (unknown) (no (unknown) (unknown) Breastpump (units (unk nown) date) prescription unknown) provided today (unknown) (no (unknown) (unknown) Childbirth (units (unk nown) date) Classes: unknown) discussed (unknown) (no (unknown) (unknown) Current Estimate (units (unknown) date) 10/26/22 LMP unknown) (Certain) 35w 2d (unknown) (no (unknown) (unknown) Current (units (unkno wn) date) History unknown) (unknown) (no (unknown) (unknown) : 2000 (units (unknown) date) Acct:[id number] unknown) (unknown) (no (unknown) (unknown) Date (units (unkno wn) date) unknown) (unknown) (no (unknown) (unknown) Dating u/s with (units (unknown) date) fetus too large unknown) for CRL. Dating scan ordered through the (unknown) (no (unknown) (unknown) Del. Date (units (unkn own) date) GA/Weeks Labor unknown) Lgth Wt Sex Route Outcome Anesthesia Place (unknown) (no (unknown) (unknown) Delayed cord (units (u nknown) date) clamping: Yes unknown) (unknown) (no (unknown) (unknown) Delv (units (unkno wn) date) unknown) (unknown) (no (unknown) (unknown) Denies Congenital (units (unknown) date) Heart Defect, unknown) Denies Down Syndrome, Denies Muscular Dystrophy, (unknown) (no (unknown) (unknown) Denies Maternal (units (unknown) date) Metabolic unknown) Disorder (EG,TYPE 1 Diabetes, PKU), Denies Patient or (unknown) (no (unknown) (unknown) Denies Neural (units ( unknown) date) Tube Defect unknown) (Meningomyelocele , Spina Bifida, or Anencephaly), (unknown) (no (unknown) (unknown) Denies Sickle (units ( unknown) date) Cell Disease or unknown) Trait (), Denies Hemophilia or other blood (unknown) (no (unknown) (unknown) Denies Chucho-Sachs (units (unknown) date) (Ashkenazi unknown) Temple, Cajun, Cameroonian South African), Denies Yesika (unknown) (no (unknown) (unknown) Denies other (units (u nknown) date) unknown) (unknown) (no (unknown) (unknown) Denies over the (units (unknown) date) counter unknown) medications, Denies alcohol, Denies illicit drugs and (unknown) (no (unknown) (unknown) Depression: (units (un known) date) discussed unknown) (unknown) (no (unknown) (unknown) Dept at (units (unkno wn) date) . unknown) (unknown) (no (unknown) (unknown) Desires quad (units (u nknown) date) screen for unknown) genetic testing (unknown) (no (unknown) (unknown) Diet and (units (unkno wn) date) Exercise unknown) (unknown) (no (unknown) (unknown) Disease (units (unkno wn) date) (Ashkenazi unknown) Temple), Denies Familial Dysautonomia (Ashkenazi Temple), (unknown) (no (unknown) (unknown) Documented By: (units (unknown) date) Flavia Pritchard MD unknown) 09/23/22 0910 (unknown) (no (unknown) (unknown) Documented By: (units (unknown) date) Flavia Pritchard MD unknown) 09/23/22 0911 (unknown) (no (unknown) (unknown) Does not feel (units ( unknown) date) the need for unknown) assistance. (unknown) (no (unknown) (unknown) Domestic (units (unkno wn) date) violence: unknown) discussed (unknown) (no (unknown) (unknown) ARNOLDO Calculator (units (unknown) date) unknown) (unknown) (no (unknown) (unknown) EGA Weight BP (units ( unknown) date) UGlucose unknown) (unknown) (no (unknown) (unknown) Estimated (units (unkn own) date) Delivery Date unknown) Method Current (unknown) (no (unknown) (unknown) Family History (units (unknown) date) (Updated 04/28/22 unknown) @ 12:26 by Yadira Brown RN) (unknown) (no (unknown) (unknown) Father of Baby: (units (unknown) date) same unknown) (unknown) (no (unknown) (unknown) movement (units (unknown) date) monitoring: unknown) discussed (unknown) (no (unknown) (unknown) First Trimester (units (unknown) date) Education unknown) Checklist (unknown) (no (unknown) (unknown) GBS today (units (unkn own) date) unknown) (unknown) (no (unknown) (unknown) Genetic (units (unkno wn) date) Screening + unknown) Counseling (unknown) (no (unknown) (unknown) Genetic (units (unkno wn) date) Screening unknown) (unknown) (no (unknown) (unknown) Grandmother (units (un known) date) Hypertension unknown) (unknown) (no (unknown) (unknown) 3 (units (unkn own) date) Multiple births unknown) (unknown) (no (unknown) (unknown) Growth u/s (units (unk nown) date) ordered for size unknown) < dates (unknown) (no (unknown) (unknown) HIV risk (units (unkno wn) date) evaluation: low unknown) risk (unknown) (no (unknown) (unknown) Health Center (units ( unknown) date) Education unknown) (unknown) (no (unknown) (unknown) Health center (units ( unknown) date) information: unknown) nature of practice discussed, personnel (unknown) (no (unknown) (unknown) Hep B-: (units ( unknown) date) Yes unknown) (unknown) (no (unknown) (unknown) Hepatitis C risk (units (unknown) date) evaluation: low unknown) risk (unknown) (no (unknown) (unknown) History of (units (unk nown) date) Hepatitis B: No unknown) (unknown) (no (unknown) (unknown) History of (units (unk nown) date) Hepatitis C: No unknown) (unknown) (no (unknown) (unknown) Hospital[facility] (units (u nknown) date) unknown) (unknown) (no (unknown) (unknown) Chetna's (units (u nknown) date) Chorea, Denies unknown) Other inherited genetic or chromosomal disorder, (unknown) (no (unknown) (unknown) Hx # (units (u nknown) date) Pregnancies unknown) Elective abortions (unknown) (no (unknown) (unknown) Hx # Term (units (unkn own) date) Pregnancies 1 unknown) Ectopic pregnancies (unknown) (no (unknown) (unknown) Hx (units ( unknown) date) depression - on unknown) Zoloft which didn't help (unknown) (no (unknown) (unknown) Hypertension (units (u nknown) date) unknown) (unknown) (no (unknown) (unknown) IOL scheduled (units ( unknown) date) for 10/21/22. unknown) (unknown) (no (unknown) (unknown) feeding (units (unknown) date) plan: exclusive unknown) (unknown) (no (unknown) (unknown) Infant will be (units (unknown) date) adopted?: no unknown) (unknown) (no (unknown) (unknown) Infection (units (unkn own) date) History unknown) (unknown) (no (unknown) (unknown) Infectious (units (unk nown) date) Disease Education unknown) (unknown) (no (unknown) (unknown) Infectious (units (unk nown) date) disease exposure: unknown) chicken pox immunity discussed, hepatitis risk (unknown) (no (unknown) (unknown) Initial Weight: (units (unknown) date) 107 lb unknown) (unknown) (no (unknown) (unknown) Initials (units (unkno wn) date) unknown) (unknown) (no (unknown) (unknown) Intake Note: (units (u nknown) date) unknown) (unknown) (no (unknown) (unknown) Intake (units (unkno wn) date) unknown) (unknown) (no (unknown) (unknown) It's a boy! (units (un known) date) unknown) (unknown) (no (unknown) (unknown) NIGEL (units (unkno wn) date) unknown) (unknown) (no (unknown) (unknown) Bowen (units (unkno wn) date) unknown) (unknown) (no (unknown) (unknown) Live with (units (unkn own) date) someone with TB unknown) or exposed to TB: No (unknown) (no (unknown) (unknown) Loc: [facility] (units (unkno wn) date) unknown) (unknown) (no (unknown) (unknown) Marital status: (units (unknown) date) unknown) (unknown) (no (unknown) (unknown) Medical History (units (unknown) date) (Updated 04/28/22 unknown) @ 12:39 by Yadira Brown RN) (unknown) (no (unknown) (unknown) Medications (units (un known) date) unknown) (unknown) (no (unknown) (unknown) Mood currently (units (unknown) date) stable. Hx of unknown) depression, briefly on Zoloft but (unknown) (no (unknown) (unknown) Mother Migraine (units (unknown) date) unknown) (unknown) (no (unknown) (unknown) No Known (units (unkno wn) date) Allergies Allergy unknown) (Verified 09/23/22 10:24) (unknown) (no (unknown) (unknown) No no 158 absent (units (unknown) date) unknown) (unknown) (no (unknown) (unknown) Non-Stress Test (units (unknown) date) performed?: No unknown) (unknown) (no (unknown) (unknown) Normal exam. (units (u nknown) date) unknown) (unknown) (no (unknown) (unknown) Notes (units (unkno wn) date) unknown) (unknown) (no (unknown) (unknown) Now notices it (units (unknown) date) whenever she unknown) walks more than 5 minutes. No bulges, skin changes. (unknown) (no (unknown) (unknown) Number of Living (units (unknown) date) Children 1 unknown) (unknown) (no (unknown) (unknown) Number of (units (unkn own) date) fetuses:: Single unknown) (unknown) (no (unknown) (unknown) OB Office Visit (units (unknown) date) unknown) (unknown) (no (unknown) (unknown) OB Visit Log (units (u nknown) date) unknown) (unknown) (no (unknown) (unknown) Oxygen Delivery (units (unknown) date) Method room air unknown) (unknown) (no (unknown) (unknown) PFSH (units (unkno wn) date) unknown) (unknown) (no (unknown) (unknown) Pap performed?: (units (unknown) date) No unknown) (unknown) (no (unknown) (unknown) Para 1 (units (unkno wn) date) Spontaneous unknown) abortions 1 (unknown) (no (unknown) (unknown) Partner history (units (unknown) date) of STD: denies hx unknown) (unknown) (no (unknown) (unknown) Partner history (units (unknown) date) of genital unknown) herpes: No (unknown) (no (unknown) (unknown) Partner: David (units (unknown) date) [place] unknown) (unknown) (no (unknown) (unknown) Passed glucola. (units (unknown) date) Tdap today. unknown) (unknown) (no (unknown) (unknown) Past Pregnancies (units (unknown) date) unknown) (unknown) (no (unknown) (unknown) Patient's age 34 (units (unknown) date) years or older as unknown) of estimated date of delivery: No (unknown) (no (unknown) (unknown) Patient: (units (unkno wn) date) Aurea Abel unknown) MR#: [id number] (unknown) (no (unknown) (unknown) Skating Rink Manager: (units ( unknown) date) KENYA Emery unknown) (unknown) (no (unknown) (unknown) Personal history (units (unknown) date) of STD: denies hx unknown) (unknown) (no (unknown) (unknown) Personal history (units (unknown) date) of genital unknown) herpes: No (unknown) (no (unknown) (unknown) Plans for (units (unkn own) date) placenta: None unknown) (unknown) (no (unknown) (unknown) Position Sitting (units (unknown) date) unknown) (unknown) (no (unknown) (unknown) (units (unk nown) date) depression unknown) (unknown) (no (unknown) (unknown) (units (unkn own) date) History unknown) (unknown) (no (unknown) (unknown) type:: (units (unknown) date) Other Normal unknown) (unknown) (no (unknown) (unknown) (units (unkno wn) date) Education unknown) (unknown) (no (unknown) (unknown) Initial (units (unknown) date) Assessment unknown) (unknown) (no (unknown) (unknown) (units (unkno wn) date) Specific unknown) Issues/Plans (unknown) (no (unknown) (unknown) (units (unkno wn) date) Testing: unknown) discussed (unknown) (no (unknown) (unknown) Visit (units (unknown) date) unknown) (unknown) (no (unknown) (unknown) (units (unkno wn) date) classes: No unknown) (unknown) (no (unknown) (unknown) (units (unkno wn) date) education packet: unknown) symptoms, Vitamins and iron, Diet and (unknown) (no (unknown) (unknown) Primary Care (units (u nknown) date) Provider: KENYA Fagan unknown) Natural Steps (unknown) (no (unknown) (unknown) Primary Ob (units (unk nown) date) Provider: unknown) Flavia Pritchard (unknown) (no (unknown) (unknown) Prior (units (unkno wn) date) GBS-Infected unknown) child: No (unknown) (no (unknown) (unknown) Promethazine for (units (unknown) date) migraines made it unknown) worse. She is getting migraines now (unknown) (no (unknown) (unknown) Providers (units (unkn own) date) unknown) (unknown) (no (unknown) (unknown) Pt is 35 wks and (units (unknown) date) 2 days today. She unknown) is due for a GBS swab. (unknown) (no (unknown) (unknown) Pt is not (units (unkn own) date) currently unknown) employed. , [employer], in the [place], no upcoming (unknown) (no (unknown) (unknown) Pt with (units (unkno wn) date) localized pain on unknown) abdomen. First noticed at her anatomy scan. (unknown) (no (unknown) (unknown) Pt with more (units (u nknown) date) frequent unknown) migraines again, started again 3 days ago. Seems to (unknown) (no (unknown) (unknown) Pt with (units (unkno wn) date) primarily morning unknown) nausea and vomiting. Resolves by lunch time. (unknown) (no (unknown) (unknown) Pulse 108 H (units (un known) date) unknown) (unknown) (no (unknown) (unknown) Pulse Oximetry (units (unknown) date) (%) 99 unknown) (unknown) (no (unknown) (unknown) Pulse Source (units (u nknown) date) Monitor unknown) (unknown) (no (unknown) (unknown) Quad screen (units (un known) date) ordered unknown) (unknown) (no (unknown) (unknown) Rash or viral (units ( unknown) date) illness since unknown) last menstrual period: Yes ('flu' in early March) (unknown) (no (unknown) (unknown) Reason For Visit (units (unknown) date) unknown) (unknown) (no (unknown) (unknown) Recent travel (units ( unknown) date) outside of unknown) country?: No (unknown) (no (unknown) (unknown) Recurrent (units (unkn own) date) loss or unknown) a stillbirth: No (unknown) (no (unknown) (unknown) Reviewed labor (units (unknown) date) precautions. unknown) (unknown) (no (unknown) (unknown) Rhogam: No (units (unk nown) date) unknown) (unknown) (no (unknown) (unknown) SAB (spontaneous (units (unknown) date) ) unknown) (unknown) (no (unknown) (unknown) Safety (units (unkno wn) date) unknown) (unknown) (no (unknown) (unknown) Sauna/hot tub (units ( unknown) date) use, Dental care, unknown) Travel and Influenza vaccine (had flu and Covid (unknown) (no (unknown) (unknown) Second Trimester (units (unknown) date) Education unknown) Checklist (unknown) (no (unknown) (unknown) Selecting a (units (un known) date) care unknown) provider: discussed (unknown) (no (unknown) (unknown) Signed By: (units (unk nown) date) <Electronically unknown) signed by Flavia Pritchard MD> (unknown) (no (unknown) (unknown) Signed (units (unkno wn) date) unknown) (unknown) (no (unknown) (unknown) Signs + Symptoms (units (unknown) date) of labor: unknown) symptoms discussed, when and who to call and OB (unknown) (no (unknown) (unknown) Signs and (units (unkn own) date) symptoms of unknown) labor: discussed (unknown) (no (unknown) (unknown) Smoking Status: (units (unknown) date) Never smoker unknown) (unknown) (no (unknown) (unknown) Smoking (units (unkno wn) date) counseling: unknown) discussed (unknown) (no (unknown) (unknown) Social History (units (unknown) date) unknown) (unknown) (no (unknown) (unknown) Support (units (unkno wn) date) Person(s):: David unknown) (unknown) (no (unknown) (unknown) Surrogate (units (unkn own) date) ?: no unknown) (unknown) (no (unknown) (unknown) Symptoms since (units (unknown) date) LMP: Reports unknown) amenorrhea, nausea, vomiting, fatigue, breast (unknown) (no (unknown) (unknown) Teratogen (units (unkn own) date) Exposures since unknown) LMP/Conception: Denies prescription medications, (unknown) (no (unknown) (unknown) Testing (units (unkno wn) date) Education unknown) (unknown) (no (unknown) (unknown) Testing (units (unkno wn) date) education unknown) completed: group B strep and Spina bifida testing (unknown) (no (unknown) (unknown) The pt has not (units (unknown) date) been sleeping unknown) well. She is only sleeping up to an hour at (unknown) (no (unknown) (unknown) The pt notices (units (unknown) date) that her entire unknown) body has been more sore recently. Tylenol (unknown) (no (unknown) (unknown) Third Trimester (units (unknown) date) Education unknown) Checklist (unknown) (no (unknown) (unknown) This note may (units ( unknown) date) have been all or unknown) partially generated using voice recognition (unknown) (no (unknown) (unknown) Tobacco + (units (unkn own) date) Substance Use unknown) (unknown) (no (unknown) (unknown) Tobacco Status (units (unknown) date) unknown) (unknown) (no (unknown) (unknown) Trimester:: 3rd (units (unknown) date) Trimester unknown) (28wks-Del) (unknown) (no (unknown) (unknown) Type(s) of (units (unk nown) date) exercise: walking unknown) (unknown) (no (unknown) (unknown) UProtein Movement (units (unknown) date) PreLabor FHR Fndl unknown) Ht Pres Edema Cerv Exam US/Comment Next Appt (unknown) (no (unknown) (unknown) Ultrasound (units (unk nown) date) performed?: No unknown) (unknown) (no (unknown) (unknown) Varicella/chicke (units (unknown) date) n pox status: unknown) immunized (unknown) (no (unknown) (unknown) Visit Date: (units (un known) date) 05/03/22 Last unknown) Updated by: Flavia Pritchard MD (unknown) (no (unknown) (unknown) Visit Date: (units (un known) date) 06/14/22 Last unknown) Updated by: Flavia Pritchard MD (unknown) (no (unknown) (unknown) Visit Date: (units (un known) date) 07/11/22 Last unknown) Updated by: Flavia Pritchard MD (unknown) (no (unknown) (unknown) Visit Date: (units (un known) date) 08/08/22 Last unknown) Updated by: Flavia Pritchard MD (unknown) (no (unknown) (unknown) Visit Date: (units (un known) date) 08/23/22 Last unknown) Updated by: Flavia Pritchard MD (unknown) (no (unknown) (unknown) Visit Date: (units (un known) date) 09/07/22 Last unknown) Updated by: Flavia Pritchard MD (unknown) (no (unknown) (unknown) Visit Date: (units (un known) date) 09/23/22 Last unknown) Updated by: Flavia Pritchard MD (unknown) (no (unknown) (unknown) Visit Reasons: (units (unknown) date) 35 Wk OB unknown) (unknown) (no (unknown) (unknown) Vitals (units (unkno wn) date) unknown) (unknown) (no (unknown) (unknown) Vitamin (units (unkno wn) date) K-: Yes unknown) (unknown) (no (unknown) (unknown) WG (units (unkno wn) date) unknown) (unknown) (no (unknown) (unknown) W[facility] 7 months (units (u nknown) date) none unknown) (unknown) (no (unknown) (unknown) Weeks (units (unkno wn) date) gestation:: 35 unknown) (unknown) (no (unknown) (unknown) Weight 134 lb (units ( unknown) date) unknown) (unknown) (no (unknown) (unknown) Yes no 142 28 (units ( unknown) date) absent tdap today unknown) 2wks (unknown) (no (unknown) (unknown) Yes no 145 32 (units ( unknown) date) absent 2wks unknown) (unknown) (no (unknown) (unknown) Yes no 148 23 (units ( unknown) date) absent glucola unknown) ordered 4 (unknown) (no (unknown) (unknown) Yes no 155 32 (units ( unknown) date) absent GBS today unknown) 1wk (unknown) (no (unknown) (unknown) Yes no 157 21 (units ( unknown) date) absent quad today unknown) 4wks (unknown) (no (unknown) (unknown) Yes no 158 30 (units ( unknown) date) absent 2wks unknown) (unknown) (no (unknown) (unknown) Zika virus (units (unk nown) date) exposure: No unknown) (unknown) (no (unknown) (unknown) a time. She has (units (unknown) date) not tried unknown) anything yet. Discussed melatonin. (unknown) (no (unknown) (unknown) additional (units (unk nown) date) treatment for unknown) now. (unknown) (no (unknown) (unknown) alcohol intake: (units (unknown) date) former unknown) (unknown) (no (unknown) (unknown) anyone in either (units (unknown) date) family with: unknown) (unknown) (no (unknown) (unknown) baby's father (units ( unknown) date) had a child with unknown) defects not listed above and Denies Other (unknown) (no (unknown) (unknown) be worse in the (units (unknown) date) afternoon. She unknown) has tried sleep, caffeine, shower and nothing (unknown) (no (unknown) (unknown) caffeine: No (units (u nknown) date) unknown) (unknown) (no (unknown) (unknown) carbon monox (units (u nknown) date) detector in home: unknown) Yes (unknown) (no (unknown) (unknown) coverage (units (unkno wn) date) unknown) (unknown) (no (unknown) (unknown) current (units (unkno wn) date) occupational unknown) exposures/hazards : No (unknown) (no (unknown) (unknown) daily servings (units (unknown) date) fruits/ve-1 unknown) (unknown) (no (unknown) (unknown) deployments. (units (u nknown) date) unknown) (unknown) (no (unknown) (unknown) described, visit (units (unknown) date) schedule unknown) reviewed, ultrasounds policy reviewed, coverage 24 (unknown) (no (unknown) (unknown) did not feel it (units (unknown) date) was helpful. unknown) (unknown) (no (unknown) (unknown) discussed, (units (unk nown) date) tuberculosis unknown) exposure discussed, CMV discussed, Toxoplasmosis (unknown) (no (unknown) (unknown) disorders, (units (unk nown) date) Denies Cystic unknown) Fibrosis, Denies Mental Retardation/Autis m, Denies (unknown) (no (unknown) (unknown) do you feel safe (units (unknown) date) at home: Yes unknown) (unknown) (no (unknown) (unknown) does help. (units (unk nown) date) Discussed unknown) Tylenol, stretching, heat. (unknown) (no (unknown) (unknown) double electric (units (unknown) date) breast pump and unknown) supplies #1 ea 08/23/22 [Rx Confirmed 09/23/22] (unknown) (no (unknown) (unknown) duration: 15-30 (units (unknown) date) minutes/day unknown) (unknown) (no (unknown) (unknown) during the past (units (unknown) date) year weight has: unknown) other (fluctuated) (unknown) (no (unknown) (unknown) education level: (units (unknown) date) high school unknown) (unknown) (no (unknown) (unknown) every afternoon. (units (unknown) date) She drinks a soda unknown) and falls asleep and they go away. Declines (unknown) (no (unknown) (unknown) fire (units (unkno wn) date) extinguisher in unknown) home: Yes (unknown) (no (unknown) (unknown) firearms in (units (un known) date) home: No unknown) (unknown) (no (unknown) (unknown) frequency: 3-4 (units (unknown) date) times per week unknown) (unknown) (no (unknown) (unknown) have occurred. (units (unknown) date) If there are any unknown) questions, please contact the Medical Records (unknown) (no (unknown) (unknown) hospital. (units (unkn own) date) unknown) (unknown) (no (unknown) (unknown) hours a day and (units (unknown) date) participation of unknown) father in care and office visits (unknown) (no (unknown) (unknown) household (units (unkn own) date) members: spouse unknown) and children (unknown) (no (unknown) (unknown) housing: house (units (unknown) date) unknown) (unknown) (no (unknown) (unknown) lives (units (unkno wn) date) independently: unknown) Yes (unknown) (no (unknown) (unknown) marital status: (units (unknown) date) unknown) (unknown) (no (unknown) (unknown) may occur. (units (unk nown) date) Occasional unknown) wrong-word or 'sound-alike' substitutions may have (unknown) (no (unknown) (unknown) number of (units (unkn own) date) children: 1 unknown) (unknown) (no (unknown) (unknown) occupational (units (u nknown) date) status: unknown) unemployed (unknown) (no (unknown) (unknown) occurred due to (units (unknown) date) the inherent unknown) limitations of voice recognition software. Please (unknown) (no (unknown) (unknown) pets and (units (unkno wn) date) animals: Yes (1 unknown) dog) (unknown) (no (unknown) (unknown) precautions, (units (u nknown) date) Listeriosis unknown) prevention and Rubella Immunization (unknown) (no (unknown) (unknown) prenat.vits,alberto, (units (unknown) date) [id number] 1 unknown) tab PO DAILY 04/28/22 [History Confirmed (unknown) (no (unknown) (unknown) read the note (units ( unknown) date) carefully and unknown) recognize, using context, where these substitutions (unknown) (no (unknown) (unknown) seatbelt use: (units ( unknown) date) always unknown) (unknown) (no (unknown) (unknown) second hand (units (un known) date) exposure: No unknown) (unknown) (no (unknown) (unknown) seems to help. - (units (unknown) date) Trial Reglan unknown) (unknown) (no (unknown) (unknown) software. (units (unkn own) date) Although every unknown) effort is made to edit content, electric sign wirer errors (unknown) (no (unknown) (unknown) special juan (units ( unknown) date) needs: No unknown) (unknown) (no (unknown) (unknown) substance use (units ( unknown) date) type: does not unknown) use (unknown) (no (unknown) (unknown) tenderness, (units (un known) date) urinary unknown) frequency, irritability and bloating (unknown) (no (unknown) (unknown) water heater (units (u nknown) date) temp set < 120 unknown) deg: Yes (unknown) (no (unknown) (unknown) weight gain, (units (u nknown) date) Fish and mercury unknown) intake, Caffeine use, Exercise and activity, (unknown) (no (unknown) (unknown) well-balanced (units ( unknown) date) diet: rarely or unknown) never (unknown) (no (unknown) (unknown) wks (units (unkno wn) date) unknown) (unknown) (no (unknown) (unknown) work/environment (units (unknown) date) al/hazards, unknown) Sexual activity, X-ray exposure, Medication use, (unknown) (no (unknown) (unknown) working smoke (units ( unknown) date) detector in home: unknown) Yes (unknown) (no (unknown) (unknown) x3) (units (unkno wn) date) unknown) Result panel 54 (unknown) (no date) (unknown) (unknown) NEG for (units (unkn own) Grp B Strep unknown) (unknown) (no date) (unknown) (unknown) NEG for (units (unkn own) Grp B Strep unknown) Social History date description facility 2022-08-23 00:00 Never smoked tobacco (finding) [facility] 2022-09-07 00:00 Never smoked tobacco (finding) [facility] 2022-09-23 00:00 Never smoked tobacco (finding) [facility] Vital Signs date measurement value units 2022-08-08 00:00 BP_diastolic 60 mmHg 2022-08-08 00:00 BP_systolic 98 mmHg 2022-08-08 00:00 heart_rate 110 /min 2022-08-08 00:00 o2_saturation 99 % 2022-08-08 00:00 weight_metric 56.24 kg 2022-08-08 00:00 weight_standard 123.99 lb 2022-08-23 00:00 BP_diastolic 60 mmHg 2022-08-23 00:00 BP_systolic 110 mmHg 2022-08-23 00:00 heart_rate 117 /min 2022-08-23 00:00 o2_saturation 99 % 2022-08-23 00:00 weight_metric 58.51 kg 2022-08-23 00:00 weight_standard 128.99 lb 2022-09-07 00:00 BP_diastolic 56 mmHg 2022-09-07 00:00 BP_systolic 92 mmHg 2022-09-07 00:00 heart_rate 110 /min 2022-09-07 00:00 o2_saturation 99 % 2022-09-07 00:00 weight_metric 59.87 kg 2022-09-07 00:00 weight_standard 131.99 lb 2022-09-23 00:00 BP_diastolic 60 mmHg 2022-09-23 00:00 BP_systolic 90 mmHg 2022-09-23 00:00 heart_rate 108 /min 2022-09-23 00:00 o2_saturation 99 % 2022-09-23 00:00 weight_metric 60.78 kg 2022-09-23 00:00 weight_standard 134 lb
[2022-10-20] MEDS: LACTATED RINGERS 1,000 ML IV SCH ×2 (08:53→14:56)
[2022-10-20] MEDS ORDERED: SODIUM CHLORIDE FLUSH 0.9% 10 ML SYRINGE IVP SCH (09:00)
[2022-10-20] MEDS ORDERED: LACTATED RINGERS 1,000 ML IV SCH ×2 (09:00→17:00)
[2022-10-20] MEDS ORDERED: OXYTOCIN/SODIUM CHLORIDE 500 ML IV SCH (09:00)
[2022-10-20 09:14] LABS: BASOPHILS % (AUTO) 0.4 %; EOSINOPHILS # (AUTO) 0.1 10^3/uL (0.0-0.7); HGB - HEMOGLOBIN 10.4 g/dL (12.0-16.0); LYMPHOCYTES # (AUTO) 2.2 10^3/uL (1.5-3.5); LYMPHOCYTES % (AUTO) 21.8 %; MEAN CORPUSCULAR HEMOGLOBIN 28.1 pg (27.0-31.0); MEAN CORPUSCULAR HGB CONC 32.5 g/dL (32.0-36.0); MEAN CORPUSCULAR VOLUME 86.5 fL (81.0-99.0); MEAN PLATELET VOLUME 10.9 fL (7.9-10.8); NEUTROPHILS # (AUTO) 6.5 10^3/uL (1.5-6.6); NEUTROPHILS % (AUTO) 65.9 %; PLT - PLATELET COUNT 238 10^3/uL (130-450); RED CELL DISTRIBUTION WIDTH 15.8 % (12.0-15.0); WHITE BLOOD COUNT 9.9 x10^3/uL (4.8-10.8)
--- NOTE | 2022-10-20 13:38 | PROVIDER PROGRESS NOTE ---
Labor Progress Note - Uterine Monitoring Contraction Frequency (min/apart): 2 Contraction Intensity: positive: Mild to moderate Uterine Resting Tone: positive: Soft - Monitoring Monitor Mode: positive: External ultrasound Heart Rate Baseline: 150 Heart Rate Variability: positive: Moderate (6-25 bmp) Accelerations: positive: Present, 15x15 Decelerations: positive: None Strip Review: positive: Category I - Vaginal Exam Dilation (in cm): 4 Effacement (%): 100 Station: -2 Cervical Position: Midposition (AROM 1230, clear) - Labor Progress Note Labor Progress Note/Additional Text: 21yo admitted for elective IOL - Continue Pitocin - AROM 1230, clear - Anticipate
[2022-10-20] MEDS ORDERED: ROPIVACAINE 0.2% 200 MG/100 ML BAG EP ONE (14:26)
[2022-10-20] MEDS ORDERED: LIDOCAINE 1% 2 ML VIAL ONE (14:43)
[2022-10-20] MEDS ORDERED: ONDANSETRON 4 MG/2 ML VIAL ONE (14:49)
[2022-10-20] MEDS ORDERED: diphenhydrAMINE INJ 50 MG/ML VIAL IVP PRN (14:56)
[2022-10-20] MEDS ORDERED: NALOXONE 0.4 MG/ML VIAL IVP PRN (14:56)
[2022-10-20] MEDS ORDERED: ePHEDrine 50 MG/ML VIAL IVP PRN (14:56)
[2022-10-20] MEDS ORDERED: ONDANSETRON 4 MG/2 ML VIAL IVP PRN (14:56)
[2022-10-20] MEDS ORDERED: ROPIVACAINE 0.2% 200 MG/100 ML BAG EP PRN ×2 (14:56→15:54)
[2022-10-20] MEDS ORDERED: METOCLOPRAMIDE 10 MG/2 ML VIAL IVP PRN (14:56)
[2022-10-20] MEDS ORDERED: NALBUPHINE 10 MG/ML AMP IVP PRN (14:56)
--- NOTE | 2022-10-20 14:56 | ANESTHESIA ---
Pre-Anesthesia VS, & Labs - Diagnosis active labor - Procedure epidural Vital Signs: Temp Pulse Resp BP Pulse Ox O2 Flow Rate 36.7 C 10/20/22 07:51 Height: 5 ft 1 in Weight (kg): 62.596 kg Body Mass Index: 26.0 BMI Classification: Overweight - NPO Other (ate lunch at noon) - Is Patient ?: Yes - Lab Results Current Lab Results: Laboratory Tests 10/20/22 07:55: WBC 9.9, RBC 3.70 L, Hgb 10.4 L, Hct 32.0 L, MCV 86.5, MCH 28.1, MCHC 32.5, RDW 15.8 H, Plt Count 238, MPV 10.9 H, Neut # (Auto) 6.5, Lymph # (Auto) 2.2, [place] # (Auto) 1.0, Eos # (Auto) 0.1, Baso # (Auto) 0.0, Absolute Nucleated RBC 0.00, Nucleated RBC % 0.0 10/20/22 07:55: Blood Type O POSITIVE, Antibody Screen NEGATIVE Fish Bones: 10/20/22 07:55 Home Medications and Allergies Active Medications Carboprost Tromethamine (Carboprost Tromethamine 250 Mcg/Ml Amp) 250 mcg IM .ONCE PRN PRN Reason: Hemorrhage Fentanyl (Fentanyl 100 Mcg/2 Ml Vial) 50 mcg IVP Q1H PRN PRN Reason: Severe Pain (score 7-10) Oxytocin/Sodium Chloride (Pitocin/Sodium Chloride) 500 mls @ 999 mls/hr IV PRN PRN; Protocol PRN Reason: POST- HEMORR PREVENTION Tranexamic Acid (Tranexamic 1,000 Mg/100ml-Nacl) 1,000 mg in 100 mls @ 600 mls/hr IV Q30M PRN PRN Reason: EBL >1200mL and within 3hr Oxytocin/Sodium Chloride (Pitocin/Sodium Chloride) 500 mls @ 1 mls/hr IV TITR KEVON; Protocol Last Admin: 10/20/22 08:54 Dose: 2 milliunit/min, 2 mls/hr Lactated Ringer's (Lr) 1,000 mls @ 125 mls/hr IV .Q8H KEVON Last Admin: 10/20/22 08:53 Dose: 125 mls/hr Lactated Ringer's (Lr) 1,000 mls @ 1,000 mls/hr IV .Q1H KEVON Lidocaine HCl (Lidocaine 1% 20 Ml Mdv) 20 ml ID .ONCE PRN PRN Reason: PERINEAL REPAIR Stop: 10/23/22 08:22 Methylergonovine Maleate (Methylergonovine 0.2 Mg/Ml Vial) 0.2 mg IM .ONCE PRN PRN Reason: Hemorrhage Misoprostol (Misoprostol 200 Mcg Tablet) 600 mcg BC .ONCE PRN PRN Reason: Hemorrhage Misoprostol (Misoprostol 200 Mcg Tablet) 800 mcg DE .ONCE PRN PRN Reason: Hemorrhage Oxytocin (Oxytocin 10 Unit/Ml Vial) 10 unit IM .ONCE PRN PRN Reason: Step One if no IV access. Sodium Chloride (Sodium Chloride Flush 0.9% 10 Ml Syringe) 10 ml IVP PRN PRN PRN Reason: NEEDED PER PROVIDER ORDERS Sodium Chloride (Sodium Chloride Flush 0.9% 10 Ml Syringe) 10 ml IVP Q8H [facility] Allergies/Adverse Reactions: Allergies Allergy/AdvReac Type Severity Reaction Status Date / Time No Known Drug Allergies Allergy Verified 05/16/20 12:42 Anes History & Medical History - Anesthetic History Anesthesia Complications: reports: No previous complications - Medical History Cardiovascular: reports: None Pulmonary: reports: None Gastrointestinal: reports: None Urinary: reports: None Neuro: reports: None Musculoskeletal: reports: None Endocrine/Autoimmune: reports: None Blood Disorders: reports: None Skin: reports: None Smoking Status: Never smoker History of Cancer?: No - Obstetrical History : 3 Parity: 1 Events: reports: None (Second degree laceration last delivery, PPD) Complications: reports: None Exam General: Alert, Oriented x3 Dental: WNL Mouth Opening: Greater than 4 Fingerbreadths Neck Mobility: Normal Mallampati classification: II Respiratory: Lungs clear Cardiovascular: Regular rate Plan Anesthesia Type: Epidural Consent for Procedure(s) Verified and Reviewed: Yes Code Status: Attempt Resuscitation ASA classification: 2-Mild systemic disease Is this case an emergency?: No
[2022-10-20] MEDS ORDERED: ePHEDrine 50 MG/ML VIAL IVP ONE (14:57)
[2022-10-20] MEDS ORDERED: VARICELLA VACCINE LIVE/PF 1,350 UNIT/0.5 ML VIAL SUBQ ONE (17:00)
[2022-10-20] MEDS ORDERED: HYDROCORTISONE 1% CREAM 28 GM TUBE PR PRN (17:00)
--- NOTE | 2022-10-20 17:08 | DELIVERY NOTE ---
Delivery Note - Labor Labor: positive: Induced by oxytocin - Presentation Presentation: positive: Vertex - Nuchal Cord Nuchal Cord: positive: Present (x1, reduced after head delivery) - Anesthetic Anesthetic Type: - Amniotic Fluid Description Amniotic Fluid Description: positive: Clear - Laceration Laceration: positive: 1st degree (Not requiring repair) - Delivery Outcome Delivery Outcome: positive: Livebirth - [place] : positive: Placed in direct skin contact with mother, Stimulated, Warmed, [place] used sex: positive: Male - Cord Cord: positive: 3 vessels - Placenta Placenta: positive: Spontaneous - Estimated Blood Loss Estimated Blood Loss (in cc): 200 - Delivery Comments (Free Text/Narrative) Delivery Comments (Free Text/Narrative): /+2 and patient desiring to push. Pushing started followed by delivery 8 minutes later at 1644. Head delivered. Nuchal cord x1, reduced after delivery of head. Body delivered with ease. Baby placed on mother's abdomen. Delayed cord clamping. Placenta delivered spontaneously and intact, 3vc. Fundus firm. Vagina and perineum inspected- first degree perineal laceration not requiring repair, not bleeding. Family bonding at bedside. Apgars 8/9.
[2022-10-20] MEDS: ACETAMINOPHEN 500 MG TABLET PO SCH (17:45)
[2022-10-20] MEDS: IBUPROFEN 800 MG TABLET PO SCH ×2 (17:45→23:33)
[2022-10-20] MEDS: DOCUSATE SODIUM 100 MG CAPSULE PO SCH (21:11)
[2022-10-21] MEDS: ACETAMINOPHEN 500 MG TABLET PO SCH ×2 (01:51→10:11)
[2022-10-21] MEDS: IBUPROFEN 800 MG TABLET PO SCH ×3 (05:27→18:14)
[2022-10-21] MEDS: DOCUSATE SODIUM 100 MG CAPSULE PO SCH (09:00)
--- NOTE | 2022-10-21 10:33 | PROVIDER PROGRESS NOTE ---
Subjective - Prog Note Date Prog Note Date: 10/21/22 Prog Note Time: 10:30 - Subjective Subjective: Patient is doing well this morning. Ambulating, tolerating regular diet, spontaneously voiding. Lochia is less than menses. Objective - Vital Signs/Intake & Output Reviewed Vital Signs: Yes Vital Signs: Vital Signs x48h Temp Pulse Resp BP Pulse Ox 10/21/22 07:39 98.2 F 79 18 114/67 100 10/21/22 04:19 98.2 F 93 18 108/55 L 100 Intake & Output: Intake & Output 10/18/22 10/19/22 10/20/22 10/21/22 23:59 23:59 23:59 23:59 Intake Total 2546 Output Total 650 325 Balance 1896 -325 - Objective General Appearance: positive: No acute distress, Alert Eyes Bilateral: positive: PERRL Respiratory: positive: Breath sounds nml Cardiovascular: positive: Regular rate & rhythm Abdomen: positive: Non-tender (firm fundus below umbilicus) Skin: positive: Color nml Extremities: positive: Non-tender (no peripheral edema) Neurologic/Psychiatric: positive: Oriented x3 - Lab Results Fish Bones: 10/20/22 07:55 Other Labs: Lab Results x24hrs 10/20/22 Range/Units 07:55 Blood Type O POSITIVE Antibody Screen NEGATIVE Assessment/Plan - Problem List (1) Vaginal delivery Impression: PPD#1: patient doing well, uncomplicated course, patient wants to go home today. History of depression: patient states is doing okay, counseled to call or come in if needed
--- NOTE | 2022-10-21 10:35 | DISCHARGE SUMMARY ---
Discharge Summary Admit Date: 10/20/22 Discharge Date: 10/21/22 Discharging Provider: Dr. Lucio Primary Care Provider: Dr. Christy Code Status: Attempt Resuscitation Condition at Discharge: Good Discharge Disposition: Home, Self Care - DIAGNOSES Admission Diagnoses: Labor Discharge Diagnoses with Status of Each Condition: Vaginal Delivery - HPI History of Present Illness: 21yo at 39.1w by LMP consistent with 12w US presenting for scheduled IOL. - HOSPITAL COURSE Hospital Course: Patient has an uncomplicated normal spontaneous vaginal delivery. She had an uncomplicated course and was discharged to home on PPD#1. Patient was counseled on signs and symptoms of depression - ALLERGIES Allergies/Adverse Reactions: Allergies Allergy/AdvReac Type Severity Reaction Status Date / Time No Known Drug Allergies Allergy Verified 05/16/20 12:42 - MEDICATIONS Home Medications: Ambulatory Orders Medication Instructions Recorded Confirmed Ondansetron Odt [Zofran] 4 mg TL Q6H PRN #10 tablet 06/10/21 - PHYSICAL EXAM AT DISCHARGE General Appearance: positive: No acute distress Eyes Bilateral: positive: Normal inspection Respiratory: positive: Breath sounds nml Cardiovascular: positive: Regular rate & rhythm Abdomen: positive: Non-tender (firm fundus below the umbilicus) Skin: positive: Color nml Extremities: positive: Non-tender, No pedal edema - LABS Result Diagrams: 10/20/22 07:55 - FOLLOW UP Follow Up: Follow up with Dr. Christy for appointment in 6 weeks
--- NOTE | 2022-10-21 11:37 | Discharge Plan ---
Discharge Plan Problem Reviewed?: Yes Disposition: Home, Self Care Condition: Good Diet: Regular Activity Restrictions: (Nothing in the vagina until cleared by Dr. Christy) No Smoking: If you smoke, Please STOP! Call for help. Follow-up with: Arleen Christy DO [Provider Admit Priv/Credential] -
[2022-10-21 16:49] VITALS: BP 103/57
[2022-10-21] MEDS ORDERED: HYDROcod/ACETAM 5/325 MG TABLET PO ONE (17:00)
--- NOTE | 2022-10-21 18:23 | Labor Flowsheet ---
Labor Flowsheet Datetime Report Generated by CPN: 10/21/2022 18:23 Datetime: 10/21/2022 16:44 VITAL SIGNS NBP Sys/Shelby/Mean (mmHg): 103 : 57 : 67 Pulse: 87 SpO2 (%): 100 Datetime: 10/20/2022 23:39 Respirations: 18 Temperature (C): 36.8 Temperature Route: Oral Datetime: 10/20/2022 18:50 Stage of : Datetime: 10/20/2022 16:50 MEDICATIONS Pitocin (milliunits): Increased to @ 333 Medication Comments: post- pitocin Datetime: 10/20/2022 16:49 LaborFlag: Labor Datetime: 10/20/2022 16:40 FHR Baseline Rate : 155 Comments: RN and MD continuously at bedside Datetime: 10/20/2022 16:36 STAGE 2 Pushing: Coached on Pushing; Urge to Push Pushing Position: Pushing with Contractions; Pushing Lithotomy Pushing Progress: Descent with Pushing Datetime: 10/20/2022 16:35 Decelerations: Variable Category: Category II Datetime: 10/20/2022 16:34 I/O Interventions: Ortiz Discontinued Datetime: 10/20/2022 16:30 UTERINE ACTIVITY Monitor Mode: Palpation Monitor Interventions for UA: [place] Adjusted Frequency (min): q2 Quality: Strong Duration (sec): 50 Pattern: Normal: <= 5 Contractions in 10 Minutes Resting Tone (Palpate): Relaxed Pitocin Checklist: At Least 1 Acceleration of 15 bpm x 15 Seconds in 30 Minutes or Adequate Variabi lity; No More than 1 Late Deceleration Occurred in Past 30 Minutes; No More than 2 Variable Decelerat ions > 60 Seconds in Duration and decreasing >60 bpm in 30 minutes; No More than 5 Uterine Contractio ns in 10 Minutes for any 20 Minute Interval; Uterus Palpates Soft between Contractions ASSESSMENT A Monitor Mode: Telemetry Variability: Moderate 6-25 bpm Accelerations: 15X15 Actions for Decelerations: Sterile Vaginal Exam Datetime: 10/20/2022 16:06 COMMUNICATION Communication: Provider at Bedside Provider Notified (Name): Dr. Christy at bedside Datetime: 10/20/2022 15:54 VAGINAL EXAM Dilatation (cm): 9.0 Effacement (%): 100 Station: 1 Exam by: Jaydon RN, confirmed by Jay RN Vaginal Bleeding: Normal Show Cervix, Consistency: Soft Cervix, Position: Anterior Datetime: 10/20/2022 15:00 Contraction Comments: Indeterminate tracing during epidural placement Datetime: 10/20/2022 14:57 Anesthesia Interventions Other: Ephedrine Anesthesia Comments: 10mg admin by Miles Espinoza [employer]UDENT SERVICES REP Datetime: 10/20/2022 14:55 Vital Sign Comments: Miles Espinoza STUDENT SERVICES REP @ bedside, and aware of hypotension Datetime: 10/20/2022 14:53 Antiemetics/Antacids: Zofran (mg) @ 4 Datetime: 10/20/2022 14:52 Epidural Procedure Other: Pump Started Datetime: 10/20/2022 14:48 Epidural Procedure: Loading Dose Datetime: 10/20/2022 14:30 Monitor Interventions for FHR: Ultrasound Adjusted PATIENT CARE IV/Blood Work: IV Infusing per Order; New IV Bag Hung; IV Bag Number @ Datetime: 10/20/2022 14:28 PROCEDURE TIME OUT Procedure Verify: Correct Patient Identity; Accurate Procedure Consent Form; Agreement on Procedure to be Done; Correct Patient Position ANESTHESIA Anesthesia Plans: Epidural Epidural Positioning: Sitting Datetime: 10/20/2022 14:23 Patient Care Comments: bolus complete Datetime: 10/20/2022 13:52 Patient Position/Activity: Walking Datetime: 10/20/2022 13:46 Pain Coping: Breathing Through Contractions; Requesting Pain Medication or Epidural Pain Assessment Comments: [facility] STUDENT SERVICES REP contacted for patient epidural request Comfort Measures: Breathing/Relaxation; Coaching; Family Support; Anesthesia Notified Datetime: 10/20/2022 13:43 Vaginal Exam Comments: Patient reported sensation of needing to have a BM Datetime: 10/20/2022 13:20 PAIN Pain Scale: 3 Pain Presence: Intermittent Pain Type: Contraction Pain Location: Abdomen Pain Goal: 5 Pain Relief Measures: Comfort Measures Datetime: 10/20/2022 12:46 Membranes Ruptured Date/Time: 10/20/2022 12:35 Datetime: 10/20/2022 12:35 Membrane Status: Ruptured Membranes Rupture Method: Artificial Amniotic Fluid Color: Clear Amniotic Fluid Amount: Moderate Amniotic Fluid Odor: None Datetime: 10/20/2022 12:25 Communication Comments: Dr. Christy reports she will be over from the office shortly to perform SV E and determine readiness for AROM Datetime: 10/20/2022 09:00 FHR Baseline Changes: Return to Previous Baseline
== END 2022-10-21 18:21 | disposition home or self-care (01) | DRG 807 ==
LOC: WFO 07:29 → FBP 07:32 → WFO 08:21 → FBP 08:22
PROVIDERS: ADMIT Obstetrics & Gynecology; ATTEND Obstetrics & Gynecology Obstetrics
PROC: 10E0XZZ Delivery of Products of Conception, External Approach (ICD-10-PCS; principal; 2022-10-20)
PROC: 3E033VJ Introduction of Other Hormone into Peripheral Vein, Percutaneous Approach (ICD-10-PCS; 2022-10-20)
PROC: 10907ZC Drainage of Amniotic Fluid, Therapeutic from Products of Conception, Via Natural or Artificial Opening (ICD-10-PCS; 2022-10-20)
DX: O70.0 First degree perineal laceration during delivery (principal); Z37.0 Single live birth; O69.81X0 Labor and delivery complicated by cord around neck, without compression, not applicable or unspecified; Z3A.39 39 weeks gestation of pregnancy
CPT/HCPCS: 85025; 86850; 86900; 86901; A9270; J7120